=== PATIENT | female | born 1990 | race Caucasian/White ===

== ENCOUNTER 2021-12-25 08:30 | Outpatient (CLI) | payer OTHER, SELFPAY ==
[2021-12-25 09:16] LABS: Basophils Absolute Auto 0.1 K/mm3 (0.0-0.1); Basophils Percent Auto 0.7 % (0.2-1.2); Eosinophils Absolute Auto 0.7 K/mm3 (0-0.3); Eosinophils Percent Auto 10.4 % (0-4.4); Hematocrit 39.2 % (37.0-47.0); Hemoglobin 13.3 g/dL (12.0-15.0); Immature Granulocyte Absolute 0.02 K/mm3 (0.00-0.031); Immature Granulocyte Percent A 0.3 % (0-0.5); Lymphocytes Absolute Auto 2.09 K/mm3 (0.9-3.2); Lymphocytes Percent Auto 30.9 % (18.3-44.2); Mean Corpuscular HGB Conc 33.9 g/dl (32-36); Mean Corpuscular Hemoglobin 32.4 pg (26-34); Mean Corpuscular Volume 95.6 fl (80-100); Mean Platelet Volume 9.1 fl (7.4-10.4); Monocytes Absolute Auto 0.5 K/mm3 (0.1-0.6); Monocytes Percent Auto 7.5 % (2.6-8.5); Neutrophils Absolute Auto 3.4 K/mm3 (1.3-6.7); Neutrophils Percent Auto 50.2 % (45.5-73.1); Platelet Count Result 339 k/mm3 (150-375); Red Cell Distribution Width 11.9 % (11.5-14.5); White Blood Count 6.8 K/mm3 (4.5-10.0)
[2021-12-25 09:22] LABS: Alanine Aminotransferase 26 U/L (4-35); Albumin Level 4.7 g/dL (3.5-5.1); Alkaline Phosphatase 59 U/L (38-126); Anion Gap 7 mmol/L (8-16); Aspartate Amino Transferase 31 U/L (14-36); Bilirubin,Total 0.8 mg/dL (0.2-1.3); Blood Urea Nitrogen 14 mg/dL (7-17); Calcium 9.1 mg/dL (8.4-10.2); Carbon Dioxide 27 mmol/L (22-30); Chloride 104 mmol/L (98-107); Cholesterol 183 mg/dL (0-200); Estimated Glomerular Filt Rate > 60; Glucose 108 mg/dL (65-110); HDL Direct 67 mg/dL; Potassium 4.2 mmol/L (3.4-5.0); Sodium 138 mmol/L (137-145); Triglycerides 61 mg/dL (<150)
[2021-12-25 09:31] LABS: LDL Cholesterol Direct 81 mg/dL
[2021-12-25 09:32] LABS: Add Urine Microscopic? YES; Appearance Urine Cloudy (Clear); Bacteria Urine Trace /hpf; Bilirubin Urine Negative (Negative); Blood Urine 1+ (Negative); Color Urine Yellow (Yellow); Glucose Urine UA Negative (Negative); Ketones Urine Negative (Negative); Leukocyte Esterase Ur Negative LEU/UL (Negative); Mucus Urine Rare /lpf; Nitrate Urine Negative (Negative); Protein Urine Negative (Negative); RBC Urine 0-2 /hpf (0-2); Specific Grav Ur 1.023 (1.001-1.035); Squamous Epithelial Cell Urine Rare /hpf (Few); Urobilinogen Urine Negative mg/dL (<2.0); WBC Urine 0-3 /hpf
[2021-12-25 09:36] LABS: Hemoglobin A1C 4.9 % (<5.7)
[2021-12-25 09:51] LABS: Iron 143 ug/dL (37-170)
[2021-12-25 10:00] LABS: Percent Iron Saturation 41 % (20-50); Vitamin D 25 Hydroxy 63.9 ng/mL
[2021-12-25 10:01] LABS: HIV 1/2 Ab P24 Ag Result Negative (Negative)
[2021-12-25 10:11] LABS: Free T4 Free Thyroxine 1.04 ng/mL (0.78-2.19)
[2021-12-25 10:31] LABS: Folic Acid 16.4 ng/mL (2.76->20)
[2021-12-25 10:56] LABS: Hepatitis B Surface Antigen Negative (Negative)
[2021-12-25 11:01] LABS: HAV RESULT Negative (Negative); Hepatitis B Core IgM Result Negative (Negative)
[2021-12-25 11:13] LABS: Hepatitis C Virus Antibody Negative (Negative)
[2021-12-26 10:47] LABS: Rapid Plasma Reagin Non-Reactive (NonReactive)
[2021-12-29 03:28] LABS: Insulin Level Total 5.8 uIU/mL (<=19.6)
[2021-12-29 06:04] LABS: Triiodothyronine T3 Free 3.6 pg/mL (2.3-4.2)
[2021-12-30 11:36] LABS: Testosterone Free 7.3 pg/mL (0.1-6.4); Testosterone Total 51 ng/dL (2-45)
== END 2021-12-25 08:31 | disposition home or self-care (01) ==
LOC: ANHLAB 08:36
PROVIDERS: PCP Nurse Practitioner Family; Visit Provider Nurse Practitioner Family
DX: Z00.00 Encounter for general adult medical examination without abnormal findings (principal); L65.9 Nonscarring hair loss, unspecified; Z77.21 Contact with and (suspected) exposure to potentially hazardous body fluids; E55.9 Vitamin D deficiency, unspecified; Z13.1 Encounter for screening for diabetes mellitus; Z13.220 Encounter for screening for lipoid disorders; Z13.9 Encounter for screening, unspecified
CPT/HCPCS: 36415; 80053; 80061; 80074; 81001; 82306; 82607; 82728; 82746; 83036; 83525; 83540; 83550; 84402; 84403; 84439; 84443; 84481; 85025; 86592; 86703; G0432

== ENCOUNTER 2022-03-19 08:44 | Outpatient (CLI) | payer OTHER, SELFPAY ==
[2022-03-19 09:28] LABS: Beta HCG Quantitative 152.29 mIU/ML
== END 2022-03-19 08:45 | disposition home or self-care (01) ==
LOC: ANHLAB 08:46
PROVIDERS: PCP Nurse Practitioner Family; Visit Provider Obstetrics & Gynecology
DX: N92.6 Irregular menstruation, unspecified (principal)
CPT/HCPCS: 36415; 84702

== ENCOUNTER 2022-03-21 07:58 | Outpatient (CLI) | payer OTHER, SELFPAY ==
[2022-03-21 09:57] LABS: Beta HCG Quantitative 439.38 mIU/ML
== END 2022-03-21 07:59 | disposition home or self-care (01) ==
LOC: ANHOBOP 08:00
PROVIDERS: PCP Nurse Practitioner Family; Visit Provider Obstetrics & Gynecology
DX: N92.6 Irregular menstruation, unspecified (principal)
CPT/HCPCS: 36415; 84702

== ENCOUNTER 2022-03-31 11:44 | Outpatient (CLI) | payer OTHER, SELFPAY | END 2022-03-31 11:45 | disposition home or self-care (01) | LOC: ANHOBOP 11:47 | PROVIDERS: PCP Nurse Practitioner Family; Visit Provider Obstetrics & Gynecology | DX: N94.89 Other specified conditions associated with female genital organs and menstrual cycle (principal) | CPT/HCPCS: 36415; 84702 ==

== ENCOUNTER 2022-04-08 15:43 | Outpatient (CLI) | payer OTHER, SELFPAY ==
--- NOTE | ~2022-04-08 | US_ITS ---
EXAMINATION: US OB <=14 wk fetus w TV INDICATION: N91.2 - Amenorrhea, unspecified TECHNIQUE: Sonography of the pelvis was performed by transabdominal and transvaginal techniques. COMPARISON: None. RESULT: Uterus: - Orientation: Anteverted - Size: 9.3 x 6 x 4.3 cm - Myometrium: Homogenous, except as noted below. Gestation: - Intrauterine gestational sac: Single present - Embryo: Single present - [place] rump length: 0.9 cm, corresponding gestational age 6 weeks, 6 days. -Gestational heart rate: present 134 bpm -Subgestational hematoma: Present , somewhat triangular appearing hypoechogenicity at the infe rior margin of the gestational sac measuring up to 8 mm. Right ovary: - Size : 3.2 x 1.4 x 1.7 cm - Normal sonographic appearance with physiologic follicles. Vascular flow present. Left ovary: - Size: 3.4 x 2.6 x 2.1 cm - Normal sonographic appearance with physiologic follicles. Simple cyst. Vascular flow present. Pelvis free fluid: None. IMPRESSION: Single, live intrauterine gestation. 8mm inferior subgestational hematoma. Estimated Gestational Age: 6 weeks, 3 days by crown rump length. ASAF by ultrasound 11/26/2022. Estimat ed gestational age by LMP: 6 week 3 days, ASAF by LMP 11/29/2022. Reviewed, dictated and finalized at location [facility]. IMPRESSION: Single, live intrauterine gestation. 8mm inferior subgestational hematoma. Estimated Gestational Age: 6 weeks, 3 days by crown rump length. ASAF by ultras ound 11/26/2022. Estimated gestational age by LMP: 6 week 3 days, ASAF by LMP 2022.
== END 2022-04-08 15:44 | disposition home or self-care (01) ==
LOC: ANHIMG 15:43
PROVIDERS: PCP Nurse Practitioner Family; Visit Provider Obstetrics & Gynecology
DX: N91.2 Amenorrhea, unspecified (principal)
CPT/HCPCS: 76801; 76817

== ENCOUNTER 2022-05-14 12:02 | Outpatient (RCR) | payer OTHER, SELFPAY ==
[2022-04-21 18:26] LABS: Basophils Absolute Auto 0.1 K/mm3 (0.0-0.1); Basophils Percent Auto 0.5 % (0.2-1.2); Eosinophils Absolute Auto 0.9 K/mm3 (0-0.3); Eosinophils Percent Auto 6.4 % (0-4.4); Hematocrit 37.1 % (37.0-47.0); Hemoglobin 12.2 g/dL (12.0-15.0); Immature Granulocyte Absolute 0.05 K/mm3 (0.00-0.031); Immature Granulocyte Percent A 0.4 % (0-0.5); Lymphocytes Absolute Auto 3.36 K/mm3 (0.9-3.2); Lymphocytes Percent Auto 25.1 % (18.3-44.2); Mean Corpuscular HGB Conc 32.9 g/dl (32-36); Mean Corpuscular Hemoglobin 31.7 pg (26-34); Mean Corpuscular Volume 96.4 fl (80-100); Mean Platelet Volume 9.4 fl (7.4-10.4); Monocytes Absolute Auto 0.9 K/mm3 (0.1-0.6); Monocytes Percent Auto 6.4 % (2.6-8.5); Neutrophils Absolute Auto 8.2 K/mm3 (1.3-6.7); Neutrophils Percent Auto 61.2 % (45.5-73.1); Platelet Count Result 308 k/mm3 (150-375); Red Blood Count 3.85 M/mm3 (4.2-5.4); Red Cell Distribution Width 12.2 % (11.5-14.5); White Blood Count 13.4 K/mm3 (4.5-10.0)
[2022-04-21 18:28] LABS: Alanine Aminotransferase 31 U/L (6-35); Albumin Level 4.3 g/dL (3.5-5.1); Alkaline Phosphatase 68 U/L (38-126); Aspartate Amino Transferase 28 U/L (14-36); Bilirubin,Total < 0.1 mg/dL (0.2-1.3)
[2022-04-21 19:09] LABS: HIV 1/2 Ab P24 Ag Result Negative (Negative)
[2022-04-22] MEDS: RHO(D) IMMUNE GLOBULIN 300 MCG/2 ML SYRINGE IM (07:28)
[2022-04-22 07:36] LABS: Rapid Plasma Reagin Non-Reactive (NonReactive)
[2022-05-14 12:49] LABS: Urine Cotinine NEGATIVE
== END 2022-07-20 09:20 | disposition home or self-care (01) ==
LOC: ANHOBOP 12:02
PROVIDERS: PCP Nurse Practitioner Family; Visit Provider Obstetrics & Gynecology
DX: Z11.4 Encounter for screening for human immunodeficiency virus [HIV] (principal); Z29.13 Encounter for prophylactic Rho(D) immune globulin; O36.0190 Maternal care for anti-D [Rh] antibodies, unspecified trimester, not applicable or unspecified; Z3A.00 Weeks of gestation of pregnancy not specified
CPT/HCPCS: 36415; 80076; 80307; 85025; 85461; 86592; 86644; 86703; 86747; 86762; 86787; 87086; 90384; 96372; G0432; J2790

== ENCOUNTER 2022-06-30 16:29 | Outpatient (CLI) | payer OTHER, SELFPAY | END 2022-06-30 16:30 | disposition home or self-care (01) | LOC: ANHLAB 16:31 | PROVIDERS: PCP Nurse Practitioner Family; Visit Provider Obstetrics & Gynecology | DX: N39.0 Urinary tract infection, site not specified (principal) | CPT/HCPCS: 87086 ==

== ENCOUNTER 2022-09-09 08:36 | Outpatient (CLI) | payer OTHER, SELFPAY ==
[2022-09-09 09:46] LABS: Basophils Absolute Auto 0.1 K/mm3 (0.0-0.1); Basophils Percent Auto 0.4 % (0.2-1.2); Eosinophils Absolute Auto 0.7 K/mm3 (0-0.3); Eosinophils Percent Auto 5.9 % (0-4.4); Hematocrit 31.6 % (37.0-47.0); Hemoglobin 10.5 g/dL (12.0-15.0); Immature Granulocyte Absolute 0.09 K/mm3 (0.00-0.031); Immature Granulocyte Percent A 0.8 % (0-0.5); Lymphocytes Absolute Auto 1.95 K/mm3 (0.9-3.2); Lymphocytes Percent Auto 16.6 % (18.3-44.2); Mean Corpuscular HGB Conc 33.2 g/dl (32-36); Mean Corpuscular Hemoglobin 31.5 pg (26-34); Mean Corpuscular Volume 94.9 fl (80-100); Mean Platelet Volume 8.9 fl (7.4-10.4); Monocytes Absolute Auto 0.5 K/mm3 (0.1-0.6); Monocytes Percent Auto 4.5 % (2.6-8.5); Neutrophils Absolute Auto 8.4 K/mm3 (1.3-6.7); Neutrophils Percent Auto 71.8 % (45.5-73.1); Platelet Count Result 324 k/mm3 (150-375); Red Blood Count 3.33 M/mm3 (4.2-5.4); Red Cell Distribution Width 12.9 % (11.5-14.5); White Blood Count 11.7 K/mm3 (4.5-10.0)
[2022-09-09 09:57] LABS: Glucose 1 Hour PP 50gm Dose 165 mg/dL
[2022-09-09 10:38] LABS: HIV 1/2 Ab P24 Ag Result Negative (Negative)
[2022-09-09] MEDS: RHO(D) IMMUNE GLOBULIN 300 MCG/2 ML SYRINGE IM (13:16)
== END 2022-09-09 08:37 | disposition home or self-care (01) ==
LOC: ANHOBOP 08:38
PROVIDERS: PCP Nurse Practitioner Family; Visit Provider Obstetrics & Gynecology
DX: Z34.90 Encounter for supervision of normal pregnancy, unspecified, unspecified trimester (principal); Z3A.00 Weeks of gestation of pregnancy not specified
CPT/HCPCS: 36415; 82947; 85025; 85461; 86703; 86850; 86900; 86901; 90384; 96372; G0432; J2790

== ENCOUNTER 2022-09-23 06:23 | Outpatient (CLI) | payer OTHER, SELFPAY ==
[2022-09-23 07:19] LABS: Glucose Fasting Gestational 95 mg/dL (>/=95)
[2022-09-23 07:37] LABS: Hemoglobin A1C 5.3 % (<5.7)
[2022-09-23 08:13] LABS: Glucose 1 Hour Gest 239 mg/dL (>/=180)
[2022-09-23 09:26] LABS: Glucose 2 Hour Gest 228 mg/dL (>/= 155)
== END 2022-09-23 06:24 | disposition home or self-care (01) ==
LOC: ANHOBOP 06:29
PROVIDERS: PCP Nurse Practitioner Family; Visit Provider Obstetrics & Gynecology
DX: R73.09 Other abnormal glucose (principal)
CPT/HCPCS: 36415; 82951; 82952; 83036

== ENCOUNTER 2022-10-04 17:03 | Outpatient (RCR) | payer OTHER, SELFPAY ==
[2022-10-04 17:25] LABS: Glucose Point of Care 131 mg/dl (65-105)
== END 2022-11-19 07:43 | disposition home or self-care (01) ==
LOC: ANHOBOP 17:03
PROVIDERS: PCP Nurse Practitioner Family; Visit Provider Obstetrics & Gynecology
DX: O24.419 Gestational diabetes mellitus in pregnancy, unspecified control (principal); Z3A.32 32 weeks gestation of pregnancy
CPT/HCPCS: 59025; 82948

== ENCOUNTER 2022-10-06 16:00 | Outpatient (CLI) | payer OTHER, SELFPAY ==
[2022-10-06 16:30] LABS: Alanine Aminotransferase 22 U/L (6-35); Albumin Level 3.6 g/dL (3.5-5.1); Alkaline Phosphatase 111 U/L (38-126); Anion Gap 5 mmol/L (8-16); Aspartate Amino Transferase 24 U/L (14-36); Bilirubin,Total 0.3 mg/dL (0.2-1.3); Blood Urea Nitrogen 16 mg/dL (7-17); Calcium 8.4 mg/dL (8.4-10.2); Carbon Dioxide 24 mmol/L (22-30); Chloride 106 mmol/L (98-107); Estimated Glomerular Filt Rate > 60; Glucose 100 mg/dL (65-110); Potassium 3.7 mmol/L (3.4-5.0); Sodium 135 mmol/L (137-145)
[2022-10-06 17:44] LABS: Hepatitis B Surface Antigen Negative (Negative)
[2022-10-06 18:02] LABS: Hepatitis C Virus Antibody Negative (Negative)
== END 2022-10-06 16:01 | disposition home or self-care (01) ==
PROVIDERS: PCP Nurse Practitioner Family; Visit Provider Obstetrics & Gynecology
DX: Z00.00 Encounter for general adult medical examination without abnormal findings (principal)
CPT/HCPCS: 36415; 80053; 86803; 87340

== ENCOUNTER 2022-10-10 11:04 | Emergency (ER) | payer OTHER, SELFPAY ==
[2022-10-10 11:11] VITALS: BP 114/75; PULSE 106; RESP 16; TEMP 36.9; O2SAT 100
--- NOTE | 2022-10-10 11:19 | ED.URI ---
HPI - URI/Sore Throat General Chief Complaint: Upper Respiratory Infection Stated Complaint: fever, headache,bodyache,coongestion,cough Time Seen by Provider: 10/10/22 11:21 Source: patient and RN notes reviewed Mode of arrival: ambulatory Limitations: no limitations History of Present Illness HPI Narrative: 32-year-old female who is 33 weeks with history of asthma presents with concern for fever, chills body aches, nasal congestion, sore throat that started last night. Reports she has been taking Tylenol. MD elicited complaint: fever, cough and nasal congestion Related Data Home Medications Medication Instructions Recorded Confirmed famotidine 20 mg tablet (Pepcid) 20 mg PO DAILY 05/03/22 10/10/22 aspirin 81 mg tablet,delayed 81 mg PO DAILY 05/31/22 10/10/22 release (Adult Low Dose Aspirin) cholecalciferol (vitamin D3) 25 25 mcg PO DAILY 06/28/22 10/10/22 mcg (1,000 unit) capsule docusate sodium 100 mg capsule 100 mg PO DAILY 09/20/22 10/10/22 (Colace) ferrous sulfate 325 mg (65 mg 325 mg PO DAILY 09/20/22 10/10/22 iron) tablet fluticasone propionate 50 1 spray intranasal DAILY 10/10/22 10/10/22 mcg/actuation nasal spray,suspension Allergies Allergy/AdvReac Type Severity Reaction Status Date / Time Sulfa (Sulfonamide Allergy Severe ulers Verified 10/10/22 11:15 Antibiotics) Penicillins Allergy Mild rash Verified 10/10/22 11:15 Review of Systems Review of Systems: CONSTITUTIONAL: Reports malaise, chills, sweats, fever. EYES: Denies visual changes, redness, or discharge. ENT: Reports rhinorrhea, congestion, and sore throat. CARDIOVASCULAR: Denies chest pain, palpitations, or edema. RESPIRATORY: Reports cough. Denies dyspnea. GASTROINTESTINAL: Denies abdominal pain, nausea, vomiting, diarrhea SKIN: Denies rash or itching. MUSCULOSKELETAL: Denies myalgia. NEUROLOGIC: Denies headache. All systems reviewed & are unremarkable except as noted in HPI and below PMFSH Past Medical History Medical History (Updated 10/10/22 @ 11:46 by Joan Beaulieu NP) Asthma Heartburn Surgical History Surgical History H/O colonoscopy 2014 [place] -hemorrhoids H/O right breast biopsy fibrocystic History of colposcopy benign History of gynecological procedure (02/11/20) mirena iud removal and insertion History of orthopedic surgery kipner procedure on left foot 03/2020 History of orthopedic surgery right ankle mass removed Hx of LASIK 2017 [place] teeth removed 2007 Family History Family History Grandparent Diabetes mellitus paternal grandmother Hypertension paternal grandfather/ maternal grandmother Breast cancer Maternal grandmother Hyperthyroidism paternal grandmother Father Depression Social History Social History Smoking status: Never smoker Alcohol intake: never Substance use: never Substance use type: does not use Additional living arrangements comments: Additional occupation/education comments: Doctor Gender identity (if verbalized by the patient): Female Sexual Orientation (if Verbalized by the Patient): Straight or Heterosexual Comments At time of signature, agree with nursing past medical, surgical, social and family history. There is no relevant family history pertinent to the presenting complaint Exam Narrative: GENERAL: Nontoxic-appearing and in no acute distress. HEAD: Normocephalic EYES: PERRLA, conjunctivae clear ENT: Nares clear, clear discharge. Mucous membranes moist. TM pearly dhillon with dull light reflex bilaterally; no tragal tenderness. Oropharynx not erythematous without lesions. Tonsils not enlarged and without exudate, no drooling, no hoarseness, no trismus, uvula midline. NECK: Supple. No lymphadenopathy CHEST: Clear to auscultatio
== END 2022-10-10 11:49 | disposition home or self-care (01) ==
PROVIDERS: Emergency Provider Nurse Practitioner
DX: O98.513 Other viral diseases complicating pregnancy, third trimester (principal); U07.1 COVID-19; Z3A.33 33 weeks gestation of pregnancy; O99.513 Diseases of the respiratory system complicating pregnancy, third trimester; J45.909 Unspecified asthma, uncomplicated; Z79.82 Long term (current) use of aspirin
CPT/HCPCS: 87426; 87804; 99213; C9803; G0463

== ENCOUNTER 2022-10-28 14:53 | Outpatient (RCR) | payer OTHER, SELFPAY ==
--- NOTE | 2022-11-01 17:43 | PM.IMHP ---
H&P: HPI History of Present Illness Date/Time: 11/01/22 17:43 32-year-old 1 female at 36 weeks presents in early labor. Has been pankaj most of the day, and found to be 3cm in the office this evening. No leaking of fluid or bleeding. care complicated by gestational diabetes though this has been well controlled, actually with episodes of hypoglycemia but no issues regarding hyperglycemia. Also has been breech throughout the and therefore has opted for primary delivery. Chief Complaint: Labor Review of Systems Review of Systems: All systems reviewed & are unremarkable except as noted in HPI and below PMFSH Past Medical History Medical History Asthma Heartburn Surgical History Surgical History H/O colonoscopy 2014 [place] -hemorrhoids H/O right breast biopsy fibrocystic History of colposcopy benign History of gynecological procedure (02/11/20) mirena iud removal and insertion History of orthopedic surgery kipner procedure on left foot 03/2020 History of orthopedic surgery right ankle mass removed Hx of LASIK 2017 [place] teeth removed 2006 Family History Family History Grandparent Diabetes mellitus paternal grandmother Hypertension paternal grandfather/ maternal grandmother Breast cancer Maternal grandmother Hyperthyroidism paternal grandmother Father Depression Social History Social History Smoking status: Never smoker Alcohol intake: never Substance use: never Substance use type: does not use Additional living arrangements comments: Additional occupation/education comments: Doctor Gender identity (if verbalized by the patient): Female Sexual Orientation (if Verbalized by the Patient): Straight or Heterosexual Meds Home Medications and Allergies Home Medications Medication Instructions Recorded Confirmed Type famotidine 20 mg tablet (Pepcid) 20 mg PO DAILY 05/03/22 10/10/22 History fluticasone propionate 110 1 puff inhalation Q12H #12 grams 05/18/22 10/10/22 Rx mcg/actuation HFA aerosol inhaler (Flovent HFA) aspirin 81 mg tablet,delayed 81 mg PO DAILY 05/31/22 10/10/22 History release (Adult Low Dose Aspirin) cholecalciferol (vitamin D3) 25 25 mcg PO DAILY 06/28/22 10/10/22 History mcg (1,000 unit) capsule docusate sodium 100 mg capsule 100 mg PO DAILY 09/20/22 10/10/22 History (Colace) ferrous sulfate 325 mg (65 mg 325 mg PO DAILY 09/20/22 10/10/22 History iron) tablet fluticasone propionate 50 1 spray intranasal DAILY 10/10/22 10/10/22 History mcg/actuation nasal spray,suspension Allergies Allergy/AdvReac Type Severity Reaction Status Date / Time Sulfa (Sulfonamide Allergy Severe ulers Verified 11/01/22 16:57 Antibiotics) Penicillins Allergy Mild rash Verified 11/01/22 16:57 Exam Const: General: cooperative and healthy appearing Resp: Effort & Inspection: normal respiratory effort Auscultation: clear to auscultation bilaterally Cardio: Rate: regular rate Rhythm: regular rhythm GI: Inspection: normal to inspection Auscultation: normal bowel sounds : Speculum Exam - Cervix: Other cervical findings present (/-3) Bimanual exam- vagina & uterus: enlarged ( fundal height 37cm heart tones 140) Assessment and Plan Assessment and plan (1) 36 weeks gestation of : Code(s): Z3A.36 - 36 weeks gestation of Status: Acute (2) Breech presentation: Code(s): O32.1XX0 - Maternal care for breech presentation, not applicable or unspecified Status: Acute Plan 1. Will hydrate intravenously 2. Betamethasone IM x1 3. Monitor, if labor becomes active will proceed with
--- NOTE | 2022-11-01 17:47 | WPDHPUPDATE1 ---
History and Physical Update Update Date/Time: 11/01/22 17:47 History and Physical has been reviewed, including an updated exam of the patient. There are NO changes in the patient's condition. Risks, benefits, and alternatives have been discussed and questions answered. Patient agrees to proceed with procedure.
== END 2023-01-16 10:48 | disposition home or self-care (01) ==
LOC: ANHDMC 14:53
PROVIDERS: Visit Provider Obstetrics & Gynecology
DX: O24.410 Gestational diabetes mellitus in pregnancy, diet controlled (principal); Z3A.36 36 weeks gestation of pregnancy; Z71.89 Other specified counseling
CPT/HCPCS: G0108

== ENCOUNTER 2022-11-01 17:56 | Inpatient (IN) | payer OTHER, SELFPAY ==
[2022-11-01] VITALS (49 sets, daily range): BP systolic 112–139; BP diastolic 55–89; PULSE 55–107; RESP 16; TEMP 36.6; O2SAT 98–100; BMI 32.5
[2022-11-01] MEDS: BETAMETHASONE SOD PHOS/ACETATE 30 MG/5 ML VIAL 12 MG IM (18:41)
[2022-11-01] MEDS: LACTATED RINGERS 1,000 ML 125 ML IV CONT ×3 (18:42→20:30)
[2022-11-01 19:03] LABS: Basophils Percent Auto 0.3 % (0.2-1.2); Eosinophils Absolute Auto 0.3 K/mm3 (0-0.3); Eosinophils Percent Auto 2.6 % (0-4.4); Hemoglobin 10.4 g/dL (12.0-15.0); Immature Granulocyte Absolute 0.09 K/mm3 (0.00-0.031); Immature Granulocyte Percent A 0.7 % (0-0.5); Lymphocytes Absolute Auto 2.59 K/mm3 (0.9-3.2); Mean Corpuscular HGB Conc 33.5 g/dl (32-36); Mean Corpuscular Hemoglobin 30.9 pg (26-34); Mean Platelet Volume 9.6 fl (7.4-10.4); Monocytes Absolute Auto 0.9 K/mm3 (0.1-0.6); Monocytes Percent Auto 7.5 % (2.6-8.5); Neutrophils Absolute Auto 8.4 K/mm3 (1.3-6.7); Neutrophils Percent Auto 67.9 % (45.5-73.1); Platelet Count Result 315 k/mm3 (150-375); Red Blood Count 3.37 M/mm3 (4.2-5.4); Red Cell Distribution Width 13.3 % (11.5-14.5); White Blood Count 12.3 K/mm3 (4.5-10.0)
[2022-11-01] MEDS: ONDANSETRON INJ 4 MG/2 ML VIAL IV PUSH (19:27)
--- NOTE | 2022-11-01 19:32 | WPDANESEPPF ---
Anes - Initial Pre Proc Eval Date/Time: 11/01/22 19:32 Surgeon: Itz Peoples MD Pre Op Diagnosis: Contractions Patient Data Age: 32 Gender: F Height: 1.6 m Weight: 83.5 kg Last Vital Signs Temp 36.6 C 11/01/22 18:16 Pulse 60 11/01/22 19:00 BP 129/78 11/01/22 19:00 Allergies Allergy/AdvReac Type Severity Reaction Status Date / Time Sulfa (Sulfonamide Allergy Severe ulers Verified 11/01/22 16:57 Antibiotics) Penicillins Allergy Mild rash Verified 11/01/22 16:57 Home Medications Medication Instructions Recorded Confirmed Type famotidine 20 mg tablet (Pepcid) 20 mg PO DAILY 05/03/22 11/01/22 History fluticasone propionate 110 1 puff inhalation Q12H #12 grams 05/18/22 11/01/22 Rx mcg/actuation HFA aerosol inhaler (Flovent HFA) aspirin 81 mg tablet,delayed 81 mg PO DAILY 05/31/22 11/01/22 History release (Adult Low Dose Aspirin) cholecalciferol (vitamin D3) 25 25 mcg PO DAILY 06/28/22 11/01/22 History mcg (1,000 unit) capsule docusate sodium 100 mg capsule 100 mg PO DAILY 09/20/22 11/01/22 History (Colace) ferrous sulfate 325 mg (65 mg 325 mg PO DAILY 09/20/22 11/01/22 History iron) tablet fluticasone propionate 50 1 spray intranasal DAILY 10/10/22 11/01/22 History mcg/actuation nasal spray,suspension Laboratory Tests 11/01/22 11/01/22 18:46 18:46 WBC 12.3 K/mm3 H K/mm3 (4.5-10.0) RBC 3.37 M/mm3 L M/mm3 (4.2-5.4) Hgb 10.4 g/dL L g/dL (12.0-15.0) Hct 31.0 % L % (37.0-47.0) MCV 92.0 fl fl (80-100) MCH 30.9 pg pg (26-34) MCHC 33.5 g/dl g/dl (32-36) RDW 13.3 % % (11.5-14.5) Plt Count 315 k/mm3 k/mm3 (150-375) MPV 9.6 fl fl (7.4-10.4) Immature Gran % (Auto) 0.7 % H % (0-0.5) Neut % (Auto) 67.9 % % (45.5-73.1) Lymph % (Auto) 21.0 % % (18.3-44.2) [place] % (Auto) 7.5 % % (2.6-8.5) Eos % (Auto) 2.6 % % (0-4.4) Baso % (Auto) 0.3 % % (0.2-1.2) Lymph # (Auto) 2.59 K/mm3 K/mm3 (0.9-3.2) [place] # (Auto) 0.9 K/mm3 H K/mm3 (0.1-0.6) Eos # (Auto) 0.3 K/mm3 K/mm3 (0-0.3) Baso # (Auto) 0.0 K/mm3 K/mm3 (0.0-0.1) Abs Immat Gran (auto) 0.09 K/mm3 H K/mm3 (0.00-0.031) Absolute Neuts (auto) 8.4 K/mm3 H K/mm3 (1.3-6.7) Absolute Nucleated RBC 0.0 K/mm3 K/mm3 (0.0-0.012) Nucleated RBC % 0.0 % % (0.0-0.2) RPR Pending Patient hx anesthesia problems: none Family hx anesthesia problems: none Results Review: All pre-operative results and documents have been reviewed as part of the pre-operative evaluation. [facility] Past Medical History Medical History Asthma Heartburn Surgical History Surgical History H/O colonoscopy 2014 [place] -hemorrhoids H/O right breast biopsy fibrocystic History of colposcopy benign History of gynecological procedure (02/11/20) mirena iud removal and insertion History of orthopedic surgery kipner procedure on left foot 03/2020 History of orthopedic surgery right ankle mass removed Hx of LASIK 2017 [place] teeth removed 2007 Family History Family History Grandparent Diabetes mellitus paternal grandmother Hypertension paternal grandfather/ maternal grandmother Breast cancer Maternal grandmother Hyperthyroidism paternal grandmother Father Depression Social History Social History Smoking status: Never smoker Second hand tobacco smoke exposure: No Alcohol intake: never Substance use: never Substance use type: does not use Lack of Transportation: No Lack of Food: Never True Current Housing: I Have Housing Concerned About Future Housing: No
[2022-11-01] MEDS: ceFAZolin 2 GM/D5W 50 ML 2 GM/50 ML BAG IVPB (20:05)
--- NOTE | 2022-11-01 21:02 | P.PCNOB_ITS ---
OB - Delivery Note Procedure Procedure: Procedures Operation Date: 11/01/22 20:00 <No data on this case meets the specified criteria> Events: Breech Presentation, Gestational Diabetes and Other ( labor) Delivery monitor: External FHT and External Uterine Route of delivery: Prior to decision for section, ACOG/SMFM labor guidelines were considered and discussed with the patient and staff. Decision made to proceed with the section.: Yes Quantitative Blood Loss (ml): 415 Anesthesia type: Spinal Disposition: Floor Complications: none Narrative: patient prepped draped usual manner for this procedure. Pfannenstiel incision was made and carried down to the fascia which was then extended bilaterally the length the skin incision. Superiorly and inferiorly dissected away from the rectus muscles which were then bluntly dissected. Peritoneum was readily entered bladder flap was developed. Uterus was scored low transverse manner with clear fluid noted. Breech was delivered without difficulty. Cord clamped and cut and baby was passed off to manager of financial in attendance. Uterus removed manually uterus was exteriorized cleared of membranes and clots and closed using 0 Monocryl in a running interlocking manner with good approximation hemostasis noted. Uterus was returned to the abdomen, all subfascial tissue was noted be hemostatic the fascia was approximated using 0 Vicryl from left angle to the midline and the right angle to the midline with good approximation noted. Subcutaneous tissue was rendered hemostatic and approximated using 0 plain suture. Subcuticular layer 4-0 Monocryl was then used to approximate the skin edges. Patient tolerated procedure well immediate postop condition mother was good, baby was in the nursery receiving oxygen. Baby Weeks of gestation at delivery: 36 Infant gender: Male Weight (pounds): 6 Weight (ounces): 2 presentation: breech Placenta delivery description: Manual Removal Cord Vessel Description: 3 Vessels score one minute: 7 score five minutes: 8 AMG Delivery Billing Delivery Delivery: Delivery Charge
[2022-11-01] MEDS: KETOROLAC 30 MG/ML VIAL (*BKC) IV PUSH (21:35)
[2022-11-01] MEDS: OXYTOCIN 30 UNITS/NS 500 ML 30 UNITS/500 ML BAG 125 UNITS IV CONT (22:15)
[2022-11-01] MEDS: MORPHINE SULFATE INJ (*CRX) 10 MG/ML AMP 2 MG IV PUSH (23:06)
[2022-11-02] MEDS: diphenhydrAMINE HCl CAP 25 MG CAPSULE PO (00:28)
[2022-11-02] MEDS: HYDROcodone/acetaminophen (*CRX) 10-325 MG TABLET 1 TAB PO ×6 (01:13→23:00)
[2022-11-02] MEDS: DEXTROSE 5%/0.45% SOD CHL 1,000 ML 125 ML IV CONT (02:15)
[2022-11-02 04:30] VITALS: BP 127/78; PULSE 67; RESP 18; TEMP 35.6; O2SAT 100
[2022-11-02] MEDS: SIMETHICONE 80 MG TAB.CHEW PO ×5 (04:32→20:00)
[2022-11-02] MEDS: KETOROLAC 30 MG/ML VIAL (*BKC) IV PUSH (04:32)
[2022-11-02 05:37] LABS: Basophils Percent Auto 0.1 % (0.2-1.2); Eosinophils Percent Auto 0.1 % (0-4.4); Hematocrit 27.3 % (37.0-47.0); Immature Granulocyte Absolute 0.09 K/mm3 (0.00-0.031); Immature Granulocyte Percent A 0.6 % (0-0.5); Lymphocytes Percent Auto 8.7 % (18.3-44.2); Mean Corpuscular Hemoglobin 31.7 pg (26-34); Mean Corpuscular Volume 96.1 fl (80-100); Mean Platelet Volume 9.9 fl (7.4-10.4); Monocytes Absolute Auto 0.7 K/mm3 (0.1-0.6); Monocytes Percent Auto 4.8 % (2.6-8.5); Neutrophils Absolute Auto 12.8 K/mm3 (1.3-6.7); Neutrophils Percent Auto 85.7 % (45.5-73.1); Platelet Count Result 285 k/mm3 (150-375); Red Blood Count 2.84 M/mm3 (4.2-5.4); Red Cell Distribution Width 13.1 % (11.5-14.5); White Blood Count 14.9 K/mm3 (4.5-10.0)
[2022-11-02 08:20] VITALS: BP 132/82; PULSE 63; RESP 16; TEMP 37.2; O2SAT 100
[2022-11-02] MEDS: POLYSACCHARIDE IRON COMPLEX 150 MG CAPSULE PO (08:30)
[2022-11-02] MEDS: MULTIVIT/MIN/PREN/FOL AC/IRON TABLET 1 TAB PO (08:30)
[2022-11-02] MEDS: DOCUSATE SODIUM 100 MG CAPSULE PO ×2 (08:30→20:00)
[2022-11-02 09:30] VITALS: PULSE 63; RESP 16; O2SAT 100
--- NOTE | 2022-11-02 10:31 | PC.NURSE ---
[id number] Consulted with patient to assess needs related to pumping/. Resources provided for outpatient services. Reviewed collection of colostrum with a spoon and honored any questions the parents might have. Reminded mother to pump 8-12 times in a 24 hour period 1-2 times at night. Encouraged mother to consult with the LC at the [facility]. Mother voiced understanding of information, will call if there is a request for a consult.
[2022-11-02] MEDS: IBUPROFEN 600 MG TABLET PO ×2 (11:30→20:00)
[2022-11-02] MEDS: HYDROcodone/acetaminophen (*CRX) 5-325 MG TABLET 1 TAB PO (11:30)
[2022-11-02 11:54] VITALS: BP 122/76; PULSE 67; RESP 16; TEMP 37.2; O2SAT 100
[2022-11-02 12:38] LABS: Rapid Plasma Reagin Non-Reactive (NonReactive)
--- NOTE | 2022-11-02 13:58 | WPDANLDPN2 ---
Anes-Prog Note L&D Date/Time: 11/02/22 13:58 Neuro status: Neuro function grossly intact. Vital Signs: Last Vital Signs Temp 37.2 C 11/02/22 11:54 Pulse 67 11/02/22 11:54 Resp 16 11/02/22 11:54 BP 122/76 11/02/22 11:54 Pulse Ox 100 11/02/22 11:54 O2 Del Method Room Air 11/02/22 09:30 Pain score (VAS): 2 I/O: Intake & Output 11/01/22 11/02/22 11/02/22 23:59 07:59 15:59 Intake Total 5265 305 8387 Output Total 1265 1075 700 Balance 335 -979 500 Patient feedback: Patient satisfied with anesthetic care.
--- NOTE | 2022-11-02 13:58 | WPDANLDNPN2 ---
Anes-Prog Note L&D-Neuraxial Date/Time: 11/02/22 13:58 Patient feedback: Patient satisfied with post-operative pain management.
[2022-11-02] MEDS: RHO(D) IMMUNE GLOBULIN 300 MCG/2 ML SYRINGE IM (14:33)
--- NOTE | 2022-11-02 15:35 | PC.NURSE ---
1445 Pt left unit on therapeutic pass via wheelchair accompanied by .
--- NOTE | 2022-11-02 19:55 | PC.NURSE ---
1954- Patient arrived back on floor accompanied by .
[2022-11-02 20:00] VITALS: BP 129/76; PULSE 78; RESP 18; TEMP 36.7; O2SAT 100
[2022-11-03] MEDS: IBUPROFEN 600 MG TABLET PO ×2 (02:00→08:30)
[2022-11-03] MEDS: HYDROcodone/acetaminophen (*CRX) 10-325 MG TABLET 1 TAB PO ×3 (02:00→08:29)
[2022-11-03 07:40] VITALS: BP 119/73; PULSE 80; RESP 16; TEMP 37.1; O2SAT 100
--- NOTE | 2022-11-03 07:49 | PM.OBDSVD ---
DS: Admitting Diagnosis Discharge Date 11/03/2022 Admitting Diagnosis OB - DS: Summary OB Procedures : None OB Procedures Intrapartum: OB Procedures: : None Peripartum Data Procedures: Procedures Operation Date: 11/01/22 20:00 Actual Procedure Side Surgeon p Section Itz Peoples MD Time Spent with Patient Time attestation: Total time spent providing and/or coordinating discharge services: DS: Data Data Completed and Pending Pending studies at discharge: Pending at discharge 11/01/22 20:30 Surgical [PTH] Routine Labs on day of discharge: Labs from last 24 hours 11/02/22 11/01/22 04:41 18:46 RPR Non-reactive Blood Type O Negative Antibody Screen TNP Screen Negative Baby's Blood Type O pos Baby's RAJESH Positive Doses of RhIg Required 1 Discharge Plan Discharge Discharging Clinician: Itz Peoples Patient Disposition: Home, Self-Care Activity: as tolerated Diet: as tolerated Wound Care Instructions: incision open to air Patient Instructions: Antibiotic Form Stand Alone Forms: General Discharge Information Follow-up/Referrals: Itz Peoples MD [Physician] - 3 Weeks Discharge Medications: New hydrocodone-acetaminophen 10-325 mg tablet 1 tablet PO Q4H PRN (Reason: pain) Qty: 30 0RF ibuprofen 600 mg Tablet 600 mg PO Q6H PRN (Reason: Cramping) Qty: 30 0RF Continued fluticasone propionate [Flonase] 50 mcg/actuation [place],Suspension 1 spray INTRANASAL DAILY Rx Instructions: administer into each nostril ferrous sulfate 325 mg (65 mg iron) tablet 325 mg PO DAILY fluticasone propionate [Flovent HFA] 110 mcg/actuation HFA aerosol inhaler 1 puff inhalation Q12H Qty: 12 6RF Rx Instructions: administer with spacer Discontinued cholecalciferol (vitamin D3) 25 mcg (1,000 unit) capsule 25 mcg PO DAILY famotidine [Pepcid] 20 mg tablet 20 mg PO DAILY aspirin [Adult Low Dose Aspirin] 81 mg tablet,delayed release (DR/EC) 81 mg PO DAILY docusate sodium [Colace] 100 mg capsule 100 mg PO DAILY Date of admission: 11/01/22 17:56 Primary Care Provider: UNKNOWN,DOCTOR Admitting Provider: Itz Peoples Attending physician on admission: Itz Peoples Condition: Stable
[2022-11-03] MEDS: POLYSACCHARIDE IRON COMPLEX 150 MG CAPSULE PO (08:29)
[2022-11-03] MEDS: DOCUSATE SODIUM 100 MG CAPSULE PO (08:29)
[2022-11-03] MEDS: MULTIVIT/MIN/PREN/FOL AC/IRON TABLET 1 TAB PO (08:29)
[2022-11-03] MEDS: polyethylene glycoL 3350 17 GM POWD.PACK PO (08:37)
--- NOTE | 2022-11-03 09:02 | PC.NURSE ---
Virginia Gonzales RN, has looked over and approved patient's charting that Merritt Wilson, Student [place] has completed.
== END 2022-11-03 10:20 | disposition home or self-care (01) | DRG 788 ==
LOC: ANHOBPP 18:34 → ANHOB2 11-02 01:56
PROVIDERS: Admitting Provider Obstetrics & Gynecology; Visit Provider Obstetrics & Gynecology
PROC: 10D00Z1 Extraction of Products of Conception, Low, Open Approach (ICD-10-PCS; CPT 59514; principal; 2022-11-01 20:00)
DX: O60.14X0 Preterm labor third trimester with preterm delivery third trimester, not applicable or unspecified (principal); Z37.0 Single live birth; Z3A.36 36 weeks gestation of pregnancy; O32.1XX0 Maternal care for breech presentation, not applicable or unspecified; O24.429 Gestational diabetes mellitus in childbirth, unspecified control
CPT/HCPCS: 36415; 85025; 85461; 86592; 86850; 86880; 86900; 86901; 86902; 88307; 90384; A9270; J0131; J0690; J0702; J1885; J2270; J2274; J2405; J2590; J2790; J7120

== ENCOUNTER 2023-04-14 07:32 | Outpatient (CLI) | payer OTHER, SELFPAY ==
[2023-04-14 08:24] LABS: Hematocrit 40.9 % (37.0-47.0); Hemoglobin 13.5 g/dL (12.0-15.0); Mean Corpuscular Hemoglobin 31.4 pg (26-34); Mean Corpuscular Volume 95.1 fl (80-100); Mean Platelet Volume 9.4 fl (7.4-10.4); Platelet Count Result 342 k/mm3 (150-375); Red Cell Distribution Width 11.9 % (11.5-14.5); White Blood Count 7.3 K/mm3 (4.5-10.0)
[2023-04-14 08:39] LABS: Alanine Aminotransferase 35 U/L (6-35); Albumin Level 4.6 g/dL (3.5-5.1); Alkaline Phosphatase 110 U/L (38-126); Anion Gap 4 mmol/L (8-16); Aspartate Amino Transferase 32 U/L (14-36); Bilirubin,Total 0.5 mg/dL (0.2-1.3); Blood Urea Nitrogen 17 mg/dL (7-17); Calcium 9.3 mg/dL (8.4-10.2); Carbon Dioxide 29 mmol/L (22-30); Chloride 106 mmol/L (98-107); Estimated Glomerular Filt Rate > 60; Glucose 90 mg/dL (65-110); Potassium 4.4 mmol/L (3.4-5.0); Sodium 139 mmol/L (137-145)
[2023-04-14 09:10] LABS: Thyroid Stimulating Hormone < 0.015 uIU/mL (0.465-4.680)
[2023-04-14 09:19] LABS: HIV 1/2 Ab P24 Ag Result Negative (Negative)
[2023-04-14 09:27] LABS: Iron 71 ug/dL (37-170)
[2023-04-14 09:37] LABS: Percent Iron Saturation 18 % (20-50)
[2023-04-14 09:46] LABS: Free T4 Free Thyroxine 2.43 ng/mL (0.78-2.19)
[2023-04-14 10:03] LABS: Vitamin D 25 Hydroxy 35.1 ng/mL
[2023-04-14 10:21] LABS: Hepatitis B Surface Antigen Negative (Negative)
[2023-04-14 10:28] LABS: HAV RESULT Negative (Negative); Hepatitis B Core IgM Result Negative (Negative)
[2023-04-14 10:38] LABS: Hemoglobin A1C 5.2 % (<5.7); Hepatitis C Virus Antibody Negative (Negative)
[2023-04-19 06:18] LABS: Triiodothyronine T3 Free 5.2 pg/mL (2.3-4.2)
[2023-04-22 05:20] LABS: Thyroid Peroxidase Antibodies <1 IU/mL (<9)
== END 2023-04-14 07:33 | disposition home or self-care (01) ==
PROVIDERS: PCP Family Medicine; Referring Provider Physician Assistant Medical; Visit Provider Obstetrics & Gynecology
DX: R53.83 Other fatigue (principal); E78.2 Mixed hyperlipidemia; R73.03 Prediabetes; E55.9 Vitamin D deficiency, unspecified; Z78.9 Other specified health status; R79.89 Other specified abnormal findings of blood chemistry
CPT/HCPCS: 36415; 80053; 80074; 82306; 82728; 83036; 83519; 83540; 83550; 84439; 84443; 84445; 84481; 85027; 86376; 86703; G0432

== ENCOUNTER 2023-04-14 15:17 | Outpatient (CLI) | payer OTHER, SELFPAY ==
[2023-04-18 19:40] LABS: Thyrotropin Receptor Antibody <1.00 IU/L (<=2.00)
[2023-04-19 13:49] LABS: Thyroid Stimulating Immunoglob <89 % baseline (<140)
== END 2023-04-14 15:18 | disposition home or self-care (01) ==
LOC: ANHLAB 15:18
PROVIDERS: PCP Family Medicine; Visit Provider Internal Medicine
DX: R94.6 Abnormal results of thyroid function studies (principal)
CPT/HCPCS: 36415; 83519; 84445

== ENCOUNTER 2023-04-17 15:01 | Outpatient (CLI) | payer OTHER, SELFPAY ==
--- NOTE | ~2023-04-17 | US_ITS ---
Thyroid ultrasound. Clinical History: thyroiditis Findings: Real-time sonography of the thyroid gland was performed. The right lobe measures 4.7 x 1.1 x 1.4 cm. The left lobe measures 3.8 x 1.1 x 1.4 cm. The isthmus is 2 mm in AP diameter. Parenchyma is homogeneous. No thyroid nodule evident. Impression: Unremarkable exam. Reviewed, dictated and finalized at location . Impression: Unremarkable exam.
== END 2023-04-17 15:02 | disposition home or self-care (01) ==
PROVIDERS: PCP Family Medicine; Visit Provider Internal Medicine
DX: O90.5 Postpartum thyroiditis (principal); Z3A.00 Weeks of gestation of pregnancy not specified; R94.6 Abnormal results of thyroid function studies; E04.1 Nontoxic single thyroid nodule
CPT/HCPCS: 76536

== ENCOUNTER 2023-06-26 12:18 | Outpatient (CLI) | payer OTHER, SELFPAY ==
[2023-06-26 13:16] LABS: Free T4 Free Thyroxine 0.81 ng/mL (0.78-2.19)
== END 2023-06-26 12:19 | disposition home or self-care (01) ==
LOC: ANHOBOP 12:18
PROVIDERS: PCP Family Medicine; Visit Provider Internal Medicine
DX: O90.5 Postpartum thyroiditis (principal); R94.6 Abnormal results of thyroid function studies
CPT/HCPCS: 36415; 84439; 84443

== ENCOUNTER 2023-11-27 13:06 | Outpatient (CLI) | payer OTHER, SELFPAY ==
[2023-11-27 18:26] LABS: Free T4 Free Thyroxine 0.97 ng/mL (0.78-2.19)
[2023-11-29 11:23] LABS: Total Triiodothyronine (T3) 1.24 NG/ML (0.97-1.69)
== END 2023-11-27 13:07 | disposition home or self-care (01) ==
LOC: ANHLAB 13:08
PROVIDERS: PCP Family Medicine; Visit Provider Physician Assistant
DX: E06.9 Thyroiditis, unspecified (principal)
CPT/HCPCS: 36415; 84439; 84443; 84480

== ENCOUNTER 2024-02-07 11:23 | Emergency (ER) | payer OTHER, SELFPAY ==
--- NOTE | ~2024-02-07 | CT_ITS ---
CT of the Abdomen and Pelvis: Indication: Abdominal pain Technique: 2.5 mm axial scans were obtained through the abdomen and pelvis following intravenous adm inistration of 100 cc of Omnipaque 350. Dose reduction technique was used on this scan by utilizing a utomated exposure control and iterative reconstruction technique. The dose-length product (DLP) was 3 83.22 mGy-cm. Findings: Scans through the lung bases are unremarkable. The liver, spleen, pancreas, gallbladder, adrenals and kidneys are within normal limits. No evidence of aortic aneurysm. No lymphadenopathy. No bowel obstruction or bowel wall thickening. There is no evidence to suggest acute appendicitis. Sm all posterior gastric diverticulum noted. Images through the pelvis were performed. IUD in place. No adnexal mass seen. No ascites. Urinary samira dder unremarkable. Impression: No significant abnormalities seen. Reviewed, dictated and finalized at [facility]. Impression: No significant abnormalities seen.
[2024-02-07 11:31] VITALS: BP 132/86; PULSE 85; RESP 19; TEMP 36.4; O2SAT 100
[2024-02-07 11:47] LABS: Basophils Percent Auto 0.4 % (0.2-1.2); Eosinophils Absolute Auto 0.2 K/mm3 (0-0.3); Eosinophils Percent Auto 3.1 % (0-4.4); Hematocrit 40.1 % (37.0-47.0); Hemoglobin 13.3 g/dL (12.0-15.0); Immature Granulocyte Absolute 0.01 K/mm3 (0.00-0.031); Immature Granulocyte Percent A 0.2 % (0-0.5); Lymphocytes Percent Auto 25.1 % (18.3-44.2); Mean Corpuscular HGB Conc 33.2 g/dl (32-36); Mean Corpuscular Hemoglobin 31.6 pg (26-34); Mean Corpuscular Volume 95.2 fl (80-100); Monocytes Absolute Auto 0.5 K/mm3 (0.1-0.6); Monocytes Percent Auto 10.2 % (2.6-8.5); Neutrophils Absolute Auto 3.2 K/mm3 (1.3-6.7); Platelet Count Result 268 k/mm3 (150-375); Red Blood Count 4.21 M/mm3 (4.2-5.4); Red Cell Distribution Width 11.9 % (11.5-14.5); White Blood Count 5.2 K/mm3 (4.5-10.0)
--- NOTE | 2024-02-07 12:06 | ED.ABDPAIN ---
HPI - Abdominal Pain General Chief Complaint: Abdominal Pain Stated Complaint: abd pain, diarrhea Time Seen by Provider: 02/07/24 11:40 History of Present Illness HPI narrative: 34-year-old female present to the emergency department for evaluation persistent diarrhea with associated nausea vomiting and decreased p.o. intake. Patient was diagnosed with parainfluenza the last week but states that her symptoms have persisted. Patient did have multiple episodes of diarrhea today Related Data Home Medications Medication Instructions Recorded Confirmed levonorgestrel 21 mcg/24 hours (8 1 device intrauterine ONCE 05/16/23 09/29/23 yrs) 52 mg intrauterine device (Mirena) Allergies Allergy/AdvReac Type Severity Reaction Status Date / Time Sulfa (Sulfonamide Allergy Severe ulers Verified 09/29/23 09:58 Antibiotics) nitrofurantoin AdvReac Unknown Possible Verified 09/29/23 09:58 [From Macrobid] fixed drug reaction Review of Systems Review of Systems: All systems reviewed & are unremarkable except as noted in HPI and below PMFSH Past Medical History Medical History Asthma Encounter for insertion of mirena IUD Heartburn Thyroiditis Surgical History Surgical History Delivery by section (11/01/22) primary c/s breech H/O colonoscopy 2014 [place] -hemorrhoids H/O right breast biopsy fibrocystic History of colposcopy benign History of gynecological procedure (02/11/20) mirena iud removal and insertion History of gynecological procedure (12/22/22) mirena iud insertion History of orthopedic surgery kipner procedure on left foot 03/2020 History of orthopedic surgery right ankle mass removed Hx of MARIELA 2017 [place] teeth removed 2006 Family History Family History Grandparent Diabetes mellitus paternal grandmother Hypertension paternal grandfather/ maternal grandmother Breast cancer Maternal grandmother Hyperthyroidism paternal grandmother Father Depression Grandparent AML (acute myeloid leukemia) Social History Social History Smoking status: Never smoker Second hand tobacco smoke exposure: No Alcohol intake: current Alcohol use details: social Substance use: never Substance use type: does not use Lack of Transportation: No Lack of Food: Never True Current Housing: I Have Housing Concerned About Future Housing: No Difficulty Paying Gas/Electric Bills: No Difficulty Paying for Meds: No Currently Unemployed: No Education: Master's Degree or Higher Difficulty w/ Childcare or Family Care: No Living arrangements: other Additional living arrangements comments: 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 EYES: PERRLA/EOMI, conjunctivae clear. NOSE: Normal no drainage NECK: Supple. No adenopathy, no masses. RESPIRATORY: Airway patent, respirations nonlabored. Clear to auscultation bilaterally, no rales, rhonchi, wheezing. CARDIOVASCULAR: Regular rate and rhythm without murmurs rubs or gallops. ABDOMINAL: Right lower quadrant tenderness to palpation MUSCULOSKELETAL: Moves all extremities. Strength/ROM intact, No edema, No calf tenderness. NEURO: Alert. Cranial nerves II through XII intact. Grossly intact SKIN: Warm, dry. Normal Color Course Course Emergency Course: Patient did feel improved with treatment discharge to home. Vital Signs Vital signs
[2024-02-07 12:09] LABS: Appearance Urine Clear (Clear); Bacteria Urine Rare /hpf; Bilirubin Urine Negative (Negative); Blood Urine Trace (Negative); Color Urine Yellow (Yellow); Glucose Urine UA Negative (Negative); Ketones Urine Negative (Negative); Leukocyte Esterase Ur Trace LEU/UL (Negative); Nitrate Urine Negative (Negative); Non Pathogenic Casts 0-2; Protein Urine Negative (Negative); Specific Grav Ur 1.024 (1.001-1.035); Squamous Epithelial Cell Urine None Seen /hpf (Few); Urobilinogen Urine 0.2 mg/dL (<2.0); WBC Urine 0-5 /hpf (0-3)
[2024-02-07] MEDS: SODIUM CHLORIDE 0.9% IV 1,000 ML 999 ML IV CONT ×2 (12:09→14:25)
[2024-02-07] MEDS: HYDROmorphone HCL INJ (*CRX) 1 MG/ML SYR 0.5 MG IV PUSH (12:09)
[2024-02-07] MEDS: METOCLOPRAMIDE HCL INJ 10 MG/2 ML VIAL IV PUSH (12:10)
[2024-02-07] MEDS: PANTOPRAZOLE SODIUM IV 40 MG VIAL IV PUSH (12:10)
[2024-02-07 12:14] LABS: Add Urine Microscopic? YES
[2024-02-07 12:31] LABS: Lactic Acid Reflex 1.2 mmol/L (0.7-2.0)
[2024-02-07 12:55] LABS: Influenza A QL RT-PCR Negative (Negative); Influenza B QL RT-PCR Negative (Negative); RSV RNA, RT-PCR Negative (Negative); SARS-CoV-2 RNA PCR Negative (Negative)
[2024-02-07 13:18] VITALS: BP 111/70; PULSE 95; RESP 15; O2SAT 100
[2024-02-07 13:23] LABS: Alanine Aminotransferase 46 U/L (6-35); Albumin Level 3.9 g/dL (3.5-5.1); Alkaline Phosphatase 57 U/L (38-126); Anion Gap 7 mmol/L (4-12); Aspartate Amino Transferase 41 U/L (14-36); Bilirubin,Total 0.3 mg/dL (0.2-1.3); Blood Urea Nitrogen 7 mg/dL (7-17); Calcium 8.6 mg/dL (8.4-10.2); Carbon Dioxide 22 mmol/L (22-30); Chloride 107 mmol/L (98-107); Estimated CRCL calculation 81 ml/min; Estimated Glomerular Filt Rate > 60; Glucose 113 mg/dL (65-110); Lipase 58 U/L (23-300); Potassium 3.5 mmol/L (3.4-5.0); Sodium 136 mmol/L (137-145)
[2024-02-07 14:20] VITALS: BP 113/66; PULSE 103; RESP 19; O2SAT 99
[2024-02-07 14:48] VITALS: BP 115/63; PULSE 73; RESP 15; O2SAT 98
[2024-02-07 16:00] LABS: Toxigenic C. Diff NEGATIVE (NEGATIVE)
== END 2024-02-07 15:15 | disposition home or self-care (01) ==
PROVIDERS: Emergency Provider Emergency Medicine; PCP Family Medicine
DX: R19.7 Diarrhea, unspecified (principal); R11.2 Nausea with vomiting, unspecified; E86.0 Dehydration; Z20.822 Contact with and (suspected) exposure to COVID-19; J45.909 Unspecified asthma, uncomplicated; E06.9 Thyroiditis, unspecified; Z97.5 Presence of (intrauterine) contraceptive device
CPT/HCPCS: 36415; 74177; 80053; 81001; 81025; 83605; 83690; 85025; 87493; 87637; 96361; 96374; 96375; 99284; C9113; J1170; J2765; J7030; Q9967

== ENCOUNTER 2024-07-06 08:31 | Outpatient (CLI) | payer OTHER, SELFPAY ==
[2024-07-06 09:23] LABS: Basophils Absolute Auto 0.1 K/mm3 (0.0-0.1); Basophils Percent Auto 0.7 % (0.2-1.2); Eosinophils Absolute Auto 0.3 K/mm3 (0-0.3); Eosinophils Percent Auto 3.5 % (0-4.4); Hematocrit 39.7 % (37.0-47.0); Hemoglobin 13.3 g/dL (12.0-15.0); Immature Granulocyte Absolute 0.02 K/mm3 (0.00-0.031); Immature Granulocyte Percent A 0.3 % (0-0.5); Lymphocytes Absolute Auto 2.54 K/mm3 (0.9-3.2); Lymphocytes Percent Auto 35.2 % (18.3-44.2); Mean Corpuscular HGB Conc 33.5 g/dl (32-36); Mean Corpuscular Volume 95.7 fl (80-100); Mean Platelet Volume 9.4 fl (7.4-10.4); Monocytes Absolute Auto 0.4 K/mm3 (0.1-0.6); Monocytes Percent Auto 5.5 % (2.6-8.5); Neutrophils Percent Auto 54.8 % (45.5-73.1); Platelet Count Result 338 k/mm3 (150-375); Red Blood Count 4.15 M/mm3 (4.2-5.4); Red Cell Distribution Width 11.9 % (11.5-14.5); White Blood Count 7.2 K/mm3 (4.5-10.0)
[2024-07-06 10:06] LABS: Iron 95 ug/dL (37-170)
[2024-07-06 10:18] LABS: Percent Iron Saturation 26 % (20-50)
[2024-07-06 10:19] LABS: Alanine Aminotransferase 31 U/L (6-35); Alkaline Phosphatase 67 U/L (38-126); Anion Gap 10 mmol/L (4-12); Aspartate Amino Transferase 30 U/L (14-36); Bilirubin,Total 0.4 mg/dL (0.2-1.3); Blood Urea Nitrogen 15 mg/dL (7-17); Calcium 8.8 mg/dL (8.4-10.2); Carbon Dioxide 27 mmol/L (22-30); Chloride 94 mmol/L (98-107); Cholesterol 145 mg/dL (0-200); Estimated Glomerular Filt Rate > 60; Glucose 93 mg/dL (65-110); HDL Direct 73 mg/dL; Potassium 4.1 mmol/L (3.4-5.0); Sodium 131 mmol/L (137-145); Triglycerides 98 mg/dL (<150)
[2024-07-06 10:24] LABS: Vitamin D 25 Hydroxy 40.6 ng/mL
[2024-07-06 10:31] LABS: LDL Cholesterol Direct 58 mg/dL
[2024-07-06 10:37] LABS: Free T4 Free Thyroxine 0.97 ng/mL (0.78-2.19)
[2024-07-06 10:43] LABS: Hemoglobin A1C 5.3 % (<5.7)
[2024-07-06 10:51] LABS: Total Triiodothyronine (T3) 1.41 NG/ML (0.97-1.69)
== END 2024-07-06 08:32 | disposition home or self-care (01) ==
LOC: ANHLAB 08:32
PROVIDERS: Physician Assistant; PCP Family Medicine; Referring Provider Nurse Practitioner Family; Visit Provider Obstetrics & Gynecology
DX: O26.819 Pregnancy related exhaustion and fatigue, unspecified trimester (principal); E06.9 Thyroiditis, unspecified; E04.1 Nontoxic single thyroid nodule; O26.899 Other specified pregnancy related conditions, unspecified trimester; Z13.220 Encounter for screening for lipoid disorders; Z13.1 Encounter for screening for diabetes mellitus
CPT/HCPCS: 36415; 80053; 80061; 82306; 82728; 83036; 83540; 83550; 84439; 84443; 84480; 85025

== ENCOUNTER 2024-07-10 11:53 | Outpatient (CLI) | payer OTHER, SELFPAY ==
[2024-07-10 12:28] LABS: Alanine Aminotransferase 32 U/L (6-35); Albumin Level 4.5 g/dL (3.5-5.1); Alkaline Phosphatase 67 U/L (38-126); Anion Gap 10 mmol/L (4-12); Aspartate Amino Transferase 30 U/L (14-36); Bilirubin,Total 0.4 mg/dL (0.2-1.3); Blood Urea Nitrogen 15 mg/dL (7-17); Calcium 9.2 mg/dL (8.4-10.2); Carbon Dioxide 26 mmol/L (22-30); Chloride 101 mmol/L (98-107); Estimated Glomerular Filt Rate > 60; Glucose 91 mg/dL (65-110); Potassium 4.2 mmol/L (3.4-5.0); Sodium 137 mmol/L (137-145)
== END 2024-07-10 11:54 | disposition home or self-care (01) ==
LOC: ANHLAB 11:54
PROVIDERS: PCP Family Medicine; Visit Provider Obstetrics & Gynecology
DX: E87.1 Hypo-osmolality and hyponatremia (principal)
CPT/HCPCS: 36415; 80053

== ENCOUNTER 2024-07-12 10:42 | Outpatient (CLI) | payer OTHER, SELFPAY ==
--- NOTE | ~2024-07-12 | MMUS_ITS ---
EXAMINATION: MM diagnostic andie BI w braulio, US breast LT limited HISTORY: Left breast lumps TECHNIQUE: 3-D tomosynthesis images of the breasts were performed and synthetic 2-D images were gener ated. CAD analysis was submitted and interpreted. High resolution limited left breast ultrasound was performed. COMPARISON: None available BREAST PARENCHYMAL COMPOSITION:Dense: The breasts are heterogeneously dense, which may obscure small masses. FINDINGS: MAMMOGRAPHIC FINDINGS: Parenchymal pattern of the breasts is unremarkable. No mass lesion or distortion are identified. No s uspicious microcalcifications. ULTRASOUND: At the 6:30 position left breast, 3 cm from the nipple, there is a 3 mm probable tiny cyst, round, ci rcumscribed, with mild posterior through transmission. No other sonographic lesions seen in the regio ns scanned. IMPRESSION: 3 mm benign-appearing cyst in the left breast, as detailed above. No evidence for malignancy. BI-RADS Category 2: Benign finding(s). Reviewed, dictated and finalized at location M. IMPRESSION: 3 mm benign-appearing cyst in the left breast, as detailed above. No evidence for malignancy. BI-RADS Category 2: Benign finding(s).
== END 2024-07-12 10:43 | disposition home or self-care (01) ==
LOC: ANHIMG 10:44
PROVIDERS: PCP Family Medicine; Visit Provider Obstetrics & Gynecology
DX: N63.25 Unspecified lump in the left breast, overlapping quadrants (principal); Z80.3 Family history of malignant neoplasm of breast
CPT/HCPCS: 76642; 77062; 77066; G0279

== ENCOUNTER 2024-10-07 07:10 | Outpatient (CLI) | payer OTHER, SELFPAY ==
[2024-10-07 08:01] LABS: Beta HCG Quantitative < 2.39 mIU/ML
--- OUTSIDE RECORDS SUMMARY | 2024-10-12 16:55 | XMS_ITS | Encounter Summary ---
Author Organization [facility] Health Address [address] [place] [address] Care Team Providers Care Deposition Operator Name Role Phone Unavailable Primary Care Provider Unavailabl e Reason for Visit * Reason Onset Date Comments MEDICATION REFILL 05/07/2013 Encounter Details Date Type Department Care Team (Late st Contact Info) Description 05/07/[address] [facility] - Family Medicine [address] [place] [phone] Sabiha Og, RESEARCH SUBJECT-[address] [place] [address] MEDICATION REFILL Social History Tobacco Use Types Packs/Day Years Used Date Smoking Tobacco: Never Assessed Sex and Gender Information Value Date Recorded Sex Assigned at Not on file Gender Identity Not on file Sexual Orientation Not on file documented as of this encounter Miscellaneous Notes * Telephone Encounter - Melinda Jalloh - 05/07/2013 11:27 AM CDT Last OV 04/16/12 documented in this encounter Plan of Treatment Not on file documented as of this encounter Visit Diagnoses Not on filedocumented in this encounter
--- OUTSIDE RECORDS SUMMARY | 2024-10-12 16:55 | XMS_ITS | Encounter Summary ---
Author Organization [facility] Health Address [address] [place] [address] Care Team Providers Care Medical Communication Specialist Name Role Phone Unavailable Primary Care Provider Unavailabl e Reason for Visit * Reason Onset Date Comments MEDICATION REFILL 05/10/2013 Encounter Details Date Type Department Care Team (Late st Contact Info) Description 05/10/2013 Refill [facility] - Family Medicine [address] [place] [phone] Sabiha Og, TIMBER HARVESTER OPERATOR-[address] [place] [address] MEDICATION REFILL Social History Tobacco Use Types Packs/Day Years Used Date Smoking Tobacco: Never Assessed Sex and Gender Information Value Date Recorded Sex Assigned at Not on file Gender Identity Not on file Sexual Orientation Not on file documented as of this encounter Miscellaneous Notes * Telephone Encounter - Monica Walls RT(R) - 05/10/2013 8:33 AM CDT Last OV 04/16/12. Can she just get 1 month and will then schedule. Completely out. documented in this encounter Plan of Treatment Not on file documented as of this encounter Visit Diagnoses Not on filedocumented in this encounter
--- OUTSIDE RECORDS SUMMARY | 2024-10-12 16:55 | XMS_ITS | Referral Summary ---
Author Organization [facility] [employer] Address [address] [place] [address] Care Team Providers Care Biology Specimen Technician Name Role Phone Pcp, [facility] Primary Care Provider Unava ilable Source Comments [facility],non-owned Affiliates and Associated Physician Practices is amultiple site organization consisting of ambulatory clinics and hospital sitesin [place], [place], [place] and [place]. This disclosure is being madepursuant to the Care Everywhere program and may not contain all information available regarding this patient. Last updated 18.[facility] Allergies Active Allergy Reactions Criticality Noted Date Comments Nitrous Oxide 05/07/2013 Penicillins 05/07/2013 Sulfa Drugs Other 07/03/2020 No reaction told by parents allergic due to family hx of sulfa allergy Medications * Be aware that medications may not be up to date on this document. Alwaysverify current medications with the patient. Medication Sig Dispensed Refills Start Date End Date Status Mometasone Furoate (NASONEX NA) [place] into the nose as needed. prn Active montelukast (SINGULAIR) 10 MG tablet Take 1 Tab by mouth once daily. 1 daily 30 Tab 0 05/10/2013 Active Fluticasone Propionate, Inhal, (FLOVENT DISKUS IN)Indications:Easy bruising Inhale by mouth. Active cetirizine (ZYRTEC ALLERGY) 10 MG tabletIndications:Easy bruising Take 10 mg by mouth once daily. Active albuterol HFA (PROAIR HFA) 108 (90 BASE) MCG/ACT inhalerIndications:Eas y bruising Inhale 2 Puffs by mouth every 6 hours as needed. Active Active Problems Problem Noted Date Diagnosed Date mild scoliosis 05/07/2013 Asthma 05/07/2013 Immunizations Name Administration Dates Next Due BCG VACCINE PENITENTIARY 1990 DTP 01/21/1995, 1,1990,1990,04/23/19 90 HEP B VACCINE, PED/ADOL 12/05/1995,05/16/1995, MENINGOCOCAL MENINGITIS 01/22/2008 MMR 01/21/1995,06/28/1991 POLIO IPV 01/21/1995,06/28/1991,1990 ,1990 TDAP (7yrs+) 04/14/2009 VARICELLA 02/20/1993 Social History Tobacco Use Types Packs/Day Years Used Date Smoking Tobacco: Never Smokeless Tobacco: Never Alcohol Use Standard Drinks/Week Comments Yes 0 (1 standard drink = 0.6 oz pur e alcohol) Sex and Gender Information Value Date Recorded Sex Assigned at Not on file Gender Identity Not on file Sexual Orientation Not on file Last Filed Vital Signs Vital Sign Reading Time Taken Comments Blood Pressure 110/70 10/15/2014 8:25 AM GRAB DRIVER Pulse 96 10/15/2014 8:25 AM GRAB DRIVER Temperature 36.4 ??C (97.6 ??F) 10/15/2014 8:25 AM CS T Respiratory Rate 18 10/15/2014 8:25 AM GRAB DRIVER Oxygen Saturation 99% 10/15/2014 8:25 AM GRAB DRIVER Inhaled Oxygen Concentration - - Weight 62.1 kg (137 lb) 10/15/2014 8:25 AM GRAB DRIVER Height 160 cm (5' 3 ) 10/15/2014 8:25 AM GRAB DRIVER Body Mass Index 24.27 10/15/2014 8:25 AM GRAB DRIVER Plan of Treatment Not on file Care Teams Biology Specimen Technician Relationship Specialty Start Date End Date Pcp, [facility] PCP - General 01/04/24
--- OUTSIDE RECORDS SUMMARY | 2024-10-12 16:55 | XMS_ITS | Encounter Summary ---
Author Organization [facility] Address [address] [place] [address] Care Team Providers Care Credentialing Specialist Name Role Phone Sabiha Og RESEARCH CENTER DIRECTOR-UNIVERSITY ADMINISTRATIVE ASSISTANT Primary Care Provider Reason for Visit * Reason Comments Skin Lesion FBSE due to family h istory of BCC, concerns of spot behind left ear, top of shoulders and right calf Establish Care new patient Encounter Details Date Type Department Care Team (Late st Contact Info) Description 07/03/2020 11:00 AM CDT Office Visit [facility] [address] [place] [address], [place] [id number] Betzaida Vegas PA [address] [place] [address] [address] [place] [phone] Family history of basal cell carcinoma (Primary Dx); Multiple benign nevi of upper extremity, lower extremity, and trunk; Neoplasm of uncertain behavior of skin Social History Tobacco Use Types Packs/Day Years Used Date Smoking Tobacco: Never Smokeless Tobacco: Never Alcohol Use Standard Drinks/Week Comments Yes 0 (1 standard drink = 0.6 oz pur e alcohol) Sex and Gender Information Value Date Recorded Sex Assigned at Not on file Gender Identity Not on file Sexual Orientation Not on file documented as of this encounter Patient Instructions * Patient Instructions* Betzaida Vegas PA - 07/03/2020 11:20 AM CDT It was a pleasure seeing you today in clinic. We will plan on following up with you in one year . WOUND CARE INSTRUCTIONS 1. If you have a bandage, please leave your bandage on overnight. Starting the next day, cleanse your wound with mild soap and water and gently pat dry. Avoid soaking in bath or dishwater. 2. Apply petroleum jelly to the wound after cleaning the wound and, as needed, throughout the day to keep the area moist and prevent a scab from forming. 3. Cover the wound with a Band-Aid or appropriate dressing. 4. For pain, you may take acetaminophen (extra or regular strength), 2 tablets every four hours as needed for pain. Do not exceed the recommended limit on the directions. Avoid ibuprofen containing products or related products (Motrin, Advil, Aleve, aspirin, etc) unless prescribed by your physician. 5. Avoid any trauma of activity that may open your surgical wound. If you plan to have your stitches removed at [facility], please make an appointment for a nursing visit accordingly. If you have not received your biopsy results in two weeks, contact your physician. Notify your physician if you have: Bleeding that does not stop after 20 minutes of continuous pressure. Yellowish/greenish discharge from the treated area Increasing tenderness or pain Warmth of the area and/or fever over 101 F Red streaks up the arm or leg close to the treated area documented in this encounter Progress Notes * Betzaida Vegas PA - 07/03/2020 11:18 AM CDT Chief Complaint Patient presents with ??? Skin Lesion FBSE due to family history of BCC, concerns of spot behind left ear, top of shoulders and right calf ??? Establish Care new patient HPI: Phoebe Jihan Mcmullen a 30 year old female presents for skin exam. Of note , OBGYN at [facility] Spent several years in [place] Mom with BCC H/o tanning bed use consistently H/o blistering sun mauricio Skin type 2 Concerns: Lesion left post auricular And shoulders Location: Duration: Unknown Symptoms: lesion left post auriclar has gotten larger over past year Previous treatments: None Personal history of skin cancer: family history of bcc (mother) PE: No acute distress. Mood clear/affect appropriate. Alert and oriented. Mucous membranes moist. Sclera anicteric. Full body skin exam was conducted to include the scalp, face, lips/teeth, lids/conjunctiva, ears, neck, chest, abdomen, back, groin/buttock, right and left hands and forearms, right and left leg and feet and was normal with the following exceptions: Irregular brown papule left post auricular >50 Regular brown papules and macules at torso and extremities A/P: Phoebe was seen today for skin lesion and establish care. Diagnoses and all orders for this visit: Family history of basal cell carcinoma I suggested self exams monthly and FBSE once a year Photoprotection Multiple benign nevi of upper extremity, lower extremity, and trunk bx of one worrisome lesion as stated below Neoplasm of uncertain behavior of skin - PROC BIOPSY OF SKIN LESION - Dermatopathology (Specimen Count = 1) Shave Post auricular changing mole RTC in 1 year AAD skin cancer hand out reviewed with patient. Refills may be given up to one year. Sun protection and self exam discussed. ARIADNA Mauricio Associated attestation - Dariusz Awan MD - 07/10/2020 4:47 PM CDT Reviewed. Agree with Betzaida Vegas's ARIADNA assessment and plan. Dariusz Awan MD documented in this encounter Procedure Notes * Betzaida Vegas PA - 07/07/2020 5:01 PM CDTAssociated Order(s): PROC BIOPSY OF SKIN LESION Procedure(s): IL TANGNTL BX SKIN SINGLE LES Pre-Procedure Diagnose(s): Neoplasm of uncertain behavior of skin Risks, benefits and alternatives to shave biopsy were discussed with the patient. Verbal consent was obtained. Location: left post auricular Skin prep: Alcohol Anesthesia: 1% lidocaine with epinephrine Hemostasis: Aluminum chloride Dressing and wound care discussed. Patient agrees to phone call for results and message if not available. Yes documented in this encounter Plan of Treatment Not on file documented as of this encounter Procedures Procedure Name Priority Date/Time Associated Diagnosis Comments IL TANGNTL BX SKIN SINGLE LES Routine 07/07/2020 5:01 PM CDT Neoplasm of uncertain behavior of skin DERMATOPATHOLOGY Routine 07/03/2020 12:0 0 AM CDT Neoplasm of uncertain behavior of skin documented in this encounter Results * IL TANGNTL BX SKIN SINGLE LES (07/07/2020 5:01 PM CDT) Narrative Betzaida Vegas PA - 07/07/2020 5:01 PM CDT Betzaida Vegas PA ? 07/10/2020 ??4:47 PM Risks, benefits and alternatives to shave biopsy were discussed with the patient. Verbal consent was obtained. Location: left post auricular Skin prep: Alcohol Anesthesia: 1% lidocaine with epinephrine Hemostasis: Aluminum chloride Dressing and wound care discussed. Patient agrees to phone call for results and message if not available. Yes Betzaida ROSENTHAL PROCEDURE/MINOR SURG ICAL ORDERABLES * Dermatopathology (Specimen Count = 1) (07/03/2020 12:00 AM CDT) Case Report Dermatopathology Report ? Case: [id number] ? Authorizing Provider: ??Betzaida Vegas PA ?Collected: ? 07/03/2020 12:00 AM ? Ordering Location: ? [facility] ?Received: ?07/06/2020 07:54 AM ? Dermatology ? Pathologist: ? Dariusz Awan MD ? Specimen: ?Skin, left post auricular ? 0 1:01 PM CDT DERMATOPATHOLOGY LABORATORY Final Diagnosis Specimen A. 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 0 1:01 PM CDT DERMATOPATHOLOGY LABORATORY Gross Description Specimen A: Received is one formalin filled container labeled with the patient's name and designated left post auricular. The specimen consists of a shave biopsy measuring [id number]. Jar 0. 0 1:01 PM CDT DERMATOPATHOLOGY LABORATORY Microscopic Description Specimen A. SKIN, left post auricular: There are nests of melanocytes at the dermal-epidermal junction and within the dermis. Some melanocytes are splayed between collagen bundles and are localized around adnexal structures. 0 1:01 PM CDT DERMATOPATHOLOGY LABORATORY Disclaimer An external and internal positive and negative controls are appropriate for the histochemical, immunohistochemical and immunofluorescence stain(s) in this case (if any), except where stated explicitly. The performance characteristics of the stain(s) cited in this report were developed and its performance characteristic determined by the Dermatopathology Laboratory at [facility], directed by Dr. Praveen Awan. These tests need not be, and therefore are not, approved by the [place] Food and Drug Administration. The tests are used for clinical purposes. Billing Codes Specimen Charges Stain Charges 65717 1 0 1:01 PM CDT DERMATOPATHOLOGY LABORATORY Embedded Images 0 1:01 PM CDT DERMATOPATHOLOGY LABORATORY Pathology/Cytolog y TISSUE SPECIMEN FROM SKIN / Unknown 07/03/2020 07/06/2020 7:54 AM CDT Betzaida [facility] LAB - PATHOLOGY/CYTO LOGY ORDERABLES DERMATOPATHOLOGY LABORATORY [facility] - Department of Dermatology [address], [address] [phone] documented in this encounter Visit Diagnoses Diagnosis Family history of basal cell carcinoma- Primary Family history of other specified malignant neoplasm Multiple benign nevi of upper extremity, lower extremity, and trunk Neoplasm of uncertain behavior of skin documented in this encounter Care Teams Credentialing Specialist Relationship Specialty Start Date End Date Sabiha Og, SHASHI-UNIVERSITY ADMINISTRATIVE ASSISTANT PCP - General Family Medicine 10/15/14 01/03/24 documented as of this encounter
--- OUTSIDE RECORDS SUMMARY | 2024-10-12 16:55 | XMS_ITS | Encounter Summary ---
Author Organization [facility] Address [address] [place] [address] Care Team Providers Care Flight Radio Officer Name Role Phone [facility]ha [facility] Primary Care Provider Reason for Visit * Reason Comments Fatigue and bruising easily, x 2 months Encounter Details Date Type Department Care Team (Late st Contact Info) Description 10/15/2014 8:15 AM TIRE SHOP MANAGER Office Visit [facility] - Family Medicine [address] [place] [address] Sabiha Og, [address] [place] [address] Easy bruising (Primary Dx); Abnormal RBC indices Social History Tobacco Use Types Packs/Day Years Used Date Smoking Tobacco: Never Alcohol Use Standard Drinks/Week Comments Yes 0 (1 standard drink = 0.6 oz pur e alcohol) Sex and Gender Information Value Date Recorded Sex Assigned at Not on file Gender Identity Not on file Sexual Orientation Not on file documented as of this encounter Last Filed Vital Signs Vital Sign Reading Time Taken Comments Blood Pressure 110/70 10/15/2014 8:25 AM TIRE SHOP MANAGER Pulse 96 10/15/2014 8:25 AM TIRE SHOP MANAGER Temperature 36.4 ??C (97.6 ??F) 10/15/2014 8:25 AM CS T Respiratory Rate 18 10/15/2014 8:25 AM TIRE SHOP MANAGER Oxygen Saturation 99% 10/15/2014 8:25 AM TIRE SHOP MANAGER Inhaled Oxygen Concentration - - Weight 62.1 kg (137 lb) 10/15/2014 8:25 AM TIRE SHOP MANAGER Height 160 cm (5' 3 ) 10/15/2014 8:25 AM TIRE SHOP MANAGER Body Mass Index 24.27 10/15/2014 8:25 AM TIRE SHOP MANAGER documented in this encounter Progress Notes * Monica Walls, RT(R) - 10/27/2014 4:33 PM CSTQuick Note: Pt aware SHOP MANAGER * Monica Walls RT(R) - 10/27/2014 4:31 PM CSTQuick Note: Lm to call back. SHOP MANAGER * Jazlyn Herrera LPN - 10/21/2014 8:13 AM CSTQuick Note: Lm for pt to contact us SHOP MANAGER Sabiha Courtney APRNALYSE - 10/21/2014 8:00 AM CSTQuick Note: b12 and folate are anl SHOP MANAGER * Jazlyn Herrera LPN - 10/20/2014 4:52 PM CSTQuick Note: Pt notified SHOP MANAGER Jazlyn Post LPN - 10/20/2014 3:32 PM CSTQuick Note: Lm for pt to contact us SHOP MANAGER Sabiha Courtney APRN-CNP - 10/16/2014 7:21 AM CSTQuick Note: Will check b12 and folate, otherwise labs look ok SHOP MANAGER * Sabiha Og APRN-CNP - 10/15/2014 8:48 AM CST HISTORY: CC & HPI: Phoebe Mcmullen is a 24 y.o. female patient, here for: Chief Complaint Patient presents with ??? Fatigue and bruising easily, x 2 months Here today with complaint of easy bruising with minimal to no trauma x about 2 months, states she has had some petechiae. 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 Patient Active Problem List Diagnosis ??? mild scoliosis ??? Asthma Outpatient Prescriptions Prior to Visit Medication Sig Dispense Refill ??? montelukast (SINGULAIR) 10 MG tablet Take 1 Tab by mouth once daily. 1 daily 30 Tab 0 ??? Mometasone Furoate (NASONEX NA) [place] into the nose as needed. prn No facility-administered medications prior to visit. Review of Systems ROS: General negative: NEGATIVE for;Fever;Other (occasionally has night sweats x about 3 years, not concerning in past) Cardiovascular negative: NEGATIVE for;Palpitations positive: POSITIVE for (has mirena, does not have periods) PFSH, other pertinent history: Allergies Allergen Reactions ??? Pcn [Penicillins] ??? Nitrous Oxide Social History Smoking Status: Never Smoker Smokeless Status: Not on file Alcohol Use: Yes Drug Use: Not on file Sexual Activity: Not on file EXAM BP: 110/70 Pulse: 96 Temp(Src): 97.6 ??F Resp: 18 Wt: 62.143 kg (137 lb) BMI: 24.27 kg/m2 SpO2: 99% FiO2: General appearance: well-nourished no apparent distress Neck: no asymmetry, masses, or scars supple without significant adenopathy trachea midline thyroid within normal limits Lymphatic: Neck: normal Other site bilateral brachial areas without palpable nodes : normal and Skin: faint ecchymosis noted forearm, no petechiae at this time Office Visit on 10/15/14 PT WHOLE BLOOD - POINT OF CARE (AMB) [facility] Result Value Range INR POCT 0.9 0.9 - 1.2 PT POCT 8.8 QC1 11.0 QC2 20.7 ASSESSMENT: ICD-9-CM 1. Easy bruising 782.9 Fluticasone Propionate, Inhal, (FLOVENT DISKUS IN) cetirizine (ZYRTEC ALLERGY) 10 MG tablet albuterol HFA (PROAIR HFA) 108 (90 BASE) MCG/ACT inhaler CBC W AUTO DIFFERENTIAL OR COLLECTION VENOUS BLOOD,VENIPUNCTURE PT WHOLE BLOOD - POINT OF CARE (AMB) [facility] TSH COMPREHENSIVE METABOLIC PANEL CBC W AUTO DIFFERENTIAL TSH COMPREHENSIVE METABOLIC PANEL PLAN: Orders Placed This Encounter ??? CBC W AUTO DIFFERENTIAL Standing Status: Future Number of Occurrences: 1 Standing Expiration Date: 12/14/2014 ??? TSH Standing Status: Future Number of Occurrences: 1 Standing Expiration Date: 12/14/2014 ??? COMPREHENSIVE METABOLIC PANEL Standing Status: Future Number of Occurrences: 1 Standing Expiration Date: 12/14/2014 ??? PT WHOLE BLOOD - POINT OF CARE (AMB) [facility] ??? OR COLLECTION VENOUS BLOOD,VENIPUNCTURE There are no discontinued medications. Current Outpatient Prescriptions Medication Sig Dispense Refill ??? Fluticasone Propionate, Inhal, (FLOVENT DISKUS IN) Inhale by mouth. ??? cetirizine (ZYRTEC ALLERGY) 10 MG tablet Take 10 mg by mouth once daily. ??? albuterol HFA (PROAIR HFA) 108 (90 BASE) MCG/ACT inhaler Inhale 2 Puffs by mouth every 6 hours as needed. ??? montelukast (SINGULAIR) 10 MG tablet Take 1 Tab by mouth once daily. 1 daily 30 Tab 0 ??? Mometasone Furoate (NASONEX NA) [place] into the nose as needed. prn No current facility-administered medications for this visit. MALIA Hinkle SHOP MANAGER documented in this encounter Plan of Treatment Not on file documented as of this encounter Procedures Procedure Name Priority Date/Time Associated Diagnosis Comments CBC W AUTO DIFFERENTIAL Routine 10/15/2014 9:02 AM TIRE SHOP MANAGER Easy bruising COMPREHENSIVE METABOLIC PANEL Routine 10/15/2014 9:02 AM TIRE SHOP MANAGER Easy bruising FOLATE Routine 10/15/2014 9:02 AM TIRE SHOP MANAGER Abnormal RBC indices VITAMIN B12 Routine 10/15/2014 9:02 AM TIRE SHOP MANAGER Abnormal RBC indices TSH Routine 10/15/2014 9:02 AM TIRE SHOP MANAGER Easy bruising PT WHOLE BLOOD - POINT OF CARE (AMB) [facility] Routine 10/15/2014 8:57 AM TIRE SHOP MANAGER Easy bruising documented in this encounter Results * FOLATE (10/15/2014 9:02 AM TIRE SHOP MANAGER) Folate 18.9 3.1 - 20.5 ng/mL 10/20/2014 10:47 PM TIRE SHOP MANAGER [facility] Blood BLOOD SPECIMEN / Unknown 10/15/2014 9:02 AM TIRE SHOP MANAGER 10/20/2014 8:25 AM TIRE SHOP MANAGER Sabiha Og SENIOR LIVING ADVISOR-[facility] - CHEMISTR Y ORDERABLES [facility] [address] [phone] * VITAMIN B12 (10/15/2014 9:02 AM TIRE SHOP MANAGER) Vitamin B12 381 213 - 816 pg/mL 10/20/2014 10:47 PM TIRE SHOP MANAGER [facility] Blood BLOOD SPECIMEN / Unknown 10/15/2014 9:02 AM TIRE SHOP MANAGER 10/20/2014 8:25 AM TIRE SHOP MANAGER Sabiha Og SENIOR LIVING ADVISOR-[facility] - CHEMISTR Y ORDERABLES Performing Organization Address City/[facility]/ZIP Co de Phone Number [facility] [address] [phone] * (ABNORMAL) COMPREHENSIVE METABOLIC PANEL (10/15/2014 9:02 AM TIRE SHOP MANAGER) Sodium 141 136 - 145 mmol/L 10/15/2014 9:58 PM TIRE SHOP MANAGER [facility] Potassium 4.3 3.5 - 5.1 mmol/L 10/15/2014 9:58 PM TIRE SHOP MANAGER [facility] Chloride 106 98 - 107 mmol/L 10/15/2014 9:58 PM [facility] CO2 28 22 - 29 mmol/L 10/15/2014 9:58 PM [facility] Anion Gap 7(L) 9 - 16 mmol/L 10/15/2014 9:58 PM [facility] BUN 9(L) 9.8 - 20.1 mg/dL 10/15/2014 9:58 PM [facility] Creatinine 0.77 0.57 - 1.11 mg/dL 10/15/2014 9:58 PM [facility] BUN/Creatinine Ratio 11.7(L) 17.2 - 18.1 10/15/2014 9:58 PM [facility] Calcium 9.2 8.4 - 10.2 mg/dL 10/15/2014 9:58 PM [facility] Protein Total 7.0 6.4 - 8.3 gm/dL 10/15/2014 9:58 PM [facility] Albumin 4.3 3.5 - 5.0 gm/dL 10/15/2014 9:58 PM [facility] ALT 23 0 - 55 U/L 10/15/2014 9:58 PM [facility] AST 26 5 - 34 U/L 10/15/2014 9:58 PM [facility] Alkaline Phosphatase 55 40 - 150 U/L 10/15/2014 9:58 PM [facility] Bilirubin Total 0.4 0.2 - 1.2 mg/dL 10/15/2014 9:58 PM [facility] Globulin Total 2.7(L) 2.9 - 3.3 gm/dL 10/15/2014 9:58 PM [facility] Albumin/Globulin Ratio 1.6(H) 1.2 - 1.5 10/15/2014 9:58 PM [facility] Osmolality Calculated 270 260 - 284 mOsm/kg 10/15/2014 9:58 PM [facility] eGFR by MDRD >60 >60 mL/min/1.7 3m2 10/15/2014 9:58 PM [facility] eGFR by MDRD >60 >60 mL/min/1.7 3m2 10/15/2014 9:58 PM [facility] Glucose 85 70 - 105 mg/dL 10/15/2014 9:58 PM [facility] Blood BLOOD SPECIMEN / Unknown 10/15/2014 9:02 AM TIRE SHOP MANAGER 10/15/2014 9:02 AM TIRE SHOP MANAGER Narrative [facility] - 10/15/2014 9:58 PM TIRE SHOP MANAGER ADA Comment: The [place] [employer] recommends a fasting glucose concentration of 99 mg/dL as the upper limit of normal. ADA Comment: The [place] [employer] recommends a fasting glucose concentration of 99 mg/dL as the upper limit of normal. Note:GFR Reference Ranges have been established for adults between the ages of 18 and 70. STAGES OF CHRONIC KIDNEY DISEASE Stage Description ? GFR 1. ??Kidney damage with normal or increased GFR ??> or =90 2. ??Kidney damage with mildly decreased GFR ?60-89 3. ??Moderately decreased GFR ? 30-59 4. ??Severely decreased GFR ? 15-29 5. ??Kidney Failure ?<15 Sabiha Dariusz Earle SENIOR LIVING ADVISOR-[facility] - CHEMISTR Y ORDERABLES Performing Organization Address [facility] de Phone Number [facility] [address] [phone] * TSH (10/15/2014 9:02 AM TIRE SHOP MANAGER) TSH 1.38 0.35 - 4.94 uIU/mL 10/15/2014 10:17 PM TIRE SHOP MANAGER [facility] Blood BLOOD SPECIMEN / Unknown 10/15/2014 9:02 AM TIRE SHOP MANAGER 10/15/2014 9:02 AM TIRE SHOP MANAGER Sabiha Dariusz Earle SENIOR LIVING ADVISOR-[facility] - CHEMISTR Y ORDERABLES Performing Organization Address [facility] de Phone Number [facility] [address] [place], [place] [address] [phone] * (ABNORMAL) CBC W AUTO DIFFERENTIAL (10/15/2014 9:02 AM TIRE SHOP MANAGER) [facility] Signature WBC 7.7 4.0 - 10.5 x10^9/L 10/15/2014 9:40 PM TIRE SHOP MANAGER [facility] RBC 3.94(L) 4.20 - 5.40 x10^12/L 10/15/2014 9:40 PM TIRE SHOP MANAGER [facility] Hemoglobin 12.7 12.5 - 16.0 gm/dL 10/15/2014 9:40 PM TIRE SHOP MANAGER [facility] Hematocrit 38.7 37.0 - 47.0 % 10/15/2014 9:40 PM TIRE SHOP MANAGER [facility] MCV 98.2 78.0 - 100.0 fl 10/15/2014 9:40 PM TIRE SHOP MANAGER [facility] MCH 32.2(H) 27.0 - 31.0 pg 10/15/2014 9:40 PM TIRE SHOP MANAGER [facility] MCHC 32.8 32.0 - 36.0 gm/dL 10/15/2014 9:40 PM TIRE SHOP MANAGER [facility] RDW 12.0 11.5 - 14.0 % 10/15/2014 9:40 PM TIRE SHOP MANAGER [facility] MPV 10.4(H) 6.0 - 9.5 fl 10/15/2014 9:40 PM TIRE SHOP MANAGER [facility] Platelet Count 311 150 - 450 x10^9/L 10/15/2014 9:40 PM TIRE SHOP MANAGER [facility] Neutrophils % 56.0 % 10/15/2014 9:40 PM TIRE SHOP MANAGER [facility] Lymphocytes % 30.0 % 10/15/2014 9:40 PM TIRE SHOP MANAGER [facility] Monocytes % 7.5 % 10/15/2014 9:40 PM TIRE SHOP MANAGER [facility] Eosinophils % 5.6 % 10/15/2014 9:40 PM TIRE SHOP MANAGER [facility] Basophils % 0.6 % 10/15/2014 9:40 PM TIRE SHOP MANAGER [facility] Neutrophil Absolute 4.34 1.5 - 6.6 x10^9/L 10/15/2014 9:40 PM TIRE SHOP MANAGER [facility] Lymphocytes Absolute 2.32 1.5 - 3.5 x10^9/L 10/15/2014 9:40 PM TIRE SHOP MANAGER [facility] Monocytes Absolute 0.58 0 - 1 x10^9/L 10/15/2014 9:40 PM TIRE SHOP MANAGER [facility] Eosinophils Absolute 0.43 0 - 0.7 x10^9/L 10/15/2014 9:40 PM TIRE SHOP MANAGER [facility] Basophils Absolute 0.05 0 - 0.1 x10^9/L 10/15/2014 9:40 PM TIRE SHOP MANAGER [facility] nRBC Absolute 0.00 x10^9/L 10/15/2014 9:40 PM TIRE SHOP MANAGER [facility] nRBC Auto 0.0 % 10/15/2014 9:40 PM TIRE SHOP MANAGER [facility] Immature Granulocytes 0.3 % 10/15/2014 9:40 PM TIRE SHOP MANAGER [facility] Immature Granulocytes Absolute 0.02 x10^9/L 10/15/2014 9:40 PM TIRE SHOP MANAGER [facility] Blood BLOOD SPECIMEN / Unknown 10/15/2014 9:02 AM TIRE SHOP MANAGER 10/15/2014 9:02 AM TIRE SHOP MANAGER Sabiha FIN[facility] - HEMATOLO GY ORDERABLES Performing Organization Address City/State/[facility] [[email or web address]] Co de Phone Number [facility] [address] [phone] * PT WHOLE BLOOD - POINT OF CARE (AMB) [facility] (10/15/2014 8:57 AM TIRE SHOP MANAGER) INR POCT 0.9 0.9 - 1.2 PT POCT 8.8 Seconds QC1 11.0 QC2 20.7 Whole blood specimen (specimen) BLOOD SPECIMEN / Unknown 10/15/2014 8:57 AM TIRE SHOP MANAGER Sabiha [facility] - POINT OF CARE ORDERABLES documented in this encounter Visit Diagnoses Diagnosis Easy bruising- Primary Other symptoms involving skin and integumentary tissues Abnormal RBC indices Other abnormality of red blood cells documented in this encounter Care Teams Flight Radio Officer Relationship Specialty Start Date End Date Sabiha Og APRN-CNP PCP - General Family Medicine 10/15/14 01/03/24 documented as of this encounter
--- OUTSIDE RECORDS SUMMARY | 2024-10-12 16:55 | XMS_ITS | Clinical Summary ---
Author Organization [facility] Address [address] [place] [address] Care Team Providers Care Continuous Linter Drier Operator Name Role Phone Pcp, [facility] Primary Care Provider Unava ilable Source Comments [facility],non-owned Affiliates and Associated Physician Practices is amultiple site organization consisting of ambulatory clinics and hospital sitesin [place], [place], [place] and [place]. This disclosure is being madepursuant to the Care Everywhere program and may not contain all information available regarding this patient. Last updated 18.[facility] Allergies Active Allergy Reactions Criticality Noted Date [...] End Date Status Mometasone Furoate (NASONEX NA) [place] into the nose as needed. prn Active [...] Name Administration Dates Next Due BCG VACCINE HALFWAY 1990 DTP 01/21/1995, 1,1990,1990,04/23/19 90 HEP B VACCINE, PED/ADOL 12/05/1995,05/16/1995, MENINGOCOCAL MENINGITIS 01/22/2008 MMR 01/21/1995,06/28/1991 POLIO IPV 01/21/1995,06/28/1991,1990 ,1990 TDAP (7yrs+) 04/14/2009 VARICELLA 02/20/1993 Family History Medical History Relation Name Comments Cancer - Skin, Non Melanoma Mother Eczema Sister Relation Name Status Comments Father Alive Mother Alive Sister Alive Social History Tobacco Use Types Packs/Day Years [...] Comments Blood Pressure 110/70 10/15/2014 8:25 AM COMMERCIAL REAL ESTATE LENDER Pulse 96 10/15/2014 8:25 AM COMMERCIAL REAL ESTATE LENDER Temperature 36.4 ??C (97.6 ??F) 10/15/2014 8:25 AM CS T Respiratory Rate 18 10/15/2014 8:25 AM COMMERCIAL REAL ESTATE LENDER Oxygen Saturation 99% 10/15/2014 8:25 AM COMMERCIAL REAL ESTATE LENDER Inhaled Oxygen Concentration - - Weight 62.1 kg (137 lb) 10/15/2014 8:25 AM COMMERCIAL REAL ESTATE LENDER Height 160 cm (5' 3 ) 10/15/2014 8:25 AM COMMERCIAL REAL ESTATE LENDER Body Mass Index 24.27 10/15/2014 8:25 AM COMMERCIAL REAL ESTATE LENDER Plan of Treatment Health Maintenance Due Date Last Done Comments PNEUMOCOCCAL VACCINE (1 of 2 - PCV) 02/08/1996 HIV SCREENING 2005 HEPATITIS C SCREENING 02/03/2008 PAP SMEAR 10/17/2016 10/17/2013 DTAP/TDAP/TD VACCINES (7 - Td or Tdap) 04/14/2019 04/14/2009, 01/21/1995, 06/28/1991, Additional history exists DEPRESSION SCREENING 10/23/2023 COVID-19 VACCINE (2023- season) 2024 INFLUENZA VACCINE (#1) 2024 ZOSTER VACCINE (1 of 2) 02/08/2040 HEPATITIS B VACCINE Completed 12/05/1995, 05/16/1995, 04/13/1995 MENINGOCOCCAL VACCINE Completed 01/22/2008 HIB VACCINE Aged Out No longer eligi ble based on patient's age to complete this topic HPV VACCINE Aged Out No longer eligi ble based on patient's age to complete this topic Care Teams Continuous Linter Drier Operator Relationship Specialty Start Date End Date Pcp, [facility] PCP - General 01/04/24
--- OUTSIDE RECORDS SUMMARY | 2024-10-12 16:55 | XMS_ITS | Patient Health Summary ---
Author Organization [facility] Address [address] [place] [address] Care Team Providers Care Work Order Detailer Name Role Phone Pcp, [facility] Primary Care Provider Unava ilable Note from [facility] [place] [facility] [place]non-owned Affiliates and Associated Physician Practices is amultiple site organization consisting of ambulatory clinics and hospital sitesin [place], [place], [place] and [place]. This disclosure is being madepursuant to the Care Everywhere program and may not contain all information available regarding this patient. Last updated 18.[facility] Allergies * Nitrous Oxide * Penicillins * Sulfa Drugs(Other) Medications * Be aware that medications may not be up to date on this document. Alwaysverify current medications with the patient. * Mometasone Furoate (NASONEX NA) [place] into the nose as needed. prn * montelukast (SINGULAIR) 10 MG tablet(Started 05/10/2013) Take 1 Tab by mouth once daily. 1 daily * Fluticasone Propionate, Inhal, (FLOVENT DISKUS IN) Inhale by mouth. * cetirizine (ZYRTEC ALLERGY) 10 MG tablet Take 10 mg by mouth once daily. * albuterol HFA (PROAIR HFA) 108 (90 BASE) MCG/ACT inhaler Inhale 2 Puffs by mouth every 6 hours as needed. Active Problems Problem Noted Date Diagnosed Date mild scoliosis 05/07/2013 Asthma 05/07/2013 Immunizations * BCG VACCINE RESIDENTIAL(Given 1990) * DTP(Given 01/21/1995, 06/28/1991, 1990, 1990, 1990) * HEP B VACCINE, PED/ADOL(Given 12/05/1995, 05/16/1995, 04/13/1995) * MENINGOCOCAL MENINGITIS(Given 01/22/2008) * MMR(Given 01/21/1995, 06/28/1991) * POLIO IPV(Given 01/21/1995, 06/28/1991, 1990, 1990) * TDAP (7yrs+)(Given 04/14/2009) * VARICELLA(Given 02/20/1993) Social History Tobacco Use Types Packs/Day Years [...] Comments Blood Pressure 110/70 10/15/2014 8:25 AM FACTORY MAINTENANCE TECHNICIAN Pulse 96 10/15/2014 8:25 AM FACTORY MAINTENANCE TECHNICIAN Temperature 36.4 ??C (97.6 ??F) 10/15/2014 8:25 AM CS T Respiratory Rate 18 10/15/2014 8:25 AM FACTORY MAINTENANCE TECHNICIAN Oxygen Saturation 99% 10/15/2014 8:25 AM FACTORY MAINTENANCE TECHNICIAN Inhaled Oxygen Concentration - - Weight 62.1 kg (137 lb) 10/15/2014 8:25 AM FACTORY MAINTENANCE TECHNICIAN Height 160 cm (5' 3 ) 10/15/2014 8:25 AM FACTORY MAINTENANCE TECHNICIAN Body Mass Index 24.27 10/15/2014 8:25 AM FACTORY MAINTENANCE TECHNICIAN Procedures * ME TANGNTL BX SKIN SINGLE LES(Performed 07/07/2020) Performed for Neoplasm of uncertain behavior of skin * DERMATOPATHOLOGY(Performed 07/03/2020) Performed for Neoplasm of uncertain behavior of skin * FOLATE(Performed 10/15/2014) Performed for Abnormal RBC indices * VITAMIN B12(Performed 10/15/2014) Performed for Abnormal RBC indices * COMPREHENSIVE METABOLIC PANEL(Performed 10/15/2014) Performed for Easy bruising * TSH(Performed 10/15/2014) Performed for Easy bruising * CBC W AUTO DIFFERENTIAL(Performed 10/15/2014) Performed for Easy bruising * PT WHOLE BLOOD - POINT OF CARE (AMB) [facility](Performed 10/15/2014) Performed for Easy bruising * GROSS + MICRO EXAM(Performed 04/16/2009) Results * ME TANGNTL BX SKIN SINGLE LES (07/07/2020 5:01 [...] CDT) Case Report Dermatopathology Report ? Case: [id number] ? Authorizing Provider: ??Betzaida Vegas PA ?Collected: [...] specimen consists of a shave biopsy measuring [id number]. Jar 0. 0 1:01 PM CDT DERMATOPATHOLOGY [...] characteristic determined by the Dermatopathology Laboratory at [facility], directed by Dr. Praveen Awan. These tests need not be, and therefore are not, approved by the [place] Food and Drug Administration. The tests are used for clinical purposes. Billing Codes Specimen Charges Stain Charges 92486 1 0 1:01 PM CDT DERMATOPATHOLOGY LABORATORY Embedded Images 0 1:01 PM CDT DERMATOPATHOLOGY LABORATORY Pathology/Cytolog y TISSUE SPECIMEN FROM SKIN / Unknown 07/03/2020 07/06/2020 7:54 AM CDT Betzaida ROSENTHAL LAB - PATHOLOGY/CYTO LOGY ORDERABLES DERMATOPATHOLOGY LABORATORY [facility] - Department of Dermatology [address], [address] [phone] * (ABNORMAL) CBC W AUTO DIFFERENTIAL (10/15/2014 9:02 AM FACTORY MAINTENANCE TECHNICIAN) WBC 7.7 4.0 - 10.5 x10^9/L 10/15/2014 9:40 PM FACTORY MAINTENANCE TECHNICIAN [facility] RBC 3.94(L) 4.20 - 5.40 x10^12/L 10/15/2014 9:40 PM FACTORY MAINTENANCE TECHNICIAN [facility] Hemoglobin 12.7 12.5 - 16.0 gm/dL 10/15/2014 9:40 PM FACTORY MAINTENANCE TECHNICIAN [facility] Hematocrit 38.7 37.0 - 47.0 % 10/15/2014 9:40 PM FACTORY MAINTENANCE TECHNICIAN [facility] MCV 98.2 78.0 - 100.0 fl 10/15/2014 9:40 PM FACTORY MAINTENANCE TECHNICIAN [facility] MCH 32.2(H) 27.0 - 31.0 pg 10/15/2014 9:40 PM FACTORY MAINTENANCE TECHNICIAN [facility] MCHC 32.8 32.0 - 36.0 gm/dL 10/15/2014 9:40 PM FACTORY MAINTENANCE TECHNICIAN [facility] RDW 12.0 11.5 - 14.0 % 10/15/2014 9:40 PM FACTORY MAINTENANCE TECHNICIAN [facility] MPV 10.4(H) 6.0 - 9.5 fl 10/15/2014 9:40 PM FACTORY MAINTENANCE TECHNICIAN [facility] Platelet Count 311 150 - 450 x10^9/L 10/15/2014 9:40 PM FACTORY MAINTENANCE TECHNICIAN [facility] Neutrophils % 56.0 % 10/15/2014 9:40 PM FACTORY MAINTENANCE TECHNICIAN [facility] Lymphocytes % 30.0 % 10/15/2014 9:40 PM FACTORY MAINTENANCE TECHNICIAN [facility] Monocytes % 7.5 % 10/15/2014 9:40 PM FACTORY MAINTENANCE TECHNICIAN [facility] Eosinophils % 5.6 % 10/15/2014 9:40 PM FACTORY MAINTENANCE TECHNICIAN [facility] Basophils % 0.6 % 10/15/2014 9:[address] [facility] Neutrophil Absolute 4.34 1.5 - 6.6 x10^9/L 10/15/2014 9:40 PM [facility] Lymphocytes Absolute 2.32 1.5 - 3.5 x10^9/L 10/15/2014 9:[address] [facility] Monocytes Absolute 0.58 0 - 1 x10^9/L 10/15/2014 9:[address] [facility] Eosinophils Absolute 0.43 0 - 0.7 x10^9/L 10/15/2014 9:[address] [facility] Basophils Absolute 0.05 0 - 0.1 x10^9/L 10/15/2014 9:[address] [facility] nRBC Absolute 0.00 x10^9/L 10/15/2014 9:[address] [facility] nRBC Auto 0.0 % 10/15/2014 9:[address] [facility] Immature Granulocytes 0.3 % 10/15/2014 9:[address] [facility] Immature Granulocytes Absolute 0.02 x10^9/L 10/15/2014 9:[address] [facility] Blood BLOOD SPECIMEN / Unknown 10/15/2014 9:02 AM FACTORY MAINTENANCE TECHNICIAN 10/15/2014 9:02 AM [facility] Sabiha Og APRN-DIRECTOR DATA MANAGEMENT LAB - HEMATOLO GY ORDERABLES [facility] [address] [phone] * (ABNORMAL) COMPREHENSIVE METABOLIC PANEL (10/15/2014 9:02 AM [facility]) Sodium 141 136 - 145 mmol/L 10/15/2014 9:[address] [facility] Potassium 4.3 3.5 - 5.1 mmol/L 10/15/2014 9:[address] [facility] Chloride 106 98 - 107 mmol/L 10/15/2014 9:[address] [facility] CO2 28 22 - 29 mmol/L 10/15/2014 9:[address] [facility] Anion Gap 7(L) 9 - 16 mmol/L 10/15/2014 9:[address] [facility] BUN 9(L) 9.8 - 20.1 mg/dL 10/15/2014 9:58 PM FACTORY MAINTENANCE TECHNICIAN [facility] Creatinine 0.77 0.57 - 1.11 mg/dL 10/15/2014 9:58 PM FACTORY MAINTENANCE TECHNICIAN [facility] BUN/Creatinine Ratio 11.7(L) 17.2 - 18.1 10/15/2014 9:58 PM FACTORY MAINTENANCE TECHNICIAN [facility] Calcium 9.2 8.4 - 10.2 mg/dL 10/15/2014 9:58 PM FACTORY MAINTENANCE TECHNICIAN [facility] Protein Total 7.0 6.4 - 8.3 gm/dL 10/15/2014 9:58 PM FACTORY MAINTENANCE TECHNICIAN [facility] Albumin 4.3 3.5 - 5.0 gm/dL 10/15/2014 9:58 PM [facility] ALT 23 0 - 55 U/L 10/15/2014 9:58 PM FACTORY MAINTENANCE TECHNICIAN [facility] AST 26 5 - 34 U/L 10/15/2014 9:[address] [facility] Alkaline Phosphatase 55 40 - 150 U/L 10/15/2014 9:58 PM [facility] Bilirubin Total 0.4 0.2 - 1.2 mg/dL 10/15/2014 9:58 PM [facility] Globulin Total 2.7(L) 2.9 - 3.3 gm/dL 10/15/2014 9:58 PM [facility] Albumin/Globulin Ratio 1.6(H) 1.2 - 1.5 10/15/2014 9:58 PM [facility] Osmolality Calculated 270 260 - 284 mOsm/kg 10/15/2014 9:58 PM FACTORY MAINTENANCE TECHNICIAN [facility] eGFR by MDRD >60 >60 mL/min/1.7 3m2 10/15/2014 9:58 PM FACTORY MAINTENANCE TECHNICIAN [facility] eGFR by MDRD >60 >60 mL/min/1.7 3m2 10/15/2014 9:58 PM [facility] Glucose 85 70 - 105 mg/dL 10/15/2014 9:58 PM [facility] Blood BLOOD SPECIMEN / Unknown 10/15/2014 9:02 AM FACTORY MAINTENANCE TECHNICIAN 10/15/2014 9:02 AM [facility] - 10/15/2014 9:58 PM FACTORY MAINTENANCE TECHNICIAN ADA Comment: The [place] [employer] recommends a fasting glucose concentration of 99 mg/dL as the upper limit of normal. ADA Comment: The [place] [employer] recommends a fasting glucose concentration [...] ? 15-29 5. ??Kidney Failure ?<15 Sabiha Og DIVISION TRAFFIC SUPERINTENDENT-DIRECTOR DATA MANAGEMENT LAB - CHEMISTR Y ORDERABLES Performing Organization Address [facility] de Phone Number [facility] [address] [place] [address], [facility] [phone] * FOLATE (10/15/2014 9:02 AM FACTORY MAINTENANCE TECHNICIAN) [facility] Folate 18.9 3.1 - 20.5 ng/mL 10/20/2014 10:47 PM FACTORY MAINTENANCE TECHNICIAN [facility] Blood BLOOD SPECIMEN / Unknown 10/15/2014 9:02 AM FACTORY MAINTENANCE TECHNICIAN 10/20/2014 8:25 AM FACTORY MAINTENANCE TECHNICIAN Sabiha Og DIVISION TRAFFIC SUPERINTENDENT-DIRECTOR DATA MANAGEMENT LAB - CHEMISTR Y ORDERABLES Performing Organization Address [facility] de Phone Number [facility] [address] [place] [address], [facility] [phone] * VITAMIN B12 (10/15/2014 9:02 AM FACTORY MAINTENANCE TECHNICIAN) [facility] Vitamin B12 381 213 - 816 pg/mL 10/20/2014 10:47 PM FACTORY MAINTENANCE TECHNICIAN [facility] Blood BLOOD SPECIMEN / Unknown 10/15/2014 9:02 AM FACTORY MAINTENANCE TECHNICIAN 10/20/2014 8:25 AM FACTORY MAINTENANCE TECHNICIAN Sabiha Og DIVISION TRAFFIC SUPERINTENDENT-DIRECTOR DATA MANAGEMENT LAB - CHEMISTR Y ORDERABLES [facility] [address] [phone] * TSH (10/15/2014 9:02 AM FACTORY MAINTENANCE TECHNICIAN) TSH 1.38 0.35 - 4.94 uIU/mL 10/15/2014 10:17 PM FACTORY MAINTENANCE TECHNICIAN [facility] Blood BLOOD SPECIMEN / Unknown 10/15/2014 9:02 AM FACTORY MAINTENANCE TECHNICIAN 10/15/2014 9:02 AM FACTORY MAINTENANCE TECHNICIAN Sabiha Og DIVISION TRAFFIC SUPERINTENDENT-[facility] LAB - CHEMISTR Y ORDERABLES Performing Organization Address [facility] Co de Phone Number [facility] [address] [place] [address] * PT WHOLE BLOOD - POINT OF CARE (AMB) [facility] (10/15/2014 8:57 AM FACTORY MAINTENANCE TECHNICIAN) INR POCT 0.9 0.9 - 1.2 PT POCT 8.8 Seconds QC1 11.0 QC2 20.7 Whole blood specimen (specimen) BLOOD SPECIMEN / Unknown 10/15/2014 8:57 AM FACTORY MAINTENANCE TECHNICIAN Sabiha Og DIVISION TRAFFIC SUPERINTENDENT-[facility] LAB - POINT OF CARE ORDERABLES * GROSS + MICRO EXAM (04/16/2009 10:34 AM CDT) Result CASE NUMBER [id number] Comment: ORDERING PHYSICIAN ??MERY SANDERS SPECIMEN TYPE ?Mass-soft tissue rt ankle Pathology Report ? CLINICAL DIAGNOSIS Local superficial swelling. SPECIMEN Soft tissue mass, right ankle, ?giant cell tumor. MACROSCOPIC A single specimen is received in formalin labeled with the patient's name and soft tissue mass, right ankle, ?giant cell tumor and consists of an unoriented rao yellow rubbery fragment of soft tissue measuring 2.7 x 2.3 x 1.0 cm. The specimen is inked black, sectioned and submitted totally in two cassettes. DT/amandeep D ??04/17/2009 T ??04/17/2009 Job# ??[id number] *MICROSCOPIC ? MICROSCOPIC Microscopic examination has been performed. DIAGNOSIS ? 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 ?No atypia or malignancy identified. Certified Nurse Practitioner ? DMNeetu/farhana 04/20/2009 04/20/2009 Released By ?Rosa Blanco MISCELLANEOUS SAMPLES / Unknown 04/16/2009 10:34 AM CDT 04/17/2009 6:30 AM CDT Historical Provider LAB - PATHOLOGY/C YTOLOGY ORDERABLES Care Teams Work Order Detailer Relationship Specialty Start Date End Date Pcp, [facility] [place] Link PCP - General 01/04/24
--- OUTSIDE RECORDS SUMMARY | 2024-10-12 16:55 | XMS_ITS | Encounter Summary ---
Author Organization [facility] Address [address] [place] [address] Care Team Providers Care Flaring Machine Operator Name Role Phone Lucho Og Primary Care Provider Encounter Details Date Type Department Care Team (Late st Contact Info) Description 10/16/2014 Orders Only [facility] Medical [facility] - Family Medicine [address] [place] [id number] Lucho Og APRN-CNP [address] [place] [address] [place] [phone] Abnormal RBC indices Social History Tobacco Use Types Packs/Day Years Used Date Smoking Tobacco: Never Alcohol Use Standard Drinks/Week Comments Yes 0 (1 standard drink = 0.6 oz pur e alcohol) Sex and Gender Information Value Date Recorded Sex Assigned at Not on file Gender Identity Not on file Sexual Orientation Not on file documented as of this encounter Miscellaneous Notes * Addendum Note - Lucho Og APRN-CNP - 10/20/2014 8:19 AM CSTAddended by: LUCHO OG on: 10/20/2014 08:19 AM Modules accepted: Orders GY CONSERVATION ENGINEER documented in this encounter Plan of Treatment Not on file documented as of this encounter Results * FOLATE (10/15/2014 9:02 AM ENERGY CONSERVATION ENGINEER) Folate 18.9 3.1 - 20.5 ng/mL 10/20/2014 10:47 PM ENERGY CONSERVATION ENGINEER [facility] Blood BLOOD SPECIMEN / Unknown 10/15/2014 9:02 AM ENERGY CONSERVATION ENGINEER 10/20/2014 8:25 AM ENERGY CONSERVATION ENGINEER Lucho Og APRN-HAND TURNER LAB - CHEMISTR Y ORDERABLES Performing Organization Address City/[facility]/ZIP Co de Phone Number [facility] [address] [place] [address], [facility] [phone] * VITAMIN B12 (10/15/2014 9:02 AM ENERGY CONSERVATION ENGINEER) Vitamin B12 381 213 - 816 pg/mL 10/20/2014 10:47 PM ENERGY CONSERVATION ENGINEER [facility] Blood BLOOD SPECIMEN / Unknown 10/15/2014 9:02 AM ENERGY CONSERVATION ENGINEER 10/20/2014 8:25 AM ENERGY CONSERVATION ENGINEER Lucho Og APRN-HAND TURNER LAB - CHEMISTR Y ORDERABLES Performing Organization Address [facility] Co de Phone Number [facility] [address] [place] [address], [facility] [phone] documented in this encounter Visit Diagnoses Diagnosis Abnormal RBC indices- Primary Other abnormality of red blood cells documented in this encounter Care Teams Flaring Machine Operator Relationship Specialty Start Date End Date Lucho Og APRN-CNP PCP - General Family Medicine 10/15/14 01/03/24 documented as of this encounter
--- OUTSIDE RECORDS SUMMARY | 2024-10-12 16:56 | XMS_ITS | Encounter Summary ---
Author Organization [facility] Address [address] [place] [address] Phone Care Team Providers Care Sausage Smoker Name Role Phone No, Physician Primary Care Provider [phone] Encounter Details Date Type Department Care Team (Late st Contact Info) Description 09/28/2022 Telephone [facility] Obstetrics and Gynecology [facility] [place] [address] Madeleine Landry Social History Tobacco Use Types Packs/Day Years Used Date Smoking Tobacco: Never Assessed Comments Unknown Sex and Gender Information Value Date Recorded Sex Assigned at Not on file Legal Sex Female 1:33 PM CDT Gender Identity Female 10/09/2022 6:18 PM RECONCILEMENT CLERK Sexual Orientation Not on file documented as of this encounter Miscellaneous Notes * Telephone Encounter - Madeleine Landry - 09/28/2022 10:23 AM CST Pt is scheduled at [facility] on 10/10 New mfm, anatomy = 8:30am OBC = 9:30am NCILEMENT CLERK * Telephone Encounter - Madeleine Landry - 09/28/2022 10:22 AM CST Chart reviewed for referral. Please schedule for OBC with growth ultrasound within 2 weeks. Pt had anatomy scan completed with us on 07/15. ASAF: 11/29 Dx: GDM, 1 hour: 165, 3 hour: 95/239/228 NCILEMENT CLERK documented in this encounter Plan of Treatment Not on file documented as of this encounter Visit Diagnoses Not on filedocumented in this encounter Care Teams Sausage Smoker Relationship Specialty Start Date End Date No, Physician PCP - General 06/06/22 documented as of this encounter
--- OUTSIDE RECORDS SUMMARY | 2024-10-12 16:56 | XMS_ITS | Encounter Summary ---
Author Organization [facility] Address [address] [place] [address] Care Team Providers Care Shield Operator Name Role Phone Unavailable Primary Care Provider Unavailabl e Encounter Details Date Type Department Care Team (Late st Contact Info) Description 04/16/2009 Orders Only [facility] [address] [place] [address] ProviderParker MD Social History Tobacco Use Types Packs/Day Years Used Date Smoking Tobacco: Never Assessed Sex and Gender Information Value Date Recorded Sex Assigned at Not on file Gender Identity Not on file Sexual Orientation Not on file documented as of this encounter Plan of Treatment Not on file documented as of this encounter Procedures Procedure Name Priority Date/Time Associated Diagnosis Comments GROSS + MICRO EXAM FELICITA 04/16/2009 10 :34 AM CDT documented in this encounter Results * GROSS + MICRO EXAM (04/16/2009 10:34 [...] cassettes. DT/amandeep D ??04/17/2009 T ??04/17/2009 Job# ??[id number] *MICROSCOPIC ? MICROSCOPIC Microscopic examination has been performed. DIAGNOSIS ? 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 ?No atypia or malignancy identified. Analytics Specialist ? NICHOLAS/farhana 04/20/2009 04/20/2009 Released By ?Rosa Blanco MISCELLANEOUS SAMPLES / Unknown 04/16/2009 10:34 AM CDT 04/17/2009 6:30 AM CDT Historical Provider LAB - PATHOLOGY/C YTOLOGY ORDERABLES documented in this encounter Visit Diagnoses Not on filedocumented in this encounter
--- OUTSIDE RECORDS SUMMARY | 2024-10-12 16:56 | XMS_ITS | Encounter Summary ---
Author Organization [facility] Address [address] [place] [address] Care Team Providers Care Merchandising Manager Name Role Phone No, Physician Primary Care Provider [phone] Reason for Referral * Diagnostic Imaging (Routine) - Closed Specialty Diagnoses / Procedures Referred By Contac t Referred To Contact Diagnoses Gestational diabetes mellitus (GDM), antepartum, gestational diabetes method of control unspecified Procedures US Ob Detail Anatomy Single Or First Gestation Itz Peoples MD [address] [place] [address] Phone: tel: fax: [facility] (All Locations) Referral ID Status Reason Start Date Expiration Date Visits Re quested Visits Authorized [id number] Closed 09/23/2022 10/23/[address] REFEREE Reason for Visit * Diagnostic Imaging (Routine) - Closed Specialty Diagnoses / Procedures Referred By Contac t Referred To Contact Diagnoses Gestational diabetes mellitus (GDM), antepartum, gestational diabetes method of control unspecified Procedures US Ob Detail Anatomy Single Or First Gestation Itz Peoples MD [address] [place] [address] Phone: tel: fax: [facility] (All Locations) Referral ID Status Reason Start Date Expiration Date Visits Re quested Visits Authorized [id number] Closed 09/23/2022 10/23/2023 1 1 Encounter Details Date Type Department Care Team (Latest Contact Info) Description 10/10/2022 8:[address] REFEREE - 10/10/2022 11:[address] REFEREE Hospital Encounter [facility] - Ultrasound [address], 7[address], [address] [place] [address] Gestational diabetes mellitus (GDM), antepartum, gestational diabetes method of control unspecified Discharge Disposition: Discharge to home or self care Social History Tobacco Use Types Packs/Day Years Used Date Smoking Tobacco: Never Smokeless Tobacco: Never Comments Yes Sex and Gender Information Value Date Recorded Sex Assigned at Not on file Legal Sex Female 1:33 PM CDT Gender Identity Female 10/09/2022 6:[address] REFEREE Sexual Orientation Not on file documented as of this encounter Medications at Time of Discharge albuterol HFA (PROVENTIL HFA,VENTOLIN HFA,PROAIR HFA) 90 mcg/actuation inhaler 08/24/2022 aspirin (ASPIR-81 ORAL) docusate sodium (COLACE) 100 mg capsule famotidine (PEPCID) 40 mg tablet Pepcid 40 mg tablet Take 1 tablet every day by oral route. 11/08/2019 ferrous sulfate 325 mg (65 mg of elemental iron) tablet Flovent HFA 110 mcg/actuation inhaler 08/24/2022 fluticasone propionate (FLONASE) 50 mcg/actuation nasal spray fluticasone propionate 50 mcg/actuation nasal spray,suspension [place] 2 sprays every day by intranasal route. FreeStyle [place] 2 Sensor kit 09/23/2022 loratadine (CLARITIN) 10 mg tablet documented as of this encounter Discharge Disposition Disposition Code Departure Means Destination Discharge to home or self care documented in this encounter Plan of Treatment Not on file documented as of this encounter Procedures Procedure Name Priority Date/Time Associated Diagnosis Comments US OB DETAIL ANATOMY SINGLE OR FIRST GESTATION Schedule Routine, Read Routine (OP Routine) 10/10/2022 8:[address] REFEREE Gestational diabetes mellitus (GDM), antepartum, gestational diabetes method of control unspecified documented in this encounter Results * US Ob Detail Anatomy Single Or First Gestation (10/10/2022 8:[address] REFEREE) Fetus# Fetus1 VIEWPOINT Estimated Weight 2,163 g&grams VIEWPOINT Placenta Details right lateral/an t/ posterior, Previa-no VIEWPOINT Presentation Breech VIEWPOINT Anatomical Region Laterality Modality Body N/A Ultrasound 10/10/2022 8:[address] REFEREE Impressions 10/10/2022 11:[address] REFEREE IUP at 32w6d for evaluation of growth1. The EFW measured appropriate for gestational age. ??2. The amniotic fluid volume measured within normal limits. 3. BPP: 05/30 Narrative Procedure Note Catie Mcconnell MD - 10/10/2022 IMPRESSION: IUP at 32w6d for evaluation of growth1. The EFW measured appropriatefor gestational age. 2. The amniotic fluid volume measured within normallimits. 3. BPP: 05/30 us Itz Peoples MD IMG OB US PROCEDURES Final Result documented in this encounter Visit Diagnoses Diagnosis Gestational diabetes mellitus (GDM), antepartum, gestational diabetes method of control unspecified documented in this encounter Care Teams Merchandising Manager Relationship Specialty Start Date End Date No, Physician PCP - General 06/06/22 documented as of this encounter
--- OUTSIDE RECORDS SUMMARY | 2024-10-12 16:56 | XMS_ITS | Clinical Summary ---
Author Organization [facility] Address [address] [place] [id number] Care Team Providers Care Media Marketing Coordinator Name Role Phone No, Physician Primary Care Provider [phone] Allergies Active Allergy Reactions Criticality Noted Date Comments Nitrous Oxide Other (See comments) Low 05/07/2013 Reaction when younger Penicillins Other (See comments) Low 05/07/2013 As a child Sulfa (Sulfonamide Antibiotics) Other (See comments),Rash Medium 10/10/2022 Medications Flovent HFA 110 mcg/actuation inhaler 2 Active fluticasone propionate (FLONASE) 50 mcg/actuation nasal spray fluticasone propionate 50 mcg/actuation nasal spray,suspension [place] 2 sprays every day by intranasal route. Active famotidine (PEPCID) 40 mg tablet Pepcid 40 mg tablet Take 1 tablet every day by oral route. 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 -Diabetes education to be scheduled at [place] -Serial growth US -Consider delivery at 39 weeks (CS for breech scheduled with primary) - 2 hr GTT Assessment & Plan (10/10/2022 10:44 AM SALES REPRESENTATIVE PUBLIC UTILITIES): We reviewed the management of a complicated by gestational diabetes. is associated with insulin insensitivity and abnormal glucose metabolism. The maternal risks of gestational diabetes include gestational hypertension and pre-eclampsia, operative delivery, obstetrical trauma, and section. The risks include macrosomia, operative delivery and resultant injury, shoulder dystocia, hypoglycemia, and hyperbilirubinemia. The risk of developing type II diabetes in the next 25 years is as high as 50%. Patient aware of blood sugar goals. I reviewed her blood sugars today. Severe carb reduction in diet after diagnosis that resulted in multiple episodes of hypoglycemia overnight and occasionally during the day. We discussed adding back carbs with meals and bedtime snack to prevent hypoglycemia. She will be meeting with Diabetes Education in the next week or two. ?? Supervision of high-risk , third karissa vasques 10/05/2022 Overview (10/10/2022): [x] Co-management vs. [] Full [facility] Care; [] Red Team [x] Blue Team Referring Provider: Itz Peoples [phone] [] or Medicare Insurance [x] Dating Criteria: LMP 02/22/22 with ASAF 11/29/22 [x] Labs: Rh [O-], Ab [negative], Rubella [immune], HIV [negative], HepBSAg [not done], RPR [non-reactive], Hep C [not done], Varicella [positive], GC/CT [] [x] Genetic Screening: NIPT negative [x] CBC/Hgb 12.2/37.1/plt 308 [] Early 1hr GTT (if indicated) [x] UCx: 04/21/22 no growth [x] Pap: 08/05/20: NILM; HPV positive [] LD ASA (if indicated) starting at 12 weeks: [] EPDS [ ]; PNBHS referral (if indicated) 2nd Tri Labs: [x] Anatomy ultrasound:normal with primary OB [x] CBC/Ferritin/1hr gtt at 24-28wks: 09/09/22: 10.5/31.6/plt 324; GTT 165 [x] 3hr GTT 09/23/22: 95,239,228, [x] Flu Shot (Jun-Sep): [x] Tdap (27-36wks): [] COVID Vaccine: [] Rhogam at 28 wks (if Rh neg): 3rd Tri Labs: [] CBC/HIV/RPR/T&S: [] GBS: [] GC/CT (if indicated): [] testing: Counseling [] MOD: Primary CS for Breech [] Place of delivery: [facility] [] MOC: [] Method of feeding: [] Warp Dyeing Vat Tender: [] PP Depression Discussed: Accessory navicular bone of foot 04/09/2020 Tibialis posterior tendinitis 03/19/2020 Asthma during 05/07/2013 Overview (10/10/2022): Flovent 2 puffs daily, recently increased from 1 puff with adequate control. Rare use of albuterol inhaler. Mild scoliosis 05/07/2013 Immunizations Name Administration Dates Next Due BCG 1990 DTP 01/21/1995, 1,1990,07/27,1990 HPV, Quadrivalent 09/18/2007,06/30/2007 Hep A, Pediatric 09/18/2007,03/06/2007 Hep B, Adolescent or Pediatric 12/05/1995,1994,04/13/1995 Hib (PRP-T) 06/28/1991 IPV 01/21/1995, 1,1990,04/23 Influenza, Quadrivalent, Spl it, Intramuscular 07/24/2020 MMR 01/21/1995,06/28/1991 Meningococcal Polysaccharide ([place]omune) 01/22/2008 Moderna SARS-CoV-2 Monovalen t Vaccination (12+ YRS) 10/30/2020 Polio, Unspecified 06/28/1991,1990, 990 Tdap 04/14/2009 Varicella 02/20/1993 Surgical History Surgery Date Site/Laterality Comments ANKLE SURGERY 10/23/2007 - 10/22/2008 Right ANKLE SURGERY 10/23/2018 - 10/22/2019 WISDOM TOOTH EXTRACTION Medical History Medical History Date Comments Asthma Abnormal Pap smear of cervix Family History Medical History Relation Name Comments No Known Problems Father No Known Problems Mother Relation Name Status Comments Father Mother Social History Tobacco Use Types Packs/Day Years Used Date Smoking Tobacco: Never Smokeless Tobacco: Never Tobacco Cessation:Counseling Given: Not Answered Comments No Sex and Gender Information Value Date Recorded Sex Assigned at Not on file Legal Sex Female 1:33 PM CDT Gender Identity Female 10/09/2022 6:18 PM SALES REPRESENTATIVE [employer] Sexual Orientation Not on file Obstetrics History Para Term AB IAB SAB Ectopic Multiple Livin g Live Births 1 Date Outcome GA Total Labor Labor/2nd/3rd Weight Sex Type Anes PTL Lilia A1 A5 Name Clin Last Filed Vital Signs Vital Sign Reading Time Taken Comments Blood Pressure 111/69 10/10/2022 9:32 AM SALES REPRESENTATIVE [employer] Pulse 122 10/10/2022 9:32 AM SALES REPRESENTATIVE [employer] Temperature - - Respiratory Rate - - Oxygen Saturation 98% 10/10/2022 9:32 AM SALES REPRESENTATIVE [employer] Inhaled Oxygen Concentration - - Weight 81.2 kg (179 lb) 10/10/2022 9:32 AM SALES REPRESENTATIVE [employer] Height 160 cm (5' 3 ) 10/10/2022 9:32 AM SALES REPRESENTATIVE [employer] Body Mass Index 31.71 10/10/2022 9:32 AM SALES REPRESENTATIVE [employer] Plan of Treatment Health Maintenance Due Date Last Done Comments Albumin Creatinine Ratio, Urine 1990 Cervical Cancer Screening 1990 Depression Screening 1990 Hemoglobin A1C 1990 Hepatitis C Screening 1990 eGFR 1990 Dilated Eye Exam 1990 Foot Exam 1990 Lipid Panel 1990 Varicella Vaccines (2 of 2 - 2-dose childhood series) 1994 02/20/1993 Pneumococcal vaccine <65 (1 of 2 - PCV) 02/08/1996 HPV Vaccines (3 - 3-dose series) 12/29/2007 09/18/20 07, 06/30/2007 Regular Well Visit/Exam 18-64 02/08/2008 DTaP/Tdap/Td Vaccine (7 - Td or Tdap) 04/14/2019 04/14/2009, 01/21/1995, 06/28/1991, Additional history exists Covid-19 Vaccine (5 - 2023-2 5 season) 2024 09/24/2021, 10/30/2020, 10/30/2020, Additional history exists Influenza Vaccine (#1) 2024 07/24/2020 Insurance [facility] Member Subscriber Plan / Payer (Ef fective 2021-Present) Name:Phoebe Mcmullen Relation to Subscriber:Self Name:Phoebe Mcmullen Payer ID:[id number] (NAIC) Type:[facility] HMO/PPO Address: [place] [phone] Care Teams Media Marketing Coordinator Relationship Specialty Start Date End Date No, Physician PCP - General 06/06/22
--- OUTSIDE RECORDS SUMMARY | 2024-10-12 16:56 | XMS_ITS | Referral Summary ---
Author Organization [facility] Address [address] [place] [id number] Care Team Providers Care Door Builder Name Role Phone No, Physician Primary Care Provider [phone] Allergies Active Allergy Reactions Criticality Noted Date Comments Nitrous Oxide Other (See comments) Low 05/07/2013 Reaction when younger Penicillins Other (See comments) Low 05/07/2013 As a child Sulfa (Sulfonamide Antibiotics) Other (See comments),Rash Medium 10/10/2022 Medications Flovent HFA 110 mcg/actuation inhaler 2 Active fluticasone propionate (FLONASE) 50 mcg/actuation nasal spray fluticasone propionate 50 mcg/actuation nasal spray,suspension [place] 2 sprays every day by intranasal route. [...] Recommendations: -Weekly blood sugar log review by [facility] -Diabetes education to be scheduled at [place] -Serial growth US -Consider delivery at 39 weeks (CS for breech scheduled with primary) - 2 hr GTT Assessment & Plan (10/10/2022 10:44 AM REFINERY OPERATOR HELPER [employer] UNIT): We reviewed the management of a complicated [...] Overview (10/10/2022): [x] Co-management vs. [] Full [facility] Care; [] Red Team [x] Blue Team Referring Provider: Itz Peoples [phone] [] or Medicare Insurance [x] Dating Criteria: [...] [] MOC: [] Method of feeding: [] Obstetrics Gyn Physician: [] PP Depression Discussed: Accessory navicular bone [...] Unspecified 06/28/1991,1990, 990 Tdap 04/14/2009 Varicella 02/20/1993 Social History Tobacco Use Types Packs/Day Years Used Date Smoking Tobacco: Never Smokeless Tobacco: Never Tobacco Cessation:Counseling Given: Not Answered Comments No Sex and Gender Information Value Date Recorded Sex Assigned at Not on file Legal Sex Female 1:33 PM CDT Gender Identity Female 10/09/2022 6:18 PM REFINERY OPERATOR [employer] Sexual Orientation Not on file Last Filed Vital Signs Vital Sign Reading Time Taken Comments Blood Pressure 111/69 10/10/2022 9:32 AM REFINERY OPERATOR [employer] Pulse 122 10/10/2022 9:32 AM REFINERY OPERATOR [employer] Temperature - - Respiratory Rate - - Oxygen Saturation 98% 10/10/2022 9:32 AM REFINERY OPERATOR [employer] Inhaled Oxygen Concentration - - Weight 81.2 kg (179 lb) 10/10/2022 9:32 AM REFINERY OPERATOR [employer] Height 160 cm (5' 3 ) 10/10/2022 9:32 AM REFINERY OPERATOR [employer] Body Mass Index 31.71 10/10/2022 9:32 AM REFINERY OPERATOR [employer] Plan of Treatment Not on file Insurance [facility]PPO Address: [address] [phone] [facility] Address: [address] [phone] Care Teams Door Builder Relationship Specialty Start Date End Date No, Physician PCP - General 06/06/22
--- OUTSIDE RECORDS SUMMARY | 2024-10-12 16:56 | XMS_ITS | Encounter Summary ---
Author Organization [facility] Address [address] [place] [address] Phone Care Team Providers Care Radiophone Operator Name Role Phone No, Physician Primary Care Provider [phone] Reason for Visit * Reason Comments Consult High Risk Gestation * Consultation (Routine) - Closed Specialty Diagnoses / Procedures Referred By Contac t Referred To Contact Maternal and Medicine Diagnoses Gestational diabetes mellitus (GDM), antepartum, gestational diabetes method of control unspecified Itz Peoples MD [address] [place] [address] Phone: tel: fax: [facility] (All Locations) Referral ID Status Reason Start Date Expiration Date V isits Requested Visits Authorized [id number] Closed Specialty Services Required 09/23/2022 10/22/2023 1 99 Encounter Details Date Type Department Care Team (Late st Contact Info) Description 10/10/2022 9:30 AM CRM MARKETING ANALYST [facility] [address] 7th [address] [place] [address] Diet controlled gestational diabetes mellitus (GDM) in third trimester (Primary Dx); Gestational diabetes mellitus (GDM), antepartum, gestational diabetes method of control unspecified; Supervision of high-risk , third trimester Social History Tobacco Use Types Packs/Day Years Used Date Smoking Tobacco: Never Smokeless Tobacco: Never Tobacco Cessation:Counseling Given: Not Answered Comments Yes Sex and Gender Information Value Date Recorded Sex Assigned at Not on file Legal Sex Female 1:33 PM CDT Gender Identity Female 10/09/2022 6:18 PM CRM MARKETING ANALYST Sexual Orientation Not on file documented as of this encounter Last Filed Vital Signs Vital Sign Reading Time Taken Comments Blood Pressure 111/69 10/10/2022 9:32 AM CRM MARKETING ANALYST Pulse 122 10/10/2022 9:32 AM CRM MARKETING ANALYST Temperature - - Respiratory Rate - - Oxygen Saturation 98% 10/10/2022 9:32 AM CRM MARKETING ANALYST Inhaled Oxygen Concentration - - Weight 81.2 kg (179 lb) 10/10/2022 9:32 AM CRM MARKETING ANALYST Height 160 cm (5' 3 ) 10/10/2022 9:32 AM CRM MARKETING ANALYST Body Mass Index 31.71 10/10/2022 9:32 AM CRM MARKETING ANALYST documented in this encounter Progress Notes * Kristen Parker MD - 10/10/2022 9:30 AM CST Images from the original note were not included. Maternal Medicine Consult Note Reason for Consult: GDM Requesting Provider: Dr. Peoples Dear Dr. Peoples, We had the pleasure of seeing your patient Dr BethPhoebe Benedict in our office today. As you know, she is a 32 y.o. at 32w6d here today for a consult regarding gestational diabetes. Today she is doing well. No contractions, LOF, or VB. Active movement. Cut out carbs from herdiet since diagnosis, reports episodes of hypoglycemia overnight and occasionally during the day. Past Medical History: Diagnosis Date Abnormal Pap smear of cervix Asthma Past Surgical History: Procedure Laterality Date ANKLE SURGERY Right 2008 ANKLE SURGERY 2019 WISDOM TOOTH EXTRACTION Past Gynecologic History: Prior STIs: No History of abnormal pap: Yes, ASCUS HPV+ in 2009 with neg colpo Last pap smear: 2019 Patient's last menstrual period was 02/22/2022. Denies history of uterine anomalies or fibroids OB History Para Term AB Living 1 SAB IAB Ectopic Multiple Live Births # Outcome Date GA Lbr Josh/2nd Weight Sex Delivery Anes PTL Lv 1 Current Current Outpatient Medications Medication Sig Dispense Refill albuterol HFA (PROVENTIL HFA,VENTOLIN HFA,PROAIR HFA) 90 mcg/actuation inhaler aspirin (ASPIR-81 ORAL) docusate sodium (COLACE) 100 mg capsule famotidine (PEPCID) 40 mg tablet Pepcid 40 mg tablet Take 1 tablet every day by oral route. ferrous sulfate 325 mg (65 mg of elemental iron) tablet Flovent HFA 110 mcg/actuation inhaler fluticasone propionate (FLONASE) 50 mcg/actuation nasal spray fluticasone propionate 50 mcg/actuation nasal spray,suspension Hayward 2 sprays every day by intranasal route. FreeStyle Kelin 2 Sensor kit loratadine (CLARITIN) 10 mg tablet No current facility-administered medications for this visit. Family History: Family History Problem Relation Age of Onset No Known Problems Father No Known Problems Mother Neural tube defects: No Down syndrome or other chromosomal anomalies: No Hemophilia, sickle cell, bleeding/clotting disorder: No Muscular dystrophy: No Cystic fibrosis: No Intellectual disability or Fragile X: No Stanly disease: No Other defects or genetic disorders: No Allergies Allergen Reactions Sulfa (Sulfonamide Antibiotics) Other (See comments) and Rash Nitrous Oxide Other (See comments) Reaction when younger Penicillins Other (See comments) As a child Social History Tobacco Use Smoking status: Never Smokeless tobacco: Never Substance and Sexual Activity Drug use: Not Currently Sexual activity: Yes Partners: Male control/protection: None Alcohol Use: Not on file 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 HENT: Negative. Respiratory: Negative. Cardiovascular: Negative. Gastrointestinal: Negative. Genitourinary: Negative. Neurological: Negative. Psychiatric/Behavioral: Negative. Physical Exam Vitals BP 111/69 Pulse 122 Ht 160 cm (5' 3 ) Wt 179 lb (81.2 kg) LMP 02/22/2022 SpO2 98% BMI 31.71 kg/m?? General: Healthy, alert, active, cooperative, and in no distress The rest of the exam was deferred due to the consultative nature of this visit. Ultrasound 10/10/2022: EFW 2163g, 54%. CHUNG 13.3cm, Breech Please see the separate report for full details Assessment: Dr Phoebe Mcmullen is a 32 y.o. 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 Rare use of albuterol inhaler. Supervision of High-Risk , Third Trimester [x] Co-management vs. [] Full [facility] Care; [] Red Team [x] Blue Team Referring Provider: Itz Peoples [phone] [] or Medicare Insurance [x] Dating Criteria: [...] CS for Breech [] Place of delivery: [employer] [] MOC: [] Method of feeding: [] Apprentice Architect: [] PP Depression Discussed: We have scheduled her to return in 4 weeks with a growth US. In the interim, we will follow blood sugars on a weekly basis via [employer]. Thank you for the opportunity to be involved in the care of your patient. Should you have any further questions or concerns, please do not hesitate to call us. Kristen Parker MD MS Maternal Medicine MARKETING ANALYST documented in this encounter Miscellaneous Notes * Assessment & Plan Note - Kristen Parker MD - 10/10/2022 10:41 AM CRM MARKETING ANALYST Associated Problem(s): Gestational diabetes mellitus (GDM) in third trimester We reviewed the management of a complicated by gestational diabetes. is associated with insulin insensitivity and abnormal glucose metabolism. The maternal risks of gestational diabetes include gestational hypertension and pre-eclampsia, operative delivery, obstetrical trauma, and section. The risks include macrosomia, operative delivery and resultant injury,shoulder dystocia, hypoglycemia, and hyperbilirubinemia. The risk of developing type II diabetes inthe next 25 years is as high as 50%. Patient aware of blood sugar goals. I reviewed her blood sugars today. Severe carb reduction in diet after diagnosis that resulted in multiple episodes of hypoglycemia overnight and occasionally during the day. We discussed adding back carbs with meals and bedtime snack to prevent hypoglycemia. Shewill be meeting with Diabetes Education in the next week or two. ?? MARKETING ANALYST documented in this encounter Plan of Treatment Not on file documented as of this encounter Visit Diagnoses Diagnosis Gestational diabetes mellitus (GDM), antepartum, gestational diabetes method of control unspecified Supervision of high-risk , third trimester documented in this encounter Historical Medications * This list may reflect changes made after this encounter. loratadine (CLARITIN) 10 mg tablet FreeStyle Kelin 2 Sensor kit 09/23/2022 ferrous sulfate 325 mg (65 mg of elemental iron) tablet docusate sodium (COLACE) 100 mg capsule albuterol HFA (PROVENTIL HFA,VENTOLIN HFA,PROAIR HFA) 90 mcg/actuation inhaler 08/24/2022 aspirin (ASPIR-81 ORAL) famotidine (PEPCID) 40 mg tablet Pepcid 40 mg tablet Take 1 tablet every day by oral route. 11/08/2019 fluticasone propionate (FLONASE) 50 mcg/actuation nasal spray fluticasone propionate 50 mcg/actuation nasal spray,suspension [place]ward 2 sprays every day by intranasal route. Flovent HFA 110 mcg/actuation inhaler 08/24/2022 added in this encounter Orders Outpatient Referral Count Last Ordered Date Fir st Ordered Date AMB REFERRAL TO [facility] 1 10/10/2022 documented in this encounter Care Teams Radiophone Operator Relationship Specialty Start Date End Date No, Physician PCP - General 06/06/22 documented as of this encounter
--- OUTSIDE RECORDS SUMMARY | 2024-10-12 16:56 | XMS_ITS | Encounter Summary ---
Author Organization [facility] Address [address] [place] [address] Care Team Providers Care Metallurgical Inspector Name Role Phone No, Physician Primary Care Provider [phone] Reason for Referral * Diagnostic Imaging (Routine) - Closed Specialty Diagnoses / Procedures Referred By Glenn pineda Referred To Contact Diagnoses Encounter for follow-up ultrasound of anatomy Procedures US Ob 14 Weeks Or Over Itz Peoples MD [address] [place] [address] Phone: tel: fax: [facility] (All Locations) Referral ID Status Reason Start Date Expiration Date Visits Re quested Visits Authorized [id number] Closed 06/03/2022 10/22/2022 1 1 Reason for Visit * Diagnostic Imaging (Routine) - Closed Specialty Diagnoses / Procedures Referred By Glenn pineda Referred To Contact Diagnoses Encounter for follow-up ultrasound of anatomy Procedures US Ob 14 Weeks Or Over Itz Peoples MD [address] [place] [address] Phone: tel: fax: [facility] (All Locations) Referral ID Status Reason Start Date Expiration Date Visits Re quested Visits Authorized [id number] Closed 06/03/2022 10/22/2022 1 1 Encounter Details Date Type Department Care Team (Latest Contact Info) Description 07/15/2022 1:55 PM CDT - 07/15/2022 11:59 PM CDT Hospital Encounter [facility] Ul[facility]ound [address] 7th [address], [address] [place] [address] Encounter for follow-up ultrasound of anatomy Discharge Disposition: Discharge to home or self care Social History Tobacco Use Types Packs/Day Years Used Date Smoking Tobacco: Never Assessed Comments Unknown Sex and Gender Information Value Date Recorded Sex Assigned at Not on file Legal Sex Female 1:33 PM CDT Gender Identity Female 10/09/2022 6:18 PM V BELT FINISHER Sexual Orientation Not on file documented as of this encounter Medications at Time of Discharge famotidine (PEPCID) 40 mg tablet Pepcid 40 mg tablet Take 1 tablet every day by oral route. 11/08/2019 documented as of this encounter Discharge Disposition Disposition Code Departure Means Destination Discharge to home or self care documented in this encounter Plan of Treatment Not on file documented as of this encounter Procedures Procedure Name Priority Date/Time Associated Diagnosis Comments US OB 14 WEEKS OR OVER Schedule Routine, Read Routine (OP Routine) 07/15/2022 1:55 PM CDT Encounter for follow-up ultrasound of anatomy documented in this encounter Results * US Ob 14 Weeks Or Over (07/15/2022 1:55 PM CDT) Fetus# Fetus1 VIEWPOINT Estimated Weight 360 g&grams VIEWPOINT Placenta Details right lateral/an t/ posterior, Previa-no VIEWPOINT Presentation Vertex VIEWPOINT Anatomical Region Laterality Modality Abdomen N/A Ultrasound 07/15/2022 2:03 PM CDT Impressions 07/15/2022 3:12 PM CDT Normal biometry and amniotic fluid. ??Detailed anatomic assessment as above which appeared grossly normal within the limitations of ultrasound. ??Normal adnexa. ??TVCL was long and closed. ?? Narrative Procedure Note Mamie Ramirez MD - 07/15/2022 IMPRESSION: Normal biometry and amniotic fluid. Detailed anatomic assessment as abovewhich appeared grossly normal within the limitations of ultrasound.Normal adnexa. TVCL was long and closed. us Itz Peoples MD IMG OB US PROCEDURES Final Result documented in this encounter Visit Diagnoses Diagnosis Encounter for follow-up ultrasound of anatomy documented in this encounter Care Teams Metallurgical Inspector Relationship Specialty Start Date End Date No, Physician PCP - General 06/06/22 documented as of this encounter
--- OUTSIDE RECORDS SUMMARY | 2024-10-12 16:56 | XMS_ITS | Encounter Summary ---
Author Organization [facility] Address [address] [place] [address] Phone Care Team Providers Care Local Az Truck Driver Name Role Phone No, Physician Primary Care Provider [phone] Reason for Visit * Reason Onset Date Comments MFM GLUCOSE LOGS 10/18/2022 Encounter Details Date Type Department Care Team (Late st Contact Info) Description 10/18/2022 Telephone [facility] Maternal- Medicine [facility] [address] [place] [address] Monica Salazar MFM GLUCOSE LOGS Social History Tobacco Use Types Packs/Day Years Used Date Smoking Tobacco: Never Smokeless Tobacco: Never Comments Yes Sex and Gender Information Value Date Recorded Sex Assigned at Not on file Legal Sex Female 1:33 PM CDT Gender Identity Female 10/09/2022 6:18 PM SMT TECHNICIAN Sexual Orientation Not on file documented as of this encounter Miscellaneous Notes * Telephone Encounter - Lori Thakkar RN - 10/25/2022 2:48 PM SMT TECHNICIAN Pt notified via [employer]. TECHNICIAN * Telephone Encounter - Lori Thakkar RN - 10/25/2022 12:54 PM SMT TECHNICIAN Images from the original note were not included. GDM Current regimen 10/18/2022 Diet controlled TECHNICIAN * Telephone Encounter - Monica Salazar - 10/18/2022 9:48 AM CST Images from the original note were not included. GDM: Current log reviewed, overall wnl, continue diet control. TECHNICIAN documented in this encounter Plan of Treatment Not on file documented as of this encounter Visit Diagnoses Not on filedocumented in this encounter Care Teams Local Az Truck Driver Relationship Specialty Start Date End Date No, Physician PCP - General 06/06/22 documented as of this encounter
--- OUTSIDE RECORDS SUMMARY | 2024-10-12 16:56 | XMS_ITS | Encounter Summary ---
Author Organization [facility] Address [address] [place] [address] Phone Care Team Providers Care Hand Assembler Name Role Phone No, Physician Primary Care Provider [phone] Encounter Details Date Type Department Care Team (Late st Contact Info) Description 10/07/2022 Orders Only [facility] Maternal- Medicine [facility] [address] [place] [address] Iveth Balderas, RN Supervision of high-risk , third trimester (Primary Dx); Diet controlled gestational diabetes mellitus (GDM) in third trimester Social History Tobacco Use Types Packs/Day Years Used Date Smoking Tobacco: Never Assessed Comments Yes Sex and Gender Information Value Date Recorded Sex Assigned at Not on file Legal Sex Female 1:33 PM CDT Gender Identity Female 10/09/2022 6:18 PM QUALITY CONTROL CLERK Sexual Orientation Not on file documented as of this encounter Plan of Treatment Not on file documented as of this encounter Visit Diagnoses Diagnosis Supervision of high-risk , third trimester- Primary Diet controlled gestational diabetes mellitus (GDM) in third trimester documented in this encounter Care Teams Hand Assembler Relationship Specialty Start Date End Date No, Physician PCP - General 06/06/22 documented as of this encounter
== END 2024-10-07 07:11 | disposition home or self-care (01) ==
LOC: ANHOBOP 07:15 → ANHLAB 10-08 18:31
PROVIDERS: PCP Family Medicine; Visit Provider Obstetrics & Gynecology
DX: N92.6 Irregular menstruation, unspecified (principal)
CPT/HCPCS: 36415; 84144; 84702

== ENCOUNTER 2024-11-08 20:35 | Outpatient (RCR) | payer OTHER, SELFPAY ==
[2024-11-08 21:20] LABS: Beta HCG Quantitative < 2.39 mIU/ML
== END 2025-02-06 23:59 | disposition home or self-care (01) ==
LOC: ANHOBOP 20:35
PROVIDERS: PCP Family Medicine; Visit Provider Obstetrics & Gynecology
DX: Z36.9 Encounter for antenatal screening, unspecified (principal)
CPT/HCPCS: 36415; 84702

== ENCOUNTER 2024-11-14 21:01 | Emergency (ER) | payer OTHER, SELFPAY ==
--- NOTE | ~2024-11-14 | US_ITS ---
EXAMINATION: US venous doppler [facility] DATE: 11/14/2024 21:21 INDICATION: Pain and redness TECHNIQUE: Grayscale ultrasound images without and with compression and Doppler ultrasound images of the left lower extremity veins were obtained. COMPARISON: None. FINDINGS: The visualized portions of left common femoral vein, profunda (deep) femoral vein, femoral vein, popl iteal vein, peroneal veins, posterior tibial veins, and greater saphenous vein outflow are patent. IMPRESSION: 1. No deep venous thrombosis within the left lower extremity. Reviewed, dictated and finalized at location A. STOS HANDLER
[2024-11-14 21:02] VITALS: BP 140/78; PULSE 94; RESP 20; TEMP 36.6; O2SAT 100
--- NOTE | 2024-11-14 21:51 | ED_ITS ---
HPI - Extremity Problem General Chief complaint: Extremity Problem,Nontraumatic Stated complaint: leg pain and redness Time Seen by Provider: 11/14/24 21:29 Source: patient Mode of arrival: ambulatory Limitations: no limitations History of Present Illness HPI Narrative: Patient is a 34-year-old female who presents the ED with report of redness to her left medial leg/thigh/knee. Patient reports she 1st noticed an area of redness and tenderness on Monday morning. States it has continued to worsen since then. Pain worse with walking. Is concerned for blood clot. Denies previous history of blood clots. Does have a pimple in her left groin which popped a few days ago, but denies significant pain with this. Denies fevers. Denies chest pain or shortness breath. Related Data Allergies Allergy/AdvReac Type Severity Reaction Status Date / Time Sulfa (Sulfonamide Allergy Severe ulers Verified 11/14/24 21:09 Antibiotics) nitrofurantoin (From AdvReac Unknown Possible Verified 11/14/24 21:09 Macrobid) fixed drug reaction Review of Systems Review of Systems: All systems reviewed & are unremarkable except as noted in HPI. All systems reviewed & are unremarkable except as noted in HPI and below PMFSH Past Medical History Medical History Thyroiditis Encounter for insertion of mirena IUD Heartburn Asthma Surgical History Surgical History History of gynecological procedure (12/22/22) mirena iud insertion Delivery by section (11/01/22) primary c/s breech [place] teeth removed 2006 History of orthopedic surgery right ankle mass removed History of orthopedic surgery kipner procedure on left foot 03/2020 H/O right breast biopsy fibrocystic Hx of LASIK 2017 History of colposcopy benign H/O colonoscopy 2014 NL -hemorrhoids History of gynecological procedure (02/11/20) mirena iud removal and insertion Family History Family History Grandparent Diabetes mellitus paternal grandmother Hypertension paternal grandfather/ maternal grandmother Breast cancer Maternal grandmother Hyperthyroidism paternal grandmother Father Depression Grandparent AML (acute myeloid leukemia) Social History Social History Smoking status: Never smoker Second hand tobacco smoke exposure: No Alcohol intake: current Alcohol use details: social Substance use: never Substance use type: does not use Lack of Transportation: No Lack of Food: Never True Current Housing: I Have Housing Concerned About Future Housing: No Difficulty Paying Gas/Electric Bills: No Difficulty Paying for Meds: No Currently Unemployed: No Education: Master's Degree or Higher Difficulty w/ Childcare or Family Care: No Living arrangements: other Additional living arrangements comments: 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 Gender identity (if verbalized by the patient): Female Sexual Orientation (if Verbalized by the Patient): Straight or Heterosexual Spiritual care concerns: No Exam Narrative: GENERAL: Well appearing, well-nourished, non-toxic, in no acute distress. HEAD: Normocephalic, atraumatic. RESPIRATORY: Airway patent, respirations nonlabored. CARDIOVASCULAR: Regular rate and rhythm. Pedal pulses intact. ABDOMINAL: Soft, nontender, nondistended. Normoactive BS. MUSCULOSKELETAL: Moves all extremities. No gross deformities. Area of streaking erythema to medial distal L femur into medial knee region. Mild warmth present. Focal TTP. No significant tenderness throughout left lower leg. Small pimple- like lesion to L inner proximal thigh/groin w/o drainage, scabbed over, minimal surrounding erythema - does not connect to lower streak of erythema. Sensation intact. SKIN: Warm, dry, normal color. NEURO: A&O X3. Speech clear. PSYCHIATRIC: Appropriate mood and affect. Normal interaction. Course Vital Signs Vital signs: Vital Signs Temperature 97.9 F 11/14/24 21:02 Pulse Rate 94 11/14/24 21:02 Respiratory Rate 20 11/14/24 21:02 Blood Pressure 140/78 11/14/24 21:02 Pulse Oximetry 100 11/14/24 21:02 Oxygen Delivery Room Air 11/14/24 21:02 Temperature 97.9 F 11/14/24 21:02 Pulse Rate 94 11/14/24 21:02 Respiratory Rate 20 11/14/24 21:02 Blood Pressure 140/78 11/14/24 21:02 Pulse Oximetry 100 11/14/24 21:02 Oxygen Delivery Room Air 11/14/24 21:02 MDM - Extremity (Nontraumatic) MDM Narrative Medical decision making narrative: Venous Doppler ultrasound negative for DVT. Exam seems most consistent with superficial thrombophlebitis. Discussed management of such, NSAIDs, warm compresses, compression. Given moshe bandage in the ED. Given redness, warmth, presence of pimple-like lesion, will also cover for potential cellulitis/infectious etiology with kelflex. Sent to pharmacy. Patient given strict return precautions. She agrees with plan. Discharged in stable condition. Differential Diagnosis Differential diagnosis: Likely cellulitis, superficial thrombophlebitis, deep vein thrombosis of lower extremity and other (abscess) Medical Records Attestation: I reviewed the patient's medical records. Imaging Data Attestation: I personally reviewed and interpreted this imaging study as corazon whalen: Radiologist's impression: ITS Impressions Venous Doppler Study 11/14/24 21:26 IMPRESSION: 1. No deep venous thrombosis within the left lower extremity. Discharge Plan Discharge Clinical Impression: Superficial thrombophlebitis Qualifiers: Superficial thrombophlebitis-Involved body area: lower extremity Laterality: left Qualified Code(s): I80.02 - Phlebitis and thrombophlebitis of superficial vessels of left lower extremity Patient Disposition: Home, Self-Care Condition: Stable Instructions: Antibiotic Form, Cellulitis (ED), Superficial Thrombophlebitis (ED) Additional Instructions: Recommend frequent warm compresses to leg, Moshe bandage as needed for compression. You may also wear compression stockings over area of redness. Recommend anti-inflammatories as needed for pain. I have also sent in a prescription for antibiotics for possible cellulitis. Take these as prescribed. Return to the ED if you experience worsening or severe symptoms, severe pain, severe swelling of leg, chest pain, shortness breath, persistent fevers, or any other symptoms of concern. Patient Language: Indonesian Prescriptions: New cephalexin 500 mg capsule 500 mg PO Q6H 7 Days Qty: 28 0RF No Action loratadine [Claritin] 10 mg tablet 10 mg PO DAILY Qty: 90 4RF prenat.vits,amy,aqr-utpv-qweep Tablet 1 tablet PO DAILY Qty: 90 0RF fluticasone propionate 50 mcg/actuation spray,suspension 1 spray INTRANASAL DAILY Qty: 16 4RF Rx Instructions: administer into each nostril albuterol sulfate 90 mcg/actuation HFA aerosol inhaler 1 puff inhalation Q4H PRN (Reason: shortness of breath or wheezing) Qty: 17 11RF omeprazole 20 mg capsule,delayed release(DR/EC) 20 mg PO DAILY Qty: 90 3RF phentermine 37.5 mg capsule 37.5 mg PO DAILY Qty: 30 0RF Rx Instructions: must administer 30 minutes before or 1-2 hours after breakfast metformin 500 mg tablet extended release 24 hr 500 mg PO DAILY Qty: 90 3RF letrozole 2.5 mg tablet 2.5 mg PO DAILY 5 Days Qty: 5 3RF Rx Instructions: begin between days 2 and 5 of mentrual cycle amoxicillin-pot clavulanate 875-125 mg tablet 1 tablet PO BID Qty: 10 0RF methylprednisolone [Medrol (Espinoza)] 4 mg tablets,dose pack 4 mg PO DAILY Qty: 21 0RF ondansetron 4 mg tablet,disintegrating 4 mg PO Q8H Qty: 30 2RF montelukast [Singulair] 10 mg tablet 10 mg PO DAILY Qty: 90 3RF Pulmicort Flexhaler 180 mcg/actuation aerosol powdr breath activated 1 inh inhalation DAILY Qty: 3 3RF Follow-up/Referrals: Moon Self MD [Primary Care Provider] - Time of Disposition: 22:02
== END 2024-11-14 22:10 | disposition home or self-care (01) ==
LOC: ANHED 21:55
PROVIDERS: Emergency Provider Physician Assistant; PCP Family Medicine
DX: I80.02 Phlebitis and thrombophlebitis of superficial vessels of left lower extremity (principal); J45.909 Unspecified asthma, uncomplicated
CPT/HCPCS: 93971; 99284

== ENCOUNTER 2024-12-17 17:42 | Emergency (ER) | payer OTHER, SELFPAY ==
--- NOTE | ~2024-12-17 | CT_ITS ---
EXAMINATION: CT abdomen pelvis w con DATE: 12/17/2024 21:08 INDICATION: abd pain TECHNIQUE: Computed tomography (CT) of the abdomen and pelvis was performed with 100 mL Omnipaque-350 intravenous contrast. Automated exposure control and iterative reconstruction technique were employe d. The dose-length product was 364.19 mGy-cm. COMPARISON: 02/07/2024. FINDINGS: Lower thorax: Unremarkable Liver: Normal. Biliary/Gallbladder: Gallbladder is normal. No bile duct dilation. Pancreas: Suggestion of subtle pancreatic body and tail enlargement Spleen: Normal. Adrenals:No mass. Kidneys: No suspicious mass, obstructing stone, or hydronephrosis. Subcentimeter right midpole hypode nsity, too small to characterize but most likely represents a cyst. GI tract: Mild distal esophageal and gastric wall edema. Uncomplicated appearing gastric diverticulum . No small or large bowel dilation. Normal appendix. Mesentery/Peritoneum: No ascites, mass, or free air. Retroperitoneum: No mass. Pelvis: Pelvic organs are within normal limits. Soft Tissues: Soft tissues and body wall unremarkable. Bones: No acute osseous finding. IMPRESSION: Mild esophagitis/gastritis. Possible pancreatic body/tail edema, could reflect mild pancreatitis, correlate with pancreatic labs. Otherwise, no acute abdominopelvic process detected Reviewed, dictated and finalized at location K. MANAGER
--- NOTE | ~2024-12-17 | US_ITS ---
EXAMINATION: US abdomen limited DATE: 12/17/2024 19:27 INDICATION: RUQ pain TECHNIQUE: Multiple grayscale and Doppler ultrasound images of limited portions of the abdomen were o btained. COMPARISON: CT abdomen pelvis 02/07/2024. FINDINGS: The visualized portions of the pancreas are normal. Diffusely increased liver echogenicity. No surface nodularity. Normal hepatopetal flow in the main portal vein. The gallbladder is normal wi th no abnormal wall thickening, pericholecystic fluid or stones. The common bile duct measures 2 mm. There was no sonographic Burton sign. IMPRESSION: Echogenic liver, most commonly due to steatosis but also can be seen with hepatitis and fibrosis. Otherwise normal limited abdominal ultrasound findings. Reviewed, dictated and finalized at location K. QUE CLOCK REPAIRER IMPRESSION: Echogenic liver, most commonly due to steatosis but also can be seen with hepat itis and fibrosis. Otherwise normal limited abdominal ultrasound findings.
[2024-12-17 17:45] VITALS: BP 124/79; PULSE 99; RESP 20; TEMP 36.6; O2SAT 100
[2024-12-17 19:01] LABS: Basophils Percent Auto 0.4 % (0.2-1.2); Eosinophils Absolute Auto 0.2 K/mm3 (0-0.3); Eosinophils Percent Auto 2.5 % (0-4.4); Hematocrit 37.6 % (37.0-47.0); Hemoglobin 12.6 g/dL (12.0-15.0); Immature Granulocyte Absolute 0.02 K/mm3 (0.00-0.031); Immature Granulocyte Percent A 0.3 % (0-0.5); Lymphocytes Absolute Auto 2.36 K/mm3 (0.9-3.2); Lymphocytes Percent Auto 31.2 % (18.3-44.2); Mean Corpuscular HGB Conc 33.5 g/dl (32-36); Mean Corpuscular Hemoglobin 32.1 pg (26-34); Mean Corpuscular Volume 95.7 fl (80-100); Mean Platelet Volume 8.9 fl (7.4-10.4); Monocytes Absolute Auto 0.8 K/mm3 (0.1-0.6); Monocytes Percent Auto 10.6 % (2.6-8.5); Neutrophils Absolute Auto 4.2 K/mm3 (1.3-6.7); Platelet Count Result 337 k/mm3 (150-375); Red Blood Count 3.93 M/mm3 (4.2-5.4); Red Cell Distribution Width 12.3 % (11.5-14.5); White Blood Count 7.6 K/mm3 (4.5-10.0)
--- OUTSIDE RECORDS SUMMARY | 2024-12-17 19:03 | XMS_ITS | Clinical Summary ---
Author Organization [facility] Address [address] [place] [id number] Care Team Providers Care Harmonic Analyst Name Role Phone No, Physician Primary Care Provider [phone] Allergies Active Allergy Reactions Criticality Noted Date Comments Nitrous Oxide Other (See comments) Low 05/07/2013 Reaction when younger Penicillins Other (See comments) Low 05/07/2013 As a child Sulfa (Sulfonamide Antibiotics) Other (See comments),Rash Medium 10/10/2022 Medications Flovent HFA 110 mcg/actuation inhaler 2 Active fluticasone propionate (FLONASE) 50 mcg/actuation nasal spray fluticasone propionate 50 mcg/actuation nasal spray,suspension [place] 2 sprays every day by intranasal route. [...] Recommendations: -Weekly blood sugar log review by MFM -Diabetes education to be scheduled at [place] -Serial growth US -Consider delivery at 39 weeks (CS for breech scheduled with primary) - 2 hr GTT Assessment & Plan (10/10/2022 10:44 AM COMMERCIAL LENDING VICE PRESIDENT): We reviewed the management of a complicated [...] Education in the next week or two. Supervision of high-risk , xu vasques 10/05/2022 Overview (10/10/2022): [x] Co-management vs. [] Full [facility] Care; [] Red Team [x] Blue Team Referring Provider: Itz Peoples [phone] [] or Medicare Insurance [x] Dating Criteria: [...] [] MOC: [] Method of feeding: [] Cytotechnologist/Cytology Supervisor: [] PP Depression Discussed: Accessory navicular bone of foot 04/09/2020 Tibialis posterior tendinitis 03/19/2020 Asthma during 05/07/2013 Overview (10/10/2022): Flovent 2 puffs daily, recently increased from 1 puff with adequate control. Rare use of albuterol inhaler. Mild scoliosis 05/07/2013 Immunizations Immunization Administration Dates Next Due BCG 1990 DTP [...] CDT Gender Identity Female 10/09/2022 6:18 PM COMMERCIAL LENDING VICE PRESIDENT Sexual Orientation Not on file Obstetrics History Para Term AB IAB SAB Ectopic Multiple Livin g Live Births 1 Date Outcome GA Total Labor Labor/2nd/3rd Weight Sex Type Anes PTL Lilia A1 A5 Name Clin Last Filed Vital Signs Vital Sign Reading Time Taken Comments Blood Pressure 111/69 10/10/2022 9:32 AM COMMERCIAL LENDING VICE PRESIDENT Pulse 122 10/10/2022 9:32 AM COMMERCIAL LENDING VICE PRESIDENT Temperature - - Respiratory Rate - - Oxygen Saturation 98% 10/10/2022 9:32 AM COMMERCIAL LENDING VICE PRESIDENT Inhaled Oxygen Concentration - - Weight 81.2 kg (179 lb) 10/10/2022 9:32 AM COMMERCIAL LENDING VICE PRESIDENT Height 160 cm (5' 3 ) 10/10/2022 9:32 AM COMMERCIAL LENDING VICE PRESIDENT Body Mass Index 31.71 10/10/2022 9:32 AM COMMERCIAL LENDING VICE PRESIDENT Plan of Treatment Health Maintenance Due Date Last Done Comments Albumin Creatinine Ratio, Urine 1990 Cervical Cancer Screening 1990 Depression Screening 1990 Hemoglobin A1C 1990 Hepatitis C Screening 1990 eGFR 1990 Dilated Eye Exam 1990 Foot Exam 1990 Lipid Panel 1990 Varicella Vaccines (2 of 2 - 2-dose childhood series) 1994 02/20/1993 HPV Vaccines (3 - 3-dose series) 12/29/2007 09/18/20 07, 06/30/2007 Regular Well Visit/Exam 18-64 02/08/2008 Pneumococcal vaccine <65 (1 of 2 - PCV) 2009 DTaP/Tdap/Td Vaccine (7 - Td or Tdap) 04/14/2019 04/14/2009, 01/21/1995, 06/28/1991, Additional history exists Covid-19 Vaccine (5 - 2023-2 5 season) 2024 09/24/2021, 10/30/2020, 10/30/2020, Additional history exists Influenza Vaccine (#1) 2024 07/24/2020 Hepatitis B Screening Completed 12/05/1995 , 05/16/1995, 04/13/1995 Insurance [facility] Address: [address] [place] [phone] [facility] Address: [address] [place] [phone] Care Teams Harmonic Analyst Relationship Specialty Start Date End Date No, Physician PCP - General 06/06/22
--- OUTSIDE RECORDS SUMMARY | 2024-12-17 19:03 | XMS_ITS | Referral Summary ---
Author Organization [facility] Address [address] [place] [id number] Care Team Providers Care Liner Man Name Role Phone No, Physician Primary Care Provider [phone] Allergies Active Allergy Reactions Criticality Noted Date Comments Nitrous Oxide Other (See comments) Low 05/07/2013 Reaction when younger Penicillins Other (See comments) Low 05/07/2013 As a child Sulfa (Sulfonamide Antibiotics) Other (See comments),Rash Medium 10/10/2022 Medications Flovent HFA 110 mcg/actuation inhaler 2 Active fluticasone propionate (FLONASE) 50 mcg/actuation nasal spray fluticasone propionate 50 mcg/actuation nasal spray,suspension [place] 2 sprays every day by intranasal route. [...] MFM -Diabetes education to be scheduled at [place] -Serial growth US -Consider delivery at 39 weeks (CS for breech scheduled with primary) - 2 hr GTT Assessment & Plan (10/10/2022 10:44 AM DRILL PRESS OPERATOR HELPER): We reviewed the management of a complicated [...] Overview (10/10/2022): [x] Co-management vs. [] Full [facility] Care; [] Red Team [x] Blue Team Referring Provider: Itz Peoples [phone] [] or Medicare Insurance [x] Dating Criteria: [...] [] MOC: [] Method of feeding: [] Pipe Fitter Welding: [] PP Depression Discussed: Accessory navicular bone [...] CDT Gender Identity Female 10/09/2022 6:18 PM DRILL PRESS OPERATOR HELPER Sexual Orientation Not on file Last Filed Vital Signs Vital Sign Reading Time Taken Comments Blood Pressure 111/69 10/10/2022 9:32 AM DRILL PRESS OPERATOR HELPER Pulse 122 10/10/2022 9:32 AM DRILL PRESS OPERATOR HELPER Temperature - - Respiratory Rate - - Oxygen Saturation 98% 10/10/2022 9:32 AM DRILL PRESS OPERATOR HELPER Inhaled Oxygen Concentration - - Weight 81.2 kg (179 lb) 10/10/2022 9:32 AM DRILL PRESS OPERATOR HELPER Height 160 cm (5' 3 ) 10/10/2022 9:32 AM DRILL PRESS OPERATOR HELPER Body Mass Index 31.71 10/10/2022 9:32 AM DRILL PRESS OPERATOR HELPER Plan of Treatment Not on file Insurance [facility]O Address: [address] [phone] [facility]/PPO Address: [address] [phone] Care Teams Liner Man Relationship Specialty Start Date End Date No, Physician PCP - General 06/06/22
--- OUTSIDE RECORDS SUMMARY | 2024-12-17 19:03 | XMS_ITS | Referral Summary ---
Author Organization [facility] [employer] Address [address] [place] [address] Care Team Providers Care Paper Inspector Name Role Phone Pcp, [facility] Primary Care Provider Unava ilable Source Comments [facility],non-owned Affiliates and Associated Physician Practices is amultiple site organization consisting of ambulatory clinics and hospital sitesin [place], [place], [place] and [place]. This disclosure is being madepursuant to the Care Everywhere program and may not contain all information available regarding this patient. Last updated 18.[facility] Allergies Active Allergy Reactions Criticality Noted Date [...] End Date Status Mometasone Furoate (NASONEX NA) [place] into the nose as needed. prn Active [...] Name Administration Dates Next Due BCG VACCINE [facility]IVING 1990 DTP 01/21/1995, 1,1990,1990,04/23/19 90 HEP B [...] Comments Blood Pressure 110/70 10/15/2014 8:25 AM OPTOELECTRONICS ENGINEER Pulse 96 10/15/2014 8:25 AM OPTOELECTRONICS ENGINEER Temperature 36.4 C (97.6 F) 10/15/2014 8:25 AM OPTOELECTRONICS ENGINEER Respiratory Rate 18 10/15/2014 8:25 AM OPTOELECTRONICS ENGINEER Oxygen Saturation 99% 10/15/2014 8:25 AM OPTOELECTRONICS ENGINEER Inhaled Oxygen Concentration - - Weight 62.1 kg (137 lb) 10/15/2014 8:25 AM OPTOELECTRONICS ENGINEER Height 160 cm (5' 3 ) 10/15/2014 8:25 AM OPTOELECTRONICS ENGINEER Body Mass Index 24.27 10/15/2014 8:25 AM OPTOELECTRONICS ENGINEER Plan of Treatment Not on file Care Teams Paper Inspector Relationship Specialty Start Date End Date Pcp, [facility] [place] [facility] PCP - General 01/04/24
--- OUTSIDE RECORDS SUMMARY | 2024-12-17 19:03 | XMS_ITS | Clinical Summary ---
Author Organization [facility] [employer] Address [address] [place] [address] Care Team Providers Care Commercial Drone Software Developer Name Role Phone Pcp, [facility] Primary Care Provider Unava ilable Source Comments [facility],non-owned Affiliates and Associated Physician Practices is amultiple site organization consisting of ambulatory clinics and hospital sitesin [place], [place], [place] and [place]. This disclosure is being madepursuant to the Care Everywhere program and may not contain all information available regarding this patient. Last updated 18.[facility] Allergies Active Allergy Reactions Criticality Noted Date [...] End Date Status Mometasone Furoate (NASONEX NA) [place] into the nose as needed. prn Active [...] Name Administration Dates Next Due BCG VACCINE [facility] 1990 DTP 01/21/1995, 1,1990,1990,04/23/19 90 HEP B [...] Comments Blood Pressure 110/70 10/15/2014 8:25 AM GROUND HAND Pulse 96 10/15/2014 8:25 AM GROUND HAND Temperature 36.4 C (97.6 F) 10/15/2014 8:25 AM GROUND HAND Respiratory Rate 18 10/15/2014 8:25 AM GROUND HAND Oxygen Saturation 99% 10/15/2014 8:25 AM GROUND HAND Inhaled Oxygen Concentration - - Weight 62.1 kg (137 lb) 10/15/2014 8:25 AM GROUND HAND Height 160 cm (5' 3 ) 10/15/2014 8:25 AM GROUND HAND Body Mass Index 24.27 10/15/2014 8:25 AM GROUND HAND Plan of Treatment Health Maintenance Due Date Last Done Comments HIV SCREENING 2005 HEPATITIS C SCREENING 02/03/2008 PNEUMOCOCCAL VACCINE (1 of 2 - PCV) 2009 PAP SMEAR 10/17/2016 10/17/2013 DTAP/TDAP/TD VACCINES (7 - Td or Tdap) 04/14/2019 04/14/2009, 01/21/1995, 06/28/1991, Additional history exists COVID-19 VACCINE ( season) 2024 INFLUENZA VACCINE (#1) 2024 DEPRESSION SCREENING 10/23/2024 ZOSTER VACCINE (1 of 2) 02/08/2040 HEPATITIS B VACCINE Completed 12/05/1995, 05/16/1995, 04/13/1995 MENINGOCOCCAL VACCINE Completed 01/22/2008 HIB VACCINE Aged Out No longer eligi ble based on patient's age to complete this topic HPV VACCINE Aged Out No longer eligi ble based on patient's age to complete this topic MENINGOCOCCAL (Group B) VACCINE Aged Out No longer eligible based on patient's age to complete this topic Care Teams Commercial Drone Software Developer Relationship Specialty Start Date End [facility] - General 01/04/24
--- OUTSIDE RECORDS SUMMARY | 2024-12-17 19:03 | XMS_ITS | Patient Health Summary ---
Author Organization [facility] Address [address] [place] [address] Care Team Providers Care Big Data Platform Architect Name Role Phone Pcp, [facility] Primary Care Provider Unava ilable Note from [facility],non-owned Affiliates and Associated Physician Practices is amultiple site organization consisting of ambulatory clinics and hospital sitesin [place], [place] and [place]. This disclosure is being madepursuant to the Care Everywhere program and may not contain all information available regarding this patient. Last updated 18.[facility] Allergies * Nitrous Oxide * Penicillins * Sulfa Drugs(Other) Medications * Be aware that medications may not be up to date on this document. Alwaysverify current medications with the patient. * Mometasone Furoate (NASONEX NA) [place] into the nose as needed. prn * [...] 05/07/2013 Asthma 05/07/2013 Immunizations * BCG VACCINE PENITENTIARY(Given 1990) * DTP(Given 01/21/1995, 06/28/1991, 1990, 1990, [...] Comments Blood Pressure 110/70 10/15/2014 8:25 AM [facility] Pulse 96 10/15/2014 8:25 AM [facility] Temperature 36.4 C (97.6 F) 10/15/2014 8:25 AM [facility] Respiratory Rate 18 10/15/2014 8:25 AM [facility] Oxygen Saturation 99% 10/15/2014 8:25 AM [facility] Inhaled Oxygen Concentration - - Weight 62.1 kg (137 lb) 10/15/2014 8:25 AM [facility] Height 160 cm (5' 3 ) 10/15/2014 8:25 AM [facility] Body Mass Index 24.27 10/15/2014 8:25 AM [facility] Procedures * MA TANGNTL BX SKIN SINGLE LES(Performed 07/07/2020) Performed [...] GROSS + MICRO EXAM(Performed 04/16/2009) Results * MA TANGNTL BX SKIN SINGLE LES (07/07/2020 5:01 PM CDT) Narrative Betzaida Vegas PA - 07/07/2020 5:01 PM CDT Betzaida Vegas PA 07/10/2020 4:47 PM Risks, benefits and alternatives to shave [...] 12:00 AM CDT) Case Report Dermatopathology Report Case: [id number] Authorizing Provider: Betzaida Vegas PA Collected: 07/03/2020 12:00 AM Ordering Location: [facility] Received: 07/06/2020 07:54 AM Dermatology Pathologist: Dariusz Awan MD Specimen: Skin, left post auricular 0 1:01 PM CDT DERMATOPATHOLOGY LABORATORY Final [...] specimen consists of a shave biopsy measuring [id number]. Jar 0. 0 1:01 PM CDT DERMATOPATHOLOGY [...] characteristic determined by the Dermatopathology Laboratory at [facility], directed by Dr. Praveen Awan. These tests need not be, and therefore are not, approved by the [place] Food and Drug Administration. The tests are used for clinical purposes. Billing Codes Specimen Charges Stain Charges 94257 1 0 1:01 PM CDT DERMATOPATHOLOGY LABORATORY Embedded Images 0 1:01 PM CDT DERMATOPATHOLOGY LABORATORY Pathology/Cytolog y TISSUE SPECIMEN FROM SKIN / Unknown 07/03/2020 07/06/2020 7:54 AM CDT Betzaida ROSENTHAL [facility] - PATHOLOGY/CYTO LOGY ORDERABLES DERMATOPATHOLOGY LABORATORY [facility] - Department of Dermatology [address], [address] Floor [address] [phone] * (ABNORMAL) CBC W AUTO DIFFERENTIAL (10/15/2014 9:02 AM [facility]) WBC 7.7 4.0 - 10.5 x10^9/L 10/15/2014 9:40 PM [facility] RBC 3.94(L) 4.20 - 5.40 x10^12/L 10/15/2014 9:40 PM [facility] Hemoglobin 12.7 12.5 - 16.0 gm/dL 10/15/2014 9:40 PM [facility] Hematocrit 38.7 37.0 - 47.0 % 10/15/2014 9:40 PM [facility] MCV 98.2 78.0 - 100.0 fl 10/15/2014 9:40 PM [facility] MCH 32.2(H) 27.0 - 31.0 pg 10/15/2014 9:40 PM [facility] MCHC 32.8 32.0 - 36.0 gm/dL 10/15/2014 9:40 PM [facility] RDW 12.0 11.5 - 14.0 % 10/15/2014 9:40 PM [facility] MPV 10.4(H) 6.0 - 9.5 fl 10/15/2014 9:40 PM [facility] Platelet Count 311 150 - 450 x10^9/L 10/15/2014 9:40 PM [facility] Neutrophils % 56.0 % 10/15/2014 9:40 PM [facility] Lymphocytes % 30.0 % 10/15/2014 9:40 PM [facility] Monocytes % 7.5 % 10/15/2014 9:40 PM [facility] Eosinophils % 5.6 % 10/15/2014 9:40 PM [facility] Basophils % 0.6 % 10/15/2014 9:40 PM [facility] Neutrophil Absolute 4.34 1.5 - 6.6 x10^9/L 10/15/2014 9:40 PM [facility] Lymphocytes Absolute 2.32 1.5 - 3.5 x10^9/L 10/15/2014 9:40 PM [facility] Monocytes Absolute 0.58 0 - 1 x10^9/L 10/15/2014 9:40 PM [facility] Eosinophils Absolute 0.43 0 - 0.7 x10^9/L 10/15/2014 9:40 PM [facility] Basophils Absolute 0.05 0 - 0.1 x10^9/L 10/15/2014 9:40 PM [facility] nRBC Absolute 0.00 x10^9/L 10/15/2014 9:40 PM [facility] nRBC Auto 0.0 % 10/15/2014 9:40 PM [facility] Immature Granulocytes 0.3 % 10/15/2014 9:40 PM [facility] Immature Granulocytes Absolute 0.02 x10^9/L 10/15/2014 9:40 PM [facility] Blood BLOOD SPECIMEN / Unknown 10/15/2014 9:02 AM [facility] 10/15/2014 9:02 AM [facility] Sabiha Og BREAD SLICER MACHINE-CLINICAL STAFF PHARMACIST LAB - HEMATOLO GY ORDERABLES [facility] [address] [phone] * (ABNORMAL) COMPREHENSIVE METABOLIC PANEL (10/15/2014 9:02 AM [facility]) Sodium 141 136 - 145 mmol/L 10/15/2014 9:58 PM [facility] Potassium 4.3 3.5 - 5.1 mmol/L 10/15/2014 9:58 PM [facility] Chloride 106 98 - 107 mmol/L 10/15/2014 9:58 PM [facility] CO2 28 22 - 29 mmol/L 10/15/2014 9:58 PM [facility] Anion Gap 7(L) 9 - 16 mmol/L 10/15/2014 9:58 PM [facility] BUN 9(L) 9.8 - 20.1 mg/dL 10/15/2014 9:58 PM [facility] Creatinine 0.77 0.57 - 1.11 mg/dL 10/15/2014 9:58 PM [facility] BUN/Creatinine Ratio 11.7(L) 17.2 - 18.1 10/15/2014 9:58 PM [facility] Calcium 9.2 8.4 - 10.2 mg/dL 10/15/2014 9:58 PM [facility] Protein Total 7.0 6.4 - 8.3 gm/dL 10/15/2014 9:58 PM [facility] Albumin 4.3 3.5 - 5.0 gm/dL 10/15/2014 9:58 PM [facility] ALT 23 0 - 55 U/L 10/15/2014 9:58 PM [facility] AST 26 5 - 34 U/L 10/15/2014 9:58 PM [facility] Alkaline Phosphatase 55 40 - 150 U/L 10/15/2014 9:58 PM [facility] Bilirubin Total 0.4 0.2 - 1.2 mg/dL 10/15/2014 9:58 PM [facility] Globulin Total 2.7(L) 2.9 - 3.3 gm/dL 10/15/2014 9:58 PM [facility] Albumin/Globulin Ratio 1.6(H) 1.2 - 1.5 10/15/2014 9:58 PM [facility] Osmolality Calculated 270 260 - 284 mOsm/kg 10/15/2014 9:58 PM [facility] eGFR by MDRD >60 >60 mL/min/1.7 3m2 10/15/2014 9:58 PM [facility] eGFR by MDRD >60 >60 mL/min/1.7 3m2 10/15/2014 9:58 PM [facility] Glucose 85 70 - 105 mg/dL 10/15/2014 9:58 PM [facility] Blood BLOOD SPECIMEN / Unknown 10/15/2014 9:02 AM [facility] 10/15/2014 9:02 AM [facility] Narrative [facility] - 10/15/2014 9:58 PM [facility] ADA Comment: The [place] [employer] recommends a fasting glucose concentration of 99 mg/dL as the upper limit of normal. ADA Comment: The [place] [employer] recommends a fasting glucose concentration of 99 mg/dL as the upper limit of normal. Note:GFR Reference Ranges have been established for adults between the ages of 18 and 70. STAGES OF CHRONIC KIDNEY DISEASE Stage Description GFR 1. Kidney damage with normal or increased GFR > or =90 2. Kidney damage with mildly decreased GFR 60-89 3. Moderately decreased GFR 30-59 4. Severely decreased GFR 15-29 5. Kidney Failure <15 Sabiha Og BREAD SLICER MACHINE-CLINICAL STAFF PHARMACIST LAB - CHEMISTR Y ORDERABLES Performing Organization Address City/[facility]/ZIP Co de Phone Number [facility] [address] [phone] * FOLATE (10/15/2014 9:02 AM [facility]) Folate 18.9 3.1 - 20.5 ng/mL 10/20/2014 10:47 PM [facility] Blood BLOOD SPECIMEN / Unknown 10/15/2014 9:02 AM [facility] 10/20/2014 8:25 AM [facility] Sabiha Og BREAD SLICER MACHINE-CLINICAL STAFF PHARMACIST LAB - CHEMISTR Y ORDERABLES Performing Organization Address City/[facility] Co de Phone Number [facility] [address] [place] [address] * VITAMIN B12 (10/15/2014 9:02 AM [facility]) Vitamin B12 381 213 - 816 pg/mL 10/20/2014 10:47 PM [facility] Blood BLOOD SPECIMEN / Unknown 10/15/2014 9:02 AM [facility] 10/20/2014 8:25 AM [facility] Sabiha Og BREAD SLICER MACHINE-CLINICAL STAFF PHARMACIST LAB - CHEMISTR Y ORDERABLES Performing Organization Address [facility] Co de Phone Number [facility] [address] [place] [address] * TSH (10/15/2014 9:02 AM [facility]) TSH 1.38 0.35 - 4.94 uIU/mL 10/15/2014 10:17 PM [facility] Blood BLOOD SPECIMEN / Unknown 10/15/2014 9:02 AM [facility] 10/15/2014 9:02 AM [facility] Sabiha Og BREAD SLICER MACHINE-[facility] LAB - CHEMISTR Y ORDERABLES Performing Organization Address [facility] de Phone Number [facility] [address] [place] [address] * PT WHOLE BLOOD - POINT OF CARE (AMB) [facility] (10/15/2014 8:57 AM [facility]) INR POCT 0.9 0.9 - 1.2 PT POCT 8.8 Seconds QC1 11.0 QC2 20.7 Whole blood specimen (specimen) BLOOD SPECIMEN / Unknown 10/15/2014 8:57 AM [facility] Sabiha Og BREAD SLICER MACHINE-CLINICAL STAFF PHARMACIST LAB - POINT OF CARE ORDERABLES * GROSS + MICRO EXAM (04/16/2009 10:34 AM CDT) Result CASE NUMBER [id number] Comment: ORDERING PHYSICIAN MERY SANDERS SPECIMEN TYPE Mass-soft tissue rt ankle Pathology Report CLINICAL DIAGNOSIS Local superficial swelling. SPECIMEN Soft [...] sectioned and submitted totally in two cassettes. LEANNE/amandeep D 04/17/2009 T 04/17/2009 *MICROSCOPIC MICROSCOPIC Microscopic examination has been performed. 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 No atypia or malignancy identified. Hospital Receiving Clerk NICHOLAS/farhana 04/20/2009 04/20/2009 Released By Rosa Blanco MISCELLANEOUS SAMPLES / Unknown 04/16/2009 10:34 AM CDT 04/17/2009 6:30 AM CDT Historical Provider LAB - PATHOLOGY/C YTOLOGY ORDERABLES Care Teams Big Data Platform Architect Relationship Specialty Start Date End Date Pcp, [facility] [place] Link PCP - General 01/04/24
[2024-12-17 19:11] LABS: Alanine Aminotransferase 34 U/L (6-35); Albumin Level 3.9 g/dL (3.5-5.1); Alkaline Phosphatase 65 U/L (38-126); Anion Gap 7 mmol/L (4-12); Aspartate Amino Transferase 30 U/L (14-36); Bilirubin,Total 0.5 mg/dL (0.2-1.3); Blood Urea Nitrogen 13 mg/dL (7-17); Calcium 8.6 mg/dL (8.4-10.2); Carbon Dioxide 30 mmol/L (22-30); Chloride 103 mmol/L (98-107); Estimated CRCL calculation 86 ml/min; Estimated Glomerular Filt Rate > 60; Glucose 104 mg/dL (65-110); Lipase 59 U/L (23-300); Potassium 3.5 mmol/L (3.4-5.0); Sodium 140 mmol/L (137-145)
--- NOTE | 2024-12-17 19:19 | ED_ITS ---
HPI - General Adult General Chief complaint: Abdominal Pain Stated complaint: RUQ pain Time Seen by Provider: 12/17/24 18:43 History of Present Illness HPI narrative: Reason for year old female presents emergency department with chief complaint of right upper quadrant abdominal pain. Patient reports that she ate spaghetti last night started having severe abdominal discomfort worse in the right upper quadrant the patient reports he has had nausea and has had bouts of diarrhea the patient has attempted to improve the symptoms with Zofran without success. Patient reports prior surgical history significant for Related Data Allergies Allergy/AdvReac Type Severity Reaction Status Date / Time Sulfa (Sulfonamide Allergy Severe ulers Verified 11/14/24 21:09 Antibiotics) nitrofurantoin (From AdvReac Unknown Possible Verified 11/14/24 21:09 Macrobid) fixed drug reaction Review of Systems 2 Review of Systems: A 10 system review of systems was completed on the patient and is negative except for what is stated in the HPI. Nursing and ancillary documentation was reviewed. [facility] Past Medical History Medical History Thyroiditis Encounter for insertion of mirena IUD Heartburn Asthma Surgical History Surgical History History of gynecological procedure (12/22/22) mirena iud insertion Delivery by section (11/01/22) primary c/s breech [place] teeth removed 2006 History of orthopedic surgery right ankle mass removed History of orthopedic surgery kipner procedure on left foot 03/2020 H/O right breast biopsy fibrocystic Hx of LASIK 2017 History of colposcopy benign H/O colonoscopy 2015 NL -hemorrhoids History of gynecological procedure (02/11/20) mirena iud removal and insertion Family History Family History Grandparent Diabetes mellitus paternal grandmother Hypertension paternal grandfather/ maternal grandmother Breast cancer Maternal grandmother Hyperthyroidism paternal grandmother Father Depression Grandparent AML (acute myeloid leukemia) Social History Social History Smoking status: Never smoker Second hand tobacco smoke exposure: No Alcohol intake: current Alcohol use details: social Substance use: never Substance use type: does not use Lack of Transportation: No Lack of Food: Never True Current Housing: I Have Housing Concerned About Future Housing: No Difficulty Paying Gas/Electric Bills: No Difficulty Paying for Meds: No Currently Unemployed: No Education: Master's Degree or Higher Difficulty w/ Childcare or Family Care: No Living arrangements: other Additional living arrangements comments: 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 HEAD: Normocephalic, atraumatic. EYES: PERRLA and EOMI. ENT: Nares clear, no rhinorrhea or epistaxis. Mucous membranes moist. NECK: Supple. CHEST: Clear to auscultation. No respiratory distress. HEART: Regular rate and rhythm. No murmur heard. Normal peripheral pulses. ABDOMEN: Soft, tenderness to palpation the right upper quadrant, nondistended, normal active bowel sounds. EXTREMITIES: Normal range of motion. No edema. SKIN: Warm, dry, no rash. NEURO: No focal deficits. Alert and oriented x3. PSYCH: Normal mood and affect. Course Vital Signs Vital signs: Vital Signs Temperature 36.6 C 12/17/24 17:45 Pulse Rate 99 12/17/24 17:45 Respiratory Rate 20 12/17/24 17:45 Blood Pressure 124/79 12/17/24 17:45 Pulse Oximetry 100 12/17/24 17:45 Temperature 36.6 C 12/17/24 17:45 Pulse Rate 99 12/17/24 17:45 Respiratory Rate 20 12/17/24 17:45 Blood Pressure 124/79 12/17/24 17:45 Pulse Oximetry 100 12/17/24 17:45 Medical Decision Making MDM Narrative Medical decision making narrative: Differential diagnosis includes gastroenteritis, diverticulitis, colitis, pancreatitis, cholecystitis, choledocholithiasis Laboratory studies were obtained on the patient showed normal CBC with white count 7.6 hemoglobin was 12.6 electrolytes are within normal limits liver enzymes were normal lipase was normal Differential includes gastritis there was some haziness present of the pancreas that could represent early pancreatitis with the patient has normal pancreatic labs Patient is feeling much better at this time will be discharged home with clear liquids also prescription for Bentyl Vital Signs Vital Signs: Vital Signs Temperature 36.6 C 12/17/24 17:45 Pulse Rate 99 12/17/24 17:45 Respiratory Rate 20 12/17/24 17:45 Blood Pressure 124/79 12/17/24 17:45 Pulse Oximetry 100 12/17/24 17:45 Temperature 36.6 C 12/17/24 17:45 Pulse Rate 99 12/17/24 17:45 Respiratory Rate 20 12/17/24 17:45 Blood Pressure 124/79 12/17/24 17:45 Pulse Oximetry 100 12/17/24 17:45 Lab Data 12/17/24 18:55 12/17/24 18:55 Labs: Lab Results 12/17/24 12/17/24 Range/Units 18:55 21:30 WBC 7.6 (4.5-10.0) K/mm3 RBC 3.93 L (4.2-5.4) M/mm3 Hgb 12.6 (12.0-15.0) g/dL Hct 37.6 (37.0-47.0) % MCV 95.7 (80-100) fl MCH 32.1 (26-34) pg MCHC 33.5 (32-36) g/dl RDW 12.3 (11.5-14.5) % Plt Count 337 (150-375) k/mm3 MPV 8.9 (7.4-10.4) fl Immature Gran % (Auto) 0.3 (0-0.5) % Neut % (Auto) 55.0 (45.5-73.1) % Lymph % (Auto) 31.2 (18.3-44.2) % [place] % (Auto) 10.6 H (2.6-8.5) % Eos % (Auto) 2.5 (0-4.4) % Baso % (Auto) 0.4 (0.2-1.2) % Lymph # (Auto) 2.36 (0.9-3.2) K/mm3 [place] # (Auto) 0.8 H (0.1-0.6) K/mm3 Eos # (Auto) 0.2 (0-0.3) K/mm3 Baso # (Auto) 0.0 (0.0-0.1) K/mm3 Abs Immat Gran (auto) 0.02 (0.00-0.031) K/mm3 Absolute Neuts (auto) 4.2 (1.3-6.7) K/mm3 Absolute Nucleated RBC 0.000 (0.0-0.012) K/mm3 Nucleated RBC % 0.0 (0.0-0.2) % Sodium 140 (137-145) mmol/L Potassium 3.5 (3.4-5.0) mmol/L Chloride 103 (98-107) mmol/L Carbon Dioxide 30 (22-30) mmol/L Anion Gap 7 (4-12) mmol/L BUN 13 (7-17) mg/dL Creatinine 0.65 L (0.7-1.0) mg/dL Estim Creat Clear Calc 86 ml/min Estimated GFR > 60 (59 - ) Glucose 104 (65-110) mg/dL Calcium 8.6 (8.4-10.2) mg/dL Total Bilirubin 0.5 (0.2-1.3) mg/dL AST 30 (14-36) U/L ALT 34 (6-35) U/L Alkaline Phosphatase 65 (38-126) U/L Total Protein 7.0 (6.3-8.2) g/dL Albumin 3.9 (3.5-5.1) g/dL Lipase 59 (23-300) U/L POC Urine HCG, Qual Negative (Negative) Discharge Plan Discharge Clinical Impression: Abdominal pain, Gastritis Patient Disposition: Home, Self-Care Condition: Stable Instructions: Antibiotic Form, Gastritis (ED), Abdominal Pain (ED) Patient Language: [place]ian Prescriptions: New dicyclomine 20 mg tablet 20 mg PO QID PRN (Reason: abdominal discomfort) Qty: 20 0RF No Action loratadine [Claritin] 10 mg tablet 10 mg PO DAILY Qty: 90 4RF prenat.vits,amy,uow-vxwh-gehab Tablet 1 tablet PO DAILY Qty: 90 0RF fluticasone propionate 50 mcg/actuation spray,suspension 1 spray INTRANASAL DAILY Qty: 16 4RF Rx Instructions: administer into each nostril cephalexin 500 mg capsule 500 mg PO Q6H 7 Days Qty: 28 0RF albuterol sulfate 90 mcg/actuation HFA aerosol inhaler 1 puff inhalation Q4H PRN (Reason: shortness of breath or wheezing) Qty: 17 11RF omeprazole 20 mg capsule,delayed release(DR/EC) 20 mg PO DAILY Qty: 90 3RF phentermine 37.5 mg capsule 37.5 mg PO DAILY Qty: 30 0RF Rx Instructions: must administer 30 minutes before or 1-2 hours after breakfast metformin 500 mg tablet extended release 24 hr 500 mg PO DAILY Qty: 90 3RF letrozole 2.5 mg tablet 2.5 mg PO DAILY 5 Days Qty: 5 3RF Rx Instructions: begin between days 2 and 5 of mentrual cycle amoxicillin-pot clavulanate 875-125 mg tablet 1 tablet PO BID Qty: 10 0RF methylprednisolone [Medrol (Espinoza)] 4 mg tablets,dose pack 4 mg PO DAILY Qty: 21 0RF ondansetron 4 mg tablet,disintegrating 4 mg PO Q8H Qty: 30 2RF montelukast [Singulair] 10 mg tablet 10 mg PO DAILY Qty: 90 3RF Pulmicort Flexhaler 180 mcg/actuation aerosol powdr breath activated 1 inh inhalation DAILY Qty: 3 3RF Asmanex HFA 200 mcg/actuation HFA aerosol inhaler 1 puff inhalation QHS Qty: 3 3RF azithromycin 250 mg tablet See Rx Instructions PO .COMPLEX Qty: 6 0RF Rx Instructions: For 250 mg dose pack: take 500 mg today (day 1), then 250 mg for 4 days (days 2-5) PO methylprednisolone [Medrol (Espinoza)] 4 mg tablets,dose pack See Rx Instructions PO PER PKG DIR Qty: 21 0RF Rx Instructions: PO PER PKG DIR for 6 days Follow-up/Referrals: Moon Self MD [Primary Care Provider] - Time of Disposition: 21:36
[2024-12-17] MEDS: MORPHINE SULFATE (*CRX) 4 MG/ML INJ IV PUSH (19:59)
[2024-12-17] MEDS: SODIUM CHLORIDE 0.9% IV 1,000 ML 999 ML IV CONT (20:00)
[2024-12-17] MEDS: PROCHLORPERAZINE EDISYLATE 10 MG/2 ML VIAL IV PUSH (20:00)
[2024-12-17] MEDS: PANTOPRAZOLE SODIUM IV 40 MG VIAL IV PUSH (20:00)
--- OUTSIDE RECORDS SUMMARY | 2024-12-17 20:07 | XMS_ITS | Referral Summary ---
Author Organization [facility] [place] Address [address] [place] [address] Care Team Providers Care Roll Slicing Machine Tender Name Role Phone Pcp, [facility] Primary Care Provider Unava ilable Source Comments [facility],non-owned Affiliates and Associated Physician Practices is amultiple site organization consisting of ambulatory clinics and hospital sitesin [place], [place], [place] and [place]. This disclosure is being madepursuant to the Care Everywhere program and may not contain all information available regarding this patient. Last updated 18.[facility] Allergies Active Allergy Reactions Criticality Noted Date [...] End Date Status Mometasone Furoate (NASONEX NA) [place] into the nose as needed. prn Active [...] Name Administration Dates Next Due BCG VACCINE DETENTION 1990 DTP 01/21/1995, 1,1990,1990,04/23/19 90 HEP B [...] Comments Blood Pressure 110/70 10/15/2014 8:25 AM ARMOR SENIOR SERGEANT Pulse 96 10/15/2014 8:25 AM ARMOR SENIOR SERGEANT Temperature 36.4 C (97.6 F) 10/15/2014 8:25 AM ARMOR SENIOR SERGEANT Respiratory Rate 18 10/15/2014 8:25 AM ARMOR SENIOR SERGEANT Oxygen Saturation 99% 10/15/2014 8:25 AM ARMOR SENIOR SERGEANT Inhaled Oxygen Concentration - - Weight 62.1 kg (137 lb) 10/15/2014 8:25 AM ARMOR SENIOR SERGEANT Height 160 cm (5' 3 ) 10/15/2014 8:25 AM ARMOR SENIOR SERGEANT Body Mass Index 24.27 10/15/2014 8:25 AM ARMOR SENIOR SERGEANT Plan of Treatment Not on file Care Teams Roll Slicing Machine Tender Relationship Specialty Start Date End Date Pcp, [facility] [place] Link PCP - General 01/04/24
--- OUTSIDE RECORDS SUMMARY | 2024-12-17 20:07 | XMS_ITS | Clinical Summary ---
Author Organization [facility] Address [address] [place] [phone] Care Team Providers Care Ingredient Specialist Name Role Phone No, Physician Primary Care Provider [phone] Allergies Active Allergy Reactions Criticality Noted Date Comments Nitrous Oxide Other (See comments) Low 05/07/2013 Reaction when younger Penicillins Other (See comments) Low 05/07/2013 As a child Sulfa (Sulfonamide Antibiotics) Other (See comments),Rash Medium 10/10/2022 Medications Flovent HFA 110 mcg/actuation inhaler 2 Active fluticasone propionate (FLONASE) 50 mcg/actuation nasal spray fluticasone propionate 50 mcg/actuation nasal spray,suspension [place] 2 sprays every day by intranasal route. [...] MFM -Diabetes education to be scheduled at [facility] -Serial growth US -Consider delivery at 39 weeks (CS for breech scheduled with primary) - 2 hr GTT Assessment & Plan (10/10/2022 10:44 AM WORKFORCE INVESTMENT ACT CAREER MANAGER): We reviewed the management of a complicated [...] Overview (10/10/2022): [x] Co-management vs. [] Full [facility] Care; [] Red Team [x] Blue Team Referring Provider: Itz Peoples [phone] [] or Medicare Insurance [x] Dating Criteria: [...] [] MOC: [] Method of feeding: [] Camp Recreation Specialist: [] PP Depression Discussed: Accessory navicular bone [...] CDT Gender Identity Female 10/09/2022 6:18 PM WORKFORCE INVESTMENT ACT CAREER MANAGER Sexual Orientation Not on file Obstetrics History Para Term AB IAB SAB Ectopic Multiple Livin g Live Births 1 Date Outcome GA Total Labor Labor/2nd/3rd Weight Sex Type Anes PTL Lilia A1 A5 Name Clin Last Filed Vital Signs Vital Sign Reading Time Taken Comments Blood Pressure 111/69 10/10/2022 9:32 AM WORKFORCE INVESTMENT ACT CAREER MANAGER Pulse 122 10/10/2022 9:32 AM WORKFORCE INVESTMENT ACT CAREER MANAGER Temperature - - Respiratory Rate - - Oxygen Saturation 98% 10/10/2022 9:32 AM WORKFORCE INVESTMENT ACT CAREER MANAGER Inhaled Oxygen Concentration - - Weight 81.2 kg (179 lb) 10/10/2022 9:32 AM WORKFORCE INVESTMENT ACT CAREER MANAGER Height 160 cm (5' 3 ) 10/10/2022 9:32 AM WORKFORCE INVESTMENT ACT CAREER MANAGER Body Mass Index 31.71 10/10/2022 9:32 AM WORKFORCE INVESTMENT ACT CAREER MANAGER Plan of Treatment Health Maintenance Due Date [...] Screening Completed 12/05/1995 , 05/16/1995, 04/13/1995 Insurance [facility] Care Teams Ingredient Specialist Relationship Specialty Start Date End Date No, Physician PCP - General 06/06/22
--- OUTSIDE RECORDS SUMMARY | 2024-12-17 20:07 | XMS_ITS | Referral Summary ---
Author Organization [facility] Address [address] [place] [id number] Care Team Providers Care Fare Collector Name Role Phone No, Physician Primary Care Provider [phone] Allergies Active Allergy Reactions Criticality Noted Date Comments Nitrous Oxide Other (See comments) Low 05/07/2013 Reaction when younger Penicillins Other (See comments) Low 05/07/2013 As a child Sulfa (Sulfonamide Antibiotics) Other (See comments),Rash Medium 10/10/2022 Medications Flovent HFA 110 mcg/actuation inhaler 2 Active fluticasone propionate (FLONASE) 50 mcg/actuation nasal spray fluticasone propionate 50 mcg/actuation nasal spray,suspension [place] 2 sprays every day by intranasal route. [...] MFM -Diabetes education to be scheduled at [facility] -Serial growth US -Consider delivery at 39 weeks (CS for breech scheduled with primary) - 2 hr GTT Assessment & Plan (10/10/2022 10:44 AM GRIND OPERATOR): We reviewed the management of a complicated [...] Overview (10/10/2022): [x] Co-management vs. [] Full [facility] Care; [] Red Team [x] Blue Team Referring Provider: Itz Peoples [phone] [] or Medicare Insurance [x] Dating Criteria: [...] [] MOC: [] Method of feeding: [] Social Service Worker: [] PP Depression Discussed: Accessory navicular bone [...] CDT Gender Identity Female 10/09/2022 6:18 PM GRIND OPERATOR Sexual Orientation Not on file Last Filed Vital Signs Vital Sign Reading Time Taken Comments Blood Pressure 111/69 10/10/2022 9:32 AM GRIND OPERATOR Pulse 122 10/10/2022 9:32 AM GRIND OPERATOR Temperature - - Respiratory Rate - - Oxygen Saturation 98% 10/10/2022 9:32 AM GRIND OPERATOR Inhaled Oxygen Concentration - - Weight 81.2 kg (179 lb) 10/10/2022 9:32 AM GRIND OPERATOR Height 160 cm (5' 3 ) 10/10/2022 9:32 AM GRIND OPERATOR Body Mass Index 31.71 10/10/2022 9:32 AM GRIND OPERATOR Plan of Treatment Not on file Insurance [facility] Care Teams Fare Collector Relationship Specialty Start Date End Date No, Physician PCP - General 06/06/22
--- OUTSIDE RECORDS SUMMARY | 2024-12-17 20:07 | XMS_ITS | Clinical Summary ---
Author Organization [facility] [employer] Address [address] [place] [address] Care Team Providers Care Piccoloist Name Role Phone Pcp, [facility] Primary Care Provider Unava ilable Source Comments [facility],non-owned Affiliates and Associated Physician Practices is amultiple site organization consisting of ambulatory clinics and hospital sitesin [place], [place], [place] and [place]. This disclosure is being madepursuant to the Care Everywhere program and may not contain all information available regarding this patient. Last updated 18.[facility] Allergies Active Allergy Reactions Criticality Noted Date [...] End Date Status Mometasone Furoate (NASONEX NA) [place] into the nose as needed. prn Active [...] Comments Blood Pressure 110/70 10/15/2014 8:25 AM TELEGRAPHIC TYPEWRITER OPERATOR Pulse 96 10/15/2014 8:25 AM TELEGRAPHIC TYPEWRITER OPERATOR Temperature 36.4 C (97.6 F) 10/15/2014 8:25 AM TELEGRAPHIC TYPEWRITER OPERATOR Respiratory Rate 18 10/15/2014 8:25 AM TELEGRAPHIC TYPEWRITER OPERATOR Oxygen Saturation 99% 10/15/2014 8:25 AM TELEGRAPHIC TYPEWRITER OPERATOR Inhaled Oxygen Concentration - - Weight 62.1 kg (137 lb) 10/15/2014 8:25 AM TELEGRAPHIC TYPEWRITER OPERATOR Height 160 cm (5' 3 ) 10/15/2014 8:25 AM TELEGRAPHIC TYPEWRITER OPERATOR Body Mass Index 24.27 10/15/2014 8:25 AM TELEGRAPHIC TYPEWRITER OPERATOR Plan of Treatment Health Maintenance Due Date [...] age to complete this topic Care Teams Piccoloist Relationship Specialty Start Date End Date [facility] P[facility] - General 01/04/24
--- OUTSIDE RECORDS SUMMARY | 2024-12-17 20:07 | XMS_ITS | Patient Health Summary ---
Author Organization [facility] Address [address] [place] [address] Care Team Providers Care Heating And Cooling Systems Engineer Name Role Phone Pcp, [facility] Primary Care Provider Unava ilable Note from [facility],non-owned Affiliates and Associated Physician Practices is amultiple site organization consisting of ambulatory clinics and hospital sitesin [place], [place], [place] and [place]. This disclosure is being madepursuant to the Care Everywhere program and may not contain all information available regarding this patient. Last updated 18.[facility] Allergies * Nitrous Oxide * Penicillins * Sulfa Drugs(Other) Medications * Be aware that medications may not be up to date on this document. Alwaysverify current medications with the patient. * Mometasone Furoate (NASONEX NA) [place] into the nose as needed. prn * [...] 05/07/2013 Asthma 05/07/2013 Immunizations * BCG VACCINE PRISON(Given 1990) * DTP(Given 01/21/1995, 06/28/1991, 1990, 1990, [...] Comments Blood Pressure 110/70 10/15/2014 8:25 AM EXTRUDER OPERATOR MULTIPLE Pulse 96 10/15/2014 8:25 AM EXTRUDER OPERATOR MULTIPLE Temperature 36.4 C (97.6 F) 10/15/2014 8:25 AM EXTRUDER OPERATOR MULTIPLE Respiratory Rate 18 10/15/2014 8:25 AM EXTRUDER OPERATOR MULTIPLE Oxygen Saturation 99% 10/15/2014 8:25 AM EXTRUDER OPERATOR MULTIPLE Inhaled Oxygen Concentration - - Weight 62.1 kg (137 lb) 10/15/2014 8:25 AM EXTRUDER OPERATOR MULTIPLE Height 160 cm (5' 3 ) 10/15/2014 8:25 AM EXTRUDER OPERATOR MULTIPLE Body Mass Index 24.27 10/15/2014 8:25 AM EXTRUDER OPERATOR MULTIPLE Procedures * AZ TANGNTL BX SKIN SINGLE LES(Performed 07/07/2020) Performed [...] GROSS + MICRO EXAM(Performed 04/16/2009) Results * AZ TANGNTL BX SKIN SINGLE LES (07/07/2020 5:01 [...] AM CDT) Case Report Dermatopathology Report Case: [id number] Authorizing Provider: Betzaida Vegas PA Collected: 07/03/2020 12:00 AM Ordering Location: [facility] Received: 07/06/2020 07:54 AM Dermatology Pathologist: [...] specimen consists of a shave biopsy measuring [id number]. Jar 0. 0 1:01 PM CDT DERMATOPATHOLOGY [...] characteristic determined by the Dermatopathology Laboratory at [facility], directed by Dr. Praveen Awan. These tests need not be, and therefore are not, approved by the [place] Food and Drug Administration. The tests are used for clinical purposes. Billing Codes Specimen Charges Stain Charges 41645 1 0 1:01 PM CDT DERMATOPATHOLOGY LABORATORY Embedded Images 0 1:01 PM CDT DERMATOPATHOLOGY LABORATORY Pathology/Cytolog y TISSUE SPECIMEN FROM SKIN / Unknown 07/03/2020 07/06/2020 7:54 AM CDT Betzaida [facility]ENT[facility] - PATHOLOGY/CYTO LOGY ORDERABLES DERMATOPATHOLOGY LABORATORY [facility] - Department of Dermatology [address], [address] [phone] * (ABNORMAL) CBC W AUTO DIFFERENTIAL (10/15/2014 9:02 AM EXTRUDER OPERATOR MULTIPLE) WBC 7.7 4.0 - 10.5 x10^9/L 10/15/2014 9:40 PM EXTRUDER OPERATOR MULTIPLE [facility] RBC 3.94(L) 4.20 - 5.40 x10^12/L 10/15/2014 9:40 PM EXTRUDER OPERATOR MULTIPLE [facility] Hemoglobin 12.7 12.5 - 16.0 gm/dL 10/15/2014 9:40 PM EXTRUDER OPERATOR MULTIPLE [facility] Hematocrit 38.7 37.0 - 47.0 % 10/15/2014 9:40 PM EXTRUDER OPERATOR MULTIPLE [facility] MCV 98.2 78.0 - 100.0 fl 10/15/2014 9:40 PM EXTRUDER OPERATOR MULTIPLE [facility] MCH 32.2(H) 27.0 - 31.0 pg 10/15/2014 9:40 PM EXTRUDER OPERATOR MULTIPLE [facility] MCHC 32.8 32.0 - 36.0 gm/dL 10/15/2014 9:40 PM EXTRUDER OPERATOR MULTIPLE [facility] RDW 12.0 11.5 - 14.0 % 10/15/2014 9:40 PM [facility] MPV 10.4(H) 6.0 - 9.5 fl 10/15/2014 9:40 PM EXTRUDER OPERATOR MULTIPLE [facility] Platelet Count 311 150 - 450 x10^9/L 10/15/2014 9:40 PM EXTRUDER OPERATOR MULTIPLE [facility] Neutrophils % 56.0 % 10/15/2014 9:40 PM EXTRUDER OPERATOR MULTIPLE [facility] Lymphocytes % 30.0 % 10/15/2014 9:40 PM [facility] Monocytes % 7.5 % 10/15/2014 9:40 PM EXTRUDER OPERATOR MULTIPLE [facility] Eosinophils % 5.6 % 10/15/2014 9:[address] [facility] Basophils % 0.6 % 10/15/2014 9:[address] [facility] Neutrophil Absolute 4.34 1.5 - 6.6 x10^9/L 10/15/2014 9:[address] [facility] Lymphocytes Absolute 2.32 1.5 - 3.5 x10^9/L 10/15/2014 9:[address] [facility] Monocytes Absolute 0.58 0 - 1 x10^9/L 10/15/2014 9:[address] [facility] Eosinophils Absolute 0.43 0 - 0.7 x10^9/L 10/15/2014 9:[address] [facility] Basophils Absolute 0.05 0 - 0.1 x10^9/L 10/15/2014 9:[address] [facility] nRBC Absolute 0.00 x10^9/L 10/15/2014 9:[address] [facility] nRBC Auto 0.0 % 10/15/2014 9:[address] [facility] Immature Granulocytes 0.3 % 10/15/2014 9:[address] [facility] Immature Granulocytes Absolute 0.02 x10^9/L 10/15/2014 9:[address] [facility] Blood BLOOD SPECIMEN / Unknown 10/15/2014 9:02 AM EXTRUDER OPERATOR MULTIPLE 10/15/2014 9:02 AM EXTRUDER OPERATOR MULTIPLE Sabiha Og DRESS CAP MAKER-INTEGRATED LOGISTICS OPERATIONS MANAGER LAB - HEMATOLO GY ORDERABLES [facility] [address] [phone] * (ABNORMAL) COMPREHENSIVE METABOLIC PANEL (10/15/2014 9:[address] [facility]) Sodium 141 136 - 145 mmol/L 10/15/2014 9:[address] [facility] Potassium 4.3 3.5 - 5.1 mmol/L 10/15/2014 9:[address] [facility] Chloride 106 98 - 107 mmol/L 10/15/2014 9:[address] [facility] CO2 28 22 - 29 mmol/L 10/15/2014 9:[address] [facility] Anion Gap 7(L) 9 - 16 mmol/L 10/15/2014 9:[address] [facility] BUN 9(L) 9.8 - 20.1 mg/dL 10/15/2014 9:[address] [facility] Creatinine 0.77 0.57 - 1.11 mg/dL 10/15/2014 9:[address] [facility] BUN/Creatinine Ratio 11.7(L) 17.2 - 18.1 10/15/2014 9:[address] [facility] Calcium 9.2 8.4 - 10.2 mg/dL 10/15/2014 9:[address] [facility] Protein Total 7.0 6.4 - 8.3 gm/dL 10/15/2014 9:[address] [facility] Albumin 4.3 3.5 - 5.0 gm/dL 10/15/2014 9:[address] [facility] ALT 23 0 - 55 U/L 10/15/2014 9:[address] [facility] AST 26 5 - 34 U/L 10/15/2014 9:[address] [facility] Alkaline Phosphatase 55 40 - 150 U/L 10/15/2014 9:[address] [facility] Bilirubin Total 0.4 0.2 - 1.2 mg/dL 10/15/2014 9:[address] [facility] Globulin Total 2.7(L) 2.9 - 3.3 gm/dL 10/15/2014 9:[address] [facility] Albumin/Globulin Ratio 1.6(H) 1.2 - 1.5 10/15/2014 9:[address] [facility] Osmolality Calculated 270 260 - 284 mOsm/kg 10/15/2014 9:[address] [facility] eGFR by MDRD >60 >60 mL/min/1.7 3m2 10/15/2014 9:[address] [facility] eGFR by MDRD >60 >60 mL/min/1.7 3m2 10/15/2014 9:[address] [facility] Glucose 85 70 - 105 mg/dL 10/15/2014 9:[address] [facility] Blood BLOOD SPECIMEN / Unknown 10/15/2014 9:02 AM EXTRUDER OPERATOR MULTIPLE 10/15/2014 9:02 AM EXTRUDER OPERATOR MULTIPLE Narrative [facility] - 10/15/2014 9:58 PM EXTRUDER OPERATOR MULTIPLE ADA Comment: The [place] [employer] recommends a fasting glucose concentration of 99 mg/dL as the upper limit of normal. ADA Comment: The [place] Diabetes [employer] recommends a fasting glucose concentration [...] 15-29 5. Kidney Failure <15 Sabiha Og DRESS CAP MAKER-INTEGRATED LOGISTICS OPERATIONS MANAGER LAB - CHEMISTR Y ORDERABLES Performing Organization Address City/[facility]/ZIP Co de Phone Number [facility] [address] [phone] * FOLATE (10/15/2014 9:02 AM EXTRUDER OPERATOR MULTIPLE) Folate 18.9 3.1 - 20.5 ng/mL 10/20/2014 10:[address] [facility] Blood BLOOD SPECIMEN / Unknown 10/15/2014 9:02 AM EXTRUDER OPERATOR MULTIPLE 10/20/2014 8:25 AM EXTRUDER OPERATOR MULTIPLE Sabiha Og DRESS CAP MAKER-INTEGRATED LOGISTICS OPERATIONS MANAGER LAB - CHEMISTR Y ORDERABLES Performing Organization Address City/[facility] Co de Phone Number [facility] [address] [place] [address] * VITAMIN B12 (10/15/2014 9:02 AM EXTRUDER OPERATOR MULTIPLE) Vitamin B12 381 213 - 816 pg/mL 10/20/2014 10:47 PM EXTRUDER OPERATOR MULTIPLE [facility] Blood BLOOD SPECIMEN / Unknown 10/15/2014 9:02 AM EXTRUDER OPERATOR MULTIPLE 10/20/2014 8:25 AM EXTRUDER OPERATOR MULTIPLE Sabiha Og DRESS CAP MAKER-INTEGRATED LOGISTICS OPERATIONS MANAGER LAB - CHEMISTR Y ORDERABLES Performing Organization Address [facility] Co de Phone Number [facility] [address] [place] [address] * TSH (10/15/2014 9:02 AM EXTRUDER OPERATOR MULTIPLE) TSH 1.38 0.35 - 4.94 uIU/mL 10/15/2014 10:17 PM EXTRUDER OPERATOR MULTIPLE [facility] Blood BLOOD SPECIMEN / Unknown 10/15/2014 9:02 AM EXTRUDER OPERATOR MULTIPLE 10/15/2014 9:02 AM EXTRUDER OPERATOR MULTIPLE Sabiha Og DRESS CAP MAKER-[facility] LAB - CHEMISTR Y ORDERABLES Performing Organization Address [facility] de Phone Number [facility] [address] [place] [address] * PT WHOLE BLOOD - POINT OF CARE (AMB) [facility] (10/15/2014 8:57 AM EXTRUDER OPERATOR MULTIPLE) INR POCT 0.9 0.9 - 1.2 PT POCT 8.8 Seconds QC1 11.0 QC2 20.7 Whole blood specimen (specimen) BLOOD SPECIMEN / Unknown 10/15/2014 8:57 AM EXTRUDER OPERATOR MULTIPLE Sabiha Og DRESS CAP MAKER-INTEGRATED LOGISTICS OPERATIONS MANAGER LAB - POINT OF CARE ORDERABLES * [...] tendon sheath). No atypia or malignancy identified. [facility] [employer] NICHOLAS/farhana 04/20/2009 04/20/2009 Released By Rosa Blanco MISCELLANEOUS SAMPLES / Unknown 04/16/2009 10:34 AM CDT 04/17/2009 6:30 AM CDT Historical Provider LAB - PATHOLOGY/C YTOLOGY ORDERABLES Care Teams Heating And Cooling Systems Engineer Relationship Specialty Start Date End Date Pcp, [facility] [place] Link PCP - General 01/04/24
[2024-12-17 21:32] LABS: BEDSIDEPREGUCG Negative (Negative)
== END 2024-12-17 21:50 | disposition home or self-care (01) ==
PROVIDERS: Emergency Provider Emergency Medicine; PCP Family Medicine
DX: K29.70 Gastritis, unspecified, without bleeding (principal)
CPT/HCPCS: 36415; 74177; 76705; 80053; 81025; 83690; 85025; 96361; 96374; 96375; 99284; J0780; J2270; J2470; J7030; Q9967

== ENCOUNTER 2025-02-06 07:16 | Outpatient (CLI) | payer OTHER, SELFPAY ==
--- OUTSIDE RECORDS SUMMARY | 2025-02-06 07:19 | XMS_ITS | Clinical Summary ---
Author Organization [facility] [email or web address] Address [address] [place] [address] Care Team Providers Care Project Geophysicist Name Role Phone Pcp, [facility] Primary Care Provider Unava ilable Source Comments [facility],non-owned Affiliates and Associated Physician Practices is amultiple site organization consisting of ambulatory clinics and hospital sitesin [place], [place] and [place]. This disclosure is being madepursuant to the Care Everywhere program and may not contain all information available regarding this patient. Last updated 18.[facility] Allergies Active Allergy Reactions Criticality Noted Date Comments Nitrous Oxide 05/07/2013 Penicillins 05/07/2013 Sulfa Drugs Other 07/03/2020 No reaction told by parents allergic due to family hx of sulfa allergy Medications * Be aware that medications may not be up to date on this document. Alwaysverify current medications with the patient. Mometasone Furoate (NASONEX NA) [place] into the nose as needed. prn Active montelukast (SINGULAIR) 10 MG tablet Take 1 Tab by mouth once daily. 1 daily 30 Tab 0 05/10/2013 Active Fluticasone Propionate, Inhal, (FLOVENT DISKUS IN)Indications:E asy bruising Inhale by mouth. Active cetirizine (ZYRTEC ALLERGY) 10 MG tabletIndication s:Easy bruising Take 10 mg by mouth once daily. Active albuterol HFA (PROAIR HFA) 108 (90 BASE) MCG/ACT inhalerIndicatio ns:Easy bruising Inhale 2 Puffs by mouth every 6 hours as needed. Active Active Problems Problem Noted Date Diagnosed Date mild scoliosis 05/07/2013 Asthma 05/07/2013 Immunizations Immunization Administration Dates Next Due BCG VACCINE CARE HOME 1990 DTP 01/21/1995, 1,1990,1990,04/23/19 90 HEP B [...] drink = 0.6 oz pur e alcohol) Comments No Sex and Gender Information Value Date Recorded Sex Assigned at Not on file Legal Sex Female 1:40 PM ANTISQUEAK CHALKER Gender Identity Not on file Sexual Orientation Not on file Last Filed Vital Signs Vital Sign Reading Time Taken Comments Blood Pressure 110/70 10/15/2014 8:25 AM ANTISQUEAK CHALKER Pulse 96 10/15/2014 8:25 AM ANTISQUEAK CHALKER Temperature 36.4 C (97.6 F) 10/15/2014 8:25 AM ANTISQUEAK CHALKER Respiratory Rate 18 10/15/2014 8:25 AM ANTISQUEAK CHALKER Oxygen Saturation 99% 10/15/2014 8:25 AM ANTISQUEAK CHALKER Inhaled Oxygen Concentration - - Weight 62.1 kg (137 lb) 10/15/2014 8:25 AM ANTISQUEAK CHALKER Height 160 cm (5' 3 ) 10/15/2014 8:25 AM ANTISQUEAK CHALKER Body Mass Index 24.27 10/15/2014 8:25 AM ANTISQUEAK CHALKER Plan of Treatment Health Maintenance Due Date Last Done Comments HIV SCREENING 2005 HEPATITIS C SCREENING 02/03/2008 PNEUMOCOCCAL VACCINE (1 of 2 - PCV) 2009 PAP SMEAR 10/17/2016 10/17/2013 DTAP/TDAP/TD VACCINES (7 - Td or Tdap) 04/14/2019 04/14/2009, 01/21/1995, 06/28/1991, Additional history exists COVID-19 VACCINE ( season) 2024 DEPRESSION SCREENING 10/23/2024 INFLUENZA VACCINE (Season Ended) 2025 ZOSTER VACCINE (1 of 2) 02/08/2040 HEPATITIS B VACCINE Completed 12/05/1995, 05/16/1995, 04/13/1995 MENINGOCOCCAL GROUPS A/C/Y/W VACCINE Completed 01/22/2008 HIB VACCINE Aged Out No longer eligi ble based on patient's age to complete this topic HPV VACCINE Aged Out No longer eligi ble based on patient's age to complete this topic MENINGOCOCCAL (Group B) VACCINE SHARED DECISION-MAKING Aged Out No longer eligible based on patient's age to complete this topic Insurance [facility] Address: [facility] [id number] [place] [phone] Care Teams Project Geophysicist Relationship Specialty Start Date End Date Pcp, [facility] [place] PCP - General 01/04/24
--- OUTSIDE RECORDS SUMMARY | 2025-02-06 07:19 | XMS_ITS | Clinical Summary ---
Author Organization [facility] Address [address] [place] [id number] Care Team Providers Care Mill Supervisor Name Role Phone No, Physician Primary Care Provider [phone] Allergies Active Allergy Reactions Criticality Noted Date Comments Nitrous Oxide Other (See comments) Low 05/07/2013 Reaction when younger Penicillins Other (See comments) Low 05/07/2013 As a child Sulfa (Sulfonamide Antibiotics) Other (See comments),Rash Medium 10/10/2022 Medications Flovent HFA 110 mcg/actuation inhaler 2 Active fluticasone propionate (FLONASE) 50 mcg/actuation nasal spray fluticasone propionate 50 mcg/actuation nasal spray,suspension [place] 2 sprays every day by intranasal route. [...] MFM -Diabetes education to be scheduled at [place] -Serial growth US -Consider delivery at 39 weeks (CS for breech scheduled with primary) - 2 hr GTT Assessment & Plan (10/10/2022 10:[address] CLERK): We reviewed the management of a complicated [...] Overview (10/10/2022): [x] Co-management vs. [] Full [facility] Care; [] Red Team [x] Blue Team Referring Provider: Itz Peoples [phone] [] or Medicare Insurance [x] Dating Criteria: [...] [] MOC: [] Method of feeding: [] Maxillofacial Pathology: [] PP Depression Discussed: Accessory navicular bone [...] CDT Gender Identity Female 10/09/2022 6:[address] CLERK Sexual Orientation Not on file Obstetrics History Para Term AB IAB SAB Ectopic Multiple Livin g Live Births 1 Date Outcome GA Total Labor Labor/2nd/3rd Weight Sex Type Anes PTL Lilia A1 A5 Name Clin Last Filed Vital Signs Vital Sign Reading Time Taken Comments Blood Pressure 111/69 10/10/2022 9:[address] CLERK Pulse 122 10/10/2022 9:[address] CLERK Temperature - - Respiratory Rate - - Oxygen Saturation 98% 10/10/2022 9:[address] CLERK Inhaled Oxygen Concentration - - Weight 81.2 kg (179 lb) 10/10/2022 9:[address] CLERK Height 160 cm (5' 3 ) 10/10/2022 9:[address] CLERK Body Mass Index 31.71 10/10/2022 9:[address] CLERK Plan of Treatment Health Maintenance Due Date [...] Screening Completed 12/05/1995 , 05/16/1995, 04/13/1995 Insurance [facility] Address: [address] [place] [phone] [facility] Address: [address] [place] [phone] Care Teams Mill Supervisor Relationship Specialty Start Date End Date No, Physician PCP - General 06/06/22
--- OUTSIDE RECORDS SUMMARY | 2025-02-06 07:19 | XMS_ITS | Referral Summary ---
Author Organization [facility] Address [address] [place] [id number] Care Team Providers Care Redevelopment Specialist Name Role Phone No, Physician Primary Care Provider [phone] Allergies Active Allergy Reactions Criticality Noted Date Comments Nitrous Oxide Other (See comments) Low 05/07/2013 Reaction when younger Penicillins Other (See comments) Low 05/07/2013 As a child Sulfa (Sulfonamide Antibiotics) Other (See comments),Rash Medium 10/10/2022 Medications Flovent HFA 110 mcg/actuation inhaler 2 Active fluticasone propionate (FLONASE) 50 mcg/actuation nasal spray fluticasone propionate 50 mcg/actuation nasal spray,suspension [place] 2 sprays every day by intranasal route. [...] MFM -Diabetes education to be scheduled at [place] -Serial growth US -Consider delivery at 39 weeks (CS for breech scheduled with primary) - 2 hr GTT Assessment & Plan (10/10/2022 10:44 AM MOTORCYCLE POLICE OFFICER): We reviewed the management of a complicated [...] Overview (10/10/2022): [x] Co-management vs. [] Full [facility] Care; [] Red Team [x] Blue Team Referring Provider: Itz Peoples [phone] [] or Medicare Insurance [x] Dating Criteria: [...] [] MOC: [] Method of feeding: [] Web Content Director: [] PP Depression Discussed: Accessory navicular bone [...] CDT Gender Identity Female 10/09/2022 6:18 PM MOTORCYCLE POLICE OFFICER Sexual Orientation Not on file Last Filed Vital Signs Vital Sign Reading Time Taken Comments Blood Pressure 111/69 10/10/2022 9:32 AM MOTORCYCLE POLICE OFFICER Pulse 122 10/10/2022 9:32 AM MOTORCYCLE POLICE OFFICER Temperature - - Respiratory Rate - - Oxygen Saturation 98% 10/10/2022 9:32 AM MOTORCYCLE POLICE OFFICER Inhaled Oxygen Concentration - - Weight 81.2 kg (179 lb) 10/10/2022 9:32 AM MOTORCYCLE POLICE OFFICER Height 160 cm (5' 3 ) 10/10/2022 9:32 AM MOTORCYCLE POLICE OFFICER Body Mass Index 31.71 10/10/2022 9:32 AM MOTORCYCLE POLICE OFFICER Plan of Treatment Not on file Insurance [facility] Care Teams Redevelopment Specialist Relationship Specialty Start Date End Date No, Physician PCP - General 06/06/22
[2025-02-06 08:02] LABS: Beta HCG Quantitative 44.16 mIU/ML
== END 2025-02-06 07:17 | disposition home or self-care (01) ==
LOC: ANHOBOP 07:17
PROVIDERS: PCP Family Medicine; Visit Provider Obstetrics & Gynecology
DX: O20.0 Threatened abortion (principal); Z3A.00 Weeks of gestation of pregnancy not specified
CPT/HCPCS: 36415; 84702

== ENCOUNTER 2025-02-17 12:43 | Outpatient (CLI) | payer OTHER, SELFPAY ==
--- NOTE | ~2025-02-17 | US_ITS ---
EXAMINATION: US OB <=14 wk fetus w TV DATE: 02/17/2025 13:34 INDICATION: Threatened during first trimester TECHNIQUE: Real-time pelvic ultrasound utilizing both a transvaginal and transabdominal probe was pe rformed. The interpreting radiologist was not present for the study. COMPARISON: None. FINDINGS: The uterus measures 8.5 x 3.5 x 4.7 cm. There is an intrauterine gestational sac at the fundus with double deciduous sign and small yolk sac but no discernible pole. The mean sac diameter measure s 6 mm, which correlates with an estimated gestational age of 5 weeks and 2 days. There is an irregul ar hypoechoic fluid collection within the endometrial canal along side the gestational sac consistent with a subchorionic hematoma which measures approximately 1.4 x 0.5 x 0.8 cm in maximal dimensions. A section scar seen at the anterior lower uterine segment. The right ovary measures 2.9 x 2.9 x 2.0 cm. 1.3 cm anechoic likely corpus luteum cyst in the right o vary. The left ovary measures 2.4 x 2.5 x 1.1 cm. Vascular flow identified in both ovaries on color D oppler. There is a small amount of anechoic free fluid in the cul-de-sac and at the right adnexa. IMPRESSION: 1. Single intrauterine gestational sac with yolk sac but no discernible pole yet apparent likel y due to early stage of . 2. Gestational age by ultrasound based upon mean sac diameter of 5 weeks 2 day(s) +/- 3 day(s) with ultrasound estimated date of delivery (ASAF) of 10/18/2025. 3. Chronic hematoma which is larger than the gestational sac. Reviewed, dictated and finalized at location B. IMPRESSION: 1. Single intrauterine gestational sac with yolk sac but no discernible p ole yet apparent likely due to early stage of . 2. Gestational age by ultrasound based upon mean sac diameter of 5 weeks 2 day (s) +/- 3 day(s) with ultrasound estimated date of delivery (ASAF) of 10/18/2025 . 3. Chronic hematoma which is larger than the gestational sac.
--- OUTSIDE RECORDS SUMMARY | 2025-02-17 14:16 | XMS_ITS | Clinical Summary ---
Author Organization [facility] [employer] Address [address] [place] [address] Care Team Providers Care Air Reduction Equipment Operator Name Role Phone Pcp, [facility] Primary Care Provider Unava ilable Source Comments [facility],non-owned Affiliates and Associated Physician Practices is amultiple site organization consisting of ambulatory clinics and hospital sitesin [place], [place], [place] and [place]. This disclosure is being madepursuant to the Care Everywhere program and may not contain all information available regarding this patient. Last updated 18.[facility] Allergies Active Allergy Reactions Criticality Noted Date Comments Nitrous Oxide 05/07/2013 Penicillins 05/07/2013 Sulfa Drugs Other 07/03/2020 No reaction told by parents allergic due to family hx of sulfa allergy Medications * Be aware that medications may not be up to date on this document. Alwaysverify current medications with the patient. Mometasone Furoate (NASONEX NA) [place] into the nose as needed. prn Active [...] Immunization Administration Dates Next Due BCG VACCINE SHELTER 1990 DTP 01/21/1995, 1,1990,1990,04/23/19 90 HEP B [...] on file Legal Sex Female 1:40 PM HEAD TELLER Gender Identity Not on file Sexual Orientation Not on file Last Filed Vital Signs Vital Sign Reading Time Taken Comments Blood Pressure 110/70 10/15/2014 8:25 AM HEAD TELLER Pulse 96 10/15/2014 8:25 AM HEAD TELLER Temperature 36.4 C (97.6 F) 10/15/2014 8:25 AM HEAD TELLER Respiratory Rate 18 10/15/2014 8:25 AM HEAD TELLER Oxygen Saturation 99% 10/15/2014 8:25 AM HEAD TELLER Inhaled Oxygen Concentration - - Weight 62.1 kg (137 lb) 10/15/2014 8:25 AM HEAD TELLER Height 160 cm (5' 3 ) 10/15/2014 8:25 AM HEAD TELLER Body Mass Index 24.27 10/15/2014 8:25 AM HEAD TELLER Plan of Treatment Health Maintenance Due Date [...] patient's age to complete this topic Insurance [facility] Address: [facility] [id number] [place] [phone] Care Teams Air Reduction Equipment Operator Relationship Specialty Start Date End Date Pcp, [facility] [place] PCP - General 01/04/24
--- OUTSIDE RECORDS SUMMARY | 2025-02-17 14:16 | XMS_ITS | Referral Summary ---
Author Organization [facility] Address [address] [place] [id number] Care Team Providers Care Senior Net C Developer Name Role Phone No, Physician Primary Care Provider [phone] Allergies Active Allergy Reactions Criticality Noted Date Comments Nitrous Oxide Other (See comments) Low 05/07/2013 Reaction when younger Penicillins Other (See comments) Low 05/07/2013 As a child Sulfa (Sulfonamide Antibiotics) Other (See comments),Rash Medium 10/10/2022 Medications Flovent HFA 110 mcg/actuation inhaler 2 Active fluticasone propionate (FLONASE) 50 mcg/actuation nasal spray fluticasone propionate 50 mcg/actuation nasal spray,suspension [place] 2 sprays every day by intranasal route. [...] MFM -Diabetes education to be scheduled at [place] -Serial growth US -Consider delivery at 39 weeks (CS for breech scheduled with primary) - 2 hr GTT Assessment & Plan (10/10/2022 10:44 AM FIRE CONTROL TECHNICIAN G): We reviewed the management of a complicated [...] Overview (10/10/2022): [x] Co-management vs. [] Full [facility] Care; [] Red Team [x] Blue Team Referring Provider: Itz Peoples [phone] [] or Medicare Insurance [x] Dating Criteria: [...] [] MOC: [] Method of feeding: [] Egg Pasteurizer: [] PP Depression Discussed: Accessory navicular bone [...] CDT Gender Identity Female 10/09/2022 6:18 PM FIRE CONTROL TECHNICIAN G Sexual Orientation Not on file Last Filed Vital Signs Vital Sign Reading Time Taken Comments Blood Pressure 111/69 10/10/2022 9:32 AM FIRE CONTROL TECHNICIAN G Pulse 122 10/10/2022 9:32 AM FIRE CONTROL TECHNICIAN G Temperature - - Respiratory Rate - - Oxygen Saturation 98% 10/10/2022 9:32 AM FIRE CONTROL TECHNICIAN G Inhaled Oxygen Concentration - - Weight 81.2 kg (179 lb) 10/10/2022 9:32 AM FIRE CONTROL TECHNICIAN G Height 160 cm (5' 3 ) 10/10/2022 9:32 AM FIRE CONTROL TECHNICIAN G Body Mass Index 31.71 10/10/2022 9:32 AM FIRE CONTROL TECHNICIAN G Plan of Treatment Not on file Insurance [facility] H[facility]/PPO Address: [address] [phone] [facility] H[facility]/PPO Address: [address] [phone] Care Teams Senior Net C Developer Relationship Specialty Start Date End Date No, Physician PCP - General 06/06/22
--- OUTSIDE RECORDS SUMMARY | 2025-02-17 14:16 | XMS_ITS | Clinical Summary ---
Author Organization [facility] Address [address] [place] [id number] Care Team Providers Care Pulp And Paper Tester Name Role Phone No, Physician Primary Care Provider [phone] Allergies Active Allergy Reactions Criticality Noted Date Comments Nitrous Oxide Other (See comments) Low 05/07/2013 Reaction when younger Penicillins Other (See comments) Low 05/07/2013 As a child Sulfa (Sulfonamide Antibiotics) Other (See comments),Rash Medium 10/10/2022 Medications Flovent HFA 110 mcg/actuation inhaler 2 Active fluticasone propionate (FLONASE) 50 mcg/actuation nasal spray fluticasone propionate 50 mcg/actuation nasal spray,suspension [place] 2 sprays every day by intranasal route. [...] MFM -Diabetes education to be scheduled at [place] -Serial growth US -Consider delivery at 39 weeks (CS for breech scheduled with primary) - 2 hr GTT Assessment & Plan (10/10/2022 10:44 AM FIELD CROP HARVEST CONTRACTOR): We reviewed the management of a complicated [...] Overview (10/10/2022): [x] Co-management vs. [] Full [facility] Care; [] Red Team [x] Blue Team Referring Provider: Itz Peoples [phone] [] or Medicare Insurance [x] Dating Criteria: [...] [] MOC: [] Method of feeding: [] Digester Operator: [] PP Depression Discussed: Accessory navicular bone [...] CDT Gender Identity Female 10/09/2022 6:18 PM FIELD CROP HARVEST CONTRACTOR Sexual Orientation Not on file Obstetrics History Para Term AB IAB SAB Ectopic Multiple Livin g Live Births 1 Date Outcome GA Total Labor Labor/2nd/3rd Weight Sex Type Anes PTL Lilia A1 A5 Name Clin Last Filed Vital Signs Vital Sign Reading Time Taken Comments Blood Pressure 111/69 10/10/2022 9:32 AM FIELD CROP HARVEST CONTRACTOR Pulse 122 10/10/2022 9:32 AM FIELD CROP HARVEST CONTRACTOR Temperature - - Respiratory Rate - - Oxygen Saturation 98% 10/10/2022 9:32 AM FIELD CROP HARVEST CONTRACTOR Inhaled Oxygen Concentration - - Weight 81.2 kg (179 lb) 10/10/2022 9:32 AM FIELD CROP HARVEST CONTRACTOR Height 160 cm (5' 3 ) 10/10/2022 9:32 AM FIELD CROP HARVEST CONTRACTOR Body Mass Index 31.71 10/10/2022 9:32 AM FIELD CROP HARVEST CONTRACTOR Plan of Treatment Health Maintenance Due Date [...] 10/30/2020, 10/30/2020, Additional history exists Influenza Vaccine (Season Ended) 2025 07/24/20 20 Hepatitis B Screening Completed 12/05/1995 , 05/16/1995, 04/13/1995 Insurance [facility] Care Teams Pulp And Paper Tester Relationship Specialty Start Date End Date No, Physician PCP - General 06/06/22
== END 2025-02-17 12:44 | disposition home or self-care (01) ==
LOC: ANHIMG 12:45
PROVIDERS: PCP Family Medicine; Visit Provider Obstetrics & Gynecology
DX: O20.0 Threatened abortion (principal); O20.8 Other hemorrhage in early pregnancy; Z3A.00 Weeks of gestation of pregnancy not specified
CPT/HCPCS: 76801; 76817

== ENCOUNTER 2025-02-20 12:13 | Outpatient (RCR) | payer OTHER, SELFPAY ==
[2025-02-08 08:51] LABS: Beta HCG Quantitative 125.53 mIU/ML
[2025-02-18 13:37] LABS: Beta HCG Quantitative 10446.00 mIU/ML
[2025-02-20 13:23] LABS: Beta HCG Quantitative 14740.00 mIU/ML
== END 2025-05-09 23:59 | disposition home or self-care (01) ==
LOC: ANHOBOP 12:13
PROVIDERS: PCP Family Medicine; Visit Provider Obstetrics & Gynecology
DX: N91.2 Amenorrhea, unspecified (principal)
CPT/HCPCS: 36415; 84702

== ENCOUNTER 2025-03-14 07:19 | Outpatient (CLI) | payer OTHER, SELFPAY ==
--- OUTSIDE RECORDS SUMMARY | 2025-03-14 07:22 | XMS_ITS | Clinical Summary ---
Author Organization [facility] [employer] Address [address] [place] [address] Care Team Providers Care Equipment Washer Name Role Phone Pcp, [facility] Primary Care Provider Unava ilable Source Comments [facility],non-owned Affiliates and Associated Physician Practices is amultiple site organization consisting of ambulatory clinics and hospital sitesin [place], [place], [place] and [place]. This disclosure is being madepursuant to the Care Everywhere program and may not contain all information available regarding this patient. Last updated 18.[facility] Allergies Active Allergy Reactions Criticality Noted Date Comments Nitrous Oxide 05/07/2013 Penicillins 05/07/2013 Sulfa Drugs Other 07/03/2020 No reaction told by parents allergic due to family hx of sulfa allergy Medications * Be aware that medications may not be up to date on this document. Alwaysverify current medications with the patient. Mometasone Furoate (NASONEX NA) [place] into the nose as needed. prn Active [...] Immunization Administration Dates Next Due BCG VACCINE [facility] 1990 DTP 01/21/1995, 1,1990,1990,04/23/19 90 HEP B [...] on file Legal Sex Female 1:40 PM BEARING GRINDER Gender Identity Not on file Sexual Orientation Not on file Last Filed Vital Signs Vital Sign Reading Time Taken Comments Blood Pressure 110/70 10/15/2014 8:25 AM BEARING GRINDER Pulse 96 10/15/2014 8:25 AM BEARING GRINDER Temperature 36.4 C (97.6 F) 10/15/2014 8:25 AM BEARING GRINDER Respiratory Rate 18 10/15/2014 8:25 AM BEARING GRINDER Oxygen Saturation 99% 10/15/2014 8:25 AM BEARING GRINDER Inhaled Oxygen Concentration - - Weight 62.1 kg (137 lb) 10/15/2014 8:25 AM BEARING GRINDER Height 160 cm (5' 3 ) 10/15/2014 8:25 AM BEARING GRINDER Body Mass Index 24.27 10/15/2014 8:25 AM BEARING GRINDER Plan of Treatment Health Maintenance Due Date [...] patient's age to complete this topic Insurance [facility] Care Teams Equipment Washer Relationship Specialty Start Date End Date Pcp, [facility] [place] PCP - General 01/04/24
--- OUTSIDE RECORDS SUMMARY | 2025-03-14 07:23 | XMS_ITS | Clinical Summary ---
Author Organization [facility] Address [address] [place] [phone] Care Team Providers Care Private Equity Associate Name Role Phone No, Physician Primary Care Provider [phone] Allergies Active Allergy Reactions Criticality Noted Date Comments Nitrous Oxide Other (See comments) Low 05/07/2013 Reaction when younger Penicillins Other (See comments) Low 05/07/2013 As a child Sulfa (Sulfonamide Antibiotics) Other (See comments),Rash Medium 10/10/2022 Medications Flovent HFA 110 mcg/actuation inhaler 2 Active fluticasone propionate (FLONASE) 50 mcg/actuation nasal spray fluticasone propionate 50 mcg/actuation nasal spray,suspension [place] 2 sprays every day by intranasal route. [...] Active Problems Problem Noted Date Diagnosed Date AMA (advanced maternal age) multigravida 35+, first trimester 03/13/2025 Supervision of high-risk , first trimes ter 03/13/2025 Overview (03/13/2025): SEROLOGIES NEEDED [x] OB consult only, [] Co-management vs. [] Full [facility] Care; [] Red Team [] Blue Team Referring Provider: Itz Peoples [phone] [] or Medicare Insurance [x] Dating Criteria: LMP 01/06/25 with ASAF 10/13/25 [] Labs: Rh [ ], Ab [ ], Rubella [ ], HIV [ ], HepBSAg [ ], HepBSAb [ ], HepBCAb [ ], RPR [ ], Hep C [ ], Varicella [ ], GC/CT [ ] [] Aneuploidy Screening: [] Carrier Screening: [] Hgb electrophoresis: [] CBC/Hgb: [] Early 1hr GTT (if indicated): [] UCx: [] Pap: [] LD ASA (if indicated): [] EPDS [ ]; PNBHS referral (if indicated): 2nd Trimester [] Anatomy ultrasound: [] CBC/1hr gtt at 24-28wks: [] Rhogam at 28 wks (if Rh neg): 3rd Trimester [] CBC/HIV/RPR/T&S: [] GBS: [] GC/CT (if indicated): [] testing: Counseling [] MOD: [] Place of delivery: [] Epidural: [] Accepts Blood Products: [] Stop ASA: [] MOC: [] Method of feeding: [] Engagement Mgr (specifically which provider): [] PP Depression Discussed: [] PP visits scheduled: Vaccines [] Flu Shot (Jun-Sep): [] COVID vaccine: [] Tdap (27-36wks): [] RSV vaccine (32-36wks): [] PP HPV vaccine counseling (<=26 yo): History of delivery, currently 03/13/2025 History of section complicating pregnan cy 03/13/2025 History of gestational diabe kaylene mellitus (GDM) in prior , currently 03/13/2025 Mild scoliosis 05/07/2013 Comments Yes Resolved Problems Problem Noted Date Diagnosed Date Resolved Date Rh negative state in antepar eddie period, third trimester 10/05/2022 03/13/2025 Gestational diabetes mellitu s (GDM) in third trimester 10/05/2022 03/13/2025 Overview (10/25/2022): 1 hr 165, followed by abnormal 3hr GTT Hgb A1c 5.3% S/p counseling- patient is OBGYN Has CGM Current regimen 10/25/2022 Diet controlled +protein snack Recommendations: -Weekly blood sugar log review by [facility] -Diabetes education to be scheduled at [place] -Serial growth US -Consider delivery at 39 weeks (CS for breech scheduled with primary) - 2 hr GTT Assessment & Plan (10/10/2022 10:44 AM ABATTOIR MANAGER): We reviewed the management of a [...] next week or two. Supervision of high-risk pre gnancy, third trimester 10/05/2022 03/13/2025 Overview (10/10/2022): [x] Co-management vs. [] Full [facility] Care; [] Red Team [x] Blue Team Referring Provider: Itz Peoples [phone] [] or Medicare Insurance [x] Dating Criteria: [...] [] MOC: [] Method of feeding: [] Engagement Mgr: [] PP Depression Discussed: Accessory navicular bone of foot 04/09/2020 03/13/2025 Tibialis posterior tendinitis 03/19/2020 03/13/2025 Asthma during 05/07/201302/21 Overview (10/10/2022): Flovent 2 puffs daily, recently increased from 1 puff with adequate control. Rare use of albuterol inhaler. Encounters Date Type Department Care Team Description 03/12/2025 Telephone [facility] Maternal- Medicine [address] [facility] [facility] 7[address] [place] [address] Itz Peoples MD from Last 3 Months Immunizations Immunization Administration Dates Next Due BCG [...] Comments Asthma Abnormal Pap smear of cervix Supervision of high-risk pre gnancy, third trimester 10/05/2022 ? Co-management vs. ? Full [facility] Care; ? Red Team ? Blue Team Referring Provider: Itz Peoples [phone] ? or Medicare Insurance ? Dating Criteria: LMP 02/22/22 with ASAF 11/29/22 ? Labs: Rh [O-], Ab [negative], Rubella [immune], HIV [negative], HepBSAg [not done], RPR [non-reactive], Hep C [not done], Varicella [positive], GC/CT [] ? Genetic Screening: NIPT negative ? CBC/H Gestational diabetes mellitu s (GDM) in third trimester 10/05/2022 1 hr 165, followed by abnorm al 3hr GTT Hgb A1c 5.3% S/p counseling- patient is OBGYN Has CGM Current regimen 10/25/2022 Diet controlled +protein snack Recommendations: -Weekly blood sugar log review by [facility] -Diabetes education to be scheduled at [place] -Serial growth US -Consider delivery at 39 weeks (CS for breech scheduled with primary) - 2 hr GTT Rh negative state in antepar eddie period, third trimester 10/05/2022 Asthma during 05/07/2013 Flovent 2 puffs daily, recently increased from 1 puff with adequate control. Rare use of albuterol inhaler. Family History Medical History Relation Name Comments [...] CDT Gender Identity Female 10/09/2022 6:18 PM ABATTOIR MANAGER Sexual Orientation Not on file Obstetrics History Para Term AB IAB SAB Ectopic Multiple Livin g Live Births 2 1 1 1 1 Date Outcome GA Total Labor Labor/2nd/3rd Weight Sex Type Anes PTL Lilia A1 A5 Name Clin 11/01 36w 0d 2.778 kg (6 lb 2 oz) M C-Sec t[facility] Spinal Living Current Summary Episode Dates Number of Fetuses Estimated Date of Delivery 03/13/2025 - Present (03/14/2025) Unknown Dating Summary Based On ASAF GA Diff Last Menstrual Period on 01/06/2025 10/13/2025 Ultrasound on 02/17/2025 10/18/2025 [id number] Notes Progress Notes - Abstract - 03/13/2025 - GA: 03/13/2025 - Ondina Ramesh ra, RMA Current OB records are under media tab. labs have not been drawn yet. 2022 op note is under media tab. Last Filed Vital Signs Vital Sign Reading Time Taken Comments Blood Pressure 111/69 10/10/2022 9:32 AM ABATTOIR MANAGER Pulse 122 10/10/2022 9:32 AM ABATTOIR MANAGER Temperature - - Respiratory Rate - - Oxygen Saturation 98% 10/10/2022 9:32 AM ABATTOIR MANAGER Inhaled Oxygen Concentration - - Weight 81.2 kg (179 lb) 10/10/2022 9:32 AM ABATTOIR MANAGER Height 160 cm (5' 3 ) 10/10/2022 9:32 AM ABATTOIR MANAGER Body Mass Index 31.71 10/10/2022 9:32 AM ABATTOIR MANAGER Plan of Treatment Health Maintenance Due [...] 01/21/1995, 06/28/1991, Additional history exists Covid-19 Vaccine ( - 2023-2 5 season) 2024 09/24/2021, 10/30/2020, 10/30/2020, Additional history exists Influenza Vaccine (Season Ended) 2025 07/24/20 20 Hepatitis B Screening Completed 12/05/1995 , 05/16/1995, 04/13/1995 Insurance [facility] H[facility]/PPO Address: [facility] [address] [place] [address] [facility] H[facility]/PPO Address: [address] [phone] Care Teams Private Equity Associate Relationship Specialty Start Date End Date No, Physician PCP - General 06/06/22
--- OUTSIDE RECORDS SUMMARY | 2025-03-14 07:23 | XMS_ITS | Referral Summary ---
Author Organization [facility] Address [address] [place] [id number] Care Team Providers Care Manager Provider Relations Name Role Phone No, Physician Primary Care Provider [phone] Encounters Date Type Department Care Team Description 03/12/2025 Telephone [facility] Maternal- Medicine [address] [facility] 7th [address] [place] [address] Itz Peoples MD from Last 3 Months Allergies Active Allergy Reactions Criticality Noted Date Comments Nitrous Oxide Other (See comments) Low 05/07/2013 Reaction when younger Penicillins Other (See comments) Low 05/07/2013 As a child Sulfa (Sulfonamide Antibiotics) Other (See comments),Rash Medium 10/10/2022 Medications Flovent HFA 110 mcg/actuation inhaler 2 Active fluticasone propionate (FLONASE) 50 mcg/actuation nasal spray fluticasone propionate 50 mcg/actuation nasal spray,suspension [place] 2 sprays every day by intranasal route. [...] [] Blue Team Referring Provider: Itz Peoples [phone] [] [employer] or Medicare Insurance [x] Dating Criteria: LMP [...] [] MOC: [] Method of feeding: [] Supervisor [employer] (specifically which provider): [] PP Depression Discussed: [...] Recommendations: -Weekly blood sugar log review by [facility] -Diabetes education to be scheduled at [place] -Serial growth US -Consider delivery at 39 weeks (CS for breech scheduled with primary) - 2 hr GTT Assessment & Plan (10/10/2022 10:44 AM ENVELOPE MACHINE OPERATOR): We reviewed the management of a [...] Overview (10/10/2022): [x] Co-management vs. [] Full [facility] Care; [] Red Team [x] Blue Team Referring Provider: Itz Peoples [phone] [] or Medicare Insurance [x] Dating Criteria: [...] [] MOC: [] Method of feeding: [] Supervisor [employer]: [] PP Depression Discussed: Accessory navicular bone of foot 04/09/2020 03/13/2025 Tibialis posterior tendinitis 03/19/2020 03/13/2025 Asthma during 05/07/201302/21 Overview (10/10/2022): Flovent 2 puffs daily, recently increased from 1 puff with adequate control. Rare use of albuterol inhaler. Immunizations Immunization Administration Dates Next Due BCG [...] CDT Gender Identity Female 10/09/2022 6:18 PM ENVELOPE MACHINE OPERATOR Sexual Orientation Not on file Last Filed Vital Signs Vital Sign Reading Time Taken Comments Blood Pressure 111/69 10/10/2022 9:32 AM ENVELOPE MACHINE OPERATOR Pulse 122 10/10/2022 9:32 AM ENVELOPE MACHINE OPERATOR Temperature - - Respiratory Rate - - Oxygen Saturation 98% 10/10/2022 9:32 AM ENVELOPE MACHINE OPERATOR Inhaled Oxygen Concentration - - Weight 81.2 kg (179 lb) 10/10/2022 9:32 AM ENVELOPE MACHINE OPERATOR Height 160 cm (5' 3 ) 10/10/2022 9:32 AM ENVELOPE MACHINE OPERATOR Body Mass Index 31.71 10/10/2022 9:32 AM ENVELOPE MACHINE OPERATOR Plan of Treatment Not on file Insurance [facility] [place] [address] [facility] Care Teams Manager Provider Relations Relationship Specialty Start Date End Date No, Physician PCP - General 06/06/22
--- OUTSIDE RECORDS SUMMARY | 2025-03-14 07:23 | XMS_ITS | Encounter Summary ---
Author Organization [facility] Address [address] [place] [address] Phone Care Team Providers Care Import Manager Name Role Phone No, Physician Primary Care Provider [phone] Encounter Details Date Type Department Care Team (Late st Contact Info) Description 03/12/2025 Telephone [facility] [address] [facility] 7th [address] [place] [address] Itz Peoples MD [address] [place] [address] Social History Tobacco Use Types Packs/Day Years Used Date Smoking Tobacco: Never Smokeless Tobacco: Never Comments No Sex and Gender Information Value Date Recorded Sex Assigned at Not on file Legal Sex Female 1:33 PM CDT Gender Identity Female 10/09/2022 6:18 PM MEAT BONER Sexual Orientation Not on file documented as of this encounter Miscellaneous Notes * Telephone Encounter - Rina Ewing CMA - 03/13/2025 12:50 PM CDT Spoke with Phoebe and rescheduled her appointments @ E 04/03/25 at 2:45 pm for OB Limited 04/03/25 at 3:15 pm for OB Consult * Telephone Encounter - Lori Rees - 03/12/2025 4:03 PM CDT Patient is now scheduled, appointment details are below. She is aware she's outside of the 2 week suki. 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 04/11 US 10:45am at [facility] 04/11 OBC 11:15am at [facility] BT Bill, OB Consult with 30 min ultrasound LMP: 01/06/2025 ASAF: 10/13/2025 AMA History of PTL, PTD, C/S, GDM Please schedule in 2 weeks. Nevaeh documented in this encounter Plan of Treatment Not on file documented as of this encounter Visit Diagnoses Not on filedocumented in this encounter Care Teams Import Manager Relationship Specialty Start Date End Date No, Physician PCP - General 06/06/22 documented as of this encounter
[2025-03-14 08:52] LABS: Basophils Absolute Auto 0.1 K/mm3 (0.0-0.1); Basophils Percent Auto 0.6 % (0.2-1.2); Eosinophils Absolute Auto 0.5 K/mm3 (0-0.3); Eosinophils Percent Auto 5.5 % (0-4.4); Hematocrit 38.3 % (37.0-47.0); Hemoglobin 12.5 g/dL (12.0-15.0); Immature Granulocyte Absolute 0.02 K/mm3 (0.00-0.031); Immature Granulocyte Percent A 0.2 % (0-0.5); Lymphocytes Absolute Auto 1.77 K/mm3 (0.9-3.2); Lymphocytes Percent Auto 21.8 % (18.3-44.2); Mean Corpuscular HGB Conc 32.6 g/dl (32-36); Mean Corpuscular Hemoglobin 31.4 pg (26-34); Mean Corpuscular Volume 96.2 fl (80-100); Mean Platelet Volume 8.9 fl (7.4-10.4); Monocytes Absolute Auto 0.5 K/mm3 (0.1-0.6); Monocytes Percent Auto 6.2 % (2.6-8.5); Neutrophils Absolute Auto 5.3 K/mm3 (1.3-6.7); Neutrophils Percent Auto 65.7 % (45.5-73.1); Platelet Count Result 298 k/mm3 (150-375); Red Blood Count 3.98 M/mm3 (4.2-5.4); White Blood Count 8.1 K/mm3 (4.5-10.0)
[2025-03-14 09:20] LABS: Glucose 1 Hour PP 50gm Dose 137 mg/dL
[2025-03-14 10:01] LABS: HIV 1/2 Ab P24 Ag Result Negative (Negative)
[2025-03-14 10:20] LABS: Syphilis IgG/IgM Antibody Negative (Negative)
[2025-03-14 10:25] LABS: Free T4 Free Thyroxine 0.91 ng/dL (0.78-2.19)
[2025-03-14 10:27] LABS: Hepatitis B Surface Antigen Negative (Negative); Rubella IgG Antibody 21.6 IU/ML
[2025-03-14 10:45] LABS: Hemoglobin A1C 5.2 % (<5.7)
[2025-03-18 10:19] LABS: Thyroid Peroxidase Antibodies <1 IU/mL (<9)
[2025-03-19 04:44] LABS: Varicella IgG Antibody 2.95 S/CO
== END 2025-03-14 07:20 | disposition home or self-care (01) ==
LOC: ANHLAB 07:20
PROVIDERS: PCP Family Medicine; Visit Provider Obstetrics & Gynecology
DX: O90.5 Postpartum thyroiditis (principal); O20.0 Threatened abortion; Z3A.00 Weeks of gestation of pregnancy not specified
CPT/HCPCS: 36415; 82947; 83036; 84439; 84443; 84702; 85025; 86376; 86593; 86644; 86703; 86762; 86787; 86850; 86900; 86901; 87340; G0432

== ENCOUNTER 2025-03-14 09:56 | Outpatient (CLI) | payer OTHER, SELFPAY ==
--- NOTE | ~2025-03-14 | US_ITS ---
Pelvic ultrasound. Clinical History: First trimester , establish dates and viability Technique: Realtime transabdominal and transvaginal scanning of the pelvis was performed. Color flow Doppler and Doppler spectral analysis were performed. Findings: The uterus is anteverted, and contains an intrauterine gestation. Kahite-rump length of 1.9 cm corresponds to an estimated gestational age of 8 weeks 3 days. heart rate is 178 bpm. Neither ovary seen. No adnexal mass seen. There is no evidence of free fluid in the cul de sac. Impression: Live intrauterine gestation, with estimated gestational age of 8 weeks 3 days. heart rate is 17 8 bpm. Sonographic ASAF is 10/20/2025. Reviewed, dictated and finalized at location . Impression: Live intrauterine gestation, with estimated gestational age of 8 weeks 3 days. heart rate is 178 bpm. Sonographic ASAF is 10/20/2025.
== END 2025-03-14 09:57 | disposition home or self-care (01) ==
LOC: GOSHIMG 09:56
PROVIDERS: PCP Obstetrics & Gynecology; Visit Provider Obstetrics & Gynecology
DX: Z34.91 Encounter for supervision of normal pregnancy, unspecified, first trimester (principal); Z3A.01 Less than 8 weeks gestation of pregnancy
CPT/HCPCS: 76801

== ENCOUNTER 2025-03-19 08:25 | Outpatient (CLI) | payer OTHER, SELFPAY ==
--- OUTSIDE RECORDS SUMMARY | 2025-03-19 08:29 | XMS_ITS | Clinical Summary ---
Author Organization [facility] Address [address] [place] [phone] Care Team Providers Care Drawer In Name Role Phone No, Physician Primary Care Provider Allergies Active Allergy Reactions Criticality Noted Date Comments Nitrous Oxide Other (See comments) Low 05/07/2013 Reaction when younger Penicillins Other (See comments) Low 05/07/2013 As a child Sulfa (Sulfonamide Antibiotics) Other (See comments),Rash Medium 10/10/2022 Medications Flovent HFA 110 mcg/actuation inhaler 2 Active fluticasone propionate (FLONASE) 50 mcg/actuation nasal spray fluticasone propionate 50 mcg/actuation nasal spray,suspension [place] 2 sprays every day by intranasal route. [...] [] Blue Team Referring Provider: Itz Peoples [phone] [] or Medicare Insurance [x] Dating Criteria: [...] [] MOC: [] Method of feeding: [] Channel Worker (specifically which provider): [] PP Depression Discussed: [...] Recommendations: -Weekly blood sugar log review by [facility] -Diabetes education to be scheduled at [place] -Serial growth US -Consider delivery at 39 weeks (CS for breech scheduled with primary) - 2 hr GTT Assessment & Plan (10/10/2022 10:44 AM DOMESTIC HELPER): We reviewed the management of a [...] Overview (10/10/2022): [x] Co-management vs. [] Full [facility] Care; [] Red Team [x] Blue Team Referring Provider: Itz Peoples [phone] [] or Medicare Insurance [x] Dating Criteria: [...] [] MOC: [] Method of feeding: [] Channel Worker: [] PP Depression Discussed: Accessory navicular bone of foot 04/09/2020 03/13/2025 Tibialis posterior tendinitis 03/19/2020 03/13/2025 Asthma during 05/07/201302/21 Overview (10/10/2022): Flovent 2 puffs daily, recently increased from 1 puff with adequate control. Rare use of albuterol inhaler. Encounters Date Type Department Care Team Description 03/12/2025 Telephone [facility] Maternal- Medicine [address] [facility] 7th [address] [place] [address] Itz Peoples MD from Last [...] ? Blue Team Referring Provider: Itz Peoples [phone] ? or Medicare Insurance ? Dating Criteria: [...] Recommendations: -Weekly blood sugar log review by [facility] -Diabetes education to be scheduled at [place] -Serial growth US -Consider delivery at 39 [...] CDT Gender Identity Female 10/09/2022 6:18 PM DOMESTIC HELPER Sexual Orientation Not on file Obstetrics History [...] Estimated Date of Delivery 03/13/2025 - Present (03/19/2025) Unknown Dating Summary Based On ASAF [place] [...] Comments Blood Pressure 111/69 10/10/2022 9:32 AM DOMESTIC HELPER Pulse 122 10/10/2022 9:32 AM DOMESTIC HELPER Temperature - - Respiratory Rate - - Oxygen Saturation 98% 10/10/2022 9:32 AM DOMESTIC HELPER Inhaled Oxygen Concentration - - Weight 81.2 kg (179 lb) 10/10/2022 9:32 AM DOMESTIC HELPER Height 160 cm (5' 3) 10/10/2022 9:32 AM DOMESTIC HELPER Body Mass Index 31.71 10/10/2022 9:32 AM DOMESTIC HELPER Plan of Treatment Health Maintenance Due Date [...] Screening Completed 12/05/1995 , 05/16/1995, 04/13/1995 Insurance [facility] Address: [facility] [address] [place] [address] [facility]/PPO Address: [address] [address] Care Teams Drawer In Relationship Specialty Start Date End Date No, Physician PCP - General 06/06/22
--- OUTSIDE RECORDS SUMMARY | 2025-03-19 08:29 | XMS_ITS | Clinical Summary ---
Author Organization [facility] [employer] Address [address] [place] [address] Care Team Providers Care Legal File Clerk Name Role Phone Pcp, [facility] Primary Care Provider Unava ilable Source Comments [facility],non-owned Affiliates and Associated Physician Practices is amultiple site organization consisting of ambulatory clinics and hospital sitesin [place], [place], [place] and [place]. This disclosure is being madepursuant to the Care Everywhere program and may not contain all information available regarding this patient. Last updated 18.[facility] Allergies Active Allergy Reactions Criticality Noted Date Comments Nitrous Oxide 05/07/2013 Penicillins 05/07/2013 Sulfa Drugs Other 07/03/2020 No reaction told by parents allergic due to family hx of sulfa allergy Medications * Be aware that medications may not be up to date on this document. Alwaysverify current medications with the patient. Mometasone Furoate (NASONEX NA) [place] into the nose as needed. prn Active [...] Immunization Administration Dates Next Due BCG VACCINE SKILLED NURSING 1990 DTP 01/21/1995, 1,1990,1990,04/23/19 90 HEP B [...] on file Legal Sex Female 1:40 PM ANIMATED CARTOONS PAINTER Gender Identity Not on file Sexual Orientation Not on file Last Filed Vital Signs Vital Sign Reading Time Taken Comments Blood Pressure 110/70 10/15/2014 8:25 AM ANIMATED CARTOONS PAINTER Pulse 96 10/15/2014 8:25 AM ANIMATED CARTOONS PAINTER Temperature 36.4 C (97.6 F) 10/15/2014 8:25 AM ANIMATED CARTOONS PAINTER Respiratory Rate 18 10/15/2014 8:25 AM ANIMATED CARTOONS PAINTER Oxygen Saturation 99% 10/15/2014 8:25 AM ANIMATED CARTOONS PAINTER Inhaled Oxygen Concentration - - Weight 62.1 kg (137 lb) 10/15/2014 8:25 AM ANIMATED CARTOONS PAINTER Height 160 cm (5' 3) 10/15/2014 8:25 AM ANIMATED CARTOONS PAINTER Body Mass Index 24.27 10/15/2014 8:25 AM ANIMATED CARTOONS PAINTER Plan of Treatment Health Maintenance Due Date [...] age to complete this topic Insurance [facility], [facility] Care Teams Legal File Clerk Relationship Specialty Start Date End Date Pcp, [facility] PCP - General 01/04/24
--- OUTSIDE RECORDS SUMMARY | 2025-03-19 08:29 | XMS_ITS | Referral Summary ---
Author Organization [facility] Address [address] [place] [phone] Care Team Providers Care Special Education Administrator Name Role Phone No, Physician Primary Care Provider [phone] Encounters Date Type Department Care Team Description 03/12/2025 Telephone [facility] Maternal- Medicine [address] [facility] 7th [address] [place] [address] Itz Peoples MD from Last [...] spray fluticasone propionate 50 mcg/actuation nasal spray,suspension [place] 2 sprays every day by intranasal route. [...] [] Blue Team Referring Provider: Itz Peoples [phone] [] [employer] or Medicare Insurance [x] Dating Criteria: LMP [...] [] MOC: [] Method of feeding: [] Resolution Manager (specifically which provider): [] PP Depression Discussed: [...] Recommendations: -Weekly blood sugar log review by [facility] -Diabetes education to be scheduled at [place] -Serial growth US -Consider delivery at 39 weeks (CS for breech scheduled with primary) - 2 hr GTT Assessment & Plan (10/10/2022 10:44 AM PRODUCTION OPERATIONS ENGINEER): We reviewed the management of a complicated [...] Overview (10/10/2022): [x] Co-management vs. [] Full [facility] Care; [] Red Team [x] Blue Team Referring Provider: Itz Peoples [phone] [] or Medicare Insurance [x] Dating Criteria: [...] [] MOC: [] Method of feeding: [] Resolution Manager: [] PP Depression Discussed: Accessory navicular bone [...] CDT Gender Identity Female 10/09/2022 6:18 PM PRODUCTION OPERATIONS ENGINEER Sexual Orientation Not on file Last Filed Vital Signs Vital Sign Reading Time Taken Comments Blood Pressure 111/69 10/10/2022 9:32 AM PRODUCTION OPERATIONS ENGINEER Pulse 122 10/10/2022 9:32 AM PRODUCTION OPERATIONS ENGINEER Temperature - - Respiratory Rate - - Oxygen Saturation 98% 10/10/2022 9:32 AM PRODUCTION OPERATIONS ENGINEER Inhaled Oxygen Concentration - - Weight 81.2 kg (179 lb) 10/10/2022 9:32 AM PRODUCTION OPERATIONS ENGINEER Height 160 cm (5' 3) 10/10/2022 9:32 AM PRODUCTION OPERATIONS ENGINEER Body Mass Index 31.71 10/10/2022 9:32 AM PRODUCTION OPERATIONS ENGINEER Plan of Treatment Not on file Insurance [facility] HMO/PPO Address: [address] [address] [place] [address] [place] [address] [facility] H[facility]/PPO Address: [facility] [address] [place] [address] Care Teams Special Education Administrator Relationship Specialty Start Date End Date No, Physician PCP - General 06/06/22
[2025-03-19] MEDS: ONDANSETRON INJ 4 MG/2 ML VIAL IV PUSH (08:39)
[2025-03-19] MEDS: LACTATED RINGERS 1,000 ML 999 ML IV CONT (08:40)
== END 2025-03-19 09:11 | disposition home or self-care (01) ==
PROVIDERS: PCP Obstetrics & Gynecology; Visit Provider Obstetrics & Gynecology
DX: Z31.83 Encounter for assisted reproductive fertility procedure cycle (principal)
CPT/HCPCS: J2405; J7120

== ENCOUNTER 2025-03-21 07:18 | Outpatient (CLI) | payer OTHER, SELFPAY ==
--- OUTSIDE RECORDS SUMMARY | 2025-03-21 07:23 | XMS_ITS | Clinical Summary ---
Author Organization [facility] [employer] Address [address] [place] [address] Care Team Providers Care Ceo & Board Director Name Role Phone Pcp, [facility] Primary Care Provider Unava ilable Source Comments [facility],non-owned Affiliates and Associated Physician Practices is amultiple site organization consisting of ambulatory clinics and hospital sitesin [place], [place], [place] and [place]. This disclosure is being madepursuant to the Care Everywhere program and may not contain all information available regarding this patient. Last updated 18.[facility] Allergies Active Allergy Reactions Criticality Noted Date Comments Nitrous Oxide 05/07/2013 Penicillins 05/07/2013 Sulfa Drugs Other 07/03/2020 No reaction told by parents allergic due to family hx of sulfa allergy Medications * Be aware that medications may not be up to date on this document. Alwaysverify current medications with the patient. Mometasone Furoate (NASONEX NA) [place] into the nose as needed. prn Active [...] Immunization Administration Dates Next Due BCG VACCINE LONGTERM 1990 DTP 01/21/1995, 1,1990,1990,04/23/19 90 HEP B [...] on file Legal Sex Female 1:40 PM PUBLIC HEALTH POLICY ANALYST Gender Identity Not on file Sexual Orientation Not on file Last Filed Vital Signs Vital Sign Reading Time Taken Comments Blood Pressure 110/70 10/15/2014 8:25 AM PUBLIC HEALTH POLICY ANALYST Pulse 96 10/15/2014 8:25 AM PUBLIC HEALTH POLICY ANALYST Temperature 36.4 C (97.6 F) 10/15/2014 8:25 AM PUBLIC HEALTH POLICY ANALYST Respiratory Rate 18 10/15/2014 8:25 AM PUBLIC HEALTH POLICY ANALYST Oxygen Saturation 99% 10/15/2014 8:25 AM PUBLIC HEALTH POLICY ANALYST Inhaled Oxygen Concentration - - Weight 62.1 kg (137 lb) 10/15/2014 8:25 AM PUBLIC HEALTH POLICY ANALYST Height 160 cm (5' 3) 10/15/2014 8:25 AM PUBLIC HEALTH POLICY ANALYST Body Mass Index 24.27 10/15/2014 8:25 AM PUBLIC HEALTH POLICY ANALYST Plan of Treatment Health Maintenance Due Date [...] patient's age to complete this topic Insurance [facility] Care Teams Ceo & Board Director Relationship Specialty Start Date End Date Pcp, [facility] PCP - General 01/04/24
[2025-03-21 07:45] LABS: Glucose Fasting Gestational 98 mg/dL (>/=95)
[2025-03-21 09:00] LABS: Glucose 1 Hour Gest 203 mg/dL (>/=180)
== END 2025-03-21 07:19 | disposition home or self-care (01) ==
LOC: ANHOBOP 07:19
PROVIDERS: PCP Obstetrics & Gynecology; Visit Provider Obstetrics & Gynecology
DX: O21.1 Hyperemesis gravidarum with metabolic disturbance (principal); Z3A.00 Weeks of gestation of pregnancy not specified
CPT/HCPCS: 36415; 82951; 82952

== ENCOUNTER 2025-04-01 17:03 | Outpatient (RCR) | payer OTHER, SELFPAY ==
[2025-04-02] MEDS: RHO(D) IMMUNE GLOBULIN 300 MCG/2 ML SYRINGE IM (12:35)
== END 2025-06-30 23:59 | disposition home or self-care (01) ==
LOC: ANHOBOP 17:03
PROVIDERS: PCP Obstetrics & Gynecology; Visit Provider Obstetrics & Gynecology
DX: O20.9 Hemorrhage in early pregnancy, unspecified (principal); O26.899 Other specified pregnancy related conditions, unspecified trimester
CPT/HCPCS: 36415; 85461; 86850; 86900; 86901; 90384; 96372; J2790

== ENCOUNTER 2025-04-26 17:44 | Outpatient (CLI) | payer OTHER, SELFPAY ==
--- OUTSIDE RECORDS SUMMARY | 2025-04-26 17:46 | XMS_ITS | Clinical Summary ---
Author Organization [facility] [employer] Address [address] [place] [address] Care Team Providers Care Batt Packer Name Role Phone Pcp, [facility] Primary Care Provider Unava ilable Source Comments [facility],non-owned Affiliates and Associated Physician Practices is amultiple site organization consisting of ambulatory clinics and hospital sitesin [place], [place], [place] and [place]. This disclosure is being madepursuant to the Care Everywhere program and may not contain all information available regarding this patient. Last updated 18.[facility] Allergies Active Allergy Reactions Criticality Noted Date Comments Nitrous Oxide 05/07/2013 Penicillins 05/07/2013 Sulfa Drugs Other 07/03/2020 No reaction told by parents allergic due to family hx of sulfa allergy Medications * Be aware that medications may not be up to date on this document. Alwaysverify current medications with the patient. Mometasone Furoate (NASONEX NA) [place] into the nose as needed. prn Active [...] Immunization Administration Dates Next Due BCG VACCINE CUSTODIAL 1990 DTP 01/21/1995, 1,1990,1990,04/23/19 90 HEP B [...] on file Legal Sex Female 1:40 PM RESIDENTIAL MORTGAGE MANAGER Gender Identity Not on file Sexual Orientation Not on file Last Filed Vital Signs Vital Sign Reading Time Taken Comments Blood Pressure 110/70 10/15/2014 8:25 AM RESIDENTIAL MORTGAGE MANAGER Pulse 96 10/15/2014 8:25 AM RESIDENTIAL MORTGAGE MANAGER Temperature 36.4 C (97.6 F) 10/15/2014 8:25 AM RESIDENTIAL MORTGAGE MANAGER Respiratory Rate 18 10/15/2014 8:25 AM RESIDENTIAL MORTGAGE MANAGER Oxygen Saturation 99% 10/15/2014 8:25 AM RESIDENTIAL MORTGAGE MANAGER Inhaled Oxygen Concentration - - Weight 62.1 kg (137 lb) 10/15/2014 8:25 AM RESIDENTIAL MORTGAGE MANAGER Height 160 cm (5' 3) 10/15/2014 8:25 AM RESIDENTIAL MORTGAGE MANAGER Body Mass Index 24.27 10/15/2014 8:25 AM RESIDENTIAL MORTGAGE MANAGER Plan of Treatment Health Maintenance Due [...] patient's age to complete this topic Insurance [facility] Care Teams Batt Packer Relationship Specialty Start Date End Date Pcp, [facility] PCP - General 01/04/24
--- OUTSIDE RECORDS SUMMARY | 2025-04-26 17:47 | XMS_ITS | Patient Health Record ---
Author Organization [facility] Address [address] [place], [place] [address] Care Team Providers Care Welder Apprentice Gas Name Role Phone ZE Sparrow Unavailable [phone] Moon Self Unavailable Unavailable Reason For Referral No Information Plan Of Treatment No Information
[2025-04-26 18:06] LABS: Add Urine Microscopic? YES; Appearance Urine Clear (Clear); Glucose Urine UA Negative (Negative); Leukocyte Esterase Ur Trace LEU/UL (Negative); Nitrate Urine Negative (Negative); Non Pathogenic Casts 0-2; Specific Grav Ur 1.021 (1.001-1.035)
== END 2025-04-26 17:45 | disposition home or self-care (01) ==
PROVIDERS: PCP Obstetrics & Gynecology; Visit Provider Obstetrics & Gynecology
DX: Z34.90 Encounter for supervision of normal pregnancy, unspecified, unspecified trimester (principal)
CPT/HCPCS: 81001

== ENCOUNTER 2025-05-27 12:23 | Outpatient (CLI) | payer OTHER, SELFPAY ==
--- OUTSIDE RECORDS SUMMARY | 2025-05-27 12:26 | XMS_ITS | Clinical Summary ---
Author Organization [facility] Address [address] [place] [phone] Care Team Providers Care Grief Counselor Name Role Phone No, Physician Primary Care Provider [phone] Allergies Active Allergy Reactions Criticality Noted Date Comments Nitrous Oxide Other (See comments) Low 05/07/2013 Reaction when younger Sulfa (Sulfonamide Antibiotics) Other (See comments),Rash Medium 10/10/2022 Medications fluticasone propionate (FLONASE) 50 mcg/actuation nasal spray fluticasone propionate 50 mcg/actuation nasal spray,suspensio n [place] 2 sprays every day by intranasal route. Active famotidine (PEPCID) 40 mg tablet Pepcid 40 mg tablet Take 1 tablet every day by oral route. 0 Active aspirin (ASPIR-81 ORAL) Active albuterol HFA (PROVENTIL HFA,VENTOLIN HFA,PROAIR HFA) 90 mcg/actuation inhaler 2 Active docusate sodium (COLACE) 100 mg capsule Active ferrous sulfate 325 mg (65 mg of elemental iron) tablet Active FreeStyle Kelin 2 Sensor kit 2 Active loratadine (CLARITIN) 10 mg tablet Active montelukast (SINGULAIR) 10 mg tablet Take 1 tablet (10 mg total) by mouth daily 5 Active metoclopramide (REGLAN) 10 mg tablet 5 Active blood-glucose sensor (Dexcom G7 Sensor) device Use as directed. Change sensor every 10 days. 3 each 3 5 Active blood-glucose, medicine worker,cont (Dexcom G7 Range Feeder) misc Use as directed. 1 each 5 05/15/20 25 Discontin ued(Thera py completed ) Active Problems Problem Noted Date Diagnosed Date AMA (advanced maternal age) multigravida 35+, first trimester 03/13/2025 Overview (04/03/2025): Age at ASAF: 35 Counseling 04/03/2025: We discussed that advanced maternal age (AMA) is associated with increased risks of spontaneous , aneuploidy, gestational diabetes, and hypertensive disorders of . We discussed genetic screening and diagnostic testing options, as well as the risks and benefits of each. For the increased risk of preeclampsia, we recommend starting low dose aspirin at 12 weeks daily if other moderate risk factors are present. Plan: [x] Genetic screening plan: s/p LR NIPT [x] Low dose ASA starting at 12 weeks - plans to initiate once vaginal bleeding resolves Supervision of high-risk , second trime ster 03/13/2025 Overview (05/15/2025): *Patient is OBGYN at [facility]* SEROLOGIES NEEDED [] OB consult only, [x] Co-management vs. [] Full M Care; [] Red Team [x] Blue Team Referring Provider: Itz Peoples [phone] [] or Medicare Insurance [x] Dating Criteria: LMP 01/06/25 with ASAF 10/13/25 [] Labs: Rh [ ], Ab [ ], Rubella [ ], HIV [ ], HepBSAg [ ], HepBSAb [ ], HepBCAb [ ], RPR [ ], Hep C [ ], Varicella [ ], GC/CT [ ] [x] Aneuploidy Screening: reports LR NIPT [] Carrier Screening: [] Hgb electrophoresis: [] CBC/Hgb: [] Early 1hr GTT (if indicated): [] UCx: [] Pap: [] LD ASA (if indicated): [] EPDS [ ]; PNBHS referral (if indicated): 2nd Trimester [x] Anatomy ultrasound: 05/15/2025 WNL [] CBC/1hr gtt at 24-28wks: [] Rhogam at 28 wks (if Rh neg): O- 3rd Trimester [] CBC/HIV/RPR/T&S: [] GBS: [] GC/CT (if indicated): [] testing: Counseling [] MOD: Desires repeat C/S at term [] Place of delivery: with primary OB [] MOC: Desires BTL Vaccines [] Flu Shot (Jun-Sep): [] COVID vaccine: [] Tdap (27-36wks): [] RSV vaccine (32-36wks): [] PP HPV vaccine counseling (<=26 yo): Assessment & Plan (05/15/2025 2:07 PM CDT): 2nd Trimester [x] Anatomy ultrasound: 05/15/2025 WNL [] CBC/1hr gtt at 24-28wks: [] Rhogam at 28 wks (if Rh neg): O- Assessment & Plan (04/03/2025 4:00 PM CDT): SEROLOGIES NEEDED [] OB consult only, [x] Co-management vs. [] Full MFM Care; [] Red Team [x] Blue Team Referring Provider: Itz Peoples [phone] [] or Medicare Insurance [x] Dating Criteria: LMP 01/06/25 with ASAF 10/13/25 [] Labs: Rh [ ], Ab [ ], Rubella [ ], HIV [ ], HepBSAg [ ], HepBSAb [ ], HepBCAb [ ], RPR [ ], Hep C [ ], Varicella [ ], GC/CT [ ] [x] Aneuploidy Screening: reports LR NIPT [] Carrier Screening: [] Hgb electrophoresis: [] CBC/Hgb: [] Early 1hr GTT (if indicated): [] UCx: [] Pap: [] LD ASA (if indicated): [] EPDS [ ]; PNBHS referral (if indicated): 2nd Trimester [] Anatomy ultrasound: [] CBC/1hr gtt at 24-28wks: [] Rhogam at 28 wks (if Rh neg): O- 3rd Trimester [] CBC/HIV/RPR/T&S: [] GBS: [] GC/CT (if indicated): [] testing: Counseling [] MOD: Desires repeat C/S at term [] Place of delivery: with primary OB [] MOC: Desires BTL Vaccines [] Flu Shot (Jun-Sep): [] COVID vaccine: [] Tdap (27-36wks): [] RSV vaccine (32-36wks): [] PP HPV vaccine counseling (<=26 yo): History of delivery, currently 03/13/2025 Overview (05/15/2025): History: 36 week spontaneous labor, prior section for breech presentation Counseling 04/03/2025: Discussed that in the setting of a previous delivery, this is at risk for a subsequent delivery. This risk of (PTB) is highest when the most recent was complicated by PTB or if the patient has a history of multiple PTBs. After one PTB, the risk of a recurrent PTB is as high as 30%. In the majority of cases, a recurrent PTB will occur at a similar gestational age as the previous . With a prior PTB at 36 weeks, the data is mixed on management. We discussed that this was likely not cervical insufficiency and that serial cervical lengths and/or vaginal progesterone would likely not be beneficial for improving outcomes this . Plan: [x] TVCL at anatomic survey for screening Assessment & Plan (05/15/2025 2:08 PM CDT): Plan: [x] TVCL at anatomic survey for screening Assessment & Plan (04/03/2025 3:57 PM CDT): History: 36 week spontaneous labor, prior section for breech presentation Counseling 04/03/2025: Discussed that in the setting of a previous delivery, this is at risk for a subsequent delivery. This risk of (PTB) is highest when the most recent was complicated by PTB or if the patient has a history of multiple PTBs. After one PTB, the risk of a recurrent PTB is as high as 30%. In the majority of cases, a recurrent PTB will occur at a similar gestational age as the previous . With a prior PTB at 36 weeks, the data is mixed on management. We discussed that this was likely not cervical insufficiency and that serial cervical lengths and/or vaginal progesterone would likely not be beneficial for improving outcomes this . Plan: [] TVCL at anatomic survey for screening History of section complicating pregnan cy 03/13/2025 Overview (04/03/2025): History: prior LTCS for breech presentation at 36 weeks in PTL Plan: [] Desires repeat C/S with BTL Assessment & Plan (04/03/2025 3:56 PM CDT): History: prior LTCS for breech presentation at 36 weeks in PTL Plan: [] Desires repeat C/S with BTL Gestational diabetes mellitus (GDM) in second tr imester 03/13/2025 Overview (05/22/2025): 3 hour gtt (03/21/25): 98/203/-/- Current regimen: 05/22/2025 diet controlled Has Kelin CGM currently, sending logs through [employer] S/p Counseling 04/03/2025 Plan: [x] Referral to diabetes education as needed [x] Send weekly glucose log through [facility] [employer] for review vs. CGM login information - ongoing [] Twice weekly testing at 32 weeks if medications needed [] Rate of growth ultrasounds q4 weeks [] Plan delivery by 39 weeks [] 2 hour gtt 6 weeks Assessment & Plan (05/15/2025 2:07 PM CDT): Current regimen: 05/15/2025 diet controlled Has Kelin CGM currently, sending logs through [employer] S/p Counseling 04/03/2025 Plan: [x] Referral to diabetes education as needed [x] Send weekly glucose log through [facility] [employer] [facility] [employer] for review vs. CGM login information - ongoing [] Twice weekly testing at 32 weeks if medications needed [] Rate of growth ultrasounds q4 weeks [] Plan delivery by 39 weeks [] 2 hour gtt 6 weeks Assessment & Plan (04/03/2025 3:59 PM CDT): 3 hour gtt (03/21/25): 98/203/-/- Current regimen: diet controlled Has Kelin CGM currently Counseling 04/03/2025: We discussed the management of a complicated by gestational diabetes. We reviewed the insulin insensitivity that occurs from , and the abnormal glucose metabolism that occurs. Overall risk is 17- 20% for development of an adverse complication. The maternal risks of gestational diabetes include gestational hypertension, pre-eclampsia (complicates 3-7% of pregnancies and women who develop diabetes are at an increased risk (~9% per HAPO study GDM results), operative delivery, obstetrical trauma, and section. The risks include macrosomia, operative delivery and resultant injury, shoulder dystocia, hypoglycemia, and hyperbilirubinemia. We additionally discussed the reduction of the above risks with good glycemic control. We reviewed that the risk of developing type II diabetes for her in the next 5-10 years is as high as 50-70%. Because of these risks we recommend a 75 g 2 hr gtt at 6 weeks to evaluate the risk of overt diabetes. The recommended blood glucose monitoring regimen, which is fasting and 1-hour post-prandial daily. The goals are fasting glucose of <95 and a 1-hour post- prandial glucose of <140 as these have been associated with decreased risk of adverse outcomes. We discussed the use of a glucose log and instruction to return them to our office weekly for review. We discussed that medication may be required and this decision will be made based on our review of her weekly glucose logs. We reviewed the importance of diet in the management of GDM. We recommended a growth scan in the third trimester, which has been scheduled for her. If she required medication for glycemic control, we would recommend initiating antepartum surveillance at 32 weeks. Well controlled gestational diabetes will not require delivery prior to 39 weeks or testing in the third trimester. Plan: [] Referral to diabetes education as needed [] Send weekly glucose log through [employer] for review vs. CGM login information [] Twice weekly testing at 32 weeks if medications needed [] Rate of growth ultrasounds q4 weeks if mediations needed, 3rd trimester growth if diet controlled [] Plan delivery by 39 weeks [] 2 hour gtt 6 weeks Asthma during 05/07/2013 Overview (04/03/2025): Diagnosis: childhood History of hospitalizations/intubations?: No Classifications: Pre- classification: mild persistent Current classification: mild persistent Pre- regimen: singulair, asthmonex BID Counseling 04/03/2025: Asthma during has been associated with an increased incidence of mortality and increased risks of hyperemesis, , hypertensive disorders/preeclampsia, and low birthweight infants. In addition, the effect of on asthma appears to be quite variable with some patients improving and others experiencing worsening of symptoms. Overall, asthma is expected to worsen during in approximately 1/3, improve in 1/3, and remain unchanged in 13. We discussed management of chronic asthma during , including avoidance of exposure to allergens and to nonspecific airway irritants, such as tobacco smoke, dust, and environmental pollutants. For treatment of allergies, we recommend Flonase as needed and claritin or benadryl are considered first-line for anti-histamines. Close monitoring of symptoms is important to reduce rates of exacerbations and reduce maternal and risks. Current regimen: singulair, asthmonex BID Plan: [] Monitor symptoms Assessment & Plan (04/03/2025 3:53 PM CDT): Diagnosis: childhood History of hospitalizations/intubations?: No Classifications: Pre- classification: mild persistent Current classification: mild persistent Pre- regimen: singulair, asthmonex BID Counseling 04/03/2025: Asthma during has been associated with an increased incidence of mortality and increased risks of hyperemesis, , hypertensive disorders/preeclampsia, and low birthweight infants. In addition, the effect of on asthma appears to be quite variable with some patients improving and others experiencing worsening of symptoms. Overall, asthma is expected to worsen during in approximately 1/3, improve in 1/3, and remain unchanged in 1/3. We discussed management of chronic asthma during , including avoidance of exposure to allergens and to nonspecific airway irritants, such as tobacco smoke, dust, and environmental pollutants. For treatment of allergies, we recommend Flonase as needed and claritin or benadryl are considered first-line for anti-histamines. Close monitoring of symptoms is important to reduce rates of exacerbations and reduce maternal and risks. Current regimen: singulair, asthmonex BID Plan: [] Monitor symptoms Mild scoliosis 05/07/2013 Estimated Date of Delivery Comme nts Yes 10/13/2025 Based on last me nstrual period of 01/06/2025 Resolved Problems Problem Noted Date Diagnosed Date [...] Recommendations: -Weekly blood sugar log review by M -Diabetes education to be scheduled at [place] -Serial growth US -Consider delivery at 39 weeks (CS for breech scheduled with primary) - 2 hr GTT Assessment & Plan (10/10/2022 10:44 AM CONCESSION STAND ATTENDANT): We reviewed the management of a complicated [...] Overview (10/10/2022): [x] Co-management vs. [] Full [facility] Care; [] Red Team [x] Blue Team Referring Provider: Itz Peoples [phone] [] or Medicare Insurance [x] Dating Criteria: [...] [] MOC: [] Method of feeding: [] Tool And Cutter Grinder: [] PP Depression Discussed: Accessory navicular bone of foot 04/09/2020 03/13/2025 Tibialis posterior tendinitis 03/19/2020 03/13/2025 Encounters Date Type Department Care Team Description 05/15/2025 1:30 PM CDT Office Visit [facility] Obstetrics and Gynecology [address] [place] [phone] Diet controlled gestational diabetes mellitus (GDM) in first trimester (Primary Dx); Diet controlled gestational diabetes mellitus (GDM) in second trimester; Supervision of high-risk , second trimester; History of delivery, currently 05/15/2025 12:30 PM CDT Ancillary Procedure [facility] Obstetrics and Gynecology [address] [place] [phone] Supervision of high-risk , first trimester 04/23/2025 Telephone [facility] Maternal- Medicine [address] [place] [address] Floor [address] [place] [address] Genesis Kaye, GATO MFM GLUCOSE LOG 04/07/2025 Telephone [facility] Maternal- Medicine [address] [place] [address] Floor [address] [place] [address] Genesis Kaye, GATO 04/03/2025 3:15 PM CDT Office Visit [facility] Obstetrics and Gynecology [address] [place], [place] [id number] [place] [phone] Supervision of high-risk , first trimester (Primary Dx); Unspecified high-risk ; Asthma during ; History of delivery, currently ; AMA (advanced maternal age) multigravida 35+, first trimester; Diet controlled gestational diabetes mellitus (GDM) in first trimester 04/03/2025 2:45 PM CDT Ancillary Procedure [facility] Obstetrics and Gynecology [address] [place] [address] [address] [place] [phone] Unspecified high-risk 03/12/2025 Telephone [facility] Maternal- Medicine [address] [place] [address] Floor [address] [place] [address] Itz Peoples MD from Last [...] SURGERY 10/23/2018 - 10/22/2019 WISDOM TOOTH EXTRACTION SECTION 11/01/2022 Medical History Medical History Date Comments Asthma Family History Medical History Relation Name Comments No Known Problems Father No Known Problems Mother Relation Name Status Comments Father Mother Social History Tobacco Use Types Packs/Day Years Used Date Smoking Tobacco: Never Smokeless Tobacco: Never Tobacco Cessation:Counseling Given: Not Answered Estimated Date of Delivery Comme nts Yes 10/13/2025 Based on last me nstrual period of 01/06/2025 Sex and Gender Information Value Date Recorded Sex Assigned at Not on file Legal Sex Female 1:33 PM CDT Gender Identity Female 10/09/2022 6:18 PM CONCESSION STAND ATTENDANT Sexual Orientation Not on file Obstetrics History Para Term AB IAB SAB Ectopic Multiple Livin g Live Births 2 1 1 1 1 Date Outcome GA Total Labor Labor/2nd/3rd Weight Sex Type Anes PTL Shiva A1 A5 Name Clin 11/01 36w 0d 2.778 kg (6 lb 2 oz) M CS-LT ranv Spinal Living Complications:Other (Comment ) Current Summary Episode Dates Number of Fetuses Estimated Date of Delivery 03/13/2025 - Present (05/27/2025) 10/13/2025 (set by Catie Mcconnell MD on 04/03/2025 based on Last Menstrual Period on 01/06/2025) Dating Summary Based On ASAF GA Diff Last Menstrual Period on 01/06/2025 10/13/2025 Working Ultrasound on 04/03/2025 10/16/2025 -3d GA:12w0d Comment:CRL report under Lynette ging Vitals Pregravid Weight Height TWG (As of 05/27/2025) Pregrav id BMI 160 cm (5' 3) Notes Progress Notes - Office Visi t - 05/15/2025 - GA:18w3d 05/15/2025 - 18w3d - Catie Mcconnell MD MFM Return Consult Visit 05/15/[address] Peoples, It was a pleasure meeting again with our mutual patient in continued consultation. Phoebe Mcmullen is a 35 y.o. at 18w3d by LMP consistent with 1st trimester Ultrasound whose is complicated by A1GDM, hx of PTB at 36 weeks, prior C/S x1. Subjective: She reports no complaints. Denies LAP or VB. Objective: BP 116/73 Pulse 85 Ht 160 cm (5' 3) Wt 160 lb 0.9 oz (72.6 kg) LMP 01/06/2025 SpO2 100% BMI 28.35 kg/m General: NAD Ultrasound: 05/15/2025 1. 18w 3d IUP for evaluation of anatomy 2. The measurements are consistent with previously established dating criteria. 3. No structural malformations are identified within the limits of ultrasound. Ultrasound cannot diagnose all anomalies 4. Normal cervical length > 3cm on transvaginal ultrasound 5. Normal adnexa, bilaterally CBG reviewed on phone: fasting all at goal, 1-2 postprandial values 140's, the rest are at goal Assessment/Plan: Phoebe Mcmullen is a 35 y.o. at 18w3d by LMP consistent with 1st trimester Ultrasound whose is complicated by A1GDM, hx of PTB at 36 weeks, prior C/S x1. Gestational diabetes mellitus (GDM) in second trimester Current regimen: 05/15/2025 diet controlled Has Kelin CGM currently, sending logs through [employer] S/p Counseling 04/03/2025 Plan: [x] Referral to diabetes education as needed [x] Send weekly glucose log through [facility] [employer] [facility] [employer] for review vs. CGM login information - ongoing [] Twice weekly testing at 32 weeks if medications needed [] Rate of growth ultrasounds q4 weeks [] Plan delivery by 39 weeks [] 2 hour gtt 6 weeks Supervision of high-risk , second trimester 2nd Trimester [x] Anatomy ultrasound: 05/15/2025 WNL [] CBC/1hr gtt at 24-28wks: [] Rhogam at 28 wks (if Rh neg): O- History of delivery, currently Plan: [x] TVCL at anatomic survey for screening Thank you for your consultation. Please don't hesitate to contact me with any questions. We will continue to follow along with Ms. Phoebe Mcmullen. Summary of visit: - A1GDM: Continue weekly review by MFM. Growth ultrasound in 6 weeks - OB/ER warnings reviewed - Follow up 6 weeks for MFM visit and growth ultrasound A total of 10 minutes were spent for this visit, 5 minutes were spent with the patient during the visit and 5 minutes were spent in documentation. Catie Mcconnell MD Manager Mail Division of Maternal- Medicine Progress Notes - Office Visi t - 04/03/2025 - GA:12w3d 04/03/2025 - 12w3d - Catie Mcconnell MD Maternal Medicine Consult Note 04/03/2025 Reason for Consult: AMA, hx of delivery, gestational diabetes Requesting Provider: Dr. Itz Peoples MD Dear Dr. Peoples, We had the pleasure of seeing your patient Phoebe Mcmullen in our office today. As you know, she is a 35 y.o. at 12w3d by LMP here today for a consult regarding AMA, hx of delivery at 36 weeks, and history of gestational diabetes. Her is also complicated by concern for early onset A1GDM, prior section x1, mild persistent asthma. Today she is doing well, she reports vaginal bleeding that is dark red. Known subchorionic hemorrhage has had 3 bleeding episodes this , recently all old blood. Received rhogam on Saturday 03/31. Some intermittent cramping. Denies LOF. Has had significant nausea - taking vitamin B6, and reglan prn. Prior PTB at 36 weeks - was pankaj at work, found to be 3 cm and breech, by the time she reached the hospital, was 4-5 cm and underwent primary section for breech presentation. Baby was transferred to [facility] after intubation and received surfactant. 14 day NICU stay. Doing well currently. No recent rescue inhaler use other than for exercise. Well controlled last on current regimen. OB History Para Term AB Living 2 1 1 1 SAB IAB Ectopic Multiple Live Births 1 # Outcome Date GA Lbr Josh/2nd Weight Sex Type Anes PTL Lv 2 Current 1 11/01/22 36w0d 2.778 kg (6 lb 2 oz) M CS-LTranv Spinal SHIVA Complications: Other (Comment) Past Gynecologic History: Prior STIs: denies History of abnormal pap: NILM/HPV+ in 2019, repeats normal Last pap smear: 04/2023 Patient's last menstrual period was 01/06/2025. Denies history of uterine anomalies or fibroids. Denies history of blood transfusion. Past Medical History: Diagnosis Date Asthma Past Surgical History: Procedure Laterality Date ANKLE SURGERY Right 2008 ANKLE SURGERY 2019 SECTION 11/01/2022 WISDOM TOOTH EXTRACTION Medications: Asthmonex 1 puff BID Singulair 10 mg daily Nexium 20 mg Pepcid 20 mg Claritin 10 mg Vitamin B6 Reglan or zofran prn PNV Allergies Allergen Reactions Sulfa (Sulfonamide Antibiotics) Other (See comments) and Rash Nitrous Oxide Other (See comments) Reaction when younger Penicillins Other (See comments) As a child Social History Tobacco Use Smoking status: Never Smokeless tobacco: Never Substance and Sexual Activity Drug use: Not Currently Sexual activity: Yes Partners: Male control/protection: None Alcohol Use: Not on file 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[employer] Lives with and child Smoke cigarettes, cigars, E-cigs: No Beer, wine, or liquor: No Street drugs/marijuana: No Family History: Family History Problem Relation Age of Onset No Known Problems Father No Known Problems Mother Neural tube defects: No Down syndrome or other chromosomal anomalies: No Hemophilia, sickle cell, bleeding/clotting disorder: No Muscular dystrophy: No Cystic fibrosis: No Intellectual disability or Fragile X: No [place] disease: No Other defects or genetic disorders: No Dating: Estimated Date of Delivery: 10/13/25 by LMP c/w 12w ultrasound Review of Systems Review of systems per HPI and otherwise all systems are negative Physical Exam Vitals BP 131/87 Pulse 78 Ht 160 cm (5' 3) Wt 156 lb 15.5 oz (71.2 kg) LMP 01/06/2025 SpO2 100% BMI 27.81 kg/m General: Healthy, alert, active, cooperative, and in no distress The rest of the exam was deferred due to the consultative nature of this visit. Ultrasound 04/03/2025: 12w 3d IUP for confirmation of viability and dating - A single viable intrauterine was seen. Cardiac motion was observed. The CRL corresponded to reported dating criteria. The adnexa appeared normal bilaterally. The nuchal translucency measures within normal limits. Small subchorionic hemorrhage overlying the cervix measuring 2.4x0.5x2.2 cm. Please see the separate report for full details CBG on phone reviewed: last 4 days fasting values >95. Otherwise all values at goal. Going to try evening walk and adjusting PM snack Assessment: Ms. Phoebe Mcmullen is a 35 y.o. at 12w3d by LMP here today for a consult regarding AMA, hx of delivery at 36 weeks, and history of gestational diabetes. Her is also complicated by concern for early onset A1GDM, prior section x1, mild persistent asthma. Recommendations: History of section complicating History: prior LTCS for breech presentation at 36 weeks in PTL Plan: [] Desires repeat C/S with BTL Asthma during Diagnosis: childhood History of hospitalizations/intubations?: No Classifications: Pre- classification: mild persistent Current classification: mild persistent Pre- regimen: singulair, asthmonex BID Counseling 04/03/2025: Asthma during has been associated with an increased incidence of mortality and increased risks of hyperemesis, , hypertensive disorders/preeclampsia, and low birthweight infants. In addition, the effect of on asthma appears to be quite variable with some patients improving and others experiencing worsening of symptoms. Overall, asthma is expected to worsen during in approximately 1/3, improve in 1/3, and remain unchanged in 1/3. We discussed management of chronic asthma during , including avoidance of exposure to allergens and to nonspecific airway irritants, such as tobacco smoke, dust, and environmental pollutants. For treatment of allergies, we recommend Flonase as needed and claritin or benadryl are considered first-line for anti-histamines. Close monitoring of symptoms is important to reduce rates of exacerbations and reduce maternal and risks. Current regimen: singulair, asthmonex BID Plan: [] Monitor symptoms History of delivery, currently History: 36 week spontaneous labor, prior section for breech presentation Counseling 04/03/2025: Discussed that in the setting of a previous delivery, this is at risk for a subsequent delivery. This risk of (PTB) is highest when the most recent was complicated by PTB or if the patient has a history of multiple PTBs. After one PTB, the risk of a recurrent PTB is as high as 30%. In the majority of cases, a recurrent PTB will occur at a similar gestational age as the previous . With a prior PTB at 36 weeks, the data is mixed on management. We discussed that this was likely not cervical insufficiency and that serial cervical lengths and/or vaginal progesterone would likely not be beneficial for improving outcomes this . Plan: [] TVCL at [facility] for screening Gestational diabetes mellitus (GDM) in first trimester 3 hour gtt (03/21/25): 98/203/-/- Current regimen: diet controlled Has Kelin CGM currently Counseling 04/03/2025: We discussed the management of a complicated by gestational diabetes. We reviewed the insulin insensitivity that occurs from , and the abnormal glucose metabolism that occurs. Overall risk is 17- 20% for development of an adverse complication. The maternal risks of gestational diabetes include gestational hypertension, pre-eclampsia (complicates 3-7% of pregnancies and women who develop diabetes are at an increased risk (~9% per HAPO study GDM results), operative delivery, obstetrical trauma, and section. The risks include macrosomia, operative delivery and resultant injury, shoulder dystocia, hypoglycemia, and hyperbilirubinemia. We additionally discussed the reduction of the above risks with good glycemic control. We reviewed that the risk of developing type II diabetes for her in the next 5-10 years is as high as 50-70%. Because of these risks we recommend a 75 g 2 hr gtt at 6 weeks to evaluate the risk of overt diabetes. The recommended blood glucose monitoring regimen, which is fasting and 1-hour post-prandial daily. The goals are fasting glucose of <95 and a 1-hour post- prandial glucose of <140 as these have been associated with decreased risk of adverse outcomes. We discussed the use of a glucose log and instruction to return them to our office weekly for review. We discussed that medication may be required and this decision will be made based on our review of her weekly glucose logs. We reviewed the importance of diet in the management of GDM. We recommended a growth scan in the third trimester, which has been scheduled for her. If she required medication for glycemic control, we would recommend initiating antepartum surveillance at 32 weeks. Well controlled gestational diabetes will not require delivery prior to 39 weeks or testing in the third trimester. Plan: [] Referral to diabetes education as needed [] [facility] vs. [facility] login information [] Twice weekly testing at 32 weeks if medications needed [] Rate of growth ultrasounds q4 weeks if mediations needed, 3rd trimester growth if diet controlled [] Plan delivery by 39 weeks [] 2 hour gtt 6 weeks Supervision of high-risk , first trimester SEROLOGIES NEEDED [] OB consult only, [x] Co-management vs. [] Full MFM Care; [] Red Team [x] Blue Team Referring Provider: Itz Peoples [phone] [] or Medicare Insurance [x] Dating Criteria: LMP 01/06/25 with ASAF 10/13/25 [] Labs: Rh [ ], Ab [ ], Rubella [ ], HIV [ ], HepBSAg [ ], HepBSAb [ ], HepBCAb [ ], RPR [ ], Hep C [ ], Varicella [ ], GC/CT [ ] [x] Aneuploidy Screening: reports LR NIPT [] Carrier Screening: [] Hgb electrophoresis: [] CBC/Hgb: [] Early 1hr GTT (if indicated): [] UCx: [] Pap: [] LD ASA (if indicated): [] EPDS [ ]; PNBHS referral (if indicated): 2nd Trimester [] Anatomy ultrasound: [] CBC/1hr gtt at 24-28wks: [] Rhogam at 28 wks (if Rh neg): O- 3rd Trimester [] CBC/HIV/RPR/T&S: [] GBS: [] GC/CT (if indicated): [] testing: Counseling [] MOD: Desires repeat C/S at term [] Place of delivery: with primary OB [] MOC: Desires BTL Vaccines [] Flu Shot (Jun-Sep): [] COVID vaccine: [] Tdap (27-36wks): [] RSV vaccine (32-36wks): [] PP HPV vaccine counseling (<=26 yo): Thank you for the opportunity to be involved in the care of your patient. Should you have any further questions or concerns, please do not hesitate to call us. Summary of visit: - A1GDM: Weekly CGM Review with MFM - Hx PTB: routine TVCL at 18-22 weeks with anatomy scan - Asthma: Continue current regimen - OB/ER warnings reviewed - Follow up 6 weeks for MFM visit and anatomic survey ultrasound A total of 45 minutes were spent for this visit, 30 minutes were spent with the patient during the visit and 15 minutes were spent in documentation. I managed 2+ chronic conditions and reviewed care notes/labs from primary OB. Catie Mcconnell MD Manager Mail Division of Maternal- Medicine Progress Notes - Abstract - 03/13/2025 - GA:9w3d 03/13/2025 - 9w3d - Moon Quiñonez RMA Current OB records are under media tab. labs have not been drawn yet. 2022 op note is under media tab. Last Filed Vital Signs Vital Sign Reading Time Taken Comments Blood Pressure 116/73 05/15/2025 1:50 PM CDT Pulse 85 05/15/2025 1:50 PM CDT Temperature - - Respiratory Rate - - Oxygen Saturation 100% 05/15/2025 1:50 PM CDT Inhaled Oxygen Concentration - - Weight 72.6 kg (160 lb 0.9 oz) 05/15/2025 1:50 P M CDT Height 160 cm (5' 3) 05/15/2025 1:50 PM CDT Body Mass Index 28.35 05/15/2025 1:50 PM CDT Plan of Treatment Health Maintenance Due Date [...] 10/30/2020, Additional history exists Influenza Vaccine (#1) 2025 07/24/2020 Hepatitis B Screening Completed 12/05/1995 , 05/16/1995, 04/13/1995 Procedures Procedure Name Priority Date/Time Associated Diagnosis Comments US OB DETAIL ANATOMY SINGLE OR FIRST GESTATION Schedule Routine, Read Routine (OP Routine) 05/15/2025 12:34 PM CDT Supervision of high-risk , first trimester US OB LIMITED Schedule Routine, Read Routine (OP Routine) 04/03/2025 2:31 PM CDT Unspecified high-risk from Last 3 Months Results * US OB detail anatomy single or first gestation (05/15/2025 12:34 PM CDT) Fetus# Fetus1 VIEWPOINT Estimated Weight 209 g&grams VIEWPOINT Placenta Details anterior VIEWPOINT Presentation Breech VIEWPOINT Anatomical Region Laterality Modality Body N/A Ultrasound 05/15/2025 12:3 7 PM CDT Impressions 05/15/2025 1:56 PM CDT 1. 18w 3d IUP for evaluation of anatomy 2. The measurements are consistent with previously established dating criteria. 3. No structural malformations are identified within the limits of ultrasound. Ultrasound cannot diagnose all anomalies 4. Normal cervical length > 3cm on transvaginal ultrasound 5. Normal adnexa, bilaterally Narrative Procedure Note Catie Mcconnell MD - 05/15/2025 IMPRESSION: 1. 18w 3d IUP for evaluation of anatomy 2. The measurements are consistent with previously establisheddating criteria. 3. No structural malformations are identified within the limits ofprenatal ultrasound. Ultrasound cannot diagnose all anomalies 4. Normal cervical length > 3cm on transvaginal ultrasound 5. Normal adnexa, bilaterally us Catie Mcconnell MD IMG OB US PROCEDURES Final Result * US Ob Limited (04/03/2025 2:31 PM CDT) Fetus# Fetus1 VIEWPOINT Placenta Details anterior VIEWPOINT Anatomical Region Laterality Modality Abdomen N/A Ultrasound 04/03/2025 2:39 PM CDT Impressions 04/03/2025 3:26 PM CDT 12w 3d IUP for confirmation of viability and dating - A single viable intrauterine was seen. Cardiac motion was observed. The CRL corresponded to reported dating criteria. The adnexa appeared normal bilaterally. The nuchal translucency measures within normal limits. Small subchorionic hemorrhage overlying the cervix measuring 2.4x0.5x2.2 cm. Narrative Procedure Note Catie Mcconnell MD - 04/03/2025 IMPRESSION: 12w 3d IUP for confirmation of viability and dating - Asingle viable intrauterine was seen. Cardiac motion wasobserved. The CRL corresponded to reported dating criteria. The adnexaappeared normal bilaterally. The nuchal translucency measures withinnormal limits. Small subchorionic hemorrhage overlying the cervixmeasuring 2.4x0.5x2.2 cm. us Itz Peoples MD IMG OB US PROCEDURES Final Result from Last [address] [facility] Address: [place] [address] [facility]/PPO Address: [place] [address] Care Teams Grief Counselor Relationship Specialty Start Date End Date No, Physician PCP - General 06/06/22
--- OUTSIDE RECORDS SUMMARY | 2025-05-27 12:26 | XMS_ITS | Clinical Summary ---
Author Organization [facility] [employer] Address [address] [place] [address] Care Team Providers Care Travel Agency Manager Name Role Phone Pcp, [facility] Primary Care Provider Unava ilable Source Comments [facility],non-owned Affiliates and Associated Physician Practices is amultiple site organization consisting of ambulatory clinics and hospital sitesin [place], [place], [place] and [place]. This disclosure is being madepursuant to the Care Everywhere program and may not contain all information available regarding this patient. Last updated 18.[facility] Allergies Active Allergy Reactions Criticality Noted Date Comments Nitrous Oxide 05/07/2013 Penicillins 05/07/2013 Sulfa Drugs Other 07/03/2020 No reaction told by parents allergic due to family hx of sulfa allergy Medications * Be aware that medications may not be up to date on this document. Alwaysverify current medications with the patient. Mometasone Furoate (NASONEX NA) [place] into the nose as needed. 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 Gender Identity Not on file Sexual Orientation Not on file Last Filed Vital Signs Vital Sign Reading Time Taken Comments Blood Pressure 110/70 10/15/2014 8:25 AM POULTRY DRESSER Pulse 96 10/15/2014 8:25 AM POULTRY DRESSER Temperature 36.4 C (97.6 F) 10/15/2014 8:25 AM POULTRY DRESSER Respiratory Rate 18 10/15/2014 8:25 AM POULTRY DRESSER Oxygen Saturation 99% 10/15/2014 8:25 AM POULTRY DRESSER Inhaled Oxygen Concentration - - Weight 62.1 kg (137 lb) 10/15/2014 8:25 AM POULTRY DRESSER Height 160 cm (5' 3) 10/15/2014 8:25 AM POULTRY DRESSER Body Mass Index 24.27 10/15/2014 8:25 AM POULTRY DRESSER Plan of Treatment Health Maintenance Due Date Last Done Comments HIV SCREENING 2005 HEPATITIS C SCREENING 02/03/2008 PNEUMOCOCCAL VACCINE (1 of 2 - PCV) 2009 PAP SMEAR 10/17/2016 10/17/2013 HPV VACCINE (1 - 3-dose SCDM series) 2017 DTAP/TDAP/TD VACCINES (7 - Td or Tdap) 04/14/2019 04/14/2009, 01/21/1995, 06/28/1991, Additional history exists COVID-19 VACCINE ( - 2023- season) 2024 DEPRESSION SCREENING 10/23/2024 INFLUENZA VACCINE (#1) 2025 ZOSTER VACCINE (1 of 2) 02/08/2040 HEPATITIS B VACCINE Completed 12/05/1995, 05/16/1995, 04/13/1995 MENINGOCOCCAL GROUPS A/C/Y/W VACCINE Completed 01/22/2008 HIB VACCINE Aged Out No longer eligi ble based on patient's age to complete this topic MENINGOCOCCAL (Group B) VACCINE SHARED DECISION-MAKING Aged Out No longer eligible based on patient's age to complete this topic [place] [address] [place] [address] Care Teams Travel Agency Manager Relationship Specialty Start Date End Date Pcp, [facility] [place] Link PCP - General 01/04/24
--- OUTSIDE RECORDS SUMMARY | 2025-05-27 12:26 | XMS_ITS | Patient Health Record ---
Author Organization [facility] Address [address] [place], [place] [id number] Care Team Providers Care Beam Saw Operator Name Role Phone ZE Sparrow Unavailable [phone] Moon Self Unavailable Unavailable Reason For Referral No Information Plan Of Treatment No Information
--- OUTSIDE RECORDS SUMMARY | 2025-05-27 12:26 | XMS_ITS | Referral Summary ---
Author Organization [facility] Address [address] [place] [phone] Care Team Providers Care Supervisor Small Appliance Assembly Name Role Phone No, Physician Primary Care Provider [phone] Encounters Date Type Department Care Team Description 05/15/2025 1:30 PM CDT Office Visit [facility] Obstetrics and Gynecology [address] [place] [phone] Diet controlled gestational diabetes mellitus (GDM) in first trimester (Primary Dx); Diet controlled gestational diabetes mellitus (GDM) in second trimester; Supervision of high-risk , second trimester; History of delivery, currently 05/15/2025 12:30 PM CDT Ancillary Procedure [facility] Physicians [facility] Obstetrics and Gynecology [address] [place] [phone] Supervision of high-risk , first trimester 04/23/2025 Telephone [facility] Maternal- Medicine [address] [place] [address] Outpatient Health 7th Floor [address] [place] [phone] Genesis Kaye, RN MFM GLUCOSE LOG 04/07/2025 Telephone [facility] Maternal- Medicine [address] [place] [address] Outpatient Health 7th Floor [address] [place] [phone] Genesis Kaye, GATO 04/03/2025 3:15 PM CDT Office Visit [facility] Obstetrics and Gynecology [address] [place] [phone] Supervision of high-risk , first trimester (Primary Dx); Unspecified high-risk ; Asthma during ; History of delivery, currently ; AMA (advanced maternal age) multigravida 35+, first trimester; Diet controlled gestational diabetes mellitus (GDM) in first trimester 04/03/2025 2:45 PM CDT Ancillary Procedure [facility] Physicians [facility] Obstetrics and Gynecology [address] [phone] Unspecified high-risk 03/12/2025 Telephone [facility] Maternal- Medicine [facility] Health 7th Floor [address] [place] [phone] Itz Peoples MD from Last 3 Months Allergies Active Allergy Reactions Criticality Noted Date Comments Nitrous Oxide Other (See comments) Low 05/07/2013 Reaction when younger Sulfa (Sulfonamide Antibiotics) Other (See comments),Rash Medium 10/10/2022 Medications fluticasone propionate (FLONASE) 50 mcg/actuation nasal spray fluticasone propionate 50 mcg/actuation nasal spray,suspensio n Sharon 2 sprays every day by intranasal route. [...] days. 3 each 3 5 Active blood-glucose, supervisor endless track vehicle,cont ([employer]ex[employer] G7 Aerophysicist) misc Use as directed. 1 each 5 [...] 03/13/2025 Overview (05/15/2025): *Patient is OBGYN at [facility]* SEROLOGIES NEEDED [] OB consult only, [x] Co-management vs. [] Full M Care; [] Red Team [x] Blue Team Referring Provider: Itz Peoples [phone] [] or Medicare Insurance [x] Dating Criteria: [...] [x] Blue Team Referring Provider: Itz Peoples [phone] [] [employer] or Medicare Insurance [x] Dating Criteria: LMP [...] 03/13/2025 Overview (05/22/2025): 3 hour gtt (03/21/25): 98/-/- Current regimen: 05/22/2025 diet controlled Has Kelin CGM currently, sending logs through [employer] Counseling 04/03/2025 Plan: [x] Referral to diabetes education as needed [x] Send weekly glucose log through [email or web address] for review vs. CGM login information - ongoing [] Twice weekly testing at 32 weeks if medications needed [] Rate of growth ultrasounds q4 weeks [] Plan delivery by 39 weeks [] 2 hour gtt 6 weeks Assessment & Plan (05/15/2025 2:07 PM CDT): Current regimen: 05/15/2025 diet controlled Has Kelin CGM currently, sending logs through [employer] [facility] Counseling 04/03/2025 Plan: [x] Referral to diabetes education as needed [x] Send weekly glucose log through [employer] for review vs. CGM login information - [...] needed [] Send weekly glucose log through [employer] for review vs. CGM login information [] [...] MFM -Diabetes education to be scheduled at [facility] -Serial growth US -Consider delivery at 39 weeks (CS for breech scheduled with primary) - 2 hr GTT Assessment & Plan (10/10/2022 10:44 AM CLEARANCE REP): We reviewed the management of a complicated [...] Overview (10/10/2022): [x] Co-management vs. [] Full [facility] Care; [] Red Team [x] Blue Team Referring Provider: Itz Peoples [phone] [] or Medicare Insurance [x] Dating Criteria: [...] [] MOC: [] Method of feeding: [] Manager Entry: [] PP Depression Discussed: Accessory navicular bone of foot 04/09/2020 03/13/2025 Tibialis posterior tendinitis 03/19/2020 03/13/2025 Immunizations Immunization Administration Dates Next Due BCG [...] CDT Gender Identity Female 10/09/2022 6:18 PM CLEARANCE REP Sexual Orientation Not on file Last Filed [...] 05/15/2025 1:50 PM CDT Plan of Treatment Not on file Procedures Procedure Name Priority Date/Time Associated Diagnosis [...] Final Result from Last 3 Months Insurance [facility] Care Teams Supervisor Small Appliance Assembly Relationship Specialty Start Date End Date No, Physician PCP - General 06/06/22
[2025-05-27 13:03] LABS: Strep Group A RT-PCR NOT DETECTED (Negative)
== END 2025-05-27 12:24 | disposition home or self-care (01) ==
LOC: ANHOBOP 12:24
PROVIDERS: PCP Obstetrics & Gynecology; Visit Provider Student in an Organized Health Care Education/Training Program
DX: Z34.90 Encounter for supervision of normal pregnancy, unspecified, unspecified trimester (principal); Z3A.00 Weeks of gestation of pregnancy not specified
CPT/HCPCS: 87651

== ENCOUNTER 2025-07-21 09:14 | Outpatient (RCR) | payer OTHER, SELFPAY ==
--- OUTSIDE RECORDS SUMMARY | 2025-07-18 10:45 | XMS_ITS | Encounter Summary ---
Author Organization [facility] Healthcare Address [address] [place] [address] Care Team Providers Care Corporation Pilot Name Role Phone No, Physician Primary Care Provider [phone] Reason for Referral * Diagnostic Imaging (Routine) - Closed Specialty Diagnoses / Procedures Referred By Contac t Referred To Contact Diagnoses Supervision of high-risk , first trimester Procedures US Ob Follow Up Betty Gibbs MD [address] [place] [phone] Phone: tel: fax: [facility] (All Locations) Referral ID Status Reason Start Date Expiration Date Visits Re quested Visits Authorized [id number] Closed 06/26/2025 07/26/2026 1 1 Reason for Visit * Diagnostic Imaging (Routine) - Closed Specialty Diagnoses / Procedures Referred By Contac t Referred To Contact Diagnoses Supervision of high-risk , first trimester Procedures US Ob Follow Up Betty Gibbs MD [address] [place] [phone] Phone: tel: fax: [facility] (All Locations) Referral ID Status Reason Start Date Expiration Date Visits Re quested Visits Authorized [id number] Closed 06/26/2025 07/26/2026 1 1 Encounter Details Date Type Department Care Team (Latest Contact Info) Description 07/18/2025 10:45 AM CDT Hospital Encounter [facility] Outpatient Health - Ultrasound [address], [address]th [address], [address] [place] [address] Supervision of high-risk , first trimester Social History Tobacco Use Types Packs/Day Years Used Date Smoking Tobacco: Never Smokeless Tobacco: Never Estimated Date of Delivery Comme nts Yes 10/13/2025 Based on last me nstrual period of 01/06/2025 Sex and Gender Information Value Date Recorded Sex Assigned at Not on file Legal Sex Female 1:33 PM CDT Gender Identity Female 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 Sexual Orientation Not on file documented as of this encounter Plan of Treatment Not on file documented as of this encounter Procedures Procedure Name Priority Date/Time Associated Diagnosis Comments US OB FOLLOW UP Schedule Routine, Read Routine (OP Routine) 07/18/2025 10:46 AM CDT Supervision of high-risk , first trimester documented in this encounter Results * US Ob Follow Up (07/18/2025 10:46 AM CDT) Fetus# Fetus1 VIEWPOINT Estimated Weight 896 g&grams VIEWPOINT Placenta Details anterior, Previa-no, no placental masses VIEWPOINT Presentation Vertex VIEWPOINT Anatomical Region Laterality Modality Abdomen N/A Ultrasound 07/18/2025 10:4 7 AM CDT Impressions 07/18/2025 11:23 AM CDT IUP at 27+4 with known FGR 1. Biometry remains smaller than expected with 896 g at 5% overall and AC of 3%. 2. Normal amniotic fluid 16.9 cm. 3. Normal umbilical artery flow. 4. Fetus is cephalic; anterior placenta. Narrative Procedure Note Mamie Ramirez MD - 07/18/2025 IMPRESSION: IUP at 27+4 with known FGR 1. Biometry remains smaller than expected with 896 g at 5% overall and ACof 3%. 2. Normal amniotic fluid 16.9 cm. 3. Normal umbilical artery flow. 4. Fetus is cephalic; anterior placenta. us Betty Gibbs MD IMG OB US PROCEDURES Final Result documented in this encounter Visit Diagnoses Diagnosis Supervision of high-risk , first trimester documented in this encounter Care Teams Corporation Pilot Relationship Specialty Start Date End Date No, Physician PCP - General 06/06/22 documented as of this encounter
--- OUTSIDE RECORDS SUMMARY | 2025-07-18 11:30 | XMS_ITS | Encounter Summary ---
Author Organization [facility] Address [address] [place] [address] Phone Care Team Providers Care Spark Plug Assembler Name Role Phone No, Physician Primary Care Provider [phone] Reason for Referral * Diagnostic Imaging (Routine) - Pending Review Specialty Diagnoses / Procedures Referred By Contac t Referred To Contact Diagnoses Poor growth affecting management of mother in second trimester, single or unspecified fetus Supervision of other high risk , antepartum Procedures US Ob Follow Up Anai Mccloud MD [address] [place] [id number] Phone: tel: fax: [facility] (All Locations) Referral ID Status Reason Start Date Expiration Date V isits Requested Visits Authorized [id number] Pending Review 07/18/2025 08/17/2026 1 1 * Diagnostic Imaging (Routine) - Pending Review Specialty Diagnoses / Procedures Referred By Contac t Referred To Contact Diagnoses Poor growth affecting management of mother in second trimester, single or unspecified fetus Supervision of other high risk , antepartum Procedures US Biophysical Profile WO Test Anai Mccloud MD [address] [place] [id number] Phone: tel: fax: [facility] (All Locations) Referral ID Status Reason Start Date Expiration Date V isits Requested Visits Authorized [id number] Pending Review 07/18/2025 08/17/2026 2 2 Reason for Visit * Reason Comments High Risk Gestation Encounter Details Date Type Department Care Team (Late st Contact Info) Description 07/18/2025 11:30 AM CDT Office Visit [facility] [place] Medicine Maternal- Medicine [address] 7[address] [place] [address] Diet controlled gestational diabetes mellitus (GDM) in second trimester (Primary Dx); History of section complicating ; History of delivery, currently ; Poor growth affecting management of mother in second trimester, single or unspecified fetus; Supervision of other high risk , antepartum Social History Tobacco Use Types Packs/Day Years Used Date Smoking Tobacco: Never Smokeless Tobacco: Never Tobacco Cessation:Counseling Given: Not Answered Estimated Date of Delivery Comme nts Yes 10/13/2025 Based on last me nstrual period of 01/06/2025 Sex and Gender Information Value Date Recorded Sex Assigned at Not on file Legal Sex Female 1:33 PM CDT Gender Identity Female 10/09/2022 6:18 PM [employer] Sexual Orientation Not on file documented as of this encounter Last Filed Vital Signs Vital Sign Reading Time Taken Comments Blood Pressure 117/74 07/18/2025 11:17 AM CDT Pulse 78 07/18/2025 11:17 AM CDT Temperature - - Respiratory Rate - - Oxygen Saturation 100% 07/18/2025 11:17 AM CDT Inhaled Oxygen Concentration - - Weight 76.9 kg (169 lb 9.6 oz) 07/18/2025 11:17 AM CDT Height 160 cm (5' 3) 07/18/2025 11:17 AM CDT Body Mass Index 30.04 07/18/2025 11:17 AM CDT documented in this encounter Progress Notes * Anai Mccloud MD - 07/18/2025 11:30 AM CDT MFM Return Consult Visit 07/18/[address] Peoples, It was a pleasure meeting again with our mutual patient in continued consultation. Phoebe Mcmullen is a 35 y.o. at 27w4d whose is complicated by gestational diabetes and growth restriction. She has a history of spontaneous late delivery and for breech. Subjective: She reports normal movement and no obstetric concerns today. She is still feelinggood about her diabetes management and has been able to keep her blood sugars in good control with protein at her meals. Even when having a few slices of pizza her blood sugars have generally been within goal. CGM does occasionally read lows overnight which are typically not accurate when compared to glucometer checks. Objective: BP 117/74 (BP Location: Left arm, Patient Position: Sitting) Pulse 78 Ht 160 cm (5' 3) Wt 169 lb 9.6 oz (76.9 kg) LMP 01/06/2025 SpO2 100% BMI 30.04 kg/m?? General: NAD Abdomen: Gravid Ultrasound: 07/18/2025 IUP at 27+4 with known FGR 1. Biometry remains smaller than expected with 896 g at 5% overall and AC of 3%. 2. Normal amniotic fluid 16.9 cm. 3. Normal umbilical artery flow. 4. Fetus is cephalic; anterior placenta. Assessment/Plan: Phoebe Mcmullen is a 35 y.o. at 27w4d with a complicated by the following: Problem List History of delivery, currently Overview History: 36 week spontaneous labor, prior section [...] [x] TVCL at anatomic survey for screening History of section complicating Overview History: prior LTCS for breech presentation at 36 weeks in PTL Plan: [] Desires repeat C/S with BTL Gestational diabetes mellitus (GDM) in second trimester - Primary Overview 3 hour gtt (03/21/25): 98/203/-/- Current regimen: 07/18/2025 Diet Controlled- log reviewed and only sporadic mild blood sugar elevations. Phoebe has had to make only slight modifications to her diet to achieve good glycemic control so far. Has Kelin CGM currently, sending logs through [employer] [facility] 04/03/2025 Plan: [x] Referral to diabetes education as needed [x] Send weekly glucose log through [employer] for review vs. CGM login information - ongoing [] testing, growth surveillance and delivery timing per FDA are problem [] 2 hour gtt 6 weeks Poor growth affecting management of mother in second trimester Overview EFW 10% but AC <10% . She is dated by LMP c/w 1T US (verified) and her NIPT is LR. 07/18/2025: EFW at the 5th, AAC at the 3rd percentile. Normal Dopplers Plan: -Continue weekly Dopplers with the MFM with the addition of BPP with NST every Monday in our officestarting next week (28 weeks) -She will start weekly NSTs in Busy - q3 weeks growth scans -Delivery timing TBD however at this point goal is 38-39 weeks Relevant Orders US Biophysical Profile WO Test US Ob Follow Up Thank you for your consultation. Please don't hesitate to contact me with any questions. We will continue to follow along with Ms. Phoebe Mcmullen. Her ultrasounds and NSTs will be scheduled Fridays and we will see her again in 3 weeks for a visit lined up with her growth ultrasound. Anai Mccloud MD documented in this encounter Plan of Treatment Scheduled Orders Name Type Priority Associated Diagnoses Orde r Schedule US Biophysical Profile WO Test Imaging Schedule Routine, Read Routine (OP Routine) Poor growth affecting management of mother in second trimester, single or unspecified fetus Supervision of other high risk , antepartum 2 Occurrences starting 07/18/2025 until 10/17/2025 US Ob Follow Up Imaging Schedule Routine , Read Routine (OP Routine) Poor growth affecting management of mother in second trimester, single or unspecified fetus Supervision of other high risk , antepartum Expected: 07/18/2025, Expires: 07/18/2026 documented as of this encounter Visit Diagnoses Diagnosis Diet controlled gestational diabetes mellitus (GDM) in second trimester- Primary History of section complicating Previous delivery, unspecified as to episode of care or not applicable History of delivery, currently with history of pre-term labor Poor growth affecting management of mother in second trimester, single or unspecified fetus Supervision of other high risk , antepartum documented in this encounter Historical Medications * This list may reflect changes made after this encounter. fluticasone propionate (FLONASE) 50 mcg/actuation nasal spray Administer 1 spray into affected nostril(s) 02/06/2023 loratadine (CLARITIN) 10 mg tablet Take 1 tablet (10 mg total) by mouth 02/06/2023 OMEPRAZOLE ORAL Take 20 mg by mouth 11/15/2023 PNV no.95/ferrous fum/folic ac ( ORAL) Take 1 tablet by mouth 02/06/2023 added in this encounter Orders Immunization/Injection Count Last Ordered Date First Ordered Date TDAP VACCINE GREATER THAN OR EQUAL TO 7YO IM 1 07/18/2025 documented in this encounter Care Teams Spark Plug Assembler Relationship Specialty Start Date End Date No, Physician PCP - General 06/06/22 documented as of this encounter
--- OUTSIDE RECORDS SUMMARY | 2025-07-18 13:34 | XMS_ITS | Clinical Summary ---
Author Organization [facility] [employer] Address [address] [place] [address] Care Team Providers Care Grain Mixer Name Role Phone Pcp, [facility] Primary Care Provider Unava ilable Source Comments [facility],non-owned Affiliates and Associated Physician Practices is amultiple site organization consisting of ambulatory clinics and hospital sitesin [place], [place], [place] and [place]. This disclosure is being madepursuant to the Care Everywhere program and may not contain all information available regarding this patient. Last updated 18.[facility] Allergies Active Allergy Reactions Criticality Noted Date Comments Nitrous Oxide 05/07/2013 Penicillins 05/07/2013 Sulfa Drugs Other 07/03/2020 No reaction told by parents allergic due to family hx of sulfa allergy Medications * Be aware that medications may not be up to date on this document. Alwaysverify current medications with the patient. Mometasone Furoate (NASONEX NA) [place] into the nose as needed. prn Active [...] Immunization Administration Dates Next Due BCG VACCINE ALF 1990 DTP 01/21/1995, 1,1990,1990,04/23/19 90 HEP B [...] on file Legal Sex Female 1:40 PM RV DETAILER Gender Identity Not on file Sexual Orientation Not on file Last Filed Vital Signs Vital Sign Reading Time Taken Comments Blood Pressure 110/70 10/15/2014 8:25 AM RV DETAILER Pulse 96 10/15/2014 8:25 AM RV DETAILER Temperature 36.4 C (97.6 F) 10/15/2014 8:25 AM RV DETAILER Respiratory Rate 18 10/15/2014 8:25 AM RV DETAILER Oxygen Saturation 99% 10/15/2014 8:25 AM RV DETAILER Inhaled Oxygen Concentration - - Weight 62.1 kg (137 lb) 10/15/2014 8:25 AM RV DETAILER Height 160 cm (5' 3) 10/15/2014 8:25 AM RV DETAILER Body Mass Index 24.27 10/15/2014 8:25 AM RV DETAILER Plan of Treatment Health Maintenance Due Date Last Done Comments HIV SCREENING 2005 HEPATITIS C SCREENING 02/03/2008 PNEUMOCOCCAL VACCINE (1 of 2 - PCV) 2009 PAP SMEAR 10/17/2016 10/17/2013 HPV VACCINE (1 - 3-dose SCDM series) 2017 DTAP/TDAP/TD VACCINES (7 - Td or Tdap) 04/14/2019 04/14/2009, 01/21/1995, 06/28/1991, Additional history exists DEPRESSION SCREENING 10/23/2024 COVID-19 VACCINE ( season) 2025 INFLUENZA VACCINE (#1) 2025 ZOSTER VACCINE (1 of 2) 02/08/2040 HEPATITIS B VACCINE Completed 12/05/1995, 05/16/1995, 04/13/1995 MENINGOCOCCAL GROUPS A/C/Y/W VACCINE Completed 01/22/2008 HIB VACCINE Aged Out No longer eligi ble based on patient's age to complete this topic MENINGOCOCCAL (Group B) VACCINE SHARED DECISION-MAKING Aged Out No longer eligible based on patient's age to complete this topic Insurance [address] [address] [facility] Address: [facility] [id number] [place] [id number] Care Teams Grain Mixer Relationship Specialty Start Date End Date Pcp, [facility] Link PCP - General 01/04/24
--- OUTSIDE RECORDS SUMMARY | 2025-07-18 13:34 | XMS_ITS | Patient Health Record ---
Author Organization [facility] Address [address] [place], [place] [id number] Care Team Providers Care Glassworker Name Role Phone ZE Sparrow Unavailable [phone] Moon Self Unavailable Unavailable Reason For Referral No Information Plan Of Treatment No Information
--- OUTSIDE RECORDS SUMMARY | 2025-07-18 13:34 | XMS_ITS | Clinical Summary ---
Author Organization [facility] Address [address] [place] [id number] Care Team Providers Care Tunneling Machine Operator Name Role Phone No, Physician Primary Care Provider [phone] Allergies Active Allergy Reactions Criticality Noted Date Comments Nitrofurantoin Rash Medium 11/14/2024 Neck rash Nitrous Oxide Other (See comments) Low 05/07/2013 Reaction when younger Sulfa (Sulfonamide Antibiotics) Other (See comments),Rash Medium 10/10/2022 Medications fluticasone propionate (FLONASE) 50 mcg/actuation nasal spray fluticasone propionate 50 mcg/actuation nasal spray,suspension [place] 2 sprays every day by intranasal route. [...] 10 mg tablet 5 Active blood-glucose sensor (Stick and [employer] G7 Sensor) device Use as directed. Change sensor every 10 days. 3 each 3 5 Active Additional Information Patient not taking.Reported on 07/18/2025 Asmanex HFA 200 mcg/actuation inhaler USE 1 INHALATION ORALLY AT BEDTIME 5 Active omeprazole (PriLOSEC) 20 mg capsule Take 1 capsule (20 mg total) by mouth daily 5 Active PNV no.95/ferrous fum/folic ac ( ORAL) Take 1 tablet by mouth 3 Active OMEPRAZOLE ORAL Take 20 mg by mouth 4 Active loratadine (CLARITIN) 10 mg tablet Take 1 tablet (10 mg total) by mouth 3 Active fluticasone propionate (FLONASE) 50 mcg/actuation nasal spray Administer 1 spray into affected nostril(s) 3 Active Active Problems Problem Noted Date Diagnosed Date Poor growth affecting management of mother in second trimester 06/26/2025 Overview (07/18/2025): EFW 10% but AC <10% . She is dated by LMP c/w 1T US (verified) and her NIPT is LR. 07/18/2025: EFW at the 5th, AAC at the 3rd percentile. Normal Dopplers Plan: -Continue weekly Dopplers with the MFM with the addition of BPP with NST every Monday in our office starting next week (28 weeks) -She will start weekly NSTs in [place] - q3 weeks growth scans -Delivery timing TBD however at this point goal is 38-39 weeks Assessment & Plan (06/26/2025 11:01 PM CDT): EFW 10% but AC <10% today. She is dated by LMP c/w 1T US (verified by me today) and her NIPT is LR. 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 We briefly reviewed etiology and recommended management moving forward, including delivery at 37-39 wks (notably she had spontaneous PTB at 36 weeks with her first). - Weekly Dopplers and q3 wk growth scheduled - NST to start at 28 wks AMA (advanced maternal age) multigravida 35+, first [...] plans to initiate once vaginal bleeding resolves Assessment & Plan (06/26/2025 10:57 PM CDT): Age at ASAF: 35 Counseling 04/03/2025: We [...] high-risk , second trime ster 03/13/2025 Overview (07/18/2025): *Patient is OBGYN at [facility]* SEROLOGIES NEEDED [] OB consult only, [x] Co-management vs. [] Full [facility] Care; [] Red Team [x] Blue Team Referring Provider: Itz Peoples [phone] [] or Medicare Insurance [x] Dating Criteria: [...] Desires BTL Vaccines [] Flu Shot (Jun-Sep): 07/18/2025 Pt will receive Flu shot from her job. au [] COVID vaccine: [x] Tdap (27-36wks):07/18/2025 au [] RSV vaccine (32-36wks): [] PP HPV vaccine counseling (<=26 yo): Assessment & Plan (06/26/2025 10:59 PM CDT): UA Dopplers scheduled weekly with growth in 3 wks scheduled Assessment & Plan (05/15/2025 2:07 PM CDT): 2nd Trimester [x] Anatomy ultrasound: 05/15/2025 WNL [] CBC/1hr gtt at 24-28wks: [] Rhogam at 28 wks (if Rh neg): O- Assessment & Plan (04/03/2025 4:00 PM CDT): SEROLOGIES NEEDED [] OB consult only, [x] Co-management vs. [] Full MFM Care; [] Red Team [x] Blue Team Referring Provider: Itz Peoples [phone] [] or Medicare Insurance [x] Dating Criteria: [...] outcomes this . Plan: [x] TVCL at [facility] for screening Assessment & Plan (06/26/2025 10:58 PM CDT): History: 36 week spontaneous labor, prior section for breech presentation Counseled on recurrence risk previously Plan: [x] TVCL at [facility] for screening Assessment & Plan (05/15/2025 2:08 PM CDT): Plan: [x] TVCL at [facility] for screening Assessment & Plan (04/03/2025 3:57 [...] outcomes this . Plan: [] TVCL at [facility] for screening History of section complicating pregnan cy 03/13/2025 Overview (04/03/2025): History: prior LTCS for breech presentation at 36 weeks in PTL Plan: [] Desires repeat C/S with BTL Assessment & Plan (06/26/2025 10:58 PM CDT): History: prior LTCS for breech presentation at 36 weeks in PTL Plan: [] Desires repeat C/S with BTL Assessment & Plan (04/03/2025 3:56 PM CDT): History: prior LTCS for breech presentation at 36 weeks in PTL Plan: [] Desires repeat C/S with BTL Gestational diabetes mellitus (GDM) in second tr imester 03/13/2025 Overview (07/18/2025): 3 hour gtt (03/21/25): 98/203/-/- Current regimen: 07/18/2025 Diet Controlled- log reviewed and only sporadic mild blood sugar elevations. Phoebe has had to make only slight modifications to her diet to achieve good glycemic control so far. Has Kelin CGM currently, sending logs through [employer] [facility] Counseling 04/03/2025 Plan: [x] Referral to diabetes education as needed [x] Send weekly glucose log through [employer] for review vs. CGM login information - ongoing [] testing, growth surveillance and delivery timing per FDA are problem [] 2 hour gtt 6 weeks Assessment & Plan (06/26/2025 10:57 PM CDT): 3 hour gtt (03/21/25): 98/-/- Current regimen: 06/26/2025 - Diet Controlled Has Kelin CGM currently, sending logs through [employer] [facility] Counsel[facility] 04/03/2025 Plan: [x] Referral to diabetes education as needed [x] Send weekly glucose log through [employer] for review vs. CGM login information - ongoing [] Twice weekly testing at 32 weeks if medications needed [] Rate of growth ultrasounds q4 weeks [] Plan delivery by 39 weeks [] 2 hour gtt 6 weeks Assessment & Plan (05/15/2025 2:07 PM CDT): Current regimen: 05/15/2025 diet controlled Has Kelin CGM currently, sending logs through [employer] [facility] Counseling 04/03/2025 Plan: [x] Referral to diabetes education as needed [x] Send weekly glucose log through [employer] for review vs. CGM login information - ongoing [] Twice weekly testing at 32 weeks if medications needed [] Rate of growth ultrasounds q4 weeks [] Plan delivery by 39 weeks [] 2 hour gtt 6 weeks Assessment & Plan (04/03/2025 3:59 PM CDT): 3 hour gtt (03/21/25): 98/-/- Current regimen: diet controlled Has Kelin CGM [...] needed [] Send weekly glucose log through [employer] [facility] [facility] for review vs. CGM login information [] [...] M -Diabetes education to be scheduled at [place] -Serial growth US -Consider delivery at 39 weeks (CS for breech scheduled with primary) - 2 hr GTT Assessment & Plan (10/10/2022 10:44 AM NURSE RESEARCH): We reviewed the management of a complicated [...] Overview (10/10/2022): [x] Co-management vs. [] Full [facility] Care; [] Red Team [x] Blue Team Referring Provider: Itz Peoples [phone] [] or Medicare Insurance [x] Dating Criteria: [...] [] MOC: [] Method of feeding: [] Insurance Claim Representative: [] PP Depression Discussed: Accessory navicular bone of foot 04/09/2020 03/13/2025 Tibialis posterior tendinitis 03/19/2020 03/13/2025 Encounters Date Type Department Care Team Description 07/18/2025 11:30 AM CDT [facility] [address] [place] [address] Health 7th Floor [address] [place] [id number] Diet controlled gestational diabetes mellitus (GDM) in second trimester (Primary Dx); History of section complicating ; History of delivery, currently ; Poor growth affecting management of mother in second trimester, single or unspecified fetus; Supervision of other high risk , antepartum 07/18/2025 10:45 AM CDT Hospital Encounter [facility] - Ultrasound [address], 7[address], [address] [place], [place] [id number] Supervision of high-risk , first trimester 07/11/2025 2:30 PM CDT - 07/11/2025 11:59 PM CDT Hospital Encounter [facility] - Ultrasound [address], 7th Floor, [address] [place] [address] Supervision of high-risk , first trimester Discharge Disposition: Discharge to home or self care 07/04/2025 1:52 PM CDT - 07/04/2025 11:59 PM CDT Hospital Encounter [facility] - Ultrasound [address], 7th Floor, [address] [place] [address] Supervision of high-risk , first trimester Discharge Disposition: Discharge to home or self care 06/26/2025 3:15 PM CDT [facility] [address] [place], [place] [id number] [place] [address] Diet controlled gestational diabetes mellitus (GDM) in first trimester (Primary Dx); Supervision of high-risk , first trimester; AMA (advanced maternal age) multigravida 35+, first trimester; Diet controlled gestational diabetes mellitus (GDM) in second trimester; History of section complicating ; History of delivery, currently ; Supervision of high-risk , second trimester; Poor growth affecting management of mother in second trimester, single or unspecified fetus 06/26/2025 2:30 PM CDT Ancillary Procedure [facility] [address] [place] [address] [address] [place] [address] Diet controlled gestational diabetes mellitus (GDM) in first trimester 05/15/2025 1:30 PM CDT [facility] [address] [place], [place] [id number] [place] [address] Diet controlled gestational diabetes mellitus (GDM) in first trimester (Primary Dx); Diet controlled gestational diabetes mellitus (GDM) in second trimester; Supervision of high-risk , second trimester; History of delivery, currently 05/15/2025 12:30 PM CDT Ancillary Procedure [facility] [address] [place] [address] [address] [place] [address] Supervision of high-risk , first trimester 04/23/2025 Telephone [facility] Medicine Maternal- Medicine [address] [facility] [facility] 7th Floor [address] [place] [address] Genesis Kaye RN [facility] GLUCOSE LOG from Last 3 Months Immunizations Immunization Administration Dates Next Due BCG 1990 DTP 01/21/1995, 1,1990,07/27,1990 HPV, Quadrivalent 09/18/2007,06/30/2007 Hep A, Pediatric 09/18/2007,03/06/2007 Hep B, Adolescent or Pediatric 12/05/1995,1994,04/13/1995 Hib (PRP-T) 06/28/1991 IPV 01/21/1995, 1,1990,04/23 Influenza, Quadrivalent, Spl it, Intramuscular 07/24/2020 MMR 01/21/1995,06/28/1991 Meningococcal Polysaccharide (Menomune) 01/22/2008 Moderna SARS-CoV-2 Monovalen t Vaccination (12+ YRS) 10/30/2020 Polio, Unspecified 06/28/1991,1990, 990 Tdap 07/18/2025,04/14/2009 Varicella 02/20/1993 Surgical History Surgery Date Site/Laterality [...] CDT Gender Identity Female 10/09/2022 6:18 PM NURSE RESEARCH Sexual Orientation Not on file Obstetrics History [...] Estimated Date of Delivery 03/13/2025 - Present (07/18/2025) 10/13/2025 (set by Catie Mcconnell MD on 04/03/2025 based on Last Menstrual Period on 01/06/2025) Dating Summary Based On ASAF GA Diff Last Menstrual Period on 01/06/2025 10/13/2025 Working Ultrasound on 04/03/2025 10/16/2025 -3d GA:12w0d Comment:CRL report under Lynette ging Vitals Pregravid Weight Height TWG (As of 07/18/2025) Pregrav id BMI 160 cm (5' 3) Date GA Fund Present FHR Mvmt BP Weight Edema Alb Glu Ket Dil/ Eff/Sta 5 25w4d Inpatient data not displayed here. See encounter summary. 5 26w4d Inpatient data not displayed here. See encounter summary. 5 27w4d Inpatient data not displayed here. See encounter summary. Notes Progress Notes - Office Visi t - 07/18/2025 - GA:27w4d 07/18/2025 - 27w4d - Anai Mccloud MD MFM Return Consult Visit 07/18/[address] Peoples, It was a pleasure meeting again with our mutual patient in continued consultation. Phoebe Mcmullen is a 35 y.o. at 27w4d whose is complicated by gestational diabetes and growth restriction. She has a history of spontaneous late delivery and for breech. Subjective: She reports normal movement and no obstetric concerns today. She is still feeling good about her diabetes management and has been [...] kg) LMP 01/06/2025 SpO2 100% BMI 30.04 kg/m General: NAD Abdomen: Gravid Ultrasound: 07/18/2025 IUP [...] Has Kelin CGM currently, sending logs through [employer] S/p Counseling 04/03/2025 Plan: [x] Referral to diabetes education as needed [x] Send weekly glucose log through [employer] for review vs. CGM login information - [...] BPP with NST every Monday in our office starting next week (28 weeks) -She will start weekly NSTs in [place] - q3 weeks growth scans -Delivery timing TBD however at this point goal is 38-39 weeks Relevant Orders US Biophysical Profile WO Test US Ob Follow Up Thank you for your consultation. Please don't hesitate to contact me with any questions. We will continue to follow along with Phoebe Mcmullen. Her ultrasounds and NSTs will be scheduled Fridays and we will see her again in 3 weeks for a visit lined up with her growth ultrasound. 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 at 24w3d who is here for a return OB visit. Her is complicated by AMA, GDMA1, and now FGR diagnosed today. Subjective: She denies contractions, leakage of fluid, or vaginal bleeding. She reports good movement. 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 She is dated by LMP c/w 1T US (verified by me today) and her NIPT is LR. 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 We briefly reviewed etiology and recommended management moving forward, including delivery at 37-39 wks (notably she had spontaneous PTB at 36 weeks with her first). - Weekly Dopplers and q3 wk growth scheduled - NST to start at 28 wks AMA (advanced maternal age) multigravida 35+, first trimester Age at ASAF: 35 Counseling 04/03/2025: We [...] plans to initiate once vaginal bleeding resolves Gestational diabetes mellitus (GDM) in second trimester 3 hour gtt (03/21/25): 98/203/-/- Current regimen: 06/26/2025 - Diet Controlled Has Kelin CGM currently, sending logs through [employer] S/p Counseling 04/03/2025 Plan: [x] Referral to diabetes education as needed [x] Send weekly glucose log through [employer] [facility] for review vs. CGM login information - ongoing [] Twice weekly testing at 32 weeks if medications needed [] Rate of growth ultrasounds q4 weeks [] Plan delivery by 39 weeks [] 2 hour gtt 6 weeks History of section complicating History: prior LTCS for breech presentation at 36 weeks in PTL Plan: [] Desires repeat C/S with BTL History of delivery, currently History: 36 week spontaneous labor, prior section for breech presentation Counseled on recurrence risk previously Plan: [x] TVCL at anatomic survey for screening Supervision of high-risk , second trimester UA Dopplers scheduled weekly with growth in 3 wks scheduled Thank you for the opportunity to be involved in the care of your patient. Should you have any further questions or concerns, please do not hesitate to call us. Sincerely, Betty Gibbs MD, MS [employer] De[employer] Division of Maternal- Medicine Department of Obstetrics and Gynecology [facility] 06/26/2025 Progress Notes - Office Visi t - [...] Current regimen: 05/15/2025 diet controlled Has Kelin CGDariusz currently, sending logs through [employer] [facility] Counseling 04/03/2025 Plan: [x] Referral to diabetes education as needed [x] Send weekly glucose log through [employer] for review vs. CGM login information - [...] were spent in documentation. Catie Mcconnell MD Design Painter Division of Maternal- Medicine Progress Notes - [...] for breech presentation. Baby was transferred to [facility] after intubation and received surfactant. 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 Plan: [] TVCL at [facility] for screening Gestational diabetes mellitus (GDM) in [...] needed [] Send weekly glucose log through [employer] for review vs. CGM login information [] [...] [x] Blue Team Referring Provider: Itz Peoples [phone] [] or Medicare Insurance [x] Dating Criteria: [...] notes/labs from primary OB. Catie Mcconnell MD Design Pain[employer] Division of Maternal- Medicine Progress Notes - [...] Mass Index 30.04 07/18/2025 11:17 AM CDT Plan of Treatment Health Maintenance Due Date Last Done Comments Albumin Creatinine Ratio, Urine 1990 Cervical Cancer Screening 1990 Depression Screening 1990 Hemoglobin A1C 1990 Hepatitis C Screening 1990 eGFR 1990 Dilated Eye Exam 1990 Foot Exam 1990 Lipid Panel 1990 Varicella Vaccines (2 of 2 - 2-dose childhood series) 02/18/1995 02/20/1993 HPV Vaccines (3 - 3-dose series) 12/29/2007 09/18/20 07, 06/30/2007 Regular Well Visit/Exam 18-64 02/08/2008 Pneumococcal vaccine <65 (1 of 2 - PCV) 2009 Covid-19 Vaccine (5 - 2024-2 6 season) 2025 09/24/2021, 10/30/2020, 10/30/2020, Additional history exists Influenza Vaccine (#1) 2025 07/24/2020 DTaP/Tdap/Td Vaccine (9 - Td or Tdap) 07/18/2035 07/18/2025, 09/17/2022, 04/14/2009, Additional history exists Hepatitis B Screening Completed 12/05/1995 , 05/16/1995, 04/13/1995 Procedures Procedure Name Priority Date/Time Associated Diagnosis Comments US OB FOLLOW UP Schedule Routine, Read Routine (OP Routine) 07/18/2025 10:46 AM CDT Supervision of high-risk , first trimester US UMBILICAL ARTERY DOPPLER Schedule Routine, Read Routine (OP Routine) 07/11/2025 2:30 PM CDT Supervision of high-risk , first trimester US UMBILICAL ARTERY DOPPLER Schedule Routine, Read Routine (OP Routine) 07/04/2025 1:52 PM CDT Supervision of high-risk , first trimester US OB FOLLOW UP Schedule Routine, Read Routine (OP Routine) 06/26/2025 2:47 PM CDT Diet controlled gestational diabetes mellitus (GDM) in first trimester US OB DETAIL ANATOMY SINGLE OR FIRST GESTATION Schedule Routine, Read Routine (OP Routine) 05/15/2025 12:34 PM CDT Supervision of high-risk , first trimester from Last 3 Months Results * US Ob Follow Up (07/18/2025 [...] OB US PROCEDURES Final Result * US Umbilical Artery Doppler (07/11/2025 2:30 PM CDT) Fetus# Fetus1 VIEWPOINT Placenta Details anterior, Previa-no, no placental masses VIEWPOINT Presentation Vertex VIEWPOINT Anatomical Region Laterality Modality Abdomen N/A Ultrasound 07/11/2025 2:31 PM CDT Impressions 07/11/2025 3:14 PM CDT IUP at 26w 4d with known FGR for evaluation of wellbeing - UA Dopplers measure within normal limits, PI 39%, with forward flow in all waveforms. Vertex presentation. Normal CHUNG. Narrative Procedure Note Mamie Ramirez MD - 07/11/2025 IMPRESSION: IUP at 26w 4d with known FGR for evaluation of wellbeing - UADopplers measure within normal limits, PI 39%, with forward flow in allwaveforms. Vertex presentation. Normal CHUNG. Betty Gibbs MD IMG OB US PROCEDURES Final Result * US Umbilical Artery Doppler (07/04/2025 1:52 PM CDT) Fetus# Fetus1 VIEWPOINT Placenta Details anterior, Previa-no, no placental masses VIEWPOINT Presentation Vertex VIEWPOINT Anatomical Region Laterality Modality Abdomen N/A Ultrasound 07/04/2025 1:54 PM CDT Impressions 07/04/2025 2:17 PM CDT IUP at 25+4 with known FGR 1. Normal amniotic fluid and umbilical artery flow 2. Fetus is cephalic; anterior placenta. Narrative Procedure Note Mamie Ramirez MD - 07/04/2025 IMPRESSION: IUP at 25+4 with known FGR 1. Normal amniotic fluid and umbilical artery flow 2. Fetus is cephalic; anterior placenta. us Betty Gibbs MD IMG OB US PROCEDURES Final Result * US Ob Follow Up (06/26/2025 2:47 PM CDT) Fetus# Fetus1 VIEWPOINT Estimated Weight 599 g&grams VIEWPOINT Placenta Details anterior, Previa-no, no placental masses VIEWPOINT Presentation Vertex VIEWPOINT Anatomical Region Laterality Modality Abdomen N/A Ultrasound 06/26/2025 2:53 PM CDT Impressions 06/26/2025 3:58 PM CDT IUP at 24w 3d for evaluation of growth and surveillance 1. The EFW measured at 10%, with the AC <10%. Appropriate interval growth was noted. 2. The amniotic fluid volume measured within normal limits. 3. UA Doppler PI measured at the 27% for gestational age, without evidence of absent or reversed end-diastolic flow. Narrative Procedure Note Betty Gibbs MD - 06/26/2025 IMPRESSION: IUP at 24w 3d for evaluation of growth and surveillance 1. The EFW measured at 10%, with the AC <10%. Appropriate interval growthwas noted. 2. The amniotic fluid volume measured within normal limits. 3. UA Doppler PI measured at the 27% for gestational age, without evidenceof absent or reversed end-diastolic flow. us Catie Mcconnell MD IMG OB US PROCEDURES Final Result * US OB detail anatomy single or [...] Final Result from Last [address] [place] [address] [place] [address] [facility] Member Subscriber Plan / Payer (Ef fective 2021-Present) Name:Phoebe Mcmullen Relation to Subscriber:Self Name:Phoebe Mcmullen Payer ID:[id number] (NAIC) Type:[facility] HMO/PPO Address: [place] [phone] [place] [address] [address] [facility] Care Teams Tunneling Machine Operator Relationship Specialty Start Date End Date No, Physician PCP - General 06/06/22
[2025-07-18 13:50] LABS: Hematocrit 35.9 % (37.0-47.0); Hemoglobin 11.8 g/dL (12.0-15.0); Immature Granulocyte Percent A 0.7 % (0-0.5); Lymphocytes Absolute Auto 2.57 K/mm3 (0.9-3.2); Mean Corpuscular HGB Conc 32.9 g/dl (32-36); Mean Corpuscular Hemoglobin 31.8 pg (26-34); Mean Corpuscular Volume 96.8 fl (80-100); Nucleated Red Blood Cells Absolute Auto 0.000 K/mm3 (0.0-0.012); Nucleated Red Blood Cells Perc 0.0 % (0.0-0.2); Platelet Count Result 333 k/mm3 (150-375); Red Blood Count 3.71 M/mm3 (4.2-5.4); White Blood Count 11.8 K/mm3 (4.5-10.0)
[2025-07-18 14:10] LABS: Hemoglobin A1C 4.9 % (<5.7)
[2025-07-18 14:41] LABS: Syphilis IgG/IgM Antibody Non-Reactive (Nonreactive)
[2025-07-18 14:44] LABS: Thyroid Stimulating Hormone 1.130 uIU/mL (0.465-4.680)
[2025-07-18 14:54] LABS: HIV 1/2 Ab P24 Ag Result Negative (Negative)
[2025-07-18 15:19] LABS: Free T3 2.53 pg/mL (2.32-6.09)
[2025-07-21] MEDS: RHO(D) IMMUNE GLOBULIN 300 MCG/2 ML SYRINGE IM (13:10)
== END 2025-07-21 09:25 | disposition home or self-care (01) ==
LOC: ANHOBOP 09:14
PROVIDERS: PCP Obstetrics & Gynecology; Visit Provider Obstetrics & Gynecology
DX: Z11.4 Encounter for screening for human immunodeficiency virus [HIV] (principal); Z11.3 Encounter for screening for infections with a predominantly sexual mode of transmission; Z29.13 Encounter for prophylactic Rho(D) immune globulin; O36.0130 Maternal care for anti-D [Rh] antibodies, third trimester, not applicable or unspecified; Z3A.28 28 weeks gestation of pregnancy
CPT/HCPCS: 36415; 83036; 84443; 84480; 84481; 85025; 85461; 86593; 86703; 86850; 86900; 86901; 90384; 96372; G0432; J2790

== ENCOUNTER 2025-07-21 12:32 | Outpatient (CLI) | payer OTHER, SELFPAY ==
--- OUTSIDE RECORDS SUMMARY | 2025-07-21 12:37 | XMS_ITS | Clinical Summary ---
Author Organization [facility] Address [address] [place] [address] Care Team Providers Care Circular Head Saw Operator Name Role Phone Pcp, [facility] Primary Care Provider Unava ilable Source Comments [facility],non-owned Affiliates and Associated Physician Practices is amultiple site organization consisting of ambulatory clinics and hospital sitesin [place], [place], [place] and [place]. This disclosure is being madepursuant to the Care Everywhere program and may not contain all information available regarding this patient. Last updated 18.[facility] Allergies Active Allergy Reactions Criticality Noted Date Comments Nitrous Oxide 05/07/2013 Penicillins 05/07/2013 Sulfa Drugs Other 07/03/2020 No reaction told by parents allergic due to family hx of sulfa allergy Medications * Be aware that medications may not be up to date on this document. Alwaysverify current medications with the patient. Mometasone Furoate (NASONEX NA) [place] into the nose as needed. prn Active [...] Immunization Administration Dates Next Due [facility] 1990 DTP 01/21/1995, 1,1990,1990,04/23/19 90 HEP [...] on file Legal Sex Female 1:40 PM CHROME TANNER Gender Identity Not on file Sexual Orientation Not on file Last Filed Vital Signs Vital Sign Reading Time Taken Comments Blood Pressure 110/70 10/15/2014 8:25 AM CHROME TANNER Pulse 96 10/15/2014 8:25 AM CHROME TANNER Temperature 36.4 C (97.6 F) 10/15/2014 8:25 AM CHROME TANNER Respiratory Rate 18 10/15/2014 8:25 AM CHROME TANNER Oxygen Saturation 99% 10/15/2014 8:25 AM CHROME TANNER Inhaled Oxygen Concentration - - Weight 62.1 kg (137 lb) 10/15/2014 8:25 AM CHROME TANNER Height 160 cm (5' 3) 10/15/2014 8:25 AM CHROME TANNER Body Mass Index 24.27 10/15/2014 8:25 AM CHROME TANNER Plan of Treatment Health Maintenance Due Date [...] patient's age to complete this topic [place] [address] [place] [address] Care Teams Circular Head Saw Operator Relationship Specialty Start Date End Date Pcp, [facility] Link PCP - General 01/04/24
--- OUTSIDE RECORDS SUMMARY | 2025-07-21 12:37 | XMS_ITS | Clinical Summary ---
Author Organization [facility] Address [address] [place] [id number] Care Team Providers Care Finishing Supervisor Plastic Sheets Name Role Phone No, Physician Primary Care Provider [phone] Allergies Active Allergy Reactions Criticality Noted Date Comments Nitrofurantoin Rash Medium 11/14/2024 Neck rash Nitrous Oxide Other (See comments) Low 05/07/2013 Reaction when younger Sulfa (Sulfonamide Antibiotics) Other (See comments),Rash Medium 10/10/2022 Medications fluticasone propionate (FLONASE) 50 mcg/actuation nasal spray fluticasone propionate 50 mcg/actuation nasal spray,suspension [place] 2 sprays every day by intranasal route. [...] 10 mg tablet 5 Active blood-glucose sensor ([employer] G7 Sensor) device Use as directed. 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 [] Full [facility] Care; [] Red Team [x] Blue Team Referring Provider: Itz Peoples [phone] [] or Medicare Insurance [x] Dating Criteria: [...] [x] Blue Team Referring Provider: Itz Peoples [phone] [] or Medicare Insurance [x] Dating Criteria: [...] outcomes this . Plan: [x] TVCL at [facility] for screening Assessment & Plan (06/26/2025 10:58 PM CDT): History: 36 week spontaneous labor, prior section for breech presentation Counseled on recurrence risk previously Plan: [x] TVCL at [facility] for screening Assessment & Plan (05/15/2025 2:08 PM CDT): Plan: [x] TVCL at [facility] for screening Assessment & Plan (04/03/2025 [...] outcomes this . Plan: [] TVCL at [facility] for screening History of section complicating [...] Has Kelin CGM currently, sending logs through [employer] S/p Counseling 04/03/2025 Plan: [x] Referral to diabetes education as needed [x] Send weekly glucose log through [employer] for review vs. CGM login information - ongoing [] testing, growth surveillance and delivery timing per FDA are problem [] 2 hour gtt 6 weeks Assessment & Plan (06/26/2025 10:57 PM CDT): 3 hour gtt (03/21/25): 98/-/- Current regimen: 06/26/2025 - Diet Controlled Has Kelin CGM currently, sending logs through [employer] S/p Counseling 04/03/2025 Plan: [x] Referral to diabetes education as needed [x] Send weekly glucose log through [employer] for review vs. CGM login information - ongoing [] Twice weekly testing at 32 weeks if medications needed [] Rate of growth ultrasounds q4 weeks [] Plan delivery by 39 weeks [] 2 hour gtt 6 weeks Assessment & Plan (05/15/2025 2:07 PM CDT): Current regimen: 05/15/2025 diet controlled Has Kelin CGM currently, sending logs through [employer] S/p Counseling 04/03/2025 Plan: [x] Referral to diabetes education as needed [x] Send weekly glucose log through [employer] for review vs. CGM login information [...] needed [] Send weekly glucose log through [employer] for review vs. CGM login information [] [...] M -Diabetes education to be scheduled at [place] -Serial growth US -Consider delivery at 39 weeks (CS for breech scheduled with primary) - 2 hr GTT Assessment & Plan (10/10/2022 10:44 AM GENERAL DOC): We reviewed the management of a complicated [...] Overview (10/10/2022): [x] Co-management vs. [] Full [facility] Care; [] Red Team [x] Blue Team Referring Provider: Itz Peoples [phone] [] or Medicare Insurance [x] Dating Criteria: [...] [] MOC: [] Method of feeding: [] Terminal Operations Manager: [] PP Depression Discussed: Accessory navicular bone of foot 04/09/2020 03/13/2025 Tibialis posterior tendinitis 03/19/2020 03/13/2025 Encounters Date Type Department Care Team Description 07/18/2025 11:30 AM CDT Office Visit [facility] Medicine Maternal- Medicine [address] [place] [address] 7th Floor [address] [place] [id number] Diet controlled gestational diabetes mellitus (GDM) in second trimester (Primary Dx); History of section complicating ; History of delivery, currently ; Poor growth affecting management of mother in second trimester, single or unspecified fetus; Supervision of other high risk , antepartum 07/18/2025 10:45 AM CDT - 07/18/2025 11:59 PM CDT Hospital Encounter [facility] - Ultrasound [address], 7th Floor, [address] [place] [address] Supervision of high-risk , first trimester Discharge Disposition: Discharge to home or self care 07/11/2025 2:30 PM CDT - 07/11/2025 11:59 PM CDT Hospital Encounter [facility] - Ultrasound [address], 7th Floor, [address] [place] [address] Supervision of high-risk , first trimester Discharge Disposition: Discharge to home or self care 07/04/2025 1:52 PM CDT - 07/04/2025 11:59 PM CDT Hospital Encounter [facility] - Ultrasound [address], 7th Floor, [address] [place] [address] Supervision of high-risk , first trimester Discharge Disposition: Discharge to home or self care 06/26/2025 3:15 PM CDT [facility] [address] [place], [place] [id number] [place] [address] Diet controlled gestational diabetes mellitus (GDM) in [...] fetus 06/26/2025 2:30 PM CDT Ancillary Procedure [facility] [address] [place] [address] [address] [place] [address] Diet controlled gestational diabetes mellitus (GDM) in first trimester 05/15/2025 1:30 PM CDT [facility] [address] [place], [place] [id number] [place] [address] Diet controlled gestational diabetes mellitus (GDM) in first trimester (Primary Dx); Diet controlled gestational diabetes mellitus (GDM) in second trimester; Supervision of high-risk , second trimester; History of delivery, currently 05/15/2025 12:30 PM CDT Ancillary Procedure [facility] [address] [place] [address] [address] [place] [address] Supervision of high-risk , first trimester 04/23/2025 Telephone [facility] Medicine Maternal- Medicine [address]th [address] [place] [address] Genesis Kaye, GATO MFM GLUCOSE LOG from Last 3 Months Immunizations [...] CDT Gender Identity Female 10/09/2022 6:18 PM GENERAL DOC Sexual Orientation Not on file Obstetrics History [...] Estimated Date of Delivery 03/13/2025 - Present (07/21/2025) 10/13/2025 (set by Catie Mcconnell MD on 04/03/2025 based on Last Menstrual Period on 01/06/2025) Dating Summary Based On ASAF GA Diff Last Menstrual Period on 01/06/2025 10/13/2025 Working Ultrasound on 04/03/2025 10/16/2025 -3d GA:12w0d Comment:CRL report under Lynette ging Vitals Pregravid Weight Height TWG (As of 07/21/2025) Pregrav id BMI 160 cm (5' 3) Date GA Fund Present FHR Mvmt BP Weight Edema Alb Glu Ket Dil/ Eff/Sta 5 25w4d Inpatient data not displayed here. See encounter summary. 5 w4d Inpatient data not displayed here. See encounter summary. 5 w Inpatient data not displayed here. See encounter summary. Notes Progress Notes - Office Visi t - 07/18/2025 - GA:27w4d 07/18/2025 - w4d - Anai Mccloud MD [facility] Return Consult Visit 07/18/[address] Peoples, [...] Has Kelin CGM currently, sending logs through [employer] S/p Counseling 04/03/2025 Plan: [x] Referral to diabetes education as needed [x] Send weekly glucose log through [employer] for review vs. CGM login information - [...] weeks) -She will start weekly NSTs in - q3 weeks growth scans -Delivery timing TBD however at this point goal is 38-39 weeks Relevant Orders US Biophysical Profile WO Test US Ob Follow Up Thank you for your consultation. Please don't hesitate to contact me with any questions. We will continue to follow along with Phoebemery Mcmullen. Her ultrasounds and NSTs will be scheduled Fridays and we will see her again in 3 weeks for a visit lined up with her growth ultrasound. Anai Mccloud MD Progress Notes - Office Visi t - 06/26/2025 - GA:24w3d 06/26/2025 - 24w3d - Betty Gibbs MD [facility] Return Visit 06/26/2025 Dr. Phoebe Mcmullen [...] Has Kelin CGM currently, sending logs through [employer] S/p Counseling 04/03/2025 Plan: [x] Referral to diabetes education as needed [x] Send weekly glucose log through [employer] for review vs. CGM login information - [...] call us. Sincerely, Betty Gibbs MD, MS Pension Fund Manager Division of Maternal- Medicine Department of Obstetrics and Gynecology [facility] 06/26/2025 Progress Notes - Office Visi t [...] Has Kelin CGM currently, sending logs through [employer] S/p Counseling 04/03/2025 Plan: [x] Referral to diabetes education as needed [x] Send weekly glucose log through [employer] for review vs. CGM login information [...] were spent in documentation. Catie Mcconnell MD [employer] Division of Maternal- Medicine Progress Notes - [...] for breech presentation. Baby was transferred to [facility] after intubation and received surfactant. 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 Plan: [] [facility] screening Gestational diabetes mellitus (GDM) [...] needed [] Send weekly glucose log through [employer] for review vs. CGM login information [] [...] [x] Blue Team Referring Provider: Itz Peoples [phone] [] or Medicare Insurance [x] Dating Criteria: [...] notes/labs from primary OB. Catie Mcconnell MD [facility] [employer] Division of Maternal- Medicine Progress Notes - [...] Vertex presentation. Normal CHUNG. Betty Gibbs MD [facility] US PROCEDURES Final Result * US [...] cephalic; anterior placenta. us Betty Gibbs MD [facility] US PROCEDURES Final Result * US [...] Final Result from Last 3 Months Insurance [facility] Member Subscriber Plan / Payer ( fective 2021-Present) Name:Phoebe Mcmullen Relation to Subscriber:Self Name:Phoebe Mcmullen Payer ID:[id number] (NAIC) Type:[facility] HMO/PPO Address: [place] [phone] [facility] Care Teams Finishing Supervisor Plastic Sheets Relationship Specialty Start Date End Date No, Physician PCP - General 06/06/22
--- OUTSIDE RECORDS SUMMARY | 2025-07-21 12:37 | XMS_ITS | Patient Health Record ---
Author Organization [facility] Address [address] [place], [place] [id number] Care Team Providers Care Systems Software Specialist Name Role Phone ZE Sparrow Unavailable [phone] Moon Self Unavailable Unavailable Reason For Referral No Information Plan Of Treatment No Information
[2025-07-21 14:12] VITALS: BP 115/63; PULSE 88
== END 2025-07-21 12:33 | disposition home or self-care (01) ==
LOC: ANHOBOP 12:35
PROVIDERS: PCP Obstetrics & Gynecology; Visit Provider Obstetrics & Gynecology
DX: O24.419 Gestational diabetes mellitus in pregnancy, unspecified control (principal); Z3A.00 Weeks of gestation of pregnancy not specified
CPT/HCPCS: 59025

== ENCOUNTER 2025-07-29 20:53 | Observation (INO) | payer OTHER, SELFPAY ==
[2025-07-29] VITALS (26 sets, daily range): BP systolic 106–114; BP diastolic 56–72; PULSE 80–106; TEMP 36.5; O2SAT 95–100; BMI 29.2
--- OUTSIDE RECORDS SUMMARY | 2025-07-29 21:00 | XMS_ITS | Patient Health Record ---
Author Organization [facility] Address [address] [place], [place] [id number] Care Team Providers Care Nurse Rn Bsn Name Role Phone ZE Sparrow Unavailable [phone] Moon Self Unavailable Unavailable Reason For Referral No Information Plan Of Treatment No Information
--- OUTSIDE RECORDS SUMMARY | 2025-07-29 21:00 | XMS_ITS | Clinical Summary ---
Author Organization [facility] Address [address] [place] [phone] Care Team Providers Care Pharmacist Hospital Name Role Phone No, Physician Primary Care Provider [phone] Allergies Active Allergy Reactions Criticality Noted Date Comments Nitrofurantoin Rash Medium 11/14/2024 Neck rash Nitrous Oxide Other (See comments) Low 05/07/2013 Reaction when younger Sulfa (Sulfonamide Antibiotics) Other (See comments),Rash Medium 10/10/2022 Medications fluticasone propionate (FLONASE) 50 mcg/actuation nasal spray fluticasone propionate 50 mcg/actuation nasal spray,suspension [place] 2 sprays every day by intranasal route. [...] 10 mg tablet 5 Active blood-glucose sensor (EnteGreatcom G7 Sensor) device Use as directed. Change [...] weeks) -She will start weekly NSTs in [place] - q3 weeks growth scans -Delivery timing [...] 03/13/2025 Overview (07/18/2025): *Patient is OBGYN at [facility]* SEROLOGIES NEEDED [] OB consult only, [x] Co-management vs. [] Full [facility] Care; [] Red Team [x] Blue Team Referring Provider: Itz Peoples [phone] [] or Medicare Insurance [x] Dating Criteria: [...] [x] Blue Team Referring Provider: Itz Peoples [phone] [] or Medicare Insurance [x] Dating Criteria: [...] outcomes this . Plan: [x] TVCL at [facility] for screening Assessment & Plan (06/26/2025 10:58 PM CDT): History: 36 week spontaneous labor, prior section for breech presentation Counseled on recurrence risk previously Plan: [x] TVCL at [facility] for screening Assessment & Plan (05/15/2025 2:08 PM CDT): Plan: [x] TVCL at [facility] for screening Assessment & Plan (04/03/2025 3:57 [...] outcomes this . Plan: [] TVCL at [facility] for screening History of section complicating pregnan [...] (GDM) in second tr imester 03/13/2025 Overview (07/25/2025): 3 hour gtt (03/21/25): 98/203/-/- Current regimen: 07/25/2025 Diet Controlled- log reviewed and only sporadic mild blood sugar elevations. Phoebe has had to make only slight modifications to her diet to achieve good glycemic control so far. Has Kelin CGM currently, sending logs through [employer] Counsel[employer] 04/03/2025 Plan: [x] Referral to diabetes education as needed [x] Send weekly glucose log through [employer] for review vs. CGM login information - ongoing [] testing, growth surveillance and delivery timing per FDA are problem [] 2 hour gtt 6 weeks Assessment & Plan (06/26/2025 10:57 PM CDT): 3 hour gtt (03/21/25): 98/-/- Current regimen: 06/26/2025 - Diet Controlled Has Kelin CGM currently, sending logs through [employer] Counsel[employer] 04/03/2025 Plan: [x] Referral to diabetes education as needed [x] Send weekly glucose log through [employer] for review vs. CGM login information - ongoing [] Twice weekly testing at 32 weeks if medications needed [] Rate of growth ultrasounds q4 weeks [] Plan delivery by 39 weeks [] 2 hour gtt 6 weeks Assessment & Plan (05/15/2025 2:07 PM CDT): Current regimen: 05/15/2025 diet controlled Has Kelin CGM currently, sending logs through [employer] S[employer] Counseling 04/03/2025 Plan: [x] Referral to diabetes education as needed [x] Send weekly glucose log through [employer] for review vs. CGM login information [...] needed [] Send weekly glucose log through [facility] for review vs. CGM login information [] [...] M -Diabetes education to be scheduled at [place] -Serial growth US -Consider delivery at 39 weeks (CS for breech scheduled with primary) - 2 hr GTT Assessment & Plan (10/10/2022 10:44 AM DIRECTOR OF SPEECH PATHOLOGY): We reviewed the management of a complicated [...] Overview (10/10/2022): [x] Co-management vs. [] Full [facility] Care; [] Red Team [x] Blue Team Referring Provider: Itz Peoples [phone] [] or Medicare Insurance [x] Dating Criteria: [...] [] MOC: [] Method of feeding: [] Information Systems Security Specialist: [] PP Depression Discussed: Accessory navicular bone of foot 04/09/2020 03/13/2025 Tibialis posterior tendinitis 03/19/2020 03/13/2025 Encounters Date Type Department Care Team Description 07/25/2025 9:30 AM CDT Clinical Support [facility] Obstetrics and Gynecology [address] [place] [phone] Gestational diabetes mellitus (GDM) in second trimester, gestational diabetes method of control unspecified (Primary Dx); AMA (advanced maternal age) multigravida 35+, first trimester; Poor growth affecting management of mother in second trimester, single or unspecified fetus 07/25/2025 8:41 AM CDT - 07/25/2025 11:59 PM CDT Hospital Encounter [facility] - Ultrasound [address] [place] [address], 7th Floor, [address] [place] [address] Poor growth affecting management of mother in second trimester, single or unspecified fetus; Supervision of other high risk , antepartum Discharge Disposition: Discharge to home or self care 07/25/2025 Telephone [facility] Maternal- Medicine [address] [place] [address] 7th [address] [place] [phone] Chely Chin RN MFM GLUCOSE LOG 07/18/2025 11:30 AM CDT Office Visit [facility] Maternal- Medicine [address] [place] [address] 7th Floor [address] [place] [phone] Diet controlled gestational diabetes mellitus (GDM) in second trimester (Primary Dx); History of section complicating ; History of delivery, currently ; Poor growth affecting management of mother in second trimester, single or unspecified fetus; Supervision of other high risk , antepartum 07/18/2025 10:45 AM CDT - 07/18/2025 11:59 PM CDT Hospital Encounter [facility] - Ultrasound [address] [place] [address], [address] [place] [address], [address] [place] [address] Supervision of high-risk , first trimester Discharge Disposition: Discharge to home or self care 07/11/2025 2:30 PM CDT - 07/11/2025 11:59 PM CDT Hospital Encounter [facility] - Ultrasound [address] [place] [address], 7th Floor, [address] [place] [address] Supervision of high-risk , first trimester Discharge Disposition: Discharge to home or self care 07/04/2025 1:52 PM CDT - 07/04/2025 11:59 PM CDT Hospital Encounter [facility] - Ultrasound [address] [place] [address], 7th Floor, [address] [place] [address] Supervision of high-risk , first trimester Discharge Disposition: Discharge to home or self care 06/26/2025 3:15 PM CDT Office Visit [facility]ne[facility] [address] [place] [phone] Diet controlled gestational diabetes mellitus (GDM) [...] fetus 06/26/2025 2:30 PM CDT Ancillary Procedure [facility] Obstetrics and Gynecology [address] [place] [address] [address] [place] [phone] Diet controlled gestational diabetes mellitus (GDM) in first trimester 05/15/2025 1:30 PM CDT Office Visit [facility] Obstetrics and Gynecology [address] [place], [place] [phone] [place] [phone] Diet controlled gestational diabetes mellitus (GDM) in first trimester (Primary Dx); Diet controlled gestational diabetes mellitus (GDM) in second trimester; Supervision of high-risk , second trimester; History of delivery, currently 05/15/2025 12:30 PM CDT Ancillary Procedure [facility] Obstetrics and Gynecology [address] [place] [address] [address] [place] [phone] Supervision of high-risk , first trimester from Last 3 Months Immunizations Immunization Administration [...] CDT Gender Identity Female 10/09/2022 6:18 PM DIRECTOR OF SPEECH PATHOLOGY Sexual Orientation Not on file Obstetrics History [...] Estimated Date of Delivery 03/13/2025 - Present (07/29/2025) 10/13/2025 (set by Catie Mcconnell MD on 04/03/2025 based on Last Menstrual Period on 01/06/2025) Dating Summary Based On ASAF GA Diff Last Menstrual Period on 01/06/2025 10/13/2025 Working Ultrasound on 04/03/2025 10/16/2025 -3d GA:12w0d Comment:CRL report under Ylnette ging Vitals Pregravid Weight Height TWG (As of 07/29/2025) Pregrav id BMI 160 cm (5' 3) Date GA Fund Present FHR Mvmt BP Weight Edema Alb Glu Ket Dil/ Eff/Sta 5 25w4d Inpatient data not displayed here. See encounter summary. 5 26w4d Inpatient data not displayed here. See encounter summary. 5 27w4d Inpatient data not displayed here. See encounter summary. 5 28w4d Inpatient data not displayed here. See encounter summary. Notes Progress Notes - Office Visi t - 07/18/2025 - GA:27w4d 07/18/2025 - w - Anai Mccloud MD MFM Return Consult [...] Has Kelin CGM currently, sending logs through [employer] [facility] [facility] 04/03/2025 Plan: [x] Referral to diabetes education as needed [x] Send weekly glucose log through [employer] for review vs. CGM login information - [...] 06/26/2025 - 24w3d - Betty Gibbs MD MFM Return Visit 06/26/2025 Dr. Phoebe Mcmullen is [...] Has Kelin CGM currently, sending logs through [employer] [facility] 04/03/2025 Plan: [x] Referral to diabetes education as needed [x] Send weekly glucose log through [employer] for review vs. CGM login information - [...] call us. Sincerely, Betty Gibbs MD, MS [employer] Former Division of Maternal- Medicine Department of Obstetrics and Gynecology [facility] 06/26/2025 Progress Notes - Office [...] Has Kelin CGM currently, sending logs through [employer] [facility] 04/03/2025 Plan: [x] Referral to diabetes education as needed [x] Send weekly glucose log through [employer] for review vs. CGM login information - [...] were spent in documentation. Catie Mcconnell MD Home Therapy Clinician Division of Maternal- Medicine Progress Notes - [...] for breech presentation. Baby was transferred to [facility] after intubation and received surfactant. 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 Plan: [] TVCL at [facility] for screening Gestational diabetes mellitus [...] needed [] Send weekly glucose log through [employer] for review vs. CGM login information [] [...] Team [x] Blue Team Referring Provider: Itz Therondarrin [phone] [] or Medicare Insurance [x] Dating Criteria: [...] notes/labs from primary OB. Catie Mcconnell MD Home Therapy Clinician Division of Maternal- Medicine Progress Notes - Abstract - 03/13/2025 - GA:9w3d 03/13/2025 - 9w3d - Moon Quiñonez RMA Current OB records are under media tab. labs have not been drawn yet. 2022 op note is under media tab. Last Filed Vital Signs Vital Sign Reading Time Taken Comments Blood Pressure 107/69 07/25/2025 9:56 AM CDT Pulse 82 07/25/2025 9:56 AM CDT Temperature - - Respiratory Rate [...] of 2 - PCV) 2009 Covid-19 Vaccine ( - 2024-2 6 season) 2025 09/24/2021, 10/30/2020, 10/30/2020, Additional history exists Influenza Vaccine (#1) 2025 07/24/2020 DTaP/Tdap/Td Vaccine (8 - Td or Tdap) 07/18/2035 07/18/2025, 04/14/2009, 01/21/1995, Additional history exists Hepatitis B Screening Completed 12/05/1995 , 05/16/1995, 04/13/1995 Procedures Procedure Name Priority Date/Time Associated Diagnosis Comments NONSTRESS TEST Routine 07/25/2025 9:58 AM CDT Gestational diabetes mellitus (GDM) in second trimester, gestational diabetes method of control unspecified AMA (advanced maternal age) multigravida 35+, first trimester Poor growth affecting management of mother in second trimester, single or unspecified fetus US BIOPHYSICAL PROFILE WO TEST Schedule Routine, Read Routine (OP Routine) 07/25/2025 8:41 AM CDT Poor growth affecting management of mother in second trimester, single or unspecified fetus Supervision of other high risk , antepartum US OB FOLLOW UP Schedule Routine, Read [...] trimester from Last 3 Months Results * nonstress test - (07/25/2025 9:58 AM CDT) Reema Medina MD OB GYNE ORDERABLES Final R esult * US Biophysical Profile WO Test (07/25/2025 8:41 AM CDT) Fetus# Fetus1 VIEWPOINT Placenta Details anterior, Previa-no, no placental masses VIEWPOINT Presentation Vertex VIEWPOINT Anatomical Region Laterality Modality N/A Ultrasound 07/25/2025 8:41 AM CDT Impressions 07/25/2025 9:17 AM CDT IUP at 28+4 with known FGR 1. Normal amniotic fluid and umbilical artery flow 2. The biophysical profile is 8/8 with normal breathing motion, body motion, tone and amniotic fluid volume. 3. Fetus is cephalic; anterior placenta. Narrative Procedure Note Mamie Ramirez MD - 07/25/2025 IMPRESSION: IUP at 28+4 with known FGR 1. Normal amniotic fluid and umbilical artery flow 2. The biophysical profile is 8/8 with normal breathing motion, bodymotion, tone and amniotic fluid volume. 3. Fetus is cephalic; anterior placenta. Anai Mccloud MD IMG OB US PROCEDURES Geovanna l Result * US Ob Follow Up (07/18/2025 10:46 [...] flow. 4. Fetus is cephalic; anterior placenta. Betty Gibbs MD IMG OB US PROCEDURES [...] Vertex presentation. Normal CHUNG. Betty Gibbs MD IM OB US PROCEDURES Final Result * US [...] flow 2. Fetus is cephalic; anterior placenta. Betty Gibbs MD IMG OB US PROCEDURES [...] without evidenceof absent or reversed end-diastolic flow. Catie Mcconnell MD IMG OB US PROCEDURES [...] Final Result from Last 3 Months Insurance [facility] H[facility]/PPO Address: [address] [phone] [facility] H[facility]/PPO Address: [facility] [address] [place] [address] Care Teams Pharmacist Hospital Relationship Specialty Start Date End Date No, Physician PCP - General 06/06/22
--- OUTSIDE RECORDS SUMMARY | 2025-07-29 21:00 | XMS_ITS | Clinical Summary ---
Author Organization [facility] [employer] Address [address] [place] [address] Care Team Providers Care Grief Counselor Name Role Phone Pcp, [facility] Primary Care Provider Unava ilable Source Comments [facility],non-owned Affiliates and Associated Physician Practices is amultiple site organization consisting of ambulatory clinics and hospital sitesin [place], [place], [place] and [place]. This disclosure is being madepursuant to the Care Everywhere program and may not contain all information available regarding this patient. Last updated 18.[facility] Allergies Active Allergy Reactions Criticality Noted Date Comments Nitrous Oxide 05/07/2013 Penicillins 05/07/2013 Sulfa Drugs Other 07/03/2020 No reaction told by parents allergic due to family hx of sulfa allergy Medications * Be aware that medications may not be up to date on this document. Alwaysverify current medications with the patient. Mometasone Furoate (NASONEX NA) [place] into the nose as needed. 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 Gender Identity Not on file Sexual Orientation Not on file Last Filed Vital Signs Vital Sign Reading Time Taken Comments Blood Pressure 110/70 10/15/2014 8:25 AM RENTAL CAR PORTER Pulse 96 10/15/2014 8:25 AM RENTAL CAR PORTER Temperature 36.4 C (97.6 F) 10/15/2014 8:25 AM RENTAL CAR PORTER Respiratory Rate 18 10/15/2014 8:25 AM RENTAL CAR PORTER Oxygen Saturation 99% 10/15/2014 8:25 AM RENTAL CAR PORTER Inhaled Oxygen Concentration - - Weight 62.1 kg (137 lb) 10/15/2014 8:25 AM RENTAL CAR PORTER Height 160 cm (5' 3) 10/15/2014 8:25 AM RENTAL CAR PORTER Body Mass Index 24.27 10/15/2014 8:25 AM RENTAL CAR PORTER Plan of Treatment Health Maintenance Due Date [...] patient's age to complete this topic [place] [address] [place] [address] [facility] Address: [facility] [id number] [place] [phone] Care Teams Grief Counselor Relationship Specialty Start Date End Date Pcp, [facility] Link PCP - General 01/04/24
[2025-07-29] MEDS: LACTATED RINGERS 1,000 ML 999 ML IV CONT ×2 (21:48→22:54)
[2025-07-29] MEDS: ONDANSETRON INJ 4 MG/2 ML VIAL IV PUSH (21:48)
[2025-07-29] MEDS: TERBUTALINE SULFATE 1 MG/ML VIAL 0.25 MG SUB-Q (22:36)
--- NOTE | 2025-07-29 23:25 | OBADM ---
This patient, Phoebe Mcmullen, admitted to the OB room OB Post 117 for observation. Patient/family oriented to hospital policies and general routines including ID bracelet, bed and alarms, visiting hours, pain management, procedures, bathroom and other care routines, personal items, smoking policy, room service/diet, and visiting hours. Patient/Family are encouraged to report perceived risks to care and to ask questions if they do not understand what they are told or what they should do.
--- NOTE | 2025-07-30 08:12 | PM.OBTRLD ---
OB - Triage/Final Diagnosis Visit Information Date of evaluation: 07/29/25 Reason for evaluation: threatened labor Comments/Additional reasons for admission: I have assessed the risk for this patient, Phoebe Mcmullen, and determined that she would benefit from observation care. Evaluation Vital signs: Vital Signs - 24 hr 07/29/25 21:01 07/29/25 21:11 07/29/25 21:16 Temperature Pulse Rate 84 84 Blood Pressure 114/66 106/72 Pulse Oximetry 97 98 07/29/25 21:21 07/29/25 21:26 07/29/25 21:31 Temperature Pulse Rate 95 Blood Pressure 113/65 Pulse Oximetry 97 97 99 07/29/25 21:33 07/29/25 21:54 07/29/25 22:16 Temperature 97.7 F Pulse Rate 83 Blood Pressure 106/62 Pulse Oximetry 99 07/29/25 22:31 07/29/25 22:35 07/29/25 22:40 Temperature Pulse Rate 81 Blood Pressure 110/62 Pulse Oximetry 99 100 07/29/25 22:45 07/29/25 22:46 07/29/25 22:55 Temperature Pulse Rate 82 Blood Pressure 107/56 L Pulse Oximetry 99 100 07/29/25 23:00 07/29/25 23:05 07/29/25 23:10 Temperature Pulse Rate Blood Pressure Pulse Oximetry 100 99 99 07/29/25 23:15 07/29/25 23:20 07/29/25 23:25 Temperature Pulse Rate Blood Pressure Pulse Oximetry 98 98 96 07/29/25 23:30 07/29/25 23:35 07/29/25 23:40 Temperature Pulse Rate Blood Pressure Pulse Oximetry 96 95 96 07/29/25 23:45 07/29/25 23:50 Temperature Pulse Rate Blood Pressure Pulse Oximetry 96 96
== END 2025-07-29 23:59 | disposition home or self-care (01) ==
PROVIDERS: Admitting Provider Student in an Organized Health Care Education/Training Program; Visit Provider Student in an Organized Health Care Education/Training Program
DX: O47.03 False labor before 37 completed weeks of gestation, third trimester (principal); Z3A.29 29 weeks gestation of pregnancy
CPT/HCPCS: 96361; 96372; 96374; G0378; G0379; J2405; J3105; J7120

== ENCOUNTER 2025-08-26 17:36 | Observation (INO) | payer OTHER, SELFPAY ==
--- OUTSIDE RECORDS SUMMARY | 2025-08-26 17:41 | XMS_ITS | Clinical Summary ---
Author Organization [facility] [employer] Address [address] [place] [address] Care Team Providers Care Animal Science Instructor Name Role Phone Pcp, [facility] Primary Care Provider Unava ilable Source Comments [facility],non-owned Affiliates and Associated Physician Practices is amultiple site organization consisting of ambulatory clinics and hospital sitesin [place], [place], [place] and [place]. This disclosure is being madepursuant to the Care Everywhere program and may not contain all information available regarding this patient. Last updated 18.[facility] Allergies Active Allergy Reactions Criticality Noted Date Comments Nitrous Oxide 05/07/2013 Penicillins 05/07/2013 Sulfa Drugs Other 07/03/2020 No reaction told by parents allergic due to family hx of sulfa allergy Medications * Be aware that medications may not be up to date on this document. Alwaysverify current medications with the patient. Mometasone Furoate (NASONEX NA) [place] into the nose as needed. 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 Gender Identity Not on file Sexual Orientation Not on file Last Filed Vital Signs Vital Sign Reading Time Taken Comments Blood Pressure 110/70 10/15/2014 8:25 AM ENGINEERING FACULTY MEMBER Pulse 96 10/15/2014 8:25 AM ENGINEERING FACULTY MEMBER Temperature 36.4 C (97.6 F) 10/15/2014 8:25 AM ENGINEERING FACULTY MEMBER Respiratory Rate 18 10/15/2014 8:25 AM ENGINEERING FACULTY MEMBER Oxygen Saturation 99% 10/15/2014 8:25 AM ENGINEERING FACULTY MEMBER Inhaled Oxygen Concentration - - Weight 62.1 kg (137 lb) 10/15/2014 8:25 AM ENGINEERING FACULTY MEMBER Height 160 cm (5' 3) 10/15/2014 8:25 AM ENGINEERING FACULTY MEMBER Body Mass Index 24.27 10/15/2014 8:25 AM ENGINEERING FACULTY MEMBER Plan of Treatment Health Maintenance Due Date [...] patient's age to complete this topic [place] [address] [place] [address] [place] [address] Care Teams Animal Science Instructor Relationship Specialty Start Date End Date Pcp, [facility] [place] Link PCP - General 01/04/24
--- OUTSIDE RECORDS SUMMARY | 2025-08-26 17:41 | XMS_ITS | Clinical Summary ---
Author Organization [facility] Address [address] [place] [phone] Care Team Providers Care Agency Sales Director Name Role Phone No, Physician Primary Care Provider [phone] Allergies Active Allergy Reactions Criticality Noted Date Comments Nitrofurantoin Rash Medium 11/14/2024 Neck rash Nitrous Oxide Other (See comments) Low 05/07/2013 Reaction when younger Sulfa (Sulfonamide Antibiotics) Other (See comments),Rash Medium 10/10/2022 Medications famotidine (PEPCID) 40 mg tablet Pepcid 40 mg tablet Take 1 tablet every day by oral route. 0 Active aspirin (ASPIR-81 ORAL) Active albuterol HFA (PROVENTIL HFA,VENTOLIN HFA,PROAIR HFA) 90 mcg/actuation inhaler 2 Active FreeStyle Kelin 2 Sensor kit 2 Active loratadine (CLARITIN) 10 mg tablet Active montelukast (SINGULAIR) 10 mg tablet Take 1 tablet (10 mg total) by mouth daily 5 Active Asmanex HFA 200 mcg/actuation inhaler USE 1 INHALATION ORALLY AT BEDTIME 5 Active omeprazole (PriLOSEC) 20 mg capsule Take 1 capsule (20 mg total) by mouth daily 5 Active PNV no.95/ferrous fum/folic ac ( ORAL) Take 1 tablet by mouth 3 Active fluticasone propionate (FLONASE) 50 mcg/actuation nasal spray Administer 1 spray into affected nostril(s) 3 Active fluticasone propionate (FLONASE) 50 mcg/actuation nasal spray fluticasone propionate 50 mcg/actuation nasal spray,suspensio n [place] 2 sprays every day by intranasal route. 08/07/20 Discontin ued(Dupli cortez order) docusate sodium (COLACE) 100 mg capsule 08/07/20 Discontin ued(Thera py completed ) ferrous sulfate 325 mg (65 mg of elemental iron) tablet 08/07/20 Discontin ued(Thera py completed ) metoclopramide (REGLAN) 10 mg tablet 5 08/07/20 Discontin ued(Thera py completed ) blood-glucose sensor (Lockstream G7 Sensor) device Use as directed. Change sensor every 10 days. 3 each 3 5 08/07/20 Discontin ued(Thera py completed ) OMEPRAZOLE ORAL Take 20 mg by mouth 4 08/07/20 Discontin ued(Dupli cortez order) loratadine (CLARITIN) 10 mg tablet Take 1 tablet (10 mg total) by mouth 3 08/07/20 Discontin ued(Dupli cortez order) Active Problems Problem Noted Date Diagnosed Date Poor growth affecting management of mother in second trimester 06/26/2025 Overview (08/07/2025): EFW 10% but AC <10% . She is dated by LMP c/w 1T US (verified) and her NIPT is LR. 07/18/2025: EFW at the 5th, AAC at the 3rd percentile. 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 [] Full [facility] Care; [] Red Team [x] Blue Team Referring Provider: Itz Peoples [phone] [] or Medicare Insurance [x] Dating Criteria: [...] [x] Blue Team Referring Provider: Itz Peoples [phone] [] or Medicare Insurance [x] Dating Criteria: [...] yo): History of delivery, currently 03/13/2025 Overview (08/07/2025): History: 36 week spontaneous labor, prior section for breech presentation S/p counseling Plan: [x] TVCL at [facility] survey for screening Assessment & Plan (06/26/2025 10:58 [...] (GDM) in second tr imester 03/13/2025 Overview (08/22/2025): 3 hour gtt (03/21/25): 98//-/- Current regimen: 08/22/2025 Diet Controlled- log reviewed and all within goal Has Kelin CGM currently, sending logs through [facility] S/p Counseling 04/03/2025 Plan: [x] Referral to diabetes education as needed [x] Send weekly glucose log through [facility] for review vs. CGM login information - ongoing [] testing, growth surveillance and delivery timing per FGR problem [] 2 hour gtt 6 weeks Assessment & Plan (06/26/2025 10:57 PM CDT): 3 hour gtt (03/21/25): 98/203/-/- Current regimen: 06/26/2025 - Diet Controlled Has Kelin CGM currently, sending logs through [facility] S/p Counseling 04/03/2025 Plan: [x] Referral to diabetes education as needed [x] Send weekly glucose log through [employer] for review vs. CGM login information - ongoing [] Twice weekly testing at 32 weeks if medications needed [] Rate of growth ultrasounds q4 weeks [] Plan delivery by 39 weeks [] 2 hour gtt 6 weeks Assessment & Plan (05/15/2025 2:07 PM CDT): Current regimen: 05/15/2025 diet controlled Has Kelin CGM currently, sending logs through [facility] S/p Counseling 04/03/2025 Plan: [x] Referral to diabetes education as needed [x] Send weekly glucose log through [facility] for review vs. CGM login information - ongoing [] Twice weekly testing at 32 weeks if medications needed [] Rate of growth ultrasounds q4 weeks [] Plan delivery by 39 weeks [] 2 hour gtt 6 weeks Assessment & Plan (04/03/2025 3:59 PM CDT): 3 hour gtt (03/21/25): /-/- Current regimen: diet controlled Has Kelin CGM [...] needed [] Send weekly glucose log through [employer] for review vs. CGM login information [] Twice weekly testing at 32 weeks if medications needed [] Rate of growth ultrasounds q4 weeks if mediations needed, 3rd trimester growth if diet controlled [] Plan delivery by 39 weeks [] 2 hour gtt 6 weeks Asthma during 05/07/2013 Overview (08/07/2025): Diagnosis: childhood History of hospitalizations/intubations?: No Classifications: Pre- classification: mild persistent Current classification: mild persistent Pre- regimen: singulair, asthmonex BID S/p counseling Current regimen: singulair, asthmonex BID Plan: [] [...] improve in 1/3, and remain unchanged in 10/25. We discussed management of chronic asthma during [...] Recommendations: -Weekly blood sugar log review by [facility] -Diabetes education to be scheduled at [place] -Serial growth US -Consider delivery at 39 weeks (CS for breech scheduled with primary) - 2 hr GTT Assessment & Plan (10/10/2022 10:44 AM SLD TEACHER): We reviewed the management of a complicated [...] Overview (10/10/2022): [x] Co-management vs. [] Full MFM Care; [] Red Team [x] Blue Team Referring Provider: Itzliliam Peoples [phone] [] or Medicare Insurance [x] Dating Criteria: [...] 3hr GTT 09/23/22: 95,239,228, [x] Flu Shot (Jun-Dec): [x] Tdap (27-36wks): [] COVID Vaccine: [] Rhogam at 28 wks (if Rh neg): 3rd Tri Labs: [] CBC/HIV/RPR/T&S: [] GBS: [] GC/CT (if indicated): [] testing: Counseling [] MOD: Primary CS for Breech [] Place of delivery: [facility] [] MOC: [] Method of feeding: [] Planer Tailer: [] PP Depression Discussed: Accessory navicular bone of foot 04/09/2020 03/13/2025 Tibialis posterior tendinitis 03/19/2020 03/13/2025 Encounters Date Type Department Care Team Description 08/22/2025 10:27 AM CDT - 08/22/2025 11:59 PM CDT Hospital Encounter [facility] - Ultrasound [address], 7[address], [address] [place] [address] Diet controlled gestational diabetes mellitus (GDM) in second trimester; Poor growth affecting management of mother in second trimester, single or unspecified fetus; History of delivery, currently ; AMA (advanced maternal age) multigravida 35+, first trimester Discharge Disposition: Discharge to home or self care 08/15/2025 7:58 AM CDT - 08/15/2025 11:59 PM CDT Hospital Encounter [facility] - Ultrasound [address] [place] [address], [address], [address] [place] [address] Diet controlled gestational diabetes mellitus (GDM) in second trimester; Poor growth affecting management of mother in second trimester, single or unspecified fetus; History of delivery, currently ; AMA (advanced maternal age) multigravida 35+, first trimester Discharge Disposition: Discharge to home or self care 08/07/2025 2:15 PM CDT Office Visit [facility] Maternal- Medicine [address] [place] [address] 7th [address] [place] [phone] Diet controlled gestational diabetes mellitus (GDM) in second trimester (Primary Dx); Poor growth affecting management of mother in second trimester, single or unspecified fetus; History of delivery, currently ; AMA (advanced maternal age) multigravida 35+, first trimester; Asthma during ; Supervision of high-risk , second trimester 08/07/2025 1:30 PM CDT Clinical Support [facility] Obstetrics and Gynecology [address] [place] [address] [address] [place] [phone] Supervision of high-risk , second trimester (Primary Dx); Poor growth affecting management of mother in second trimester, single or unspecified fetus; Gestational diabetes mellitus (GDM) in second trimester, gestational diabetes method of control unspecified; AMA (advanced maternal age) multigravida 35+, first trimester 08/07/2025 12:30 PM CDT - 08/07/2025 11:59 PM CDT Hospital Encounter [facility] - Ultrasound [address] [place] [address], 7th Floor, [address] [place] [address] Poor growth affecting management of mother in second trimester, single or unspecified fetus; Supervision of other high risk , antepartum Discharge Disposition: Discharge to home or self care 08/01/2025 2:36 PM CDT - 08/01/2025 11:59 PM CDT Hospital Encounter [facility] - Ultrasound [address] [place] [address], [address] [place] [address], [address] [place] [address] Poor growth affecting management of mother in second trimester, single or unspecified fetus; Supervision of other high risk , antepartum Discharge Disposition: Discharge to home or self care 07/25/2025 9:30 AM CDT Clinical Support [facility] Obstetrics and Gynecology [address] [place] [phone] Gestational diabetes mellitus (GDM) in second trimester, gestational diabetes method of control unspecified (Primary Dx); AMA (advanced maternal age) multigravida 35+, first trimester; Poor growth affecting management of mother in second trimester, single or unspecified fetus 07/25/2025 8:41 AM CDT - 07/25/2025 11:59 PM CDT Hospital Encounter [facility] - Ultrasound [address] [place] [address], [address] [place] [address], [address] [place] [address] Poor growth affecting management of mother in second trimester, single or unspecified fetus; Supervision of other high risk , antepartum Discharge Disposition: Discharge to home or self care 07/25/2025 Telephone [facility] Maternal- Medicine [address] [place] [address] [address] [place] [phone] Chely Chin RN [facility] GLUCOSE LOG 07/18/2025 11:30 AM CDT Office Visit [facility] Maternal- Medicine [address] [place] [address] [address] [place] [phone] Diet controlled gestational diabetes mellitus (GDM) in second trimester (Primary Dx); History of section complicating ; History of delivery, currently ; Poor growth affecting management of mother in second trimester, single or unspecified fetus; Supervision of other high risk , antepartum 07/18/2025 10:45 AM CDT - 07/18/2025 11:59 PM CDT Hospital Encounter [facility] - Ultrasound [address], 7[address], [address] [place] [address] Supervision of high-risk , first trimester Discharge Disposition: Discharge to home or self care 07/11/2025 2:30 PM CDT - 07/11/2025 11:59 PM CDT Hospital Encounter [facility] - Ultrasound [address], 7[address], [address] [place] [address] Supervision of high-risk , first trimester Discharge Disposition: Discharge to home or self care 07/04/2025 1:52 PM CDT - 07/04/2025 11:59 PM CDT Hospital Encounter [facility] - Ultrasound [address] [place] [address], 7th Floor, [address] [place] [address] Supervision of high-risk , first trimester Discharge Disposition: Discharge to home or self care 06/26/2025 3:15 PM CDT Office Visit [facility] Obstetrics and Gynecology [address] [place] [phone] Diet controlled gestational diabetes mellitus (GDM) in [...] fetus 06/26/2025 2:30 PM CDT Ancillary Procedure [facility] Physicians [facility] Obstetrics and Gynecology [address] [place] [phone] Diet controlled gestational diabetes mellitus (GDM) in first trimester from Last 3 Months Immunizations Immunization Administration Dates Next Due BCG 1990 DTP 01/21/1995,,1990,07/27,1990 HPV, Quadrivalent 09/18/2007,06/30/2007 Hep A, Pediatric 09/18/2007,03/06/2007 [...] CDT Gender Identity Female 10/09/2022 6:18 PM SLD TEACHER Sexual Orientation Not on file Obstetrics History [...] Estimated Date of Delivery 03/13/2025 - Present (08/26/2025) 10/13/2025 (set by Catie Mcconnell MD on 04/03/2025 based on Last Menstrual Period on 01/06/2025) Dating Summary Based On AASF GA Diff Last Menstrual Period on 01/06/2025 10/13/2025 Working Ultrasound on 04/03/2025 10/16/2025 -3d GA:12w0d Comment:CRL report under Lynette ging Vitals Pregravid Weight Height TWG (As of 08/26/2025) Pregrav id BMI 160 cm (5' 3) Date GA Fund Present FHR Mvmt BP Weight Edema Alb Glu Ket Dil/ Eff/Sta 5 25w4d Inpatient data not displayed here. See encounter summary. 5 26w4d Inpatient data not displayed here. See encounter summary. 5 27w4d Inpatient data not displayed here. See encounter summary. 5 28w4d Inpatient data not displayed here. See encounter summary. 5 29w4d Inpatient data not displayed here. See encounter summary. 5 30w3d Inpatient data not displayed here. See encounter summary. 5 31w4d Inpatient data not displayed here. See encounter summary. 5 32w4d Inpatient data not displayed here. See encounter summary. Notes Progress Notes - Office Visi t - 08/07/2025 - GA:30w3d 08/07/2025 - 30w3d - Kristen Ludwig MD Images from the original note were not included. MFM Return Consult Visit 08/07/[address] Peoples, It was a pleasure meeting again with our mutual patient in continued consultation. Phoebe Mcmullen is a 35 y.o. at 30w3d whose is complicated by gestational diabetes and growth restriction. She has a history of spontaneous late delivery and for breech. Subjective: Feels well, no complaints. Blood sugars are all within goal. No ctxns, LOF, VB. +AFM Objective: BP 108/69 Pulse 84 Ht 160 cm (5' 3) Wt 174 lb 0.3 oz (78.9 kg) LMP 01/06/2025 SpO2 100% BMI 30.83 kg/m General: NAD Abdomen: Gravid Ultrasound: 08/07/2025 EFW 8%, AC 2%. Normal UAD. BPP 05/30 NST reactive Assessment/Plan: Phoebe Mcmullen is a 35 y.o. at 30w3d with a complicated by the following: Problem List Endocrine and Metabolic Gestational diabetes mellitus (GDM) in second trimester - Primary Overview 3 hour gtt (03/21/25): 98/203/-/- Current regimen: 08/01/2025 Diet Controlled- log reviewed and all within goal Has Kelin CGM currently, sending logs through [facility] S/p Counseling 04/03/2025 Plan: [x] Referral to diabetes education as needed [x] Send weekly glucose log through [employer] [facility] for review vs. CGM login information - ongoing [] testing, growth surveillance and delivery timing per FGR problem [] 2 hour gtt 6 weeks Relevant Orders US Ob Follow Up US Biophysical Profile WO Test Gravid and Poor growth affecting management of mother in second trimester Overview EFW 10% but AC <10% . She is dated by LMP c/w 1T US (verified) and her NIPT is LR. 07/18/2025: EFW at the 5th, AAC at the 3rd percentile. Normal Dopplers 08/07/25: EFW 8%, AC 2%, normal Dopplers Plan: -Continue weekly Dopplers with the M with the addition of BPP with NST every Monday in our office -weekly NSTs in [place] - q3 weeks growth scans -Delivery timing currently 37 weeks based on AC Relevant Orders US Ob Follow Up US Biophysical Profile WO Test Asthma during Overview Diagnosis: childhood History of hospitalizations/intubations?: No Classifications: Pre- classification: mild persistent Current classification: mild persistent Pre- regimen: singulair, asthmonex BID S/p counseling Current regimen: singulair, asthmonex BID Plan: [] Monitor symptoms AMA (advanced maternal age) multigravida 35+, first trimester Overview Age at ASAF: 35 S/p counseling Plan: [x] Genetic screening plan: s/p LR NIPT [x] Low dose ASA starting at 12 weeks Relevant Orders US Ob Follow Up US Biophysical Profile WO Test History of delivery, currently Overview History: 36 week spontaneous labor, prior section for breech presentation S/p counseling Plan: [x] TVCL at anatomic survey for screening Relevant Orders US Ob Follow Up US Biophysical Profile WO Test Thank you for your consultation. Please don't hesitate to contact me with any questions. We will continue to follow along with Ms. Phoebe Mcmullen with weekly UAD/BPP/NST. Repeat growth US and MFM visit in 3 weeks. Kristen Parker MD MS Maternal Medicine Progress Notes - Office Visi t - 07/18/2025 - GA:27w4d 07/18/2025 - - Anai Mccloud MD MFM Return Consult [...] Has Kelin CGM currently, sending logs through [facility] S/p Counseling 04/03/2025 Plan: [x] Referral to diabetes education as needed [x] Send weekly glucose log through [facility] for review vs. CGM login information - [...] weeks) -She will start weekly NSTs in [place] - q3 weeks growth scans -Delivery timing [...] t - 06/26/2025 - GA:24w3d 06/26/2025 - - Betty Gibbs MD MFM Return Visit 06/26/2025 Phoebemarj Mcmullen is a 35 y.o. at 24w3d [...] see separate report for full details Assessment/Plan: Phoebe Mcmullen is a 35 y.o. [...] Has Kelin CGM currently, sending logs through [facility] S/p Counseling 04/03/2025 Plan: [x] Referral to diabetes education as needed [x] Send weekly glucose log through [employer] for review vs. CGM login information - [...] call us. Sincerely, Betty Gibbs MD, MS Slusher Operator Division of Maternal- Medicine Department of Obstetrics and Gynecology [facility] in [facility] Medicine 06/26/2025 Progress Notes - Office Visi t [...] Has Kelin CGM currently, sending logs through [facility] S/p Counseling 04/03/2025 Plan: [x] Referral to diabetes education as needed [x] Send weekly glucose log through [facility] for review vs. CGM login information - [...] We will continue to follow along with . Phoebe Mcmullen. Summary of visit: - A1GDM: Continue weekly review by MFM. Growth ultrasound in 6 weeks - OB/ER warnings reviewed - Follow up 6 weeks for MFM visit and growth ultrasound A total of 10 minutes were spent for this visit, 5 minutes were spent with the patient during the visit and 5 minutes were spent in documentation. Catie Mcconnell MD Appointment Scheduler Division of Maternal- Medicine Progress Notes - [...] for breech presentation. Baby was transferred to [facility] after intubation and received surfactant. 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 Plan: [] TVCL at [facility] for screening Gestational diabetes mellitus (GDM) [...] needed [] Send weekly glucose log through [facility] for review vs. CGM login information [...] [x] Blue Team Referring Provider: Itz Peoples [phone] [] [employer] or Medicare Insurance [x] Dating Criteria: LMP [...] notes/labs from primary OB. Catie Mcconnell MD Appointment Scheduler Division of Maternal- Medicine Progress Notes - Abstract - 03/13/2025 - GA:9w3d 03/13/2025 - 9w3d - Moon Quiñonez RMA Current OB records are under media tab. labs have not been drawn yet. 2022 op note is under media tab. Last Filed Vital Signs Vital Sign Reading Time Taken Comments Blood Pressure 108/69 08/07/2025 2:24 PM CDT Pulse 84 08/07/2025 2:24 PM CDT Temperature - - Respiratory Rate - - Oxygen Saturation 100% 08/07/2025 2:24 PM CDT Inhaled Oxygen Concentration - - Weight 78.9 kg (174 lb 0.3 oz) 08/07/2025 2:24 P M CDT Height 160 cm (5' 3) 08/07/2025 2:24 PM CDT Body Mass Index 30.83 08/07/2025 2:24 PM CDT Plan of Treatment Health Maintenance [...] Name Priority Date/Time Associated Diagnosis Comments US BIOPHYSICAL PROFILE WO TEST Schedule Routine, Read Routine (OP Routine) 08/22/2025 10:27 AM CDT Diet controlled gestational diabetes mellitus (GDM) in second trimester Poor growth affecting management of mother in second trimester, single or unspecified fetus History of delivery, currently AMA (advanced maternal age) multigravida 35+, first trimester US BIOPHYSICAL PROFILE WO TEST Schedule Routine, Read Routine (OP Routine) 08/15/2025 7:58 AM CDT Diet controlled gestational diabetes mellitus (GDM) in second trimester Poor growth affecting management of mother in second trimester, single or unspecified fetus History of delivery, currently AMA (advanced maternal age) multigravida 35+, first trimester NONSTRESS TEST Routine 08/07/2025 2:00 PM CDT Supervision of high-risk , second trimester Poor growth affecting management of mother in second trimester, single or unspecified fetus Gestational diabetes mellitus (GDM) in second trimester, gestational diabetes method of control unspecified AMA (advanced maternal age) multigravida 35+, first trimester US OB FOLLOW UP Schedule Routine, Read Routine (OP Routine) 08/07/2025 12:33 PM CDT Poor growth affecting management of mother in second trimester, single or unspecified fetus Supervision of other high risk , antepartum US BIOPHYSICAL PROFILE WO TEST Schedule Routine, Read Routine (OP Routine) 08/01/2025 2:36 PM CDT Poor growth affecting management of mother in second trimester, single or unspecified fetus Supervision of other high risk , antepartum NONSTRESS TEST Routine 07/25/2025 9:58 AM CDT [...] gestational diabetes mellitus (GDM) in first trimester from Last 3 Months Results * US Biophysical Profile WO Test (08/22/2025 10:27 AM CDT) Fetus# Fetus1 VIEWPOINT Placenta Details anterior, Previa-no, no placental masses VIEWPOINT Presentation Vertex VIEWPOINT Anatomical Region Laterality Modality N/A Ultrasound 08/22/2025 10:3 1 AM CDT Impressions 08/22/2025 10:56 AM CDT Vasquez IUP at 32w 4d who presents for well being evaluation in the setting of known FGR. 1. Vertex presentation. 2. The biophysical profile is 8/8 with normal breathing motion, body motion, tone and amniotic fluid volume. 3. The umbilical artery Dopplers are within normal limits, PI 63%, with forward diastolic flow throughout the waveforms. Narrative Procedure Note Lilia Puente MD - 08/22/2025 IMPRESSION: Vasquez IUP at 32w 4d who presents for well being evaluation inthe setting of known FGR. 1. Vertex presentation. 2. The biophysical profile is 8/8 with normal breathing motion, bodymotion, tone and amniotic fluid volume. 3. The umbilical artery Dopplers are within normal limits, PI 63%, withforward diastolic flow throughout the waveforms. us Kristen Parker MD IMG OB US PROCEDURES Final Result * US Biophysical Profile WO Test (08/15/2025 7:58 AM CDT) Fetus# Fetus1 VIEWPOINT Placenta Details anterior, Previa-no, no placental masses VIEWPOINT Presentation Vertex VIEWPOINT Anatomical Region Laterality Modality N/A Ultrasound 08/15/2025 7:58 AM CDT Impressions 08/15/2025 1:16 PM CDT IUP at 31w 4d with FGR for surveillance 1. The amniotic fluid volume measured within normal limits. The BPP was 8 out of 8. 2. UA Dopplers measured within normal limits, with no evidence of reversed or absent diastolic flow. Narrative Procedure Note Betty Gibbs MD - 08/15/2025 IMPRESSION: IUP at 31w 4d with FGR for surveillance 1. The amniotic fluid volume measured within normal limits. The BPP was 8out of 8. 2. UA Dopplers measured within normal limits, with no evidence of reversedor absent diastolic flow. us Kristen Parker MD IMG OB US PROCEDURES Final Result * nonstress test - (08/07/2025 2:00 PM CDT) us Kristen Parker MD OB GYNE ORDERABLES Final R esult * US Ob Follow Up (08/07/2025 12:33 PM CDT) Fetus# [id number] VIEWPOINT Estimated Weight 1,339 g&grams VIEWPOINT Placenta Details anterior, Previa-no, no placental masses VIEWPOINT Presentation Vertex VIEWPOINT Anatomical Region Laterality Modality Abdomen N/A Ultrasound 08/07/2025 12:5 7 PM CDT Impressions 08/07/2025 1:26 PM CDT Vasquez IUP at 30w 3d who presents for growth assessment and UA Dopplers/BPP in the setting of known growth restriction. 1. Vertex presentation. 2. The interval growth has been appropriate, however the growth pattern continues to be consistent with growth restriction. The EFW plots at the 8%. Of note, the AC is at 2% today. 3. The biophysical profile is 8/8 with normal breathing motion, body motion, tone and amniotic fluid volume. 4. The umbilical artery Dopplers are normal, PI 57%, with forward diastolic flow throughout the waveforms. Narrative Procedure Note Lilia Puente MD - 08/07/2025 IMPRESSION: Vasquez IUP at 30w 3d who presents for growth assessment and UADopplers/BPP in the setting of known growth restriction. 1. Vertex presentation. 2. The interval growth has been appropriate, however the growthpattern continues to be consistent with growth restriction. The EFWplots at the 8%. Of note, the AC is at 2% today. 3. The biophysical profile is 8/8 with normal breathing motion, bodymotion, tone and amniotic fluid volume. 4. The umbilical artery Dopplers are normal, PI 57%, with forwarddiastolic flow throughout the waveforms. us Anai Mccloud MD [facility] [place] OB US PROCEDURES Geovanna l Result * US Biophysical Profile WO Test (08/01/2025 2:36 PM CDT) Fetus# Fetus1 VIEWPOINT Placenta Details anterior, Previa-no, no placental masses VIEWPOINT Presentation Vertex VIEWPOINT Anatomical Region Laterality Modality N/A Ultrasound 08/01/2025 2:45 PM CDT Impressions 08/01/2025 3:21 PM CDT IUP - 29w 4d The BPP is reassuring. The UA Doppler PI is normal. Narrative Procedure Note Sandro Ascencio MD - 08/01/2025 IMPRESSION: IUP - 29w 4d The BPP is reassuring. The UA Doppler PI is normal. us Anai Mccloud MD [facility] [place] [place] OB US PROCEDURES Geovanna l Result * nonstress test - (07/25/2025 9:58 AM CDT) us Reema Medina MD OB GYNE ORDERABLES Final [...] is cephalic; anterior placenta. Anai Mccloud MD IM OB US PROCEDURES Geovanna l Result * [...] Vertex presentation. Normal CHUNG. Betty Gibbs MD [facility] OB US PROCEDURES Final Result * US [...] is cephalic; anterior placenta. Betty Gibbs MD [facility] OB US PROCEDURES Final Result * US [...] Final Result from Last 3 Months Insurance [facility] [place] [address] Care Teams Agency Sales Director Relationship Specialty Start Date End Date No, Physician PCP - General 06/06/22
[2025-08-26 17:49] VITALS: BP 112/61; PULSE 84
[2025-08-26 18:00] VITALS: BP 100/63; PULSE 79; BMI 30.5
[2025-08-26 18:08] LABS: Add Urine Microscopic? YES; Appearance Urine Clear (Clear); Glucose Urine UA Negative (Negative); Leukocyte Esterase Ur Trace LEU/UL (Negative); Nitrate Urine Negative (Negative); Non Pathogenic Casts 0-2; Specific Grav Ur 1.007 (1.001-1.035)
[2025-08-26 18:15] VITALS: BP 99/60; PULSE 82
--- NOTE | 2025-08-27 16:52 | PM.OBTRLD ---
OB - Triage/Final Diagnosis Visit Information Reason for evaluation: threatened labor Comments/Additional reasons for admission: I have assessed the risk for this patient, Phoebe Mcmullen, and determined that she would benefit from observation care. Evaluation Laboratory results: Laboratory Tests 08/26/25 17:49 Urine Color Yellow Urine Appearance Clear Urine pH 6.0 Ur Specific [place] 1.007 Urine Protein Negative Urine Glucose (UA) Negative Urine Ketones Negative Ur Blood (Man) Negative Urine Nitrate Negative Urine Bilirubin Negative Urine Urobilinogen 0.2 Ur Leukocyte Esterase Trace H Urine RBC 0-2 Urine WBC 0-5 Ur Squamous Epith Cells None seen Urine Bacteria None seen Urine Casts 0-2 Vital signs: Vital Signs - 24 hr 08/26/25 17:49 08/26/25 18:00 08/26/25 18:00 Pulse Rate 84 79 Blood Pressure 112/61 100/63 Oxygen Delivery Room Air 08/26/25 18:15 Pulse Rate 82 Blood Pressure 99/60 L Oxygen Delivery
== END 2025-08-26 18:32 | disposition home or self-care (01) ==
PROVIDERS: Admitting Provider Obstetrics & Gynecology; PCP Family Medicine Adolescent Medicine; Visit Provider Obstetrics & Gynecology
DX: O47.03 False labor before 37 completed weeks of gestation, third trimester (principal); Z3A.33 33 weeks gestation of pregnancy
CPT/HCPCS: 59025; 81001; 87086; G0378; G0379

== ENCOUNTER 2025-09-10 15:00 | Observation (INO) | payer OTHER, SELFPAY ==
[2025-09-10] VITALS (48 sets, daily range): BP systolic 110–133; BP diastolic 58–79; PULSE 76–127; RESP 16; TEMP 36.7; O2SAT 94–100; BMI 30.7
[2025-09-10] MEDS: TERBUTALINE SULFATE 1 MG/ML VIAL 0.25 MG SUB-Q ×2 (15:33→17:21)
[2025-09-10] MEDS: LACTATED RINGERS 1,000 ML 999 ML IV CONT (15:48)
[2025-09-10] MEDS: BETAMETHASONE SOD PHOS/ACETATE 30 MG/5 ML VIAL 12 MG IM (16:02)
[2025-09-10 16:07] LABS: Add Urine Microscopic? YES; Appearance Urine Clear (Clear); Glucose Urine UA Negative (Negative); Leukocyte Esterase Ur Trace LEU/UL (Negative); Nitrate Urine Negative (Negative); Non Pathogenic Casts 0-2; Specific Grav Ur 1.006 (1.001-1.035)
--- NOTE | 2025-09-10 16:13 | OBADM ---
This patient, Phoebe Mcmullen, admitted to the OB room 113 for observation. Patient/family oriented to hospital policies and general routines including ID bracelet, bed and alarms, visiting hours, pain management, procedures, bathroom and other care routines, personal items, smoking policy, room service/diet, and visiting hours. Patient/Family are encouraged to report perceived risks to care and to ask questions if they do not understand what they are told or what they should do.
--- NOTE | 2025-09-11 07:34 | PM.OBTRLD ---
OB - Triage/Final Diagnosis Visit Information Reason for evaluation: threatened labor Comments/Additional reasons for admission: I have assessed the risk for this patient, Phoebe Mcmullen, and determined that she would benefit from observation care. Evaluation Laboratory results: Laboratory Tests 09/10/25 15:51 Urine Color Yellow Urine Appearance Clear Urine pH 6.5 Ur Specific [place] 1.006 Urine Protein Negative Urine Glucose (UA) Negative Urine Ketones Negative Ur Blood (Man) Negative Urine Nitrate Negative Urine Bilirubin Negative Urine Urobilinogen 0.2 Leukocyte Esterase Rfl Trace H Urine RBC 0-2 Urine WBC 0-5 Ur Squamous Epith Cells None seen Urine Bacteria None seen Urine Casts 0-2 Vital signs: Vital Signs - 24 hr 09/10/25 15:20 09/10/25 15:25 09/10/25 15:30 Temperature Pulse Rate Respiratory Rate Blood Pressure Pulse Oximetry 98 98 100 Oxygen Delivery 09/10/25 15:30 09/10/25 15:31 09/10/25 15:35 Temperature Pulse Rate 82 Respiratory Rate Blood Pressure 110/65 Pulse Oximetry 100 Oxygen Delivery Room Air 09/10/25 15:40 09/10/25 16:01 09/10/25 16:05 Temperature Pulse Rate Respiratory Rate Blood Pressure Pulse Oximetry 100 99 100 Oxygen Delivery 09/10/25 16:06 09/10/25 16:10 09/10/25 16:15 Temperature Pulse Rate 86 Respiratory Rate Blood Pressure 111/63 Pulse Oximetry 100 98 Oxygen Delivery 09/10/25 16:20 09/10/25 16:25 09/10/25 16:30 Temperature Pulse Rate Respiratory Rate Blood Pressure Pulse Oximetry 98 98 100 Oxygen Delivery 09/10/25 16:31 09/10/25 16:35 09/10/25 16:40 Temperature Pulse Rate 85 Respiratory Rate Blood Pressure 113/58 L Pulse Oximetry 100 99 Oxygen Delivery 09/10/25 16:45 09/10/25 16:50 09/10/25 16:56 Temperature Pulse Rate Respiratory Rate Blood Pressure Pulse Oximetry 99 100 100 Oxygen Delivery 09/10/25 17:00 09/10/25 17:01 09/10/25 17:02 Temperature 98.0 F Pulse Rate 89 86 Respiratory Rate 16 Blood Pressure 116/61 123/79 Pulse Oximetry 100 Oxygen Delivery 09/10/25 17:06 09/10/25 17:11 09/10/25 17:15 Temperature Pulse Rate Respiratory Rate Blood Pressure Pulse Oximetry 100 99 100 Oxygen Delivery 09/10/25 17:20 09/10/25 17:21 09/10/25 17:26 Temperature Pulse Rate 76 Respiratory Rate Blood Pressure 112/75 Pulse Oximetry 100 100 Oxygen Delivery 09/10/25 17:31 09/10/25 17:35 09/10/25 17:41 Temperature Pulse Rate 95 Respiratory Rate Blood Pressure 126/68 Pulse Oximetry 100 100 100 Oxygen Delivery 09/10/25 17:46 09/10/25 17:51 09/10/25 17:55 Temperature Pulse Rate Respiratory Rate Blood Pressure Pulse Oximetry 100 97 98 Oxygen Delivery 09/10/25 18:00 09/10/25 18:01 09/10/25 18:05 Temperature Pulse Rate 116 H Respiratory Rate Blood Pressure 133/69 Pulse Oximetry 100 100 Oxygen Delivery 09/10/25 18:10 09/10/25 18:16 09/10/25 18:19 Temperature Pulse Rate 102 H Respiratory Rate Blood Pressure 124/69 Pulse Oximetry 100 99 99 Oxygen Delivery 09/10/25 18:24 09/10/25 18:29 09/10/25 18:31 Temperature Pulse Rate 107 H Respiratory Rate Blood Pressure 124/64 Pulse Oximetry 95 98 97 Oxygen Delivery 09/10/25 18:31 09/10/25 18:32 09/10/25 18:37 Temperature Pulse Rate Respiratory Rate Blood Pressure Pulse Oximetry 94 98 97 Oxygen Delivery 09/10/25 18:42 09/10/25 18:44 Temperature Pulse Rate 107 H Respiratory Rate Blood Pressure 121/63 Pulse Oximetry 96 Oxygen Delivery
== END 2025-09-10 18:47 | disposition home or self-care (01) ==
PROVIDERS: Admitting Provider Obstetrics & Gynecology; Visit Provider Obstetrics & Gynecology
DX: O47.03 False labor before 37 completed weeks of gestation, third trimester (principal); Z3A.35 35 weeks gestation of pregnancy
CPT/HCPCS: 36415; 81001; 96360; 96372; A9270; G0378; G0379; J0702; J3105; J7120

== ENCOUNTER 2025-09-11 07:33 | Outpatient (RCR) | payer OTHER, SELFPAY ==
[2025-07-28 12:54] VITALS: PULSE 80
[2025-08-04 10:37] VITALS: PULSE 80
[2025-08-12 13:47] VITALS: BP 109/55; PULSE 86
[2025-08-15 09:57] VITALS: BP 109/49; PULSE 91
[2025-08-18 14:59] VITALS: BP 110/68; PULSE 84
[2025-08-22 09:56] VITALS: BP 110/56; PULSE 91
[2025-08-26 13:22] VITALS: BP 109/66
[2025-08-29 13:20] VITALS: BP 137/59; PULSE 92
[2025-09-02 13:57] VITALS: BP 116/77; PULSE 91
[2025-09-06 12:54] VITALS: BP 114/69
[2025-09-09 13:05] VITALS: BP 123/64; PULSE 91
--- NOTE | ~2025-09-11 | US_ITS ---
EXAM/PROCEDURE: US OB BPP wo non-stress HISTORY: heart deceleration COMPARISON: None available. TECHNIQUE: Real-time exam performed by technologist directed toward evaluation of viability and dates. FINDINGS: A single viable intrauterine gestation is present with heart rate of 136 bpm, ranging from 132-140 Presentation: Vertex. Placenta: Anterior with no gross previa or abruption seen. CHUNG: 10.2 cm x 4 quadrant technique Biophysical profile score is 8/8 EGA by dates 34 weeks 1 day EDC by dates: October 13, 2025 IMPRESSION: Directed examination demonstrating single viable intrauterine gestation with biophysical profile score 8/8. heart rate ranges from 132 to 140 bpm. Reviewed, dictated and finalized at location A. CTORY ASSISTANCE OPERATOR IMPRESSION: Directed examination demonstrating single viable intrauterine gestation with bi ophysical profile score 8/8. heart rate ranges from 132 to 140 bpm.
[2025-09-11 08:29] VITALS: BP 115/65; PULSE 99
== END 2025-09-13 08:33 | disposition other institution (70) ==
LOC: ANHOBOP 07:33
PROVIDERS: Visit Provider Obstetrics & Gynecology
DX: O24.419 Gestational diabetes mellitus in pregnancy, unspecified control (principal)
CPT/HCPCS: 59025; 76819

== ENCOUNTER 2025-09-11 07:33 | Outpatient (CLI) | payer OTHER, SELFPAY ==
--- OUTSIDE RECORDS SUMMARY | 2025-09-11 07:41 | XMS_ITS | Clinical Summary ---
Author Organization [facility] [employer] Address [address] [place] [address] Care Team Providers Care Pump Servicer Name Role Phone Pcp, [facility] Primary Care Provider Unava ilable Source Comments [facility],non-owned Affiliates and Associated Physician Practices is amultiple site organization consisting of ambulatory clinics and hospital sitesin [place], [place], [place] and [place]. This disclosure is being madepursuant to the Care Everywhere program and may not contain all information available regarding this patient. Last updated 18.[facility] Allergies Active Allergy Reactions Criticality Noted Date Comments Nitrous Oxide 05/07/2013 Penicillins 05/07/2013 Sulfa Drugs Other 07/03/2020 No reaction told by parents allergic due to family hx of sulfa allergy Medications * Be aware that medications may not be up to date on this document. Alwaysverify current medications with the patient. Mometasone Furoate (NASONEX NA) Baker into the nose as needed. prn Active [...] on file Legal Sex Female 1:40 PM RENAL NURSE Gender Identity Not on file Sexual Orientation Not on file Last Filed Vital Signs Vital Sign Reading Time Taken Comments Blood Pressure 110/70 10/15/2014 8:25 AM RENAL NURSE Pulse 96 10/15/2014 8:25 AM RENAL NURSE Temperature 36.4 C (97.6 F) 10/15/2014 8:25 AM RENAL NURSE Respiratory Rate 18 10/15/2014 8:25 AM RENAL NURSE Oxygen Saturation 99% 10/15/2014 8:25 AM RENAL NURSE Inhaled Oxygen Concentration - - Weight 62.1 kg (137 lb) 10/15/2014 8:25 AM RENAL NURSE Height 160 cm (5' 3) 10/15/2014 8:25 AM RENAL NURSE Body Mass Index 24.27 10/15/2014 8:25 AM RENAL NURSE Plan of Treatment Health Maintenance Due Date Last Done Comments HIV SCREENING 2005 HEPATITIS C SCREENING 02/03/2008 PNEUMOCOCCAL VACCINE (1 of 2 - PCV) 2009 Cervical Cancer Screening 10/17/2016 PAP SMEAR 10/17/2016 10/17/2013 HPV VACCINE (1 - 3-dose SCDM series) 2017 DTAP/TDAP/TD VACCINES (7 - Td or Tdap) 04/14/2019 04/14/2009, 01/21/1995, 06/28/1991, Additional history exists PAP with HPV 02/08/2020 DEPRESSION SCREENING 10/23/2024 COVID-19 VACCINE (2024- season) 2025 INFLUENZA VACCINE (#1) 2025 ZOSTER VACCINE (1 of 2) 02/08/2040 HEPATITIS B VACCINE Completed 12/05/1995, 05/16/1995, 04/13/1995 MENINGOCOCCAL GROUPS A/C/Y/W VACCINE Completed 01/22/2008 HIB VACCINE Aged Out No longer eligi ble based on patient's age to complete this topic MENINGOCOCCAL (Group B) VACCINE SHARED DECISION-MAKING Aged Out No longer eligible based on patient's age to complete this topic Insurance [facility] Address: [facility] [id number] [place] [address] [place] [address] Care Teams Pump Servicer Relationship Specialty Start Date End Date Pcp, [facility] Slema Link PCP - General 01/04/24
--- OUTSIDE RECORDS SUMMARY | 2025-09-11 07:41 | XMS_ITS | Clinical Summary ---
Author Organization [facility] Address [address] [place] [id number] Care Team Providers Care Vehicle Refinisher Name Role Phone No, Physician Primary Care Provider [phone] Allergies Active Allergy Reactions Criticality Noted Date [...] of mother in second trimester 06/26/2025 Overview (08/28/2025): EFW 10% but AC <10% . She is dated by LMP c/w 1T US (verified) and her NIPT is LR. 08/28/2025: EFW 11%, AC 5%, BPP 8/8, normal UAD Plan: - Continue weekly BPP/Dopplers with MFM - Twice weekly NSTs in [place] - q3 weeks growth scans - Currently scheduled for 37w delivery with primary OB. Discussed that given AC >3% today, recommend 38-39 weeks. Patient will discuss with primary OB. 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 [] Full MFM Care; [] Red Team [x] Blue Team Referring Provider: Itz Peoples [phone] [] [employer] or Medicare Insurance [x] Dating Criteria: LMP [...] 05/15/2025 WNL [] CBC/1hr gtt at 24-28wks: [x] Rhogam at 28 wks (if Rh neg): O- 3rd Trimester [] CBC/HIV/RPR/T&S: [] GBS: [] GC/CT (if indicated): [] testing: Counseling [x] MOD: Desires repeat C/S at term [x] Place of delivery: with primary OB [x] MOC: Desires BTL Vaccines [x] Flu Shot (Jun-Sep): 07/18/2025 Pt will receive Flu shot from her job. au [] COVID vaccine: [x] Tdap (27-36wks):07/18/2025 au [x] RSV vaccine (32-36wks): received [] PP HPV vaccine counseling (<=26 yo): [...] [x] Blue Team Referring Provider: Itz Peoples [phone] [] [employer] or Medicare Insurance [x] Dating Criteria: LMP [...] anatomic survey for screening Assessment & Plan (06/26/2025 [...] (GDM) in second tr imester 03/13/2025 Overview (09/05/2025): 3 hour gtt (03/21/25): 98//-/- Current regimen: 09/05/2025 no changes Diet Controlled- log reviewed and all within goal Has Kelin CGM currently, sending logs through [employer] S/p Counseling Plan: [x] Referral to diabetes education as needed [x] Send weekly glucose log through [employer] for review vs. CGM login information - ongoing [] testing, growth surveillance and delivery timing per FGR problem [] 2 hour gtt 6 weeks Assessment & Plan (06/26/2025 10:57 PM CDT): 3 hour gtt (03/21/25): /-/- Current regimen: 06/26/2025 - Diet Controlled Has Kelin CGM currently, sending logs through [employer] S/p Counseling 04/03/2025 Plan: [x] Referral to diabetes education as needed [x] Send weekly glucose log through [employer] for review vs. CGM login information - ongoing [] Twice weekly testing at 32 weeks if medications needed [] Rate of growth ultrasounds q4 weeks [] Plan delivery by 39 weeks [] 2 hour gtt 6 weeks Assessment & Plan (05/15/2025 2:07 PM CDT): Current regimen: 05/15/2025 diet controlled Has Kelin CGM currently, sending logs through [employer] S/p Counseling 04/03/2025 Plan: [x] Referral to diabetes education as needed [x] Send weekly glucose log through [employer] for review vs. CGM login information [...] needed [] Send weekly glucose log through [employer] for review vs. CGM login information [] [...] MFM -Diabetes education to be scheduled at [place] -Serial growth US -Consider delivery at 39 weeks (CS for breech scheduled with primary) - 2 hr GTT Assessment & Plan (10/10/2022 10:44 AM [employer]): We reviewed the management of a complicated [...] Overview (10/10/2022): [x] Co-management vs. [] Full M Care; [] Red Team [x] Blue Team Referring Provider: Itz Peoples [phone] [] or Medicare Insurance [x] Dating Criteria: [...] [] MOC: [] Method of feeding: [] Third Officer: [] PP Depression Discussed: Accessory navicular bone of foot 04/09/2020 03/13/2025 Tibialis posterior tendinitis 03/19/2020 03/13/2025 Encounters Date Type Department Care Team Description 09/04/2025 3:30 PM [employer] - 09/04/2025 11:59 PM [employer] Hospital Encounter [facility] - Ultrasound [address] [place] [address], 7th Floor, [address] [place] [address] Diet controlled gestational diabetes mellitus (GDM) in second trimester; Poor growth affecting management of mother in second trimester, single or unspecified fetus; Supervision of high-risk , second trimester Discharge Disposition: Discharge to home or self care 08/28/2025 4:15 PM [employer] Office Visit [facility] Medicine Maternal- Medicine [address] [place] [address] 7th Floor [address] [place] [phone] Diet controlled gestational diabetes mellitus (GDM) in second trimester (Primary Dx); Poor growth affecting management of mother in second trimester, single or unspecified fetus; Supervision of high-risk , second trimester 08/28/2025 2:45 PM [employer] - 08/28/2025 11:59 PM [employer] Hospital Encounter [facility] - Ultrasound [address] [place] [address], 7th Floor, [address] [place] [address] Diet controlled gestational diabetes mellitus (GDM) in second trimester; Poor growth affecting management of mother in second trimester, single or unspecified fetus; History of delivery, currently ; AMA (advanced maternal age) multigravida 35+, first trimester Discharge Disposition: Discharge to home or self care 08/22/2025 10:27 AM CDT - 08/22/2025 11:59 PM CDT Hospital Encounter [facility] - Ultrasound [address] [place] [address], 7th [facility], [address] [place] [address] Diet controlled gestational diabetes mellitus (GDM) in second trimester; Poor growth affecting management of mother in second trimester, single or unspecified fetus; History of delivery, currently ; AMA (advanced maternal age) multigravida 35+, first trimester Discharge Disposition: Discharge to home or self care 08/15/2025 7:58 AM CDT - 08/15/2025 11:59 PM CDT Hospital Encounter [facility] - Ultrasound [address] [place] [address], [address] [place] [address], [address] [place] [address] Diet controlled gestational diabetes mellitus (GDM) in second trimester; Poor growth affecting management of mother in second trimester, single or unspecified fetus; History of delivery, currently ; AMA (advanced maternal age) multigravida 35+, first trimester Discharge Disposition: Discharge to home or self care 08/07/2025 2:15 PM CDT Office Visit [facility] Medicine Maternal- Medicine [address] [place] [address] 7th Floor [address] [place] [phone] Diet controlled gestational diabetes mellitus (GDM) in second trimester (Primary Dx); Poor growth affecting management of mother in second trimester, single or unspecified fetus; History of delivery, currently ; AMA (advanced maternal age) multigravida 35+, first trimester; Asthma during ; Supervision of high-risk , second trimester 08/07/2025 1:30 PM CDT Clinical Support [facility] Medicine Obstetrics and Gynecology [address] [place] [phone] Supervision of high-risk , second trimester (Primary Dx); Poor growth affecting management of mother in second trimester, single or unspecified fetus; Gestational diabetes mellitus (GDM) in second trimester, gestational diabetes method of control unspecified; AMA (advanced maternal age) multigravida 35+, first trimester 08/07/2025 12:30 PM CDT - 08/07/2025 11:59 PM CDT Hospital Encounter [facility] - Ultrasound [address] [place] [address], [address] [place] [address], [address] [place] [address] Poor growth affecting management of mother in second trimester, single or unspecified fetus; Supervision of other high risk , antepartum Discharge Disposition: Discharge to home or self care 08/01/2025 2:36 PM CDT - 08/01/2025 11:59 PM CDT Hospital Encounter [facility] - Ultrasound [address] [place] [address], [address] [place] [address] Poor growth affecting management of mother in second trimester, single or unspecified fetus; Supervision of other high risk , antepartum Discharge Disposition: Discharge to home or self care 07/25/2025 9:30 AM CDT Clinical Support [facility] Medicine Obstetrics and Gynecology [address] [place] [phone] Gestational diabetes mellitus (GDM) in second trimester, gestational diabetes method of control unspecified (Primary Dx); AMA (advanced maternal age) multigravida 35+, first trimester; Poor growth affecting management of mother in second trimester, single or unspecified fetus 07/25/2025 8:41 AM CDT - 07/25/2025 11:59 PM CDT Hospital Encounter [facility] - Ultrasound [address] [place] [address], [facility] Floor, [address] [place] [address] Poor growth affecting management of mother in second trimester, single or unspecified fetus; Supervision of other high risk , antepartum Discharge Disposition: Discharge to home or self care 07/25/2025 Telephone [facility] Medicine Maternal- Medicine [address] [place] [address] [address] [place] [phone] Chely Chin RN [facility] GLUCOSE LOG 07/18/2025 11:30 AM CDT Office Visit [facility] Medicine Maternal- Medicine [address] [place] [address] 7th Floor [address] [place] [phone] Diet controlled gestational diabetes mellitus (GDM) in second trimester (Primary Dx); History of section complicating ; History of delivery, currently ; Poor growth affecting management of mother in second trimester, single or unspecified fetus; Supervision of other high risk , antepartum 07/18/2025 10:45 AM CDT - 07/18/2025 11:59 PM CDT Hospital Encounter [facility] - Ultrasound [address] [place] [address], 7th Floor, [address] [place] [address] Supervision of high-risk , first trimester Discharge Disposition: Discharge to home or self care 07/11/2025 2:30 PM CDT - 07/11/2025 11:59 PM CDT Hospital Encounter [facility] - Ultrasound [address] [place] [address], 7th Floor, [address] [place] [address] Supervision of high-risk , first trimester Discharge Disposition: Discharge to home or self care 07/04/2025 1:52 PM CDT - 07/04/2025 11:59 PM CDT Hospital Encounter [facility] - Ultrasound [address] [place] [address], 7th Floor, [address] [place] [address] Supervision of high-risk , first trimester Discharge Disposition: Discharge to home or self care 06/26/2025 3:15 PM CDT Office Visit [facility] Medicine [facility]etric[facility]ne[facility] [address] [place] [phone] Diet controlled gestational diabetes mellitus (GDM) in [...] fetus 06/26/2025 2:30 PM CDT Ancillary Procedure [facility] Medicine [facility] Obstetrics and Gynecology [address] [place] [phone] Diet controlled gestational diabetes mellitus (GDM) [...] CDT Gender Identity Female 10/09/2022 6:18 PM [employer] Sexual Orientation Not on file Obstetrics History [...] Estimated Date of Delivery 03/13/2025 - Present (09/11/2025) 10/13/2025 (set by Catie Mcconnell MD on 04/03/2025 based on Last Menstrual Period on 01/06/2025) Dating Summary Based On ASAF GA Diff Last Menstrual Period on 01/06/2025 10/13/2025 Working Ultrasound on 04/03/2025 10/16/2025 -3d GA:12w0d Comment:CRL report under Lynette ging Vitals Pregravid Weight Height TWG (As of 09/11/2025) Pregrav id BMI 160 cm (5' 3) [...] not displayed here. See encounter summary. 5 33w3d Inpatient data not displayed here. See encounter summary. 5 34w3d Inpatient data not displayed here. See encounter summary. Notes Progress Notes - Office Visi t - 08/28/2025 - GA:33w3d 08/28/2025 - 33w3d - Archana Alatorre MD MFM Return Visit 08/28/2025 Phoebe Mcmullen is a 35 y.o. at 33w3d by LMP consistent with 1st trimester Ultrasound who is here for a return OB visit. Her is complicated by GDMA1, FGR, AMA, mild persistent asthma, history of spontaneous at 36 weeks, and history of delivery for breech presentation. Subjective: She reports no complaints. Reports active movement. She received RSV and flu vaccines. No concerns today. Objective: BP 123/72 Pulse 74 Ht 160 cm (5' 3) Wt 178 lb 9.6 oz (81 kg) LMP 01/06/2025 SpO2 98% BMI 31.64 kg/m General: NAD Abdomen: Gravid Extremities: No edema Ultrasound: 08/28/2025 33w3d EFW 1886g (11%), cephalic presentation, CHUNG 19.4 cm, placenta anterior, BPP 8/8 Assessment/Plan: Phoebe Mcmullen is a 35 y.o. at 33w3d by LMP consistent with 1st trimester Ultrasound with a complicated by GDMA1, FGR, AMA, mild persistent asthma, history of spontaneous at 36 weeks, and history of delivery for breech presentation. Problem List Gestational diabetes mellitus (GDM) in second trimester - Primary Overview 3 hour gtt (03/21/25): 98/203/-/- Current regimen: 08/28/2025 Diet Controlled- log reviewed and all within goal Has [employer] CGM currently, sending logs through [facility] S/p Counseling Plan: [x] Referral to diabetes education as needed [x] Send weekly glucose log through [employer] for review vs. CGM login information - ongoing [] testing, growth surveillance and delivery timing per FGR problem [] 2 hour gtt 6 weeks Relevant Orders US Biophysical Profile WO Test US Ob Follow Up Poor growth affecting management of mother in second trimester Overview EFW 10% but AC <10% . She is dated by LMP c/w 1T US (verified) and her NIPT is LR. 08/28/2025: EFW 11%, AC 5%, BPP 8/8, normal UAD Plan: - Continue weekly BPP/Dopplers with MFM - Twice weekly NSTs in [place] - q3 weeks growth scans - Currently scheduled for 37w delivery with primary OB. Discussed that given AC >3% today, recommend 38-39 weeks. Patient will discuss with primary OB. Relevant Orders US Biophysical Profile WO Test US Ob Follow Up Supervision of high-risk , second trimester Overview *Patient is OBGYN at [facility]* SEROLOGIES NEEDED [] OB consult only, [x] Co-management vs. [] Full MFM Care; [] Red Team [x] Blue Team Referring Provider: Itz Peoples [phone] [] or Medicare Insurance [x] Dating Criteria: [...] 05/15/2025 WNL [] CBC/1hr gtt at 24-28wks: [x] Rhogam at 28 wks (if Rh neg): O- 3rd Trimester [] CBC/HIV/RPR/T&S: [] GBS: [] GC/CT (if indicated): [] testing: Counseling [x] MOD: Desires repeat C/S at term [x] Place of delivery: with primary OB [x] MOC: Desires BTL Vaccines [x] Flu Shot (Jun-Sep): 07/18/2025 Pt will receive Flu shot from her job. au [] COVID vaccine: [x] Tdap (27-36wks):07/18/2025 au [x] RSV vaccine (32-36wks): received [] PP HPV vaccine counseling (<=26 yo): Relevant Orders US Biophysical Profile WO Test US Ob Follow Up She is scheduled for weekly BPP/UAD and MFM visit with growth ultrasound in 3 weeks. She will continue twice weekly NSTs at her hospital. Patient was seen and discussed with Dr. Amador who agrees with the above documented assessment and plan. Archana Alatorre MD Maternal- Medicine Fellow Cosigned by Trevor Amador MD at 09/01/2025 12:43 PM [employer] Associated attestation - Trevor Amador MD - 09/01/2025 12:43 PM [employer] I have seen and examined the patient. I agree with the findings and plan of care as documented in the resident/fellow's note. My total encounter time on 08/28/2025 was 15 minutes which was spent in the activities documented in the note. This includes time spent prior to the visit and after the visit in direct care of the patient. This time does not include time spent in any separately reportable services. Progress Notes - Office Visi t - [...] EFW 8%, AC 2%. Normal UAD. BPP 8/8 NST reactive Assessment/Plan: Phoebe Mcmullen is a 35 y.o. at 30w3d with a complicated by the following: Problem List Endocrine and Metabolic Gestational diabetes mellitus (GDM) in second trimester - Primary Overview 3 hour gtt (03/21/25): 98/203/-/- Current regimen: 08/01/2025 Diet Controlled- log reviewed and all within goal Has Kelin CGM currently, sending logs through [facility] S/p Counseling 04/03/2025 Plan: [x] Referral to diabetes education as needed [x] Send weekly glucose log through [employer] for review vs. CGM login information [...] Monday in our office -weekly NSTs in [place] - q3 weeks growth scans -Delivery timing [...] Has Kelin CGM currently, sending logs through [facility] S/p Counseling 04/03/2025 Plan: [x] Referral to diabetes education as needed [x] Send weekly glucose log through [employer] for review vs. CGM login information - [...] in second trimester 3 hour gtt (03/21/25): /-/- Current regimen: 06/26/2025 - Diet Controlled Has Kelin CGM currently, sending logs through [facility] S/p Counseling 04/03/2025 Plan: [x] Referral to diabetes education as needed [x] Send weekly glucose log through [employer] for review vs. CGM login information [...] call us. Sincerely, Betty Gibbs MD, MS [employer] Division of Maternal- Medicine Department of Obstetrics and Gynecology [facility] in [facility] 06/26/2025 Progress Notes - Office [...] Has Kelin CGM currently, sending logs through [facility] S/p Counseling 04/03/2025 Plan: [x] Referral to diabetes education as needed [x] Send weekly glucose log through [employer] for review vs. CGM login information - [...] visit: - A1GDM: Continue weekly review by M. Growth ultrasound in 6 weeks - OB/ER warnings reviewed - Follow up 6 weeks for MFM visit and growth ultrasound A total of 10 minutes were spent for this visit, 5 minutes were spent with the patient during the visit and 5 minutes were spent in documentation. Catie Mcconnell MD [employer] Division of Maternal- Medicine Progress Notes - [...] for breech presentation. Baby was transferred to [facility] after intubation and received surfactant. 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 Plan: [] [facility] at [facility] for screening Gestational diabetes mellitus (GDM) in [...] needed [] Send weekly glucose log through [employer] for review vs. CGM login information [] [...] [x] Blue Team Referring Provider: Itz Therondarrin [phone] [] or Medicare Insurance [x] Dating Criteria: [...] notes/labs from primary OB. Catie Mcconnell MD [facility] [employer] Division of Maternal- Medicine Progress Notes - Abstract - 03/13/2025 - GA:9w3d 03/13/2025 - 9w3d - Moon Quiñonez RMA Current OB records are under media tab. labs have not been drawn yet. 2022 op note is under media tab. Last Filed Vital Signs Vital Sign Reading Time Taken Comments Blood Pressure 123/72 08/28/2025 3:46 PM [employer] Pulse 74 08/28/2025 3:46 PM [employer] Temperature - - Respiratory Rate - - Oxygen Saturation 98% 08/28/2025 3:46 PM [employer] Inhaled Oxygen Concentration - - Weight 81 kg (178 lb 9.6 oz) 08/28/2025 3:46 PM [employer] Height 160 cm (5' 3) 08/28/2025 3:46 PM [employer] Body Mass Index 31.64 08/28/2025 3:46 PM [employer] Plan of Treatment Health Maintenance Due Date [...] of 2 - PCV) 2009 Covid-19 Vaccine (2024-2 6 season) 2025 09/24/2021, 10/30/2020, 10/30/2020, Additional history exists Influenza Vaccine (#1) 2025 07/24/2020 DTaP/Tdap/Td Vaccine (9 - Td or Tdap) 07/18/2035 07/18/2025, 09/17/2022, 04/14/2009, Additional history exists Hepatitis B Screening Completed 12/05/1995 , 05/16/1995, 04/13/1995 Procedures Procedure Name Priority Date/Time Associated Diagnosis Comments US BIOPHYSICAL PROFILE WO TEST Schedule Routine, Read Routine (OP Routine) 09/04/2025 3:30 PM [employer] Diet controlled gestational diabetes mellitus (GDM) in second trimester Poor growth affecting management of mother in second trimester, single or unspecified fetus Supervision of high-risk , second trimester US OB FOLLOW UP Schedule Routine, Read Routine (OP Routine) 08/28/2025 2:46 PM [employer] Diet controlled gestational diabetes mellitus (GDM) in [...] Results * US Biophysical Profile WO Test (09/04/2025 3:30 PM [employer]) Fetus# Fetus1 VIEWPOINT Placenta Details anterior, Previa-no, no placental masses VIEWPOINT Presentation Vertex VIEWPOINT Anatomical Region Laterality Modality N/A Ultrasound 09/04/2025 3:32 PM [employer] Impressions 09/04/2025 4:27 PM [employer] Vasquez IUP at 34w 3d who presents for well being evaluation in the setting known growth restriction. 1. Vertex presentation. 2. The biophysical profile is 8/8 with normal breathing motion, body motion, tone and amniotic fluid volume. 3. The umbilical artery Dopplers are within normal limits, PI 68%, with forward diastolic flow throughout the waveforms. Narrative Procedure Note Lilia Puente MD - 09/04/2025 IMPRESSION: Vasquez IUP at 34w 3d who presents for well being evaluation inthe setting known growth restriction. 1. Vertex presentation. 2. The biophysical profile is 8/8 with normal breathing motion, bodymotion, tone and amniotic fluid volume. 3. The umbilical artery Dopplers are within normal limits, PI 68%, withforward diastolic flow throughout the waveforms. us Itz Peoples MD IMG OB US PROCEDURES Final Result * US Ob Follow Up (08/28/2025 2:46 PM [employer]) Fetus# Fetus1 VIEWPOINT Estimated Weight 1,886 g&grams VIEWPOINT Placenta Details anterior, Previa-no, no placental masses VIEWPOINT Presentation Vertex VIEWPOINT Anatomical Region Laterality Modality Abdomen N/A Ultrasound 08/28/2025 2:47 PM [employer] Impressions 08/28/2025 3:53 PM [employer] IUP at 33+3 with known FGR 1. Biometry remains smaller than expected even though overall size is now 1886 g at 11%, the AC remains smaller than expected at 5%. 2. Normal amniotic fluid 19.4 cm. 3. Normal umbilical artery flow. 4. The biophysical profile is 8/8 with normal breathing motion, body motion, tone and amniotic fluid volume. 5. Fetus is cephalic; anterior placenta. Narrative Procedure Note Mamie Ramirez MD - 08/28/2025 IMPRESSION: IUP at 33+3 with known FGR 1. Biometry remains smaller than expected even though overall size is [id number] g at 11%, the AC remains smaller than expected at 5%. 2. Normal amniotic fluid 19.4 cm. 3. Normal umbilical artery flow. 4. The biophysical profile is 8/8 with normal breathing motion, bodymotion, tone and amniotic fluid volume. 5. Fetus is cephalic; anterior placenta. Kristen Parker MD IM OB US PROCEDURES Final Result * US Biophysical Profile WO Test (08/22/2025 [...] 63%, withforward diastolic flow throughout the waveforms. Kristen Parker MD IM OB US PROCEDURES Final Result [...] no evidence of reversedor absent diastolic flow. Kristen Parker MD IMG OB US PROCEDURES [...] throughout the waveforms. us Anai Mccloud MD IMG OB US PROCEDURES [...] PI is normal. us Anai Mccloud MD IMG OB US PROCEDURES [...] is cephalic; anterior placenta. Betty Gibbs MD [facility] [place]ED[place] Final Result * US [...] Vertex presentation. Normal CHUNG. Betty Gibbs MD [facility] [place] PROCEDURES Final Result * US [...] is cephalic; anterior placenta. Betty Gibbs MD [facility] [place] US PROCEDURES Final Result * US [...] or reversed end-diastolic flow. Catie Mcconnell MD IM OB US PROCEDURES Final Result from Last 3 Months Insurance [facility] Address: [address] [address] [facility]O Address: [address] [address] Care Teams Vehicle Refinisher Relationship Specialty Start Date End Date No, Physician PCP - General 06/06/22
[2025-09-11] MEDS: BETAMETHASONE SOD PHOS/ACETATE 30 MG/5 ML VIAL 12 MG IM (08:17)
== END 2025-09-11 07:34 | disposition home or self-care (01) ==
LOC: ANHOBOP 07:38
PROVIDERS: Visit Provider Obstetrics & Gynecology
DX: Z34.90 Encounter for supervision of normal pregnancy, unspecified, unspecified trimester (principal); Z3A.00 Weeks of gestation of pregnancy not specified
CPT/HCPCS: 96372; J0702

== ENCOUNTER 2025-09-12 06:15 | Inpatient (IN) | payer OTHER, SELFPAY ==
[2025-09-12] VITALS (105 sets, daily range): BP systolic 88–130; BP diastolic 45–97; PULSE 53–146; RESP 16–18; TEMP 36.1–38.1; O2SAT 88–100; BMI 31.0
--- OUTSIDE RECORDS SUMMARY | 2025-09-12 06:30 | XMS_ITS | Clinical Summary ---
Author Organization [facility] Address [address] [place] [phone] Care Team Providers Care Rehabilitation Therapy Technician Name Role Phone No, Physician Primary Care Provider [phone] Allergies Active Allergy Reactions Criticality Noted Date [...] with MFM - Twice weekly NSTs in [place] - q3 weeks growth scans - Currently [...] 03/13/2025 Overview (08/28/2025): *Patient is OBGYN at [facility]* SEROLOGIES NEEDED [] OB consult only, [x] Co-management vs. [] Full MFM Care; [] Red Team [x] Blue Team Referring Provider: Itz Peoples [phone] [] [employer], or Medicare Insurance [x] Dating Criteria: LMP [...] [x] Blue Team Referring Provider: Itz Peoples [phone] [] [employer], or Medicare Insurance [x] Dating Criteria: LMP [...] Has Kelin CGM currently, sending logs through [employer] S/p Counseling Plan: [x] Referral to diabetes education as needed [x] Send weekly glucose log through [employer] for review vs. CGM login information - ongoing [] testing, growth surveillance and delivery timing per FGR problem [] 2 hour gtt 6 weeks Assessment & Plan (06/26/2025 10:57 PM CDT): 3 hour gtt (03/21/25): /-/- Current regimen: 06/26/2025 - Diet Controlled Has Kelin CGM currently, sending logs through [employer] S/p Counseling 04/03/2025 Plan: [x] Referral to diabetes education as needed [x] Send weekly glucose log through [employer] for review vs. CGM login information [...] needed [x] Send weekly glucose log through [employer] for review vs. CGM login information [...] needed [] Send weekly glucose log through [employer] for review vs. CGM login information [] [...] MFM -Diabetes education to be scheduled at [place] -Serial growth US -Consider delivery at 39 weeks (CS for breech scheduled with primary) - 2 hr GTT Assessment & Plan (10/10/2022 10:44 AM MINING MANAGER): We reviewed the management of a [...] [x] Blue Team Referring Provider: Itz Peoples [phone] [] or Medicare Insurance [x] Dating Criteria: [...] MOC: [] Method of feeding: [] Manager Planning: [] PP Depression Discussed: Accessory navicular bone of foot 04/09/2020 03/13/2025 Tibialis posterior tendinitis 03/19/2020 03/13/2025 Encounters Date Type Department Care Team Description 09/04/2025 3:30 PM MINING MANAGER - 09/04/2025 11:59 PM MINING MANAGER Hospital Encounter [facility] - Ultrasound [address] [place] [address], 7th Floor, [address] [place] [address] Diet controlled gestational diabetes mellitus (GDM) in second trimester; Poor growth affecting management of mother in second trimester, single or unspecified fetus; Supervision of high-risk , second trimester Discharge Disposition: Discharge to home or self care 08/28/2025 4:15 PM MINING MANAGER Office Visit [facility] Medicine Maternal- Medicine [address] [place] [address] 7th Floor [address] [place] [phone] Diet controlled gestational diabetes mellitus (GDM) in second trimester (Primary Dx); Poor growth affecting management of mother in second trimester, single or unspecified fetus; Supervision of high-risk , second trimester 08/28/2025 2:45 PM MINING MANAGER - 08/28/2025 11:59 PM MINING MANAGER Hospital Encounter [facility] - Ultrasound [address] [place] [address], 7th Floor, [address] [place] [address] Diet controlled gestational diabetes mellitus (GDM) in second trimester; Poor growth affecting management of mother in second trimester, single or unspecified fetus; History of delivery, currently ; AMA (advanced maternal age) multigravida 35+, first trimester Discharge Disposition: Discharge to home or self care 08/22/2025 10:27 AM CDT - 08/22/2025 11:59 PM CDT Hospital Encounter [facility] - Ultrasound [address] [place] [address], 7th [facility], [address] [place] [address] Diet controlled gestational diabetes mellitus (GDM) in second trimester; Poor growth affecting management of mother in second trimester, single or unspecified fetus; History of delivery, currently ; AMA (advanced maternal age) multigravida 35+, first trimester Discharge Disposition: Discharge to home or self care 08/15/2025 7:58 AM CDT - 08/15/2025 11:59 PM CDT Hospital Encounter [facility] - Ultrasound [address] [place] [address], [address] [place] [address], [address] [place] [address] Diet controlled gestational diabetes mellitus (GDM) in second trimester; Poor growth affecting management of mother in second trimester, single or unspecified fetus; History of delivery, currently ; AMA (advanced maternal age) multigravida 35+, first trimester Discharge Disposition: Discharge to home or self care 08/07/2025 2:15 PM CDT Office Visit [facility] Medicine Maternal- Medicine [address] [place] [address] 7th Floor [address] [place] [phone] Diet controlled gestational diabetes mellitus (GDM) in second trimester (Primary Dx); Poor growth affecting management of mother in second trimester, single or unspecified fetus; History of delivery, currently ; AMA (advanced maternal age) multigravida 35+, first trimester; Asthma during ; Supervision of high-risk , second trimester 08/07/2025 1:30 PM CDT Clinical Support [facility] Medicine Obstetrics and Gynecology [address] [place] [phone] Supervision of high-risk , second trimester (Primary Dx); Poor growth affecting management of mother in second trimester, single or unspecified fetus; Gestational diabetes mellitus (GDM) in second trimester, gestational diabetes method of control unspecified; AMA (advanced maternal age) multigravida 35+, first trimester 08/07/2025 12:30 PM CDT - 08/07/2025 11:59 PM CDT Hospital Encounter [facility] - Ultrasound [address] [place] [address], [address] [place] [address], [address] [place] [address] Poor growth affecting management of mother in second trimester, single or unspecified fetus; Supervision of other high risk , antepartum Discharge Disposition: Discharge to home or self care 08/01/2025 2:36 PM CDT - 08/01/2025 11:59 PM CDT Hospital Encounter [facility] - Ultrasound [address] [place] [address], [address] [place] [address] Poor growth affecting management of mother in second trimester, single or unspecified fetus; Supervision of other high risk , antepartum Discharge Disposition: Discharge to home or self care 07/25/2025 9:30 AM CDT Clinical Support [facility] Medicine Obstetrics and Gynecology [address] [place] [phone] Gestational diabetes mellitus (GDM) in second trimester, gestational diabetes method of control unspecified (Primary Dx); AMA (advanced maternal age) multigravida 35+, first trimester; Poor growth affecting management of mother in second trimester, single or unspecified fetus 07/25/2025 8:41 AM CDT - 07/25/2025 11:59 PM CDT Hospital Encounter [facility] - Ultrasound [address] [place] [address], [facility] Floor, [address] [place] [address] Poor growth affecting management of mother in second trimester, single or unspecified fetus; Supervision of other high risk , antepartum Discharge Disposition: Discharge to home or self care 07/25/2025 Telephone [facility] Medicine Maternal- Medicine [address] [place] [address] [address] [place] [phone] Chely Chin RN [facility] GLUCOSE LOG 07/18/2025 11:30 AM CDT Office Visit [facility] Medicine Maternal- Medicine [address] [place] [address] 7th Floor [address] [place] [address] Diet controlled gestational diabetes mellitus (GDM) in second trimester (Primary Dx); History of section complicating ; History of delivery, currently ; Poor growth affecting management of mother in second trimester, single or unspecified fetus; Supervision of other high risk , antepartum 07/18/2025 10:45 AM CDT - 07/18/2025 11:59 PM CDT Hospital Encounter [facility] - Ultrasound [address] [place] [address], 7th Floor, [address] [place] [address] Supervision of high-risk , first trimester Discharge Disposition: Discharge to home or self care 07/11/2025 2:30 PM CDT - 07/11/2025 11:59 PM CDT Hospital Encounter [facility] - Ultrasound [address] [place] [address], 7th Floor, [address] [place] [address] Supervision of high-risk , first trimester Discharge Disposition: Discharge to home or self care 07/04/2025 1:52 PM CDT - 07/04/2025 11:59 PM CDT Hospital Encounter [facility] - Ultrasound [address] [place] [address], 7th Floor, [address] [place] [address] Supervision of high-risk , first trimester Discharge Disposition: Discharge to home or self care 06/26/2025 3:15 PM CDT Office Visit [facility] Medicine [facility]etrics and Gynecology [address] [place] [phone] Diet controlled gestational diabetes mellitus (GDM) in [...] fetus 06/26/2025 2:30 PM CDT Ancillary Procedure [facility] Medicine [facility] Obstetrics and Gynecology [address] [place] [phone] Diet controlled gestational diabetes mellitus (GDM) [...] CDT Gender Identity Female 10/09/2022 6:18 PM MINING MANAGER Sexual Orientation Not on file Obstetrics [...] Estimated Date of Delivery 03/13/2025 - Present (09/12/2025) 10/13/2025 (set by Catie Mcconnell MD on 04/03/2025 based on Last Menstrual Period on 01/06/2025) Dating Summary Based On ASAF GA Diff Last Menstrual Period on 01/06/2025 10/13/2025 Working Ultrasound on 04/03/2025 10/16/2025 -3d GA:12w0d Comment:CRL report under Lynette ging Vitals Pregravid Weight Height TWG (As of 09/12/2025) Pregrav id BMI 160 cm (5' 3) [...] log reviewed and all within goal Has [employer] CGM currently, sending logs through [email or web address] S/p Counseling Plan: [x] Referral to diabetes education as needed [x] Send weekly glucose log through [email or web address] for review vs. CGM login information [...] with MFM - Twice weekly NSTs in [place] - q3 weeks growth scans - Currently scheduled for 37w delivery with primary OB. Discussed that given AC >3% today, recommend 38-39 weeks. Patient will discuss with primary OB. Relevant Orders US Biophysical Profile WO Test US Ob Follow Up Supervision of high-risk , second trimester Overview *Patient is OBGYN at [facility]* SEROLOGIES NEEDED [] OB consult only, [x] Co-management vs. [] Full MFM Care; [] Red Team [x] Blue Team Referring Provider: Itz Peoples [phone] [] or Medicare Insurance [x] Dating Criteria: [...] Trevor Amador MD at 09/01/2025 12:43 PM MINING MANAGER NG MANAGER NG MANAGER Associated attestation - Trevor Amador MD - 09/01/2025 12:43 PM MINING MANAGER I have seen and examined the patient. [...] Has Kelin CGM currently, sending logs through [email or web address] S/p Counseling 04/03/2025 Plan: [x] Referral to diabetes education as needed [x] Send weekly glucose log through [email or web address] for review vs. CGM login information [...] Monday in our office -weekly NSTs in [place] - q3 weeks growth scans -Delivery timing [...] Has Kelin CGM currently, sending logs through [email or web address] S/p Counseling 04/03/2025 Plan: [x] Referral to diabetes education as needed [x] Send weekly glucose log through [employer] for review vs. CGM login information - [...] Has Kelin CGM currently, sending logs through [email or web address] S/p Counseling 04/03/2025 Plan: [x] Referral to diabetes education as needed [x] Send weekly glucose log through [email or web address] for review vs. CGM login information [...] call us. Sincerely, Betty Gibbs MD, MS [employer] Delivery Specialist Division of Maternal- Medicine Department of Obstetrics and Gynecology [facility] in [facility] 06/26/2025 Progress Notes - Office Visi t [...] Has Kelin CGM currently, sending logs through [email or web address] S/p Counseling 04/03/2025 Plan: [x] Referral to diabetes education as needed [x] Send weekly glucose log through [employer] for review vs. CGM login information - [...] were spent in documentation. Catie Mcconnell MD Tank Crewmember Division of Maternal- Medicine Progress Notes - [...] for breech presentation. Baby was transferred to [facility] after intubation and received surfactant. 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 Plan: [] TVCL at [facility] for screening Gestational diabetes mellitus (GDM) [...] needed [] Send weekly glucose log through [employer] for review vs. CGM login information [] [...] [x] Blue Team Referring Provider: Itz Therondarrin [phone] [] or Medicare Insurance [x] Dating Criteria: [...] notes/labs from primary OB. Catie Mcconnell MD Tank Crewmember Division of Maternal- Medicine Progress Notes - Abstract - 03/13/2025 - GA:9w3d 03/13/2025 - 9w3d - Moon Quiñonez RMA Current OB records are under media tab. labs have not been drawn yet. 2022 op note is under media tab. Last Filed Vital Signs Vital Sign Reading Time Taken Comments Blood Pressure 123/72 08/28/2025 3:46 PM MINING MANAGER Pulse 74 08/28/2025 3:46 PM MINING MANAGER Temperature - - Respiratory Rate - - Oxygen Saturation 98% 08/28/2025 3:46 PM MINING MANAGER Inhaled Oxygen Concentration - - Weight 81 kg (178 lb 9.6 oz) 08/28/2025 3:46 PM MINING MANAGER Height 160 cm (5' 3) 08/28/2025 3:46 PM MINING MANAGER Body Mass Index 31.64 08/28/2025 3:46 PM MINING MANAGER Plan of Treatment Health Maintenance Due [...] Read Routine (OP Routine) 09/04/2025 3:30 PM MINING MANAGER Diet controlled gestational diabetes mellitus (GDM) in second trimester Poor growth affecting management of mother in second trimester, single or unspecified fetus Supervision of high-risk , second trimester US OB FOLLOW UP Schedule Routine, Read Routine (OP Routine) 08/28/2025 2:46 PM MINING MANAGER Diet controlled gestational diabetes mellitus (GDM) in [...] Biophysical Profile WO Test (09/04/2025 3:30 PM MINING MANAGER) Fetus# Fetus1 VIEWPOINT Placenta Details anterior, Previa-no, no placental masses VIEWPOINT Presentation Vertex VIEWPOINT Anatomical Region Laterality Modality N/A Ultrasound 09/04/2025 3:32 PM MINING MANAGER Impressions 09/04/2025 4:27 PM MINING MANAGER Vasquez IUP at 34w 3d who presents [...] US Ob Follow Up (08/28/2025 2:46 PM MINING MANAGER) Fetus# Fetus1 VIEWPOINT Estimated Weight 1,886 g&grams VIEWPOINT Placenta Details anterior, Previa-no, no placental masses VIEWPOINT Presentation Vertex VIEWPOINT Anatomical Region Laterality Modality Abdomen N/A Ultrasound 08/28/2025 2:47 PM MINING MANAGER Impressions 08/28/2025 3:53 PM MINING MANAGER IUP at 33+3 with known FGR 1. [...] than expected even though overall size is [id number] g at 11%, the AC remains smaller [...] is cephalic; anterior placenta. Betty Gibbs MD [facility] OB US PROCEDURES Final [...] Vertex presentation. Normal CHUNG. Betty Gibbs MD [facility] OB US PROCEDURES Final [...] is cephalic; anterior placenta. Betty Gibbs MD [facility] OB US PROCEDURES Final [...] Final Result from Last 3 Months Insurance [facility] Care Teams Rehabilitation Therapy Technician Relationship Specialty Start Date End Date No, Physician PCP - General 06/06/22
--- OUTSIDE RECORDS SUMMARY | 2025-09-12 06:30 | XMS_ITS | Clinical Summary ---
Author Organization [facility] [employer] Address [address] [place] [address] Care Team Providers Care Print Traffic Manager Name Role Phone Pcp, [facility] Primary Care Provider Unava ilable Source Comments [facility],non-owned Affiliates and Associated Physician Practices is amultiple site organization consisting of ambulatory clinics and hospital sitesin [place], [place], [place] and [place]. This disclosure is being madepursuant to the Care Everywhere program and may not contain all information available regarding this patient. Last updated [facility] Allergies Active Allergy Reactions Criticality Noted Date Comments Nitrous Oxide 05/07/2013 Penicillins 05/07/2013 Sulfa Drugs Other 07/03/2020 No reaction told by parents allergic due to family hx of sulfa allergy Medications * Be aware that medications may not be up to date on this document. Alwaysverify current medications with the patient. Mometasone Furoate (NASONEX NA) [place] into the nose as needed. prn Active [...] Immunization Administration Dates Next Due BCG VACCINE INTERMEDIATE 1990 DTP 01/21/1995, 1,1990,1990,04/23/19 90 HEP B [...] on file Legal Sex Female 1:40 PM COIL MAKER Gender Identity Not on file Sexual Orientation Not on file Last Filed Vital Signs Vital Sign Reading Time Taken Comments Blood Pressure 110/70 10/15/2014 8:25 AM COIL MAKER Pulse 96 10/15/2014 8:25 AM COIL MAKER Temperature 36.4 C (97.6 F) 10/15/2014 8:25 AM COIL MAKER Respiratory Rate 18 10/15/2014 8:25 AM COIL MAKER Oxygen Saturation 99% 10/15/2014 8:25 AM COIL MAKER Inhaled Oxygen Concentration - - Weight 62.1 kg (137 lb) 10/15/2014 8:25 AM COIL MAKER Height 160 cm (5' 3) 10/15/2014 8:25 AM COIL MAKER Body Mass Index 24.27 10/15/2014 8:25 AM COIL MAKER Plan of Treatment Health Maintenance Due Date [...] to complete this topic Insurance [facility] [place] [address] [place] [address] Care Teams Print Traffic Manager Relationship Specialty Start Date End Date Pcp, [facility] [place] Link PCP - General 01/04/24
[2025-09-12] MEDS: ACETAMINOPHEN 500 MG TABLET 1000 MG PO ×3 (06:40→19:17)
[2025-09-12] MEDS: LACTATED RINGERS 1,000 ML 125 ML IV CONT ×2 (06:50→08:19)
[2025-09-12 07:06] LABS: Hematocrit 33.5 % (37.0-47.0); Hemoglobin 11.0 g/dL (12.0-15.0); Immature Granulocyte Percent A 1.2 % (0-0.5); Lymphocytes Absolute Auto 2.47 K/mm3 (0.9-3.2); Mean Corpuscular HGB Conc 32.8 g/dl (32-36); Mean Corpuscular Hemoglobin 31.4 pg (26-34); Mean Corpuscular Volume 95.7 fl (80-100); Nucleated Red Blood Cells Absolute Auto 0.000 K/mm3 (0.0-0.012); Nucleated Red Blood Cells Perc 0.0 % (0.0-0.2); Platelet Count Result 305 k/mm3 (150-375); Red Blood Count 3.50 M/mm3 (4.2-5.4); White Blood Count 15.5 K/mm3 (4.5-10.0)
[2025-09-12] MEDS: AZITHROMYCIN IV 500 MG in SODIUM CHLORIDE 0.9% IV 250 ML IVPB (07:11)
--- NOTE | 2025-09-12 07:14 | PM.IMHP ---
H&P: HPI History of Present Illness Date/Time: 09/12/25 07:14 35-year-old 2 para 1001 female presents at 36 weeks with rupture membranes. This has been complicated by IUGR and gestational diabetes. Also call managed with MFM and these problems have not been issue, testing and all Dopplers have been normal as well. Have been having contractions and was given steroids earlier this week, spontaneous rupture membranes clear fluid this morning which was confirmed by ROM Plus. Chief Complaint: Review of Systems Review of Systems: All systems reviewed & are unremarkable except as noted in HPI and below PMFSH Past Medical History Medical History (Updated 09/12/25 @ 07:18 by Itz Peoples MD) Bleeding in early Gestational diabetes Thyroiditis Encounter for insertion of mirena IUD Heartburn Asthma Surgical History Surgical History (Updated 09/12/25 @ 07:17 by Itz Peoples MD) History of gynecological procedure (12/22/22) mirena iud insertion Delivery by section (11/01/22) primary c/s breech [place] teeth removed 2007 History of orthopedic surgery right ankle mass removed History of orthopedic surgery kipner procedure on left foot 03/2020 H/O right breast biopsy fibrocystic Hx of LASIK 2017 History of colposcopy benign H/O colonoscopy 2014 NL -hemorrhoids History of gynecological procedure (02/11/20) mirena iud removal and insertion Family History Family History Grandparent Diabetes mellitus paternal grandmother Hyperthyroidism paternal grandmother Breast cancer Maternal grandmother Hypertension paternal grandfather/ maternal grandmother Father Depression Grandparent AML (acute myeloid leukemia) Mother Hypertension Social History Social History Smoking status: Never smoker Second hand tobacco smoke exposure: No Alcohol intake: former Alcohol use details: social Substance use: never Substance use type: does not use Do You Feel Safe in your Home?: Yes Lack of Transportation: No Lack of Food: Never True Current Housing: I Have Housing Concerned About Future Housing: No Difficulty Paying Gas/Electric Bills: No Difficulty Paying for Meds: No Currently Unemployed: No Education: Master's Degree or Higher Difficulty w/ Childcare or Family Care: No Living arrangements: other Additional living arrangements comments: 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 Gender identity (if verbalized by the patient): Female Sexual Orientation (if Verbalized by the Patient): Straight or Heterosexual Spiritual care concerns: No Meds Home Medications and Allergies Home Medications ?Medication ?Instructions ?Recorded ?Confirmed ?Type loratadine 10 mg tablet (Claritin) 10 mg PO DAILY #90 tabs 02/06/23 09/10/25 Rx albuterol sulfate 90 mcg/actuation 1 puff inhalation Q4H PRN 02/14/25 09/10/25 Rx aerosol inhaler shortness of breath or wheezing #3 device fluticasone propionate 50 1 spray intranasal DAILY #16 grams 02/14/25 09/10/25 Rx mcg/actuation nasal spray,suspension montelukast 10 mg tablet 10 mg PO DAILY #90 tabs 02/14/25 09/10/25 Rx (Singulair) omeprazole 20 mg capsule,delayed 20 mg PO DAILY #90 caps 02/14/25 09/10/25 Rx release docosahexaenoic acid 200 mg See Rx Instructions PO .COMPLEX 03/04/25 09/10/25 History capsule ( DHA) blood-glucose sensor (FreeStyle #2 ea 05/19/25 09/10/25 Rx Kelin 2 Plus Sensor device) aspirin 81 mg tablet 81 mg PO DAILY 05/28/25 09/10/25 History mometasone 200 mcg/actuation HFA 1 puff inhalation DAILY 09/10/25 09/10/25 History aerosol inhaler (Asmanex HFA) nifedipine 10 mg capsule 10 mg PO Q6H #30 caps 09/10/25 Rx Allergies Allergy/AdvReac Type Severity Reaction Status Date / Time Sulfa (Sulfonamide Allergy Severe Ulcers Verified 09/10/25 16:10 Antibiotics) nitrofurantoin (From AdvReac Unknown Rash Verified 09/10/25 16:10 Macrobid) Vital Signs Vital Signs - 24 hr 09/12/25 06:30 09/12/25 06:31 09/12/25 06:36 Pulse Rate 87 Blood Pressure 113/62 Pulse Oximetry 99 100 09/12/25 06:41 09/12/25 06:43 09/12/25 06:48 Pulse Rate Blood Pressure Pulse Oximetry 100 100 100 09/12/25 06:53 09/12/25 06:58 09/12/25 07:00 Pulse Rate 84 Blood Pressure 93/45 L Pulse Oximetry 100 100 09/12/25 07:03 09/12/25 07:08 09/12/25 07:13 Pulse Rate Blood Pressure Pulse Oximetry 100 100 100 Exam Const: General: cooperative and healthy appearing Resp: Effort & Inspection: normal respiratory effort Auscultation: clear to auscultation bilaterally Cardio: Rate: regular rate Rhythm: regular rhythm GI: Inspection: normal to inspection Auscultation: normal bowel sounds : Bimanual exam- vagina & uterus: enlarged (Fundal height 34cm heart tone 140) H&P: Results Labs Labs: Short CBC 09/12/25 Range/Units 06:59 WBC 15.5 H (4.5-10.0) K/mm3 Hgb 11.0 L (12.0-15.0) g/dL Hct 33.5 L (37.0-47.0) % Plt Count 305 (150-375) k/mm3 Assessment and Plan Assessment and plan (1) 36 weeks gestation of : Code(s): Z3A.36 - 36 weeks gestation of Status: Acute (2) Previous delivery affecting : Code(s): O34.219 - Maternal care for unspecified type scar from previous delivery Status: Acute (3) IUGR (intrauterine growth restriction): Status: Acute (4) Gestational diabetes: Code(s): O24.419 - Gestational diabetes mellitus in , unspecified control Status: Acute (5) PROM (premature rupture of membranes): Code(s): O42.90 - Premature rupture of membranes, unspecified as to length of time between rupture and onset of labor, unspecified weeks of gestation Status: Acute (6) Encounter for female sterilization procedure: Code(s): Z30.2 - Encounter for sterilization Status: Acute Plan Proceed with repeat delivery with bilateral salpingectomy.
--- NOTE | 2025-09-12 07:18 | WPDHPUPDATE1 ---
History and Physical Update Update Date/Time: 09/12/25 07:18 History and Physical has been reviewed, including an updated exam of the patient. There are NO changes in the patient's condition. Risks, benefits, and alternatives have been discussed and questions answered. Patient agrees to proceed with procedure.
[2025-09-12] MEDS: SCOPOLAMINE 1 MG PATCH 1 PATCH TRANSDERM (07:28)
--- NOTE | 2025-09-12 07:40 | LDADM ---
This patient, Phoebe Mcmullen, was admitted to Labor/Delivery/Recovery 119 on 09/12/25 at 06:15. Plans for labor, pain management and were discussed with patient. Patient/family oriented to hospital policies and general routines including ID bracelet, bed and alarms, visiting hours, pain management, procedures, bathroom and other care routines, personal items, smoking policy, room service/diet and guest tray routines, security routines, and visiting hours. Patient/Family are encouraged to report perceived risks to care and to ask questions if they do not understand what they are told or what they should do. See OBIX for further documentation.
[2025-09-12 07:43] LABS: Syphilis IgG/IgM Antibody Non-Reactive (Nonreactive)
[2025-09-12] MEDS: FAMOTIDINE 20 MG/2 ML VIAL IV PUSH (07:55)
[2025-09-12] MEDS: ONDANSETRON INJ 4 MG/2 ML VIAL IV PUSH (07:56)
[2025-09-12] MEDS: ceFAZolin 2 GM in SODIUM CHLORIDE 0.9% IV 50 ML 100 ML IVPB (09:06)
--- NOTE | 2025-09-12 09:07 | WPDANESEPPF ---
Anes - Initial Pre Proc Eval Procedure: Operation Date: 09/12/25 07:30 Proposed Procedures p Repeat Section with Bilateral Salpingectomy - Itz Peoples MD Date/Time: 09/12/25 09:07 Surgeon: Itz Peoples MD Pre Op Diagnosis: C/Section Patient Data Age: 35 Gender: F Height: 1.6 m Weight: 79.5 kg Last Vital Signs Pulse 72 09/12/25 09:00 BP 108/65 09/12/25 09:00 Pulse Ox 99 09/12/25 07:36 O2 Del Method Room Air 09/12/25 07:33 Allergies Allergy/AdvReac Type Severity Reaction Status Date / Time Sulfa (Sulfonamide Allergy Severe Ulcers Verified 09/12/25 07:42 Antibiotics) nitrofurantoin (From AdvReac Unknown Rash Verified 09/12/25 07:42 Macrobid) Home Medications ?Medication ?Instructions ?Recorded ?Confirmed ?Type loratadine 10 mg tablet (Claritin) 10 mg PO DAILY #90 tabs 02/06/23 09/12/25 Rx albuterol sulfate 90 mcg/actuation 1 puff inhalation Q4H PRN 02/14/25 09/10/25 Rx aerosol inhaler shortness of breath or wheezing #3 device fluticasone propionate 50 1 spray intranasal DAILY #16 grams 02/14/25 09/12/25 Rx mcg/actuation nasal spray,suspension montelukast 10 mg tablet 10 mg PO DAILY #90 tabs 02/14/25 09/12/25 Rx (Singulair) omeprazole 20 mg capsule,delayed 20 mg PO DAILY #90 caps 02/14/25 09/12/25 Rx release docosahexaenoic acid 200 mg See Rx Instructions PO .COMPLEX 03/04/25 09/12/25 History capsule ( DHA) blood-glucose sensor (FreeStyle #2 ea 05/19/25 09/12/25 Rx Kelin 2 Plus Sensor device) aspirin 81 mg tablet 81 mg PO DAILY 05/28/25 09/12/25 History mometasone 200 mcg/actuation HFA 1 puff inhalation DAILY 09/10/25 09/12/25 History aerosol inhaler (Asmanex HFA) nifedipine 10 mg capsule 10 mg PO Q6H #30 caps 09/10/25 09/12/25 Rx Laboratory Tests 09/12/25 09/12/25 06:54 06:59 WBC 15.5 H K/mm3 (4.5-10.0) RBC 3.50 L M/mm3 (4.2-5.4) Hgb 11.0 L g/dL (12.0-15.0) Hct 33.5 L % (37.0-47.0) MCV 95.7 fl (80-100) MCH 31.4 pg (26-34) MCHC 32.8 g/dl (32-36) RDW 13.4 % (11.5-14.5) Plt Count 305 k/mm3 (150-375) MPV 8.9 fl (7.4-10.4) Immature Gran % (Auto) 1.2 H % (0-0.5) Neut % (Auto) 77.1 H % (45.5-73.1) Lymph % (Auto) 16.0 L % (18.3-44.2) [place] % (Auto) 5.5 % (2.6-8.5) Eos % (Auto) 0.1 % (0-4.4) Baso % (Auto) 0.1 L % (0.2-1.2) Lymph # (Auto) 2.47 K/mm3 (0.9-3.2) [place] # (Auto) 0.9 H K/mm3 (0.1-0.6) Eos # (Auto) 0.0 K/mm3 (0-0.3) Baso # (Auto) 0.0 K/mm3 (0.0-0.1) Abs Immat Gran (auto) 0.18 H K/mm3 (0.00-0.031) Absolute Neuts (auto) 11.9 H K/mm3 (1.3-6.7) Absolute Nucleated RBC 0.000 K/mm3 (0.0-0.012) Nucleated RBC % 0.0 % (0.0-0.2) POC Capillary Glucose 127 H mg/dl (65-105) Syphilis IgG/IgM Ab Non-reactive (Nonreactive) Blood Type O Negative Antibody Screen Positive Antibody Identification Passive Due to RH Imm Glob Antigen Identification TNP RAJESH, IgG Interpret Not Performed RAJESH, Poly Interpret Negative RAJESH, Complement Interp Not Performed Patient hx anesthesia problems: none Family hx anesthesia problems: none Results Review: All pre-operative results and documents have been reviewed as part of the pre-operative evaluation. [facility] Past Medical History Medical History (Updated 09/12/25 @ 07:18 by Itz Peoples MD) Bleeding in early Gestational diabetes Thyroiditis Encounter for insertion of mirena IUD Heartburn Asthma Surgical History Surgical History (Updated 09/12/25 @ 07:17 by Itz Peoples MD) History of gynecological procedure (12/22/22) mirena iud insertion Delivery by section (11/01/22) primary c/s breech [place] teeth removed 2006 History of orthopedic surgery right ankle mass removed History of orthopedic surgery kipner procedure on left foot 03/2020 H/O right breast biopsy fibrocystic Hx of LASIK 2017 History of colposcopy benign H/O colonoscopy 2014 NL -hemorrhoids History of gynecological procedure (02/11/20) mirena iud removal and insertion Family History Family History Grandparent Diabetes mellitus paternal grandmother Hyperthyroidism paternal grandmother Breast cancer Maternal grandmother Hypertension paternal grandfather/ maternal grandmother Father Depression Grandparent AML (acute myeloid leukemia) Mother Hypertension Social History Social History Smoking status: Former smoker Tobacco type: e-cigarettes/vaping Second hand tobacco smoke exposure: No Alcohol intake: former Alcohol use details: social Substance use: never Substance use type: does not use Do You Feel Safe in your Home?: Yes Lack of Transportation: No Lack of Food: Never True Current Housing: I Have Housing Concerned About Future Housing: No Difficulty Paying Gas/Electric Bills: No Difficulty Paying for Meds: No Currently Unemployed: No Education: Master's Degree or Higher Difficulty w/ Childcare or Family Care: No Living arrangements: other Additional living arrangements comments: 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 Gender identity (if verbalized by the patient): Female Sexual Orientation (if Verbalized by the Patient): Straight or Heterosexual Spiritual care concerns: No Anes - Eval Final PreProcedure Day of Procedure 09/12/25 09:07 Patient weight: obese Heart: regular rate and rhythm Lungs: clear to auscultation and normal air movement Airway: Mallampati scale class II Neurological: alert and oriented Last oral intake: >/= 8 hours ASA classification: III Emergent: no Anesthetic plan: proceed Anesthesia type and monitoring: regional spinal and standard monitoring Results Review: All pre-operative results and documents have been reviewed as part of the pre-operative evaluation. Informed Consent: The patient's anesthetic plan and its attendant risks and benefits were discussed with the patient/family/POA. Questions were solicited and answers provided to the satisfaction of the patient/family/POA.
--- NOTE | 2025-09-12 09:43 | S_PTH ---
PATIENT: Phoebe Mcmullen LOC: ANH[facility]2 U#:[id number] AGE/SX: 35/F ROOM: 281 RE09/12/[address]: Itz Peoples MD : 1990 BED: 00 DIS: 09/15/2025 SPEC #: [id number] RECD: 09/12/25 15:11 STATUS: KAL REQ #: [id number] MUNIRA: 09/12/25 09:[address]: Itz Peoples DEPT: [facility] Surgical RECD BY: Shanae Robb ENTERED: 09/12/25 15:11 SP TYPE: Surgical OTHR DR: UNKNOWN,DOCTOR Tissues: A - Placenta B - Fallopian Tube Bilateral Procedures: Gross and Microscopic Level 2 Hematoxylin and Eosin Stain Gross and Microscopic Level 5
--- NOTE | 2025-09-12 10:15 | W.PM.OBCSD ---
OB - Delivery Note Procedure Delivery date: 09/12/25 Pre-op diagnosis: Gestational Diabetes, Intrauterine Growth Restriction (IUGR), Previous Delivery and Other ( undesired fertility) Post-op Diagnosis: Same Procedure Performed: Repeat Secondary branch: low cervical, transverse and Tubal Ligation Surgeon: Itz Peoples MD Anesthesia type: Spinal Description of Procedure/Findings: patient prepped and draped in the usual manner for this procedure. Pfannenstiel incision was made and carried down to the fascia. This was extended bilaterally the length of the skin incision. superiorly and inferiorly fascia dissected away from the rectus muscles which were bluntly dissected peritoneum was entered without difficulty. Bladder flap was developed. Uterus scored in low transverse manner clear fluid noted. Vertex was delivered without difficulty and the rest the baby as well. Placenta was manually removed. Uterus was exteriorized cleared of membranes and clots and was well contracted. 0 Monocryl in a running interlocking manner was then used to close the incision of the uterus. Good hemostasis was noted. Using the LigaSure mesial salpinx was cauterized and cut bilaterally and tubes removed. Uterus was returned to the abdomen, gutters were cleared received 2 cycles fluids and tissues. Fascia was approximated using 0 Vicryl running manner from the left angle midline and from the right angle to the midline. 0 plain suture was used was approximates the subcutaneous tissue and a 4-0 Monocryl was used to close the skin edges. Patient was sent to recovery room stable condition. Estimated Blood Loss: 500 Drains: No Packing: No Pathology: Yes Complications: No immediate complications Condition: Stable Disposition: PACU Baby Gestational Age by Date: 35 gender: Female Weight (pounds): 4 Weight (ounces): 13 presentation: vertex Placenta delivery description: Manual Removal Cord Vessel Description: 3 Vessels score one minute: 9 score five minutes: 9
--- NOTE | 2025-09-12 10:20 | SUR.OPER ---
100 ml remains in IV fluids of LR with 30 units Pitocin.
[2025-09-12] MEDS: LORATADINE 10 MG TABLET PO (10:39)
[2025-09-12] MEDS: KETOROLAC 15 MG/ML VIAL (*BKC) IV PUSH ×3 (10:40→19:17)
--- NOTE | 2025-09-12 10:40 | SUR.OPER ---
Hung a bag of IV fluids of 1000 ml LR with 10 units Pitocin that anesthesia had prepared for her next IV fluids.
[2025-09-12] MEDS: LIDOCAINE 5% PATCH 1 PATCH TRANSDERM (11:40)
[2025-09-12] MEDS: MORPHINE SULFATE INJ (*CRX) 10 MG/ML AMP 2.5 MG IV PUSH (11:45)
--- NOTE | 2025-09-12 13:00 | SUR.PHASEI ---
150 ml wasted from last bag of IV fluids mixed by anesthesia.
[2025-09-12] MEDS: oxyCODONE HCL (*CRX) 5 MG TAB IR PO ×3 (13:18→23:50)
[2025-09-12] MEDS: OXYTOCIN 30 UNITS/NS 500 ML 30 UNITS/500 ML BAG 125 UNITS IV CONT (13:21)
[2025-09-12] MEDS: SIMETHICONE 80 MG TAB.CHEW PO ×2 (13:23→19:17)
--- NOTE | 2025-09-12 13:36 | PC.NURSE ---
Patient transferred to post room #281 per stretcher from labor and delivery. Support person present. Oriented to unit, room, information board, rooming in, admission packet and security measures. Patient verbalizes understanding.
--- NOTE | 2025-09-12 15:00 | PC.NURSE ---
Introductions were made, then consulted with patient to assess needs related to . Discussed with mother her?plans to feed?her and the?experience so far. Per mother she is using a nipple, is going to pump and also bottle feed formula as well. Breast pump provided due to mother's request, she does have her own breast pump at home. Instructions given on cleaning, care, usage, that there should be no pain, pumping schedule for milk production, collection, and storage of human milk. Patient was assessed for correct placement, flange size, to pump for comfort and nipple stretching/stimulation for adequate milk production, she knows to use the pump if she uses the nipple shield to breast feed and also if does not go to the breast and only receives a bottle. Parents are encouraged to record the pumping schedule on the feeding sheet.?Mother voiced understanding of the education shared along with mom/baby guide and the pump measurement, flange fit handout for additional resource information. Mother voiced understanding of information and will call if there is a request for assistance. Reported to the Primary RN.
[2025-09-12] MEDS: DEXTROSE 5%/0.45% SOD CHL 1,000 ML 125 ML IV CONT (18:00)
[2025-09-12] MEDS: DOCUSATE SODIUM 100 MG CAPSULE PO (19:16)
[2025-09-13] MEDS: KETOROLAC 15 MG/ML VIAL (*BKC) IV PUSH (01:17)
[2025-09-13] MEDS: ACETAMINOPHEN 500 MG TABLET 1000 MG PO ×4 (01:17→19:00)
[2025-09-13] MEDS: oxyCODONE HCL (*CRX) 5 MG TAB IR 10 MG PO ×3 (04:20→22:05)
[2025-09-13 04:25] LABS: Hematocrit 28.7 % (37.0-47.0); Hemoglobin 9.3 g/dL (12.0-15.0); Immature Granulocyte Percent A 0.9 % (0-0.5); Lymphocytes Absolute Auto 2.65 K/mm3 (0.9-3.2); Mean Corpuscular HGB Conc 32.4 g/dl (32-36); Mean Corpuscular Hemoglobin 31.7 pg (26-34); Mean Corpuscular Volume 98.0 fl (80-100); Nucleated Red Blood Cells Absolute Auto 0.000 K/mm3 (0.0-0.012); Nucleated Red Blood Cells Perc 0.0 % (0.0-0.2); Platelet Count Result 255 k/mm3 (150-375); Red Blood Count 2.93 M/mm3 (4.2-5.4); White Blood Count 14.1 K/mm3 (4.5-10.0)
[2025-09-13] MEDS: IBUPROFEN 600 MG TABLET PO ×3 (07:09→19:00)
[2025-09-13] MEDS: DOCUSATE SODIUM 100 MG CAPSULE PO ×2 (07:10→17:34)
[2025-09-13] MEDS: MULTIVIT/MIN/PREN/FOL AC/IRON TABLET 1 TAB PO (07:10)
[2025-09-13] MEDS: SIMETHICONE 80 MG TAB.CHEW PO ×3 (07:10→17:34)
--- NOTE | 2025-09-13 08:51 | P.PNOB_ITS ---
OB - PN: Subj Subjective Date/time seen: 09/13/25 08:51 S: Pain well tolerated. Diet ambulation voiding without difficulty. going well. O: VSS afebrile Abdomen: Positive bowel sounds soft, incision with dressing in place Labs: Noted A: Postoperative day 1 status post repeat and bilateral salpingectomy. Plan: Iron infusion for mild anemia. Routine post /postoperative care. Home when baby to do so. OB - PN: Obj Data Labs 09/13/25 04:05 Labs: Laboratory Results - last 24 hr 09/12/25 09/13/25 06:59 04:05 WBC 14.1 H RBC 2.93 L Hgb 9.3 L Hct 28.7 L MCV 98.0 MCH 31.7 MCHC 32.4 RDW 13.4 Plt Count 255 MPV 9.1 Immature Gran % (Auto) 0.9 H Neut % (Auto) 73.0 Lymph % (Auto) 18.8 [place] % (Auto) 6.3 Eos % (Auto) 0.8 Baso % (Auto) 0.2 Lymph # (Auto) 2.65 [place] # (Auto) 0.9 H Eos # (Auto) 0.1 Baso # (Auto) 0.0 Abs Immat Gran (auto) 0.12 H Absolute Neuts (auto) 10.3 H Absolute Nucleated RBC 0.000 Nucleated RBC % 0.0 Blood Type O Negative Antibody Screen Positive Antibody Identification Passive Due to RH Imm Glob Cancelled Antigen Identification TNP Cancelled RAJESH, IgG Interpret Cancelled RAJESH, Poly Interpret Cancelled RAJESH, Complement Interp Not Performed Cancelled Screen Negative Baby's Blood Type O pos Baby's RAJESH Positive Doses of RhIg Required 1 OB - PN A/P Time Spent With Patient Time: Total time spent is greater than 50% in coordination of care (as documented) at patient's floor/unit and/or counseling patient:
[2025-09-13 08:52] VITALS: BP 122/60; PULSE 57; RESP 16; TEMP 37.1; O2SAT 97
[2025-09-13] MEDS: IRON SUCROSE COMPLEX 400 MG, IRON SUCROSE COMPLEX 100 MG in SODIUM CHLORIDE 0.9% IV 250 ML 78.57 MG IVPB (09:04)
[2025-09-13] MEDS: oxyCODONE HCL (*CRX) 5 MG TAB IR PO (10:19)
[2025-09-13] MEDS: LIDOCAINE 5% PATCH 1 PATCH TRANSDERM (12:16)
[2025-09-13] MEDS: RHO(D) IMMUNE GLOBULIN 300 MCG/2 ML SYRINGE IM (16:40)
--- NOTE | 2025-09-13 18:14 | WPDANLDNPN2 ---
Anes-Prog Note L&D-Neuraxial Date/Time: 09/13/25 18:14 Patient feedback: Patient satisfied with post-operative pain management.
--- NOTE | 2025-09-13 18:14 | WPDANLDPN2 ---
Anes-Prog Note L&D Date/Time: 09/13/25 18:14 Neuro status: Neuro function grossly intact. Cardiovascular status: normal Respiratory status: normal Airway patency: baseline Mental status: baseline Post-Op hydration status: normal Vital Signs: Last Vital Signs Temp 37.1 C 09/13/25 08:52 Pulse 57 L 09/13/25 08:52 Resp 16 09/13/25 08:52 BP 122/60 09/13/25 08:52 Pulse Ox 97 09/13/25 08:52 O2 Del Method Room Air 09/13/25 09:00 Pain score (VAS): 0 I/O: Intake & Output 09/13/25 09/13/25 09/13/25 07:59 15:59 23:59 Intake Total 1500 240 Output Total 2000 Balance -500 240 Post-procedural complaints: none Patient feedback: Patient satisfied with anesthetic care.
[2025-09-13 19:00] VITALS: BP 116/66; PULSE 68; RESP 18; TEMP 36.6; O2SAT 98
--- NOTE | 2025-09-13 21:50 | PCRCNOTE ---
Patient states that she uses her home inhaler 1puff Qam and her mild Asthma is appropriately managed with this.
[2025-09-14] MEDS: IBUPROFEN 600 MG TABLET PO ×4 (01:00→19:00)
[2025-09-14] MEDS: ACETAMINOPHEN 500 MG TABLET 1000 MG PO ×4 (01:00→19:00)
[2025-09-14] MEDS: SIMETHICONE 80 MG TAB.CHEW PO ×3 (06:59→17:18)
[2025-09-14] MEDS: DOCUSATE SODIUM 100 MG CAPSULE PO ×2 (06:59→17:18)
[2025-09-14 08:45] VITALS: BP 120/79; PULSE 69; RESP 18; TEMP 37; O2SAT 98
[2025-09-14] MEDS: oxyCODONE HCL (*CRX) 5 MG TAB IR PO ×4 (08:46→21:00)
--- NOTE | 2025-09-14 09:50 | PM.OBPNVD ---
OB - PN: Subj Subjective Date/time seen: 09/14/25 09:55 S: Pain better today. O: VSS afebrile Abdomen soft A: Postop day 2 repeat with salpingectomy P: Routine postoperative/ care OB - PN: Obj Data Labs 09/13/25 04:05 Labs: Laboratory Results - last 24 hr 09/13/25 04:05 Blood Type O Negative Antibody Screen Positive Antibody Identification Cancelled Antigen Identification Cancelled RAJESH, IgG Interpret Cancelled RAJESH, Poly Interpret Cancelled RAJESH, Complement Interp Cancelled Screen Negative Baby's Blood Type O pos Baby's RAJESH Positive Doses of RhIg Required 1 OB - PN A/P Time Spent With Patient Time: Total time spent is greater than 50% in coordination of care (as documented) at patient's floor/unit and/or counseling patient:
[2025-09-14] MEDS: LIDOCAINE 5% PATCH 1 PATCH TRANSDERM (12:57)
[2025-09-14 19:00] VITALS: BP 128/76; PULSE 67; RESP 18; TEMP 36.8; O2SAT 99
[2025-09-15] MEDS: ACETAMINOPHEN 500 MG TABLET 1000 MG PO ×2 (00:30→06:31)
[2025-09-15] MEDS: IBUPROFEN 600 MG TABLET PO ×2 (00:30→06:31)
[2025-09-15] MEDS: oxyCODONE HCL (*CRX) 5 MG TAB IR PO ×3 (00:57→08:49)
[2025-09-15 07:15] VITALS: BP 134/84; PULSE 57; RESP 16; TEMP 36.9; O2SAT 98
--- NOTE | 2025-09-15 07:43 | P.DS_ITS ---
DS: Admitting Diagnosis Discharge Date 09/15/2020 Admitting Diagnosis DS: Discharge Diagnosis Discharge Diagnosis (1) , delivered: Code(s): O80 - Encounter for full-term uncomplicated delivery Status: Acute OB - DS: Summary OB Procedures : None OB Procedures Intrapartum: low cervical, transverse and Tubal ligation OB Procedures: : None Peripartum Data Procedures: Procedures Operation Date: 09/12/25 09:00 Actual Procedure Side Surgeon p Section with bilateral salpingectomy Itz Peoples MD Time Spent with Patient Time attestation: Total time spent providing and/or coordinating discharge services: DS: Data Data Completed and Pending Pending studies at discharge: Pending at discharge 09/12/25 09:43 Surgical [PTH] Routine Surgical [PTH] Routine Labs on day of discharge: Labs from last 24 hours 09/13/25 04:05 Blood Type O Negative Antibody Screen Positive Antibody Identification Cancelled Antigen Identification Cancelled RAJESH, IgG Interpret Cancelled RAJESH, Poly Interpret Cancelled RAJESH, Complement Interp Cancelled Screen Negative Baby's Blood Type O pos Baby's RAJESH Positive Doses of RhIg Required 1 Discharge Plan Discharge Discharging Clinician: Itz Peoples Patient Disposition: Home Activity: no straining, no driving, follow weight bearing status and pelvic rest Diet: as tolerated Wound Care Instructions: incision open to air Patient Instructions: Antibiotic Form, Electronic [employer] (GEN) Patient Language: Uzbek Stand Alone Forms: General Discharge Information Follow-up/Referrals: Itz Peoples MD [Physician, [employer]] - 4 Weeks Discharge Medications: New oxycodone 5 mg Tablet 5 mg PO Q4H PRN (Reason: Pain Rated 4-6) Qty: 20 0RF ibuprofen 600 mg Tablet 600 mg PO Q6HR Qty: 30 0RF Continued loratadine [Claritin] 10 mg tablet 10 mg PO DAILY Qty: 90 4RF montelukast [Singulair] 10 mg tablet 10 mg PO DAILY Qty: 90 3RF fluticasone propionate 50 mcg/actuation spray,suspension 1 spray INTRANASAL DAILY Qty: 16 4RF Rx Instructions: administer into each nostril albuterol sulfate 90 mcg/actuation HFA aerosol inhaler 1 puff inhalation Q4H PRN (Reason: shortness of breath or wheezing) Qty: 3 3RF omeprazole 20 mg capsule,delayed release(DR/EC) 20 mg PO DAILY Qty: 90 3RF DHA 200 mg capsule See Rx Instructions PO .COMPLEX Rx Instructions: 1 tablet orally; Asmanex HFA 200 mcg/actuation HFA aerosol inhaler 1 puff inhalation DAILY Discontinued aspirin 81 mg tablet 81 mg PO DAILY nifedipine 10 mg capsule 10 mg PO Q6H Qty: 30 0RF Rx Instructions: Take every 6 hours for the next 2 days and then every 6 hours as needed for contractions. (DME) Loteda Kelin 2 Plus Sensor Device See Rx Instructions .Route Qty: 2 6RF Rx Instructions: As directed Date of admission: 09/12/25 06:15 Primary Care Provider: UNKNOWN,DOCTOR Admitting Provider: Itz Peoples Attending physician on admission: Itz Peoples Condition: Stable
--- NOTE | 2025-09-15 08:00 | PC.NURSE ---
Consulted with mother concerning needs and she shared her ability to independently use her breast pump and feed infant optimally with a bottle, she had chosen to not put infant to breast with a nipple shield for now. Mother is feeding appropriately for growth of and understands stimulating to eat if needed. has had appropriate feedings in the last 24 hours meets the outcomes for weight, output, blood sugar and jaundice at this time. Reinforced understanding of milk production, transition of milk, signs of adequate intake, transition of stool, prevention/relief of engorgement, plugged ducts, mastitis, responsive watching for feeding cues, the different methods of stimulating to feed, community resources, and when to call a provider using the resource of the feeding sheet along with the mom and baby guide. Mother voiced understanding of the information shared, is confident to continue effectively feed her at home, when to call for assistance, denies any additional assistance or education at this time. Reported to the Primary RN.
[2025-09-15] MEDS: SIMETHICONE 80 MG TAB.CHEW PO (08:49)
[2025-09-15] MEDS: DOCUSATE SODIUM 100 MG CAPSULE PO (08:49)
[2025-09-15] MEDS: MULTIVIT/MIN/PREN/FOL AC/IRON TABLET 1 TAB PO (08:49)
[2025-09-15 11:46] LABS: OBXCEM ROM Plus Positive (Negative)
[2025-09-16 10:21] VITALS: BP 125/76; PULSE 85; RESP 18; TEMP 36.7; O2SAT 100
== END 2025-09-15 10:36 | disposition home or self-care (01) | DRG 783 ==
LOC: ANHLDR 08:30 → ANHOB2 13:37
PROVIDERS: Admitting Provider Obstetrics & Gynecology; Visit Provider Obstetrics & Gynecology
PROC: 10D00Z1 Extraction of Products of Conception, Low, Open Approach (ICD-10-PCS; CPT 59514; principal; 2025-09-12 07:30)
DX: O36.5930 Maternal care for other known or suspected poor fetal growth, third trimester, not applicable or unspecified (principal); O60.14X0 Preterm labor third trimester with preterm delivery third trimester, not applicable or unspecified; Z3A.35 35 weeks gestation of pregnancy; Z37.0 Single live birth; O34.211 Maternal care for low transverse scar from previous cesarean delivery; O24.429 Gestational diabetes mellitus in childbirth, unspecified control; Z30.2 Encounter for sterilization
CPT/HCPCS: 36415; 82948; 84112; 85025; 85461; 86593; 86850; 86880; 86900; 86901; 86902; 88302; 88307; 90384; J0690; A9270; J0456; J1756; J1885; J2270; J2274; J2405; J2590; J2790; J7050; J7120